=== PATIENT | male | born 1960 | race Caucasian/White ===

== ENCOUNTER 2017-09-10 16:43 | Emergency (ER) | payer MEDICAID, SELFPAY ==
[2017-09-10 16:44] VITALS: BP 123/93; PULSE 98; RESP 16; TEMP 37.1; O2SAT 99; BMI 28.0
[2017-09-10 16:48] VITALS: BP 141/92; PULSE 98; RESP 16; O2SAT 97
[2017-09-10] MEDS: Ketorolac 30 MG/ML Syringe IV (17:10)
--- NOTE | 2017-09-10 18:37 | ED.VISSUMM ---
- ER Visit Summary Date of Service: 09/10/17 Chief Complaint: Pain bilateral posterior thighs History of Present Illness: The patient is a 56 M 5 by ambulance for severe posterior bilateral thigh pain that sometimes goes down to my And sometimes goes up to my low back . He denies fever, chills and night sweats. He denies weight gain or weight loss. He denies history of any type of trauma. He denies dysuria, frequency, urgency hematuria. He denies bowel bladder dysfunction. Denies saddle paresthesia anesthesia. He denies foot drop. He denies weakness in his quadricep muscles going up or down steps. Per old records he has history of CVA, angina pectoris, and end-stage renal disease. Physical Examination: Patient is supine. Passive extension of the right and left leg past 5? causes him severe pain. He has severe pain to light touch of his posterior right and left thigh. No skin lesions are noted. Normal perianal sensation. DTRs patella and ankle are 2+ and symmetric. EHL is intact. Is able to plantar dorsiflex his foot with no weakness appreciated. He complained of pain that posteriorly with logrolling. Not complain of pain in the groin or over the greater trochanteric region either side. He has minimal low back pain to palpation. Abdomen is soft nontender no palpable subtle mass abdominal bruit. DP and PT pulses are palpable. He has hair on all of his toes. His normal color to the feet and capillary refill is normal. Test Results: None were obtained Emergency Department Course and Treatment: IV was established received 30 mm Toradol since he denied renal disease. Prior to completion of home-going instruction was informed he had chest pain. Nurse ordered an EKG. Patient was reassessed. He has reproducible epigastric discomfort. After further questioning he describes the pain as a burning sensation. He states he has history of acid reflux and has been dealing with this issue for years. He was treated with a GI cocktail. He was reassessed at 20 005 and is markedly better. Treatment Plan: Reassessed at 1835 and is markedly better. Disposition: Discharge to home in stable improved condition with family Impression: Bilateral posterior thigh pain of muscular etiology This note was generated with [employer] dictation software. It may contain incorrect words, spelling, and punctuation that were not noted in review of the chart prior to signing ED Disposition - Plan for ED Patient: Disposition: Home or Assisted Living Chief Complaint: Other, Pain/Inj Instructions: ED Muscle Aching, ED GERD Referrals: Care Physician,No Primary [Primary Care Provider] -
[2017-09-10 18:52] VITALS: BP 143/102; PULSE 93; RESP 20; O2SAT 98
--- NOTE | 2017-09-10 19:52 | EKG12_ITS ---
Test Reason : CP Blood Pressure : / mmHG Vent. Rate : 094 BPM Atrial Rate : 094 BPM P-R Int : 146 ms QRS Dur : 082 ms QT Int : 340 ms P-R-T Axes : 034 006 027 degrees QTc Int : 425 ms Normal sinus rhythm Septal infarct , age undetermined Abnormal ECG Confirmed by WARREN LOPEZ, ROCK ([id number]), editor farm journal VIC GARDINER ([id number]) on 09/13/2017 4:05:59 PM Referred By: SHARLENE Confirmed By:ROCK KELLEY MD
[2017-09-10 20:26] VITALS: BP 154/107; PULSE 96; RESP 18; O2SAT 97
== END 2017-09-10 20:26 | disposition home or self-care (01) ==
PROVIDERS: Emergency Provider Emergency Medicine
DX: M79.1 Myalgia (principal); M54.5 Low back pain; R10.13 Epigastric pain; Z86.73 Personal history of transient ischemic attack (TIA), and cerebral infarction without residual deficits; N18.6 End stage renal disease; I20.9 Angina pectoris, unspecified; K21.9 Gastro-esophageal reflux disease without esophagitis; Z79.82 Long term (current) use of aspirin; Z79.899 Other long term (current) drug therapy; Z72.0 Tobacco use
CPT/HCPCS: 93005; 96374; 99285; A4216

== ENCOUNTER 2017-09-12 02:17 | Emergency (ER) | payer MEDICAID, SELFPAY ==
[2017-09-12 02:18] VITALS: BP 148/96; PULSE 70; RESP 20; TEMP 36.5; O2SAT 93; BMI 28.0
--- NOTE | 2017-09-12 03:22 | RAD_ITS ---
STUDY: X-RAY - LUMBAR SPINE REASON FOR EXAM: Male, 56 years old. Back pain TECHNIQUE: 3 view(s) of the lumbar spine were obtained. COMPARISON: None FINDINGS: Normal lumbar lordosis. There is no substantial scoliosis. There is a normal alignment of the vertebrae. Normal vertebral bodies and endplates. There is degenerative loss of disc height at L5-S1. There is no demonstrated fracture. There is degenerative facet arthropathy at L4-L5 and L5-S1. The soft tissue structures are unremarkable. RAD/Lumbar Spine 2 or 3 Views IMPRESSION: Degenerative changes of the spine, as detailed above. There is NO fracture or malalignment. Electronically Signed: Ricardo Boyd MD at 4:58 EDT , Service support ,
--- NOTE | 2017-09-12 03:22 | RAD_ITS ---
STUDY: X-RAY - THORACIC SPINE REASON FOR EXAM: Male, 56 years old. Back pain TECHNIQUE: 4 view(s) of the thoracic spine were obtained. COMPARISON: None. FINDINGS: Normal kyphosis of the thoracic spine. There is no substantial scoliosis. Normal thoracic vertebrae and endplates. There is multilevel disc space narrowing of the thoracic spine. The soft tissue structures are unremarkable. RAD/Thoracic Spine 3 Views IMPRESSION: There is NO fracture or malalignment. There are foci level degenerative disc changes. Electronically Signed: Ricardo Boyd MD at 4:58 EDT , Service support ,
[2017-09-12] MEDS: Ondansetron 4 MG/2 ML Vial IV (03:55)
[2017-09-12 04:12] LABS: Anion Gap 10 (5-15); BUN 13 mg/dL (7-18); Calcium,Total 8.4 mg/dL (8.5-10.1); Chloride 101 mmol/L (98-107); Creatinine, Serum 1.08 mg/dL (0.70-1.30); EST Glomerular Filtration Rate 75 mL/min (>60); Est Glom Filt Rate - Afr Amer 90 mL/min (>60); Estimated Creatinine Clearance 76.98 ml/min; Glucose 98 mg/dL (74-106); Potassium 3.6 mmol/L (3.5-5.1); Sodium Level 137 mmol/L (136-145)
[2017-09-12 04:18] LABS: Absolute Lymphocyte Count 0.54 X10^3/ul (0.83-4.51); Absolute Neutrophil Count 2.9 X10^3/uL (2.0-7.7); Basophil# 0.01 X10^3/uL; Basophil% 0.2 % (0-1); Eosinophil# 0.46 X10^3/uL; Eosinophils% 10.6 % (0-5); Hematocrit 43.8 % (40-54); Hemoglobin 15.1 g/dl (13.0-16.5); Lymphocyte # 0.54 X10^3/ul (4.0); Lymphocyte % 12.4 % (19-41); Mean Corp Hgb Conc 34.5 g/gl (32-36); Mean Corpuscular Hgb 31.8 pg (27.0-32.0); Mean Corpuscular Volume 92.2 fL (80-94); Mean Platelet Vol. 10.8 fl (6.2-12.0); Monocyte# 0.45 X10^3/uL; Monocyte% 10.4 % (0-10); Neutrophil # 2.87 X10^3/uL (2.7-7.7); Neutrophil % 66.2 % (47-70); Platelet Count 136 K/mm3 (150-450); RBC Distribution Width CV 12.8 % (11.6-14.6); RBC Distribution Width SD 42.7 fl (35.1-43.9); Red Blood Count 4.75 M/mm3 (4.6-6.2); White Blood Count 4.3 K/mm3 (4.4-11.0)
[2017-09-12 04:22] LABS: Differential Indicated SCAN CRITERIA MET; POSITIVE COUNT NO; POSITIVE DIFFERENTIAL YES; POSITIVE MORPHOLOGY NO
[2017-09-12 04:26] LABS: Erythrocyte Sedimentation Rate 1 mm/hr (0-20)
--- NOTE | 2017-09-12 05:06 | ED.DCSUM_ITS ---
- ER Visit Summary Date of Service: 09/12/17 Chief Complaint: Back pain History of Present Illness: The patient is a 56 M complains of increasing back pain over the past 2 days. Pain started his anterior thighs rating up his back. He was seen 2 days in the ED. Follow with PCP yesterday, her on Zanaflex , states symptoms only last 15 minutes. He is told to call back if symptoms persists. Denies any trauma. Today took Zanaflex 4 hours prior to arrival. Denies any loss of bowel or bladder control. No saddle anesthesia. [facility] PCP also had x-ray of lumbar spine yesterday unknown results done outpatient. Pain goes up to his thoracic region. No fevers or neck pain. Denies any IV drug history. [facility] had a history of gastric ulcers 40 years ago. Physical Examination: General: Alert and oriented ?3, uncomfortable, agitated HEENT: Normocephalic, atraumatic. Moist mucosa membranes Neck: supple, nontender. No meningismus. Cardiovascular: Regular rate and rhythm, no murmurs Respiratory: Normal breath sounds, symmetric, no distress Back: Complains of tenderness on palpation throughout the whole spine. No step- offs. No erythema. Straight leg test was negative bilaterally. 2+ patellar reflexes bilaterally. Abdomen: Soft, nontender, nondistended Extremities: Nontender, no edema, pulses intact ?4 Neuro: no focal neurological deficits. Test Results: Thoracic and lumbar x-ray: Degenerative changes. White count 4.3. ESR 1. CRP 19. Emergency Department Course and Treatment: Patient uncomfortable and agitated due to his symptoms. I did check x-rays noted degenerative changes. There is no cauda equina symptoms. With patient's date pain going up and down his back, I did obtain labs. White count normal at 4.3. ESR normal. CRP was elevated. There was degenerative changes on his back. She given morphine. Due to gastric ulcer history will avoid NSAIDs. States pain went down to 6 after x- rays. Started on short course of oxycodone. Reevaluation patient standing bedside, more comfortable. Prednisone started for burst dosing.OARRS report no last prescription in April with no signs of overlap. He will call his PCP for follow-up reevaluation. Treatment Plan: [] Disposition: Discharge Impression: Degenerative disc disease This note was generated with [employer] dictation software. It may contain incorrect words, spelling, and punctuation that were not noted in review of the chart prior to signing ED Disposition - Plan for ED Patient: Disposition: Home or Assisted Living Chief Complaint: Back Diagnosis: degenerative back pain Instructions: ED DDD Degenerative Disk Disease Prescriptions: Oxycodone HCl/Acetaminophen [Percocet 5/325] 1 tablet PO Q6H PRN PRN 3 Days #12 tablet PRN Reason: Pain Prednisone [Deltasone] 60 mg PO DAILY #12 tablet Referrals: Castillo Kruger MD [Primary Care Provider] - 1 Day
[2017-09-12] MEDS: oxyCODONE 5 MG Tablet 10 MG PO (05:28)
[2017-09-12 05:32] VITALS: BP 139/57; PULSE 71; RESP 16; O2SAT 95
== END 2017-09-12 05:33 | disposition home or self-care (01) ==
PROVIDERS: Emergency Provider Emergency Medicine; Family Provider Family Medicine; PCP Family Medicine
DX: M51.35 Other intervertebral disc degeneration, thoracolumbar region (principal); Z86.73 Personal history of transient ischemic attack (TIA), and cerebral infarction without residual deficits; Z87.442 Personal history of urinary calculi; Z87.19 Personal history of other diseases of the digestive system; Z79.82 Long term (current) use of aspirin
CPT/HCPCS: 72072; 72100; 80048; 85025; 85652; 86140; 96374; 96375; 99285; A4216; J2405

== ENCOUNTER 2017-11-01 20:02 | Observation (INO) | payer MEDICAID, SELFPAY ==
[2017-11-01 20:30] VITALS: BP 164/96; PULSE 79; RESP 16; TEMP 37.2; O2SAT 96
[2017-11-01 21:03] VITALS: PULSE 83
[2017-11-01 21:04] VITALS: BMI 25.9
[2017-11-01 21:14] VITALS: BMI 26.0
--- NOTE | 2017-11-01 21:16 | HP.PCM_ITS ---
Problem List (1) Left lower extremity weakness Status: Acute (2) Atypical chest pain Status: Acute (3) Stroke Status: Chronic Qualifiers: (4) Ureteral stone with hydronephrosis Status: Chronic Comment: new left ureter calculi with hydronephrosis and blockage, came to er twice with pain also has an infection, will admit for pain control, plan to stent in am and antibiotics. (5) Angina pectoris Status: Chronic (6) History of kidney stones Status: Chronic (7) Tobacco abuse Status: Chronic (8) Stage III chronic kidney disease Status: Chronic History of Present Illness Date of Admission: 11/01/17 Chief Complaint: Chest pain today The patient is a 56 year old M with history of possible stroke with right-sided weakness in 2017 although brain MRI in January 2017 shows no evidence of acute, subacute or chronic/old ischemic infarct is being admitted directly from [place] ER where he was seen for chest pain and left lower extremity weakness. Patient was at the neurologist office where he finished appointment and then he felt dizziness and chest pain, left-sided with shortness of breath , more than usual shortness of breath. He also felt sudden weakness in left lower extremity and could not hold himself and grab nearby chair in order to break the fall. Patient was taken to transfer to ER. Their initial workup was negative. EKG shows normal sinus rhythm with deep S wave in anterior leads suggestive of possible old anterior infarct. Forced troponin enzymes negative. Blood work was also normal. CT head does not show acute change. Of note, patient is still a smoker about 50 pack years of smoking and has mild shortness of breath on exertion. He still has left lower extremity weakness which is new. Past Medical History Past Medical History (Chronic Problems): Chronic Problems Stroke (Chronic) Ureteral stone with hydronephrosis (Chronic) new left ureter calculi with hydronephrosis and blockage, came to er twice with pain also has an infection, will admit for pain control, plan to stent in am and antibiotics. Angina pectoris (Chronic) History of kidney stones (Chronic) Tobacco abuse (Chronic) Stage III chronic kidney disease (Chronic) Allergies Penicillins Allergy (Verified 09/12/17 02:23) SYNCOPE cortisone Allergy (Uncoded 09/12/17 02:23) Shortness of breath Home Medications: Ambulatory Orders Medication Instructions Recorded Aspirin [Aspirin, Baby] 81 mg PO DAILY@0800 09/10/17 Oxycodone HCl/Acetaminophen 1 tablet PO Q6H PRN PRN 3 Days #12 09/12/17 [Percocet 5/325] tablet Prednisone [Deltasone] 60 mg PO DAILY #12 tablet 09/12/17 Tizanidine HCl [Zanaflex] 4 mg PO TID 09/12/17 Surgical History: appendectomy Psychiatric History: No pertinent psych hx Smoking Status: Current every day smoker - *Family History Sibling History Items: Heart Disease Maternal History Items: No pertinent history Paternal History Items: - - father had heart disease in mid 40's. had cabg Review of Systems Constitutional: Denies: Chills, Fever, Weight Change HEENT: Denies: Head Aches, Sinus Congestion, Sinus Drainage Cardiovascular: Reports: Chest Pain. Denies: Palpitations Respiratory: Reports: Shortness of breath upon exertion. Denies: Cough, Shortness of breath at rest, Sputum production Gastrointestinal: Denies: Abdominal Pain, Nausea, Vomiting Genitourinary: Denies: Dysuria Musculoskeletal: Denies: Joint Pain, Joint Tenderness Skin: Denies: Rash, Wounds Neurological: Reports: Focal weakness - Left leg weakness, 4/5 NIH stroke scale 1. Denies: Numbness, Tingling Psychiatric: Denies: Anxiety, Depression, Homicidal Ideations, Suicidal Ideations Hematologic/ Lymphatic: Denies: Easy Bruising, Easy Bleeding VTE Information - Inpt Only VTE Present on Admission: No VTE Mechan Device Prophylaxis: SCD's VTE Pharm Prophylaxis ordered?: No Reason prophylaxis not ordered:: Procedure Not Indicated - Possible ischemic stroke Patient Problems: Active and Suspected Problems Left lower extremity weakness (Acute) Atypical chest pain (Acute) - Physical Exam General: Alert, Oriented x3, Cooperative HEENT: Atraumatic, PERRLA, EOMI, Normocephalic Neck: Supple, No JVD, Negative Carotid Bruits Lungs: Clear to auscultation, No rhonchi, No wheeze, No rales, Diminished Cardiovascular: Regular rate, Regular Rhythm, Normal S1, Normal S2, No murmurs Abdomen: Bowel Sounds Present, Soft, Non Tender, Non-Distended Extremities: No edema, Capillary Refill Less than 3 Seconds Skin: No rashes, No breakdown Musculoskeletal: No Tenderness to Palpation of Joints or Extremities, Arthritic Changes Neurological: Cranial nerves II-XII grossly intact, - - Focal left lower extremity weakness, power 4/5. Psych/Mental Status: Normal Affect, Appropriate Finger Stick Blood Glucose 106 Assessment/Plan Active and Suspected Problems Left lower extremity weakness (Acute) Atypical chest pain (Acute) he patient is a 56 year old M with history of possible stroke with right-sided weakness in 2017 although brain MRI in January 2017 shows no evidence of acute, subacute or chronic/old ischemic infarct is being admitted directly from [place] ER where he was seen for chest pain and left lower extremity weakness. Patient was at the neurologist office where he finished appointment and then he felt dizziness and chest pain, left-sided, localized with shortness of breath, more than usual shortness of breath. He also felt sudden weakness in left lower extremity and could not hold himself and grab nearby chair in order to break the fall. Patient was taken to transfer to ER. Their initial workup was negative. EKG shows normal sinus rhythm with deep S wave in anterior leads suggestive of possible old anterior infarct. Forced troponin enzymes negative. Blood work was also normal. CT head does not show acute change. Of note, patient is still a smoker about 50 pack years of smoking and has mild shortness of breath on exertion. He still has left lower extremity weakness which is new. 1. Atypical chest pain with dizziness and near syncope: The patient is being admitted directly on PCU. Labs from [place] ER reviewed. Follow serial cardiac enzymes. If troponins negative and patient is chest pain-free, Lexiscan stress test for tomorrow a.m. 2. Mild coronary artery disease. Patient had cardiac cath in December 2015 which shows proximal RCA 50-75%, smooth eccentric and mid LAD 50-75% with LV EF 65%. Patient also had stress test in January 2016 which did not show ischemic changes. Echo in January 2017 during a stroke workup showed EF 65% with stage I diastolic dysfunction. No regional wall motion abnormalities. By and large, essentially echo was normal. 3. Left lower extremity weakness, acute concern for acute ischemic stroke with history of left-sided ischemic stroke in 2017: MRI brain is ordered. Neurology consult. Neurochecks. We will follow stroke neuro checkup until we rule out stroke. If MRI positive, will need detail stroke workup including MRA head and neck. 4. Chronic smoker possible COPD: DuoNeb as needed. 5. DVT prophylaxis: Bilateral SCDs. Pharmacological prophylaxis is contraindicated in view of concern for ischemic stroke until we rule out. This note was generated with [employer] dictation software. Every effort was made to ensure accuracy, however computerized it sales representative mistakes may persist. Code Visit Inpatient E&M: 13998 Init Hosp L3
[2017-11-01 23:00] VITALS: PULSE 92
[2017-11-01] MEDS: Atorvastatin Calcium 80 MG Tablet PO (23:04)
[2017-11-01 23:05] LABS: Bedside Glucose 166 mg/dL (70-110)
[2017-11-01 23:10] LABS: Magnesium 1.9 mg/dL (1.6-2.6)
[2017-11-02] VITALS (12 sets, daily range): BP systolic 133–157; BP diastolic 78–96; PULSE 64–100; RESP 16–18; TEMP 36.4–37.2; O2SAT 94–98; BMI 25.9
[2017-11-02 02:24] LABS: Hematocrit 38.6 % (40-54); Hemoglobin 13.3 g/dl (13.0-16.5); Mean Corp Hgb Conc 34.5 g/gl (32-36); Mean Platelet Vol. 9.9 fl (6.2-12.0); Platelet Count 235 K/mm3 (150-450); RBC Distribution Width CV 13.2 % (11.6-14.6); RBC Distribution Width SD 43.8 fl (35.1-43.9); Red Blood Count 4.15 M/mm3 (4.6-6.2); White Blood Count 8.1 K/mm3 (4.4-11.0)
[2017-11-02 02:25] LABS: Scan Indicated on CBC? Y/N NO
[2017-11-02 02:45] LABS: Anion Gap 4 (5-15); BUN 13 mg/dL (7-18); Calcium,Total 8.2 mg/dL (8.5-10.1); Chloride 110 mmol/L (98-107); EST Glomerular Filtration Rate 82 mL/min (>60); Est Glom Filt Rate - Afr Amer 99 mL/min (>60); Estimated Creatinine Clearance 83.14 ml/min; Glucose 98 mg/dL (74-106); Potassium 3.6 mmol/L (3.5-5.1); Sodium Level 141 mmol/L (136-145)
[2017-11-02 03:00] LABS: Cholesterol 149 mg/dL (200); High Density Lipoprotein 35 mg/dL; Thyroid Stim Hormone (TSH) 0.62 uIU/mL (0.358-3.74); Triglycerides 248 mg/dL; Very Low Density Lipoprotein 50 mg/dL (5-40)
--- NOTE | 2017-11-02 04:00 | EKG12_ITS ---
Test Reason : AM EKG Blood Pressure : / mmHG Vent. Rate : 075 BPM Atrial Rate : 075 BPM P-R Int : 146 ms QRS Dur : 082 ms QT Int : 380 ms P-R-T Axes : 033 002 034 degrees QTc Int : 424 ms Normal sinus rhythm Normal ECG When compared with ECG of 10-SEP-2017 18:47, Criteria for Septal infarct are no longer Present Confirmed by WARREN LOPEZ, ROCK ([id number]), mapping editor VIC GARDINER ([id number]) on 11/06/2017 2:35:00 PM Referred By: DR GARCIA Confirmed By:ROCK KELLEY MD
[2017-11-02] MEDS: Aspirin E.C. 81 MG Tablet PO (06:33)
[2017-11-02 06:45] LABS: International Normalized Ratio 1.1; Prothrombin Time (Protime)PT. 13.9 SECONDS (11.7-14.9)
[2017-11-02 06:46] LABS: Partial Thromboplast Time 28.5 Seconds (24.1-36.2)
[2017-11-02 06:51] LABS: Bedside Glucose 91 mg/dL (70-110)
--- NOTE | 2017-11-02 08:59 | ECHOD_ITS ---
Reason For Study: TIA/CVA Procedure This was a 2D Doppler, Color Flow transthoracic echocardiogram. Exam performed portable in patient room. Left Ventricle Mild concentric left ventricular hypertrophy. The estimated ejection fraction is 55 %. Stage 1 diastolic dysfunction. There is mild global hypokinesis of the left ventricle. Right Ventricle Mildly dilated right ventricle. Normal systolic function. Atria Normal left atrium. Normal right atrium. Normal atrial septum. Mitral Valve The mitral valve is structurally normal. No prolapse or stenosis seen. Tricuspid Valve Normal tricuspid valve. Trivial tricuspid valve insufficiency. Unable to estimate RV systolic pressure/pulmonary artery pressure due to technically difficult study. Aortic Valve Normal aortic valve. Trisinus/trileaflet aortic valve. Pulmonic Valve The pulmonic valve is not well visualized. Great Vessels Normal aortic root. Normal arch. Normal inferior vena cava. Inferior vena cava collapse with sniff. Pericardium/Pleural No pericardial effusion. Medication PREVIOUSLY NEGATIVE BUBBLE STUDY. MMode/2D Measurements & Calculations LVIDd: 4.3 cm IVSd: 1.1 cm Ao root diam: 3.4 cm LVIDs: 3.1 cm LVPWd: 1.3 cm RVDd: 4.1 cm FS: 27.5 % LAV(MOD-bp): 50.1 ml LA A4 area: 17.7 cm2 RA A4 area: 14.0 cm2 LAV(MOD-bp) Indexed: 25.1 ml/m2 LAV(MOD-sp2): 55.2 ml LAV(MOD-sp4): 45.5 ml Doppler Measurements & Calculations MV E max galdino: 55.7 cm/sec Lat Peak E' Galdino: 7.6 cm/sec Med Peak E' Galdino: 3.9 cm/sec MV A max galdino: 77.7 cm/sec E/E' lat: 7.3 E/E' med: 14.2 MV E/A: 0.72 Ao V2 max: 125.2 cm/sec LV V1 max: 98.2 cm/sec Ao max P.3 mmHg LV V1 max P.9 mmHg Interpretation Summary Mild concentric left ventricular hypertrophy. The estimated ejection fraction is 55 %. Stage 1 diastolic dysfunction. There is mild global hypokinesis of the left ventricle. Mildly dilated right ventricle. Trivial tricuspid valve insufficiency. Unable to estimate RV systolic pressure/pulmonary artery pressure due to technically difficult study. Compared to echo report dated 02/15/2017, no appreciable changes noted. Ordering Physician: Sukhi Aguilar Referring Physician: SJ SAHA Performed By: Kala Amaya, PHONG, RVT
[2017-11-02 09:51] LABS: Bedside Glucose 90 mg/dL (70-110)
--- NOTE | 2017-11-02 10:56 | PCM.CONS.GEN ---
Reason for Consult Date of Consultation: 11/02/17 Reason for Consultation: left side weakness History of Present Illness: The patient is a 56 year old M who reports after he saw his neurologist in [place] he stood up and became lightheaded then noted room spinning, sat down but felt no better. he felt disconnected. he was sent to a local er there, and was admitted here. reports a few weeks ago he had an episode of feeling hot and clammy, worse when he stood up, immediately went to floor, and noted left sided weakness which resolved, then recurred again yesterday associated with his other symptoms, improved but still not baseline. no trigger. reports symptoms similar to right sided symptoms one year ago, apparently he was told he had either a stroke or a seizure. no neck pain. was in [place] two weeks ago with his last spell, was told he had vertigo and nystagmus per admit h&p:The patient is a 56 year old M with history of possible stroke with right-sided weakness in 2017 although brain MRI in January 2017 shows no evidence of acute, subacute or chronic/old ischemic infarct is being admitted directly from [place] [facility] where he was seen for chest pain and left lower extremity weakness. Patient was at the neurologist office where he finished appointment and then he felt dizziness and chest pain, left-sided with shortness of breath, more than usual shortness of breath. He also felt sudden weakness in left lower extremity and could not hold himself and grab nearby chair in order to break the fall. Patient was taken to transfer to ER. Their initial workup was negative. EKG shows normal sinus rhythm with deep S wave in anterior leads suggestive of possible old anterior infarct. Forced troponin enzymes negative. Blood work was also normal. CT head does not show acute change. Of note, patient is still a smoker about 50 pack years of smoking and has mild shortness of breath on exertion. He still has left lower extremity weakness which is new. Past Medical History Past Medical History (Chronic Problems): Chronic Problems Stroke (Chronic) Ureteral stone with hydronephrosis (Chronic) new left ureter calculi with hydronephrosis and blockage, came to er twice with pain also has an infection, will admit for pain control, plan to stent in am and antibiotics. Angina pectoris (Chronic) History of kidney stones (Chronic) Tobacco abuse (Chronic) Stage III chronic kidney disease (Chronic) Allergies Penicillins Allergy (Verified 09/12/17 02:23) SYNCOPE cortisone Allergy (Uncoded 09/12/17 02:23) Shortness of breath Home Medications: Ambulatory Orders Medication Instructions Recorded Aspirin [Aspirin, Baby] 81 mg PO DAILY@0800 09/10/17 Oxycodone HCl/Acetaminophen 1 tablet PO Q6H PRN PRN 3 Days #12 09/12/17 [Percocet 5/325] tablet Prednisone [Deltasone] 60 mg PO DAILY #12 tablet 09/12/17 Tizanidine HCl [Zanaflex] 4 mg PO TID 09/12/17 Surgical History: appendectomy Psychiatric History: No pertinent psych hx Smoking Status: Current every day smoker Tobacco Use: Cigarettes - *Family History Sibling History Items: Heart Disease Maternal History Items: No pertinent history Paternal History Items: - - father had heart disease in mid 40's. had cabg Review of Systems Constitutional: Denies: Chills, Fever, Weight Change HEENT: Denies: Head Aches, Sinus Congestion, Sinus Drainage Cardiovascular: Denies: Chest Pain, Palpitations Respiratory: Denies: Cough, Shortness of breath at rest, Sputum production Gastrointestinal: Denies: Abdominal Pain, Nausea, Vomiting Genitourinary: Denies: Dysuria Musculoskeletal: Denies: Joint Pain, Joint Tenderness Skin: Denies: Rash, Wounds Neurological: Denies: Numbness, Tingling, Focal weakness Psychiatric: Denies: Anxiety, Depression, Homicidal Ideations, Suicidal Ideations Hematologic/ Lymphatic: Denies: Easy Bruising, Easy Bleeding Patient Problems: Active and Suspected Problems Left lower extremity weakness (Acute) Atypical chest pain (Acute) - Physical Exam General: Alert, Oriented x3, Cooperative Neurological: Cranial nerves II-XII grossly intact, Deep Tendon Reflexes 2+/4 and Symmetrical, Neuro grossly intact, Motor Exam 5/5 strength throughout, Muscle tone normal, Sensory exam intact to light touch and pain, Coordination normal Psych/Mental Status: Normal Affect Vital Signs Temp Pulse Resp BP Pulse Ox 36.7 C 71 17 145/84 H 95 11/02/17 08:01 11/02/17 08:01 11/02/17 08:01 11/02/17 08:01 11/02/17 08:01 Oxygen Delivery Method Room Air Weight: 82.1 kg Body Mass Index (BMI) 25.9 Finger Stick Blood Glucose 106 Intake and Output for Last 24 Hours 10/31/17 11/01/17 11/02/17 23:59 23:59 23:59 Intake Total 500 / 500 Balance 500 / 500 Laboratory Tests Past 24 Hrs 11/01/17 11/01/17 11/02/17 22:29 22:29 02:10 WBC RBC Hgb Hct MCV MCH MCHC RDW RDW Differential Plt Count MPV PT INR APTT Sodium Potassium Chloride Carbon Dioxide Anion Gap BUN Creatinine Estim Creat Clear Calc Est GFR (MDRD) Af Amer Est GFR (MDRD) Non-Af BUN/Creatinine Ratio Glucose Calcium Magnesium 1.9 Troponin I < 0.02 Triglycerides 248 H Cholesterol 149 LDL Cholesterol 64 VLDL Cholesterol 50 H HDL Cholesterol 35 L TSH 0.62 11/02/17 11/02/17 11/02/17 02:10 02:10 02:10 WBC 8.1 RBC 4.15 L Hgb 13.3 Hct 38.6 L MCV 93.0 MCH 32.0 MCHC 34.5 RDW 13.2 RDW Differential 43.8 Plt Count 235 MPV 9.9 PT INR APTT Sodium 141 Potassium 3.6 Chloride 110 H Carbon Dioxide 27.0 Anion Gap 4 L BUN 13 Creatinine 1.00 Estim Creat Clear Calc 83.14 Est GFR (MDRD) Af Amer 99 Est GFR (MDRD) Non-Af 82 BUN/Creatinine Ratio 13.0 Glucose 98 Calcium 8.2 L Magnesium Troponin I < 0.02 Triglycerides Cholesterol LDL Cholesterol VLDL Cholesterol HDL Cholesterol TSH 11/02/17 11/02/17 06:10 06:10 WBC RBC Hgb Hct MCV MCH MCHC RDW RDW Differential Plt Count MPV PT 13.9 INR 1.1 APTT 28.5 Sodium Potassium Chloride Carbon Dioxide Anion Gap BUN Creatinine Estim Creat Clear Calc Est GFR (MDRD) Af Amer Est GFR (MDRD) Non-Af BUN/Creatinine Ratio Glucose Calcium Magnesium Troponin I < 0.02 Triglycerides Cholesterol LDL Cholesterol VLDL Cholesterol HDL Cholesterol TSH POC Glucose 11/02/17 11/02/17 11/01/17 09:46 06:35 22:57 POC Glucose 90 91 166 H Current Home Med List Medication Instructions Recorded Confirmed Type Aspirin [Aspirin, Baby] 81 mg PO DAILY@0800 09/10/17 11/01/17 History Oxycodone HCl/Acetaminophen 1 tablet PO Q6H PRN PRN 3 Days #12 09/12/17 11/01/17 Rx [Percocet 5/325] tablet Prednisone [Deltasone] 60 mg PO DAILY #12 tablet 09/12/17 11/01/17 Rx Tizanidine HCl [Zanaflex] 4 mg PO TID 09/12/17 11/01/17 History Current Medications Aspirin 81 mg 11/02/17 08:00 11/02/17 06:33 Ecotrin PO 81 mg DAILY@0800 FLORESITA Administration Atorvastatin Calcium 80 mg 11/01/17 22:00 11/01/17 23:04 Lipitor PO 80 mg QHS FLORESITA Administration Labetalol HCl 10 mg 11/01/17 21:55 Trandate IV 11/02/17 21:56 Q10M PRN MAINTAIN SBP GOALS Nitroglycerin 0.4 mg 11/01/17 21:55 Nitrostat SUBLINGUAL Q5M PRN CHEST PAIN Oxycodone HCl 5 mg 11/01/17 21:55 Oxyir PO Q6H PRN PRN PAIN mri reviewed, no acute, no evidence of significant prior infarct, minor subcortical ubo's. mri 02/16 also reviewed, again no acute or evidence of significant stroke at that time. Assessment/Plan Active and Suspected Problems Left lower extremity weakness (Acute) Atypical chest pain (Acute) presyncope: likely cough syncope recommend evaluation for cough no evidence of neurologic impairment bp control asa daily ok to dc from neuro stop smoking
[2017-11-02 11:41] LABS: Bedside Glucose 128 mg/dL (70-110)
[2017-11-02 11:43] LABS: Hemoglobin A1c 5.6 % (4.2-6.3)
--- NOTE | 2017-11-02 12:58 | STRESSREP_ITS ---
Stress Test Report Date: 09/19/2017 Procedure: Pharmacologic stress nuclear imaging study Indications: Chest pain Consent: Per the patient Procedure: The patient underwent pharmacologic (Regadenoson) evaluation with a peak heart rate of 104 beats per minute (64 predicted maximal heart rate) and a peak blood pressure of 150/92 mmHg. The baseline ECG demonstrated normal sinus rhythm. The peak pharmacologic ECG demonstrated no obvious ECG changes. Was a rare PVC pretest. There was no complaint of chest discomfort during pharmacologic infusion or recovery. The examination was discontinued secondary to completion of protocol. Impression: 1. Pharmacologic (Regadenoson) evaluation 2. Peak pharmacologic ECG with no obvious ECG changes. 3. Rare PVC pretest 4. Nuclear images pending Myocardial perfusion imaging study: Technique: The patient was injected with 11.8 millicuries of technetium 99m Cardiolite and subsequently rest SPECT Cardiolite nuclear imaging was obtained in the horizontal long, vertical long, and short axis views. The patient underwent pharmacologic (Regadenoson) evaluation with a peak heart rate of 104 beats per minute (64% percent predicted maximal heart rate) and a peak blood pressure of 150/92 mmHg. The patient was injected with 84.2 millicuries of technetium 99m Cardiolite and subsequently stress SPECT Cardiolite nuclear imaging was obtained in the horizontal long, vertical long, and short axis views. A gated Cardiolite study at peak stress was obtained. Interpretation: Rest and stress SPECT Cardiolite nuclear imaging status post realignment, normalization, and attenuation correction demonstrate active uniform tracer uptake and myocardial perfusion appearing within normal limits. There is end systolic thickening and brightening. The gated Cardiolite study demonstrates myocardial thickening and inward wall motion. The reported LVEF is 53 %. Impression: 1. Rest and stress SPECT Cardiolite nuclear imaging demonstrate relative uniform tracer uptake and myocardial perfusion appearing within normal limits. 2. The gated Cardiolite study reports an LVEF of 53 %. Comment: Status post receiving the initial dose of technetium 99m Cardiolite in preparation for the initial resting images, the patient, while sitting in his wheelchair, noted a sensation of feeling dizzy, lightheaded, and disconnected from my body , arm heaviness, and appeared to be somewhat pale and diaphoretic. Upon being taken to the exercise tolerance laboratory he was reported as being weak in the legs when standing to lie on the patient bed. He had no report of loss of consciousness. His vital signs were monitored with no acute change with respect to heart rate or blood pressure. Is currently had spontaneous improvement in his symptoms and proceeded with the aforementioned evaluation. This note was generated with [employer] dictation software. It may contain incorrect words, spelling, and punctuation that were not noted in checking the note before signing.
--- NOTE | 2017-11-02 14:05 | CASEMGMT ---
Per therapy, they are recommending vestibular outpt therapy for pt. Pt updated and agrees at this time. Referral faxed to [facility] at this time. Pt updated on all and voices understanding at this time. Call to [facility] to verify fax received at this time. Per Ellen, they have not received the fax yet but she will keep looking. Pt aware to call [facility] if he hasn't heard from them in 24-48 hours, voices understanding. SStsuki RN CM
--- NOTE | 2017-11-02 15:55 | PCM.DC ---
- Discharge Diagnoses Current Active Problems: Current Active and Chronic Problems Left lower extremity weakness (Acute) Atypical chest pain (Acute) You will use the following diet at home:: Calorie/Carbohydrate Controlled (specify 1200, 1400, etc), Cardiac Your food should be the consistency of: Regular Your liquids should be the consistency of: Regular/Thin Discharge Activity: Return to Normal Activity, - - no driving when experiencing vertigo or using meclizine Additional Instructions: Outpatient therapy for vestibular therapy as ordered. Allergies/Adverse Reactions: Allergies Penicillins Allergy (Verified 09/12/17 02:23) SYNCOPE cortisone Allergy (Uncoded 09/12/17 02:23) Shortness of breath Medications to take at Discharge Aspirin [Aspirin, Baby] 81 mg PO DAILY@0800 09/10/17 Oxycodone HCl/Acetaminophen [Percocet 5-325] 1 tablet PO Q6H PRN PRN 3 Days #12 tablet 09/12/17 Tizanidine HCl [Zanaflex] 4 mg PO TID 09/12/17 Meclizine HCl [Antivert] 12.5 mg PO TID PRN PRN #21 tab 11/02/17 The following prescriptions were given: Meclizine HCl [Antivert] 12.5 mg PO TID PRN PRN #21 tab PRN Reason: Vertigo Primary Care Physician: Castillo Kruger MD [Primary Care Provider] - Please follow up with your Primary Care Physician in: 1-2 weeks Please Follow Up With: neurology - your own When: call for follow up. Proposed Discharge Date: 11/02/17
--- NOTE | 2017-11-02 15:59 | DCINST_ITS ---
- Discharge Diagnoses Current Active Problems: Current Active and Chronic Problems Left lower extremity weakness (Acute) Atypical chest pain (Acute) You will use the following diet at home:: Calorie/Carbohydrate Controlled ( specify 1200, 1400, etc), Cardiac Your food should be the consistency of: Regular Your liquids should be the consistency of: Regular/Thin Discharge Activity: Return to Normal Activity, - - no driving when experiencing vertigo or using meclizine Additional Instructions: Outpatient therapy for vestibular therapy as ordered. Allergies/Adverse Reactions: Allergies Penicillins Allergy (Verified 09/12/17 02:23) SYNCOPE cortisone Allergy (Uncoded 09/12/17 02:23) Shortness of breath Medications to take at Discharge Aspirin [Aspirin, Baby] 81 mg PO DAILY@0800 09/10/17 Oxycodone HCl/Acetaminophen [Percocet 5-325] 1 tablet PO Q6H PRN PRN 3 Days #12 tablet 09/12/17 Tizanidine HCl [Zanaflex] 4 mg PO TID 09/12/17 Meclizine HCl [Antivert] 12.5 mg PO TID PRN PRN #21 tab 11/02/17 The following prescriptions were given: Meclizine HCl [Antivert] 12.5 mg PO TID PRN PRN #21 tab PRN Reason: Vertigo Primary Care Physician: Castillo Kruger MD [Primary Care Provider] - Please follow up with your Primary Care Physician in: 1-2 weeks Please Follow Up With: neurology - your own When: call for follow up. Proposed Discharge Date: 11/02/17
--- NOTE | 2017-11-02 16:22 | DS.PCM_ITS ---
<Jesse Bautista - Last Filed: 11/02/17 16:14> Discharge Date and Diagnosis - Problem List Patient Problems: Active and Suspected Problems Left lower extremity weakness (Acute) Atypical chest pain (Acute) Date of Admission: 11/01/17 Date of Discharge: 11/02/17 - Primary Discharge Diagnosis Active and Suspected Problems Positional vertigo - BPPV Chest pain - musculoskeletal Questionable hx of stroke vs seizure Tobacco abuse Stage III CKD - Secondary Discharge Diagnosis Chronic Problems Stroke (Chronic) Ureteral stone with hydronephrosis (Chronic) new left ureter calculi with hydronephrosis and blockage, came to er twice with pain also has an infection, will admit for pain control, plan to stent in am and antibiotics. Angina pectoris (Chronic) History of kidney stones (Chronic) Tobacco abuse (Chronic) Stage III chronic kidney disease (Chronic) Hospital Course and Treatment Imaging Results: MRI/Brain without Contrast IMPRESSION: There is mucoperiosteal inflammatory disease of the paranasal sinuses consistent with mild chronic sinusitis. Stress test: Interpretation: Rest and stress SPECT Cardiolite nuclear imaging status post realignment, normalization, and attenuation correction demonstrate active uniform tracer uptake and myocardial perfusion appearing within normal limits. There is end systolic thickening and brightening. The gated Cardiolite study demonstrates myocardial thickening and inward wall motion. The reported LVEF is 53 %. Lopez - neuro Operations: None Procedures: 2-D Echocardiogram, Stress test Summary of Care Provided: Physical exam on day of discharge: General: Resting comfortably NAD Psych: A/Ox3 normal affect HEENT: PEARRLA AT NC Neck: Supple NT CV: RRR no m/t/r/g/h Resp: CTA Abd: [id number] Soft NT no guarding or rigidity Ext: DP2+= no edema Skin: W/D normal turgor Lymph/Heme: No active bleeding or adenopathy Neuro: CN2-12 intact, no nystagmus appreciated at this time. Hospital course: The patient is a 56 year old M who has a hx of possible stroke vs seizure whom he follows neuro at [facility] for, smoking hx, stage III CKD, who presented to the ER with chief complaint of chest and dizziness with associated SOB and LLE weakness. He was recently admitted to [place] and told he had vertigo about 2 weeks ago. He then was at his neurologists office and stood up, feeling dizzy and with a midsternal chest pressure, and fell forward. He has been having intermittent dizziness. He continued to have symptoms after admission. He was worked up for cardiac chest pain, including CXR, stress test, echo, tele, enzymes, which were all negative. He also had a negative MRI of the brain and a neuro consult who felt this may be cough syncope. He continued to have vertigo and OT felt he would benefit from vestibular therapy. I wrote for him to pursue this as an outpatient, and also prescribed him a trial of meclizine for vertigo. He was discharged home in stable condition. Please follow-up with your primary care physician as well as with your own personal neurologist at [facility]. This patient was seen by Jesse Bautista PA-C under the supervision of Doctor Silva. [] Discharge Diet: Low fat/ Low Cholesterol, 2000 mg Sodium Diet Discharge Activity: Return to Normal Activity, - - no driving when experiencing vertigo or using meclizine Home Medications: Medications to take at Discharge Aspirin [Aspirin, Baby] 81 mg PO DAILY@0800 09/10/17 Oxycodone HCl/Acetaminophen [Percocet 5-325] 1 tablet PO Q6H PRN PRN 3 Days #12 tablet 09/12/17 Tizanidine HCl [Zanaflex] 4 mg PO TID 09/12/17 Meclizine HCl [Antivert] 12.5 mg PO TID PRN PRN #21 tab 11/02/17 Following Prescrptions Were Given to Patient: Meclizine HCl [Antivert] 12.5 mg PO TID PRN PRN #21 tab PRN Reason: Vertigo Primary Care Physician: Castillo Kruger MD [Primary Care Provider] - Please follow up with your Primary Care Physician in: 1-2 weeks Please Follow Up With: neurology - your own neurologist When: call for follow up. Additional Instructions: Please follow-up with outpatient vestibular therapy. Disposition: Home Minutes spent on discharge:: 40 Patient Condition:: Stable Medical Necessity - Tobacco Use Smoking Status: Current every day smoker Tobacco Use: Cigarettes Meaningful Use Info Meaningful Use Diagnoses (Choose all that apply): None applicable <Ailyn Silva - Last Filed: 11/02/17 17:01> Discharge Date and Diagnosis - Primary Discharge Diagnosis Active and Suspected Problems Left lower extremity weakness (Acute) Atypical chest pain (Acute) - Secondary Discharge Diagnosis Chronic Problems Stroke (Chronic) Ureteral stone with hydronephrosis (Chronic) new left ureter calculi with hydronephrosis and blockage, came to er twice with pain also has an infection, will admit for pain control, plan to stent in am and antibiotics. Angina pectoris (Chronic) History of kidney stones (Chronic) Tobacco abuse (Chronic) Stage III chronic kidney disease (Chronic) Hospital Course and Treatment Imaging Results: 11/02/17 08:59 Echo Complete [ECHO] Routine 11/02/17 21:55 Brain without Contrast [MRI] Urgent Summary of Care Provided: The patient is a 56 year old M [] Code Visit Inpatient E&M: 50276 Disch Hosp
[2017-11-02 17:51] LABS: Bedside Glucose 101 mg/dL (70-110)
--- NOTE | 2017-11-02 21:55 | MRI_ITS ---
STUDY: MRI BRAIN WITHOUT CONTRAST REASON FOR EXAM: Male, 56 years old. Weakness, episode of weakness, diaphoresis, sweating TECHNIQUE: Standardized multiplanar fat and water weighted pulse sequences were obtained. COMPARISON: None. FINDINGS: Normal size of the ventricles and extra-axial spaces for the patient's age. Normal white matter tracts of the supratentorial brain. Normal bilateral basal ganglia. Normal thalami. There is no extra-axial fluid accumulation. Normal flow voids within the major intracranial circulation suggesting patency by spin echo criteria. Normal sella turcica, pituitary gland, infundibular stalk, optic chiasm and hypothalamus. Normal tectal plate and pineal gland. Normal midbrain, damien and medulla. Normal cerebellum. Normal basal cisterns. Normal bilateral temporal bones. Normal bilateral internal auditory canals. No demonstrated orbital abnormality, within the constraints of a routine brain study. There is mucoperiosteal inflammatory disease of the paranasal sinuses consistent with mild chronic sinusitis. Normal calvarium and skull base. Normal visualized soft tissue structures. Normal visualized upper cervical spine. MRI/Brain without Contrast IMPRESSION: There is mucoperiosteal inflammatory disease of the paranasal sinuses consistent with mild chronic sinusitis. Electronically Signed: León Agudelo MD at 10:22 EDT Tel , Service support ,
== END 2017-11-02 15:57 | disposition home or self-care (01) ==
PROVIDERS: Physician Assistant; Admitting Provider Internal Medicine; Family Provider Family Medicine; PCP Family Medicine; Visit Provider Internal Medicine
DX: R53.1 Weakness (principal); R07.89 Other chest pain; N18.3 Chronic kidney disease, stage 3 (moderate); Z87.442 Personal history of urinary calculi; R06.02 Shortness of breath; Z79.82 Long term (current) use of aspirin; Z79.899 Other long term (current) drug therapy; Z79.52 Long term (current) use of systemic steroids; I25.10 Atherosclerotic heart disease of native coronary artery without angina pectoris; R55 Syncope and collapse; H81.10 Benign paroxysmal vertigo, unspecified ear; F17.210 Nicotine dependence, cigarettes, uncomplicated
CPT/HCPCS: 36415; 70551; 78452; 80048; 80061; 82962; 83036; 83735; 84443; 84484; 85027; 85610; 85730; 92523; 93005; 93017; 93306; 97162; 97166; 99218; 99406; A9500; A4216; G0378; J2785

== ENCOUNTER 2017-11-13 11:46 | Outpatient (RCR) | payer MEDICAID, SELFPAY ==
--- NOTE | 2017-11-13 13:47 | HP.PTEVAL_ITS ---
Patient's Visit Information LANCE ALVAREZ is a 56 year old M referred to Physical Therapy by RITESH Briseno with a diagnosis of vertigo. Date of Evaluation: 11/13/17 Physical Therapist: Willis Mckinnon DPT, [place] - Visit Plan Frequency: 1x/Week Duration: 4-6 Weeks Plan: weekly x 4-6 for monitor results of tilt table test tomorrow and progress adaptation as helpful. Monitor improvement. - Subjective Subjective: Has vertigo for a couple months insidious onset. Gets spinning and unsteady and lightheaded. Happens if he gets up too quick or turns/moves too quick. Happened twice yesterday and once today. Sits and it is gone withtin 10 minutes. This is worse at first. Not when lie down in bed, lies on right side. No fslls lately. Went to ER weeks ago and one other time. First time was at [facility] and got hot and sweaty and got up and lost balance and fell over. Squad called and had tests and did not find any reason vertigo. Scanned head and was OK as far as pateint knows. Had neurologist appointment and sent to ER up there after getting up to sign papers and had to sit back down. Feels normal in between dizzy episodes. Work is interrupted to 2-3 hours per day out of 8 as he is in [employer]. Not driving as it is suspended. Sees neuro for R sided weakness after moving some furniture with friends and feeling tired. Fell over when he stood but that was 8-10 months ago. Sleep is good when he gets to sleep. Enjoys walking for fitness but is not doing it nearly as much. Gets winded quick and OA in knee. - Objective - B hallpike norma, - roll test, no nystagmus or dizzyness. Balance is not bad on firm flat surface statically and dynamically. Oculomotor: pursuit is OK. no nystagmus with gaze or head shake. Saccades are tough adn make him dizzy within 10 seconds. VOR: within 8 sec 3/10 for shourt duration. - head thrust. - skew eye deviation. Convergence is OK. - Balance Scores Functional Gait Assessment Score: 27 % Disability: 10.0000 CATSIB Score (Max score 120 seconds): 110 - Goals Goal 1:: Abolish unsteady and dizzy feeling with movement Goal Time Frame: 4-6 Weeks Goal 2:: VOR without symptoms x 60 sec Goal Time Frame: 4-6 Weeks Goal 3:: Pt feel 90% back to normal with activity and able to work all day. Goal Time Frame: 4-6 Weeks - Rehabilitation Potential Physical Therapy Diagnosis: vertigo possibly vestibular vs, orthostatic Rehabilitation Potential: Questionable - Anticipated Interventions Patient/Client Instruction: Educate patient on: Condition, Plan of Care Comments: to deiminish dizzyness. For the Purpose of:: To improve safety with gait Comment: adaptationa nd ablance as needed. For the Purpose of:: To improve safety with gait, To improve safety Other: to minimize dizzyness. Thank you for the opportunity to evaluate your patient. For Medicare and Medicare HMO plans, please review the plan of care and approve it. It will need to be FAXED BACK to us at [phone] for Medicare purposes. Please let me know if there are questions or concerns regarding this plan of care. Physician Signature: Date:
--- NOTE | 2017-11-20 14:44 | HP.PTDCSUM_ITS ---
HP - PT D/C Summary It has been my pleasure to treat LANCE ALVAREZ under orders from RITESH Briseno, for the diagnosis of vertigo for a total of 1 visit(s). Discharge Date: 11/20/17 Please see the following information for a summary of their discharge status. - Goals Goal 1:: Abolish unsteady and dizzy feeling with movement Goal 2:: VOR without symptoms x 60 sec Goal 3:: Pt feel 90% back to normal with activity and able to work all day. 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 D/C therapy until these other appointments are taken care of. - D/C Information Discharge Comments: Pt to see other doctors due to his tilt table test results and will consider therapy if necessary after those appointments. If there are questions or concerns regarding this patient's physical therapy, please feel free to call me at [phone]. Thank you for the referral of this patient. Sincerely, Willis Mckinnon, DPT, OC
== END 2017-11-13 19:00 | disposition home or self-care (01) ==
LOC: PT 11:46
PROVIDERS: Family Provider Family Medicine; PCP Family Medicine; Visit Provider Physician Assistant
DX: R42 Dizziness and giddiness (principal)
CPT/HCPCS: 97163

== ENCOUNTER → 2017-11-14 08:58 | Outpatient (CLI) | payer MEDICAID, SELFPAY ==
--- NOTE | 2017-11-14 14:58 | PCM.TILTTABL ---
- Staff Staff: Marcie Mcdowell, - - Joselyn Lee - Summary Pre Test Resting HR: 86 - Alert and oriented: Clammy Pre Test Resting BP: 135/82 - Alert and oriented: Clammy Minimum Test HR: 52 - Alert and oriented: Clammy Maximum Test HR: 118 - Alert and oriented: Clammy Minimum Test BP: 82/40 - Alert and oriented: Clammy Maximum Test BP: 172/95 - Alert and oriented: Clammy Reason for Test Termination: Syncope Physician Tilt Table Report - Patient's Physicians Primary Care Physician: Castillo Kruger [place] Singer: Sulaiman So Indications/Diagnosis: Dizziness/lightheadedness Procedure Comments: The patient was brought to the tilt table laboratory and laid supine on the tilt table. The was alert and oriented and warm and clammy. The baseline heart rate was 86 bpm with a baseline blood pressure 135/82 mmHg. The cardiac rhythm was normal sinus rhythm. The patient was placed in the 70? upright tilt table position for approximately 30 minutes. The patient was noted to subsequently lose consciousness. During this time the patient was noted to have a low heart rate of 36 bpm and a low blood pressure of 84/49 mmHg with a maximal heart rate of 118 bpm and a maximal blood pressure of 126/68 mmHg. The cardiac rhythm remained sinus rhythm with a rare PAC/PVC. The patient complained of a variety of symptoms noting head feels funny , right side tingly , left side numb and tingly, lightheaded, headache, chest pronounced and short of breath , blurry , do not feel, and subsequently loss of consciousness. The patient was returned to the supine position. The patient was noted to regain consciousness and remained alert and oriented and appeared clammy. The minimal heart rate was 52 bpm with a minimal blood pressure of 82/40 mmHg. The maximal heart rate was 100 bpm with a maximal blood pressure 172/95 mmHg. The cardiac rhythm remains sinus rhythm. The patient was subsequently noted to be returning to baseline and taking oral intake well. The patient was subsequently released from the tilt table laboratory. Summary: The degree upright tilt table study considered positive for reproducible vasovagal/neurocardiogenic mediated symptoms and syncope. This note was generated with [employer]vol[employer] software. It may contain incorrect words, spelling, and punctuation that were not noted in checking the note before signing.
[2017-11-14 15:08] VITALS: BP 135/82; BP 172/95; BP 82/40
--- NOTE | 2017-11-14 15:09 | TILTTABLE_ITS ---
- Staff Staff: Marcie Mcdowell, - - Joselyn Lee - Summary Pre Test Resting HR: 86 - Alert and oriented: Clammy Pre Test Resting BP: 135/82 - Alert and oriented: Clammy Minimum Test HR: 52 - Alert and oriented: Clammy Maximum Test HR: 118 - Alert and oriented: Clammy Minimum Test BP: 82/40 - Alert and oriented: Clammy Maximum Test BP: 172/95 - Alert and oriented: Clammy Reason for Test Termination: Syncope Physician Tilt Table Report - Patient's Physicians Primary Care Physician: Catsillo Kruger Stockkeeper: Sulaiman So Indications/Diagnosis: Dizziness/lightheadedness Procedure Comments: The patient was brought to the tilt table laboratory and laid supine on the tilt table. The was alert and oriented and warm and clammy. The baseline heart rate was 86 bpm with a baseline blood pressure 135/82 mmHg. The cardiac rhythm was normal sinus rhythm. The patient was placed in the 70? upright tilt table position for approximately 30 minutes. The patient was noted to subsequently lose consciousness. During this time the patient was noted to have a low heart rate of 36 bpm and a low blood pressure of 84/49 mmHg with a maximal heart rate of 118 bpm and a maximal blood pressure of 126/68 mmHg. The cardiac rhythm remained sinus rhythm with a rare PAC/PVC. The patient complained of a variety of symptoms noting head feels funny , right side tingly , left side numb and tingly, lightheaded , headache, chest pronounced and short of breath , blurry , do not feel , and subsequently loss of consciousness. The patient was returned to the supine position. The patient was noted to regain consciousness and remained alert and oriented and appeared clammy. The minimal heart rate was 52 bpm with a minimal blood pressure of 82/40 mmHg. The maximal heart rate was 100 bpm with a maximal blood pressure 172/95 mmHg. The cardiac rhythm remains sinus rhythm. The patient was subsequently noted to be returning to baseline and taking oral intake well. The patient was subsequently released from the tilt table laboratory. Summary: The degree upright tilt table study considered positive for reproducible vasovagal/neurocardiogenic mediated symptoms and syncope. This note was generated with [employer] software. It may contain incorrect words, spelling, and punctuation that were not noted in checking the note before signing.
== END ==
PROVIDERS: Family Provider Family Medicine; PCP Family Medicine
DX: R42 Dizziness and giddiness (principal)
CPT/HCPCS: 93660; J7040; A4216

== ENCOUNTER 2017-12-02 17:38 | Observation (INO) | payer MEDICAID, SELFPAY ==
[2017-12-02] VITALS (7 sets, daily range): BP systolic 121–131; BP diastolic 79–87; PULSE 74–94; RESP 16–18; TEMP 36.6–36.8; O2SAT 94–100; BMI 26.1; BMI 26.9
--- NOTE | 2017-12-02 17:48 | CT_ITS ---
STUDY: CT BRAIN WITHOUT CONTRAST REASON FOR EXAM: Male, 56 years old. Seizure RADIATION DOSAGE (If Supplied By Facility): CTDIvol = ( 44.99 ) mGy, DLP = ( 779.24 ) mGycm TECHNIQUE: Transaxial CT imaging of the brain was performed without administration of intravenous contrast material. Individualized dose optimization techniques were used for this CT. COMPARISON: April 06, 2017 FINDINGS: The soft tissues are unremarkable. The osseous structures are unremarkable. Normal size ventricles and extra-axial spaces for the patient's age. The white matter tracts are unremarkable. The basal ganglia and thalami are unremarkable. No abnormalities are seen in the brainstem. The cerebellum is unremarkable. There are moderate vascular calcifications. There is no intracranial hemorrhage. There are no findings of acute ischemia. The visualized sinuses are unremarkable. CT/Brain/Head without Contrast IMPRESSION: No acute intracranial abnormalities or changes. Electronically Signed: Tish Hanna MD at 19:32 EDT Tel Direct: [phone], Service support ,
--- NOTE | 2017-12-02 17:48 | EKG12_ITS ---
Test Reason : SEIZURES Blood Pressure : / mmHG Vent. Rate : 084 BPM Atrial Rate : 084 BPM P-R Int : 144 ms QRS Dur : 086 ms QT Int : 370 ms P-R-T Axes : 031 007 022 degrees QTc Int : 437 ms Normal sinus rhythm Nonspecific T wave abnormality Abnormal ECG Confirmed by KALIN LOPEZ, JAMEL ([id number]), purchasing expeditor VIC GARDINER ([id number]) on 12/13/2017 6:45:36 PM Referred By: RAJENDRA Confirmed By:JAMEL GAGNON MD
[2017-12-02] MEDS: LORazepam 2 MG/ML Syringe 1 MG IV (17:55)
--- NOTE | 2017-12-02 17:58 | ED.VISSUMM ---
- ER Visit Summary Date of Service: 12/02/17 Chief Complaint: [] Shaking spells possible seizures began yesterday History of Present Illness: The patient is a 56 M [] hypertension vertigo reports per family that he began having seizures yesterday, they indicate he had 3 seizures yesterday that consist of initially shaking of the right upper extremity then he does not respond then he has whole body shaking they last for 3-4 minutes that he wakes he is back to normal he had one in the afternoon mid afternoon and late afternoon evening during the spells he states he can hear people talking to him but he cannot respond, he indicates he has not been ill with is been no fever no cough no chest pain had pain or paresthesias, he has a distant history for stroke but vertigo but no history of seizure, he has had no tongue biting or incontinence Had 2 or 3 more episodes today and he was brought in walked Into the emergency department shortly after arrival that his right hand began to shake and then he had us very slight low amplitude whole body sense of shaking his eyes were open he was not struggling to breathe I was talking to him he seemed to be trying to open his eyes but could not fully, this lasted for about 2 minutes and then he suddenly woke and began ants S answering questions he was oriented to place time person ?3, he indicated he understood that I was trying to talk to him but he could not respond. He denies any symptoms at this point time other than being tired he did recently go to a for relative in [place] but he does not believe that contributed to any of the above, he has a distant history for alcohol abuse and denies any drug use and the only medication he takes his lisinopril and the nasal spray Physical Examination: [] Awake and alert now his vital signs are within normal range his speech is easy to understand his cranial nerves HEENT exam are negative his neck is supple his lungs are clear his heart tones are normal his eyes are fully open he is awake alert moving all 4 extremities to commands his strength is normal mental status is normal his NIH is 0 Test Results: [] Note his urine tox eventually came back for amphetamines patient declined history of that use Emergency Department Course and Treatment: [] Patient's labs head CT are all generally unremarkable UA UA tox are pending, the patient has remained stable his apartment with no recurrent signs of these shaking or seizure spells that he had earlier as above we discussed inpatient versus outpatient management he would like to be admitted for further inpatient management as this is a new problem for him, spoke with the hospitalist though by to see him shortly further management Treatment Plan: [] Disposition: [] Admit pending hospitalist evaluation Impression: [] Seizure type activity involving extremities, use of amphetamines based on tox screen This note was generated with Consert dictation software. It may contain incorrect words, spelling, and punctuation that were not noted in review of the chart prior to signing ED Disposition - Plan for ED Patient: Chief Complaint: Seizure Referrals: Castillo Kruger MD [Primary Care Provider] -
[2017-12-02] MEDS: levETIRAcetam IV 1,000 MG/100 ML BAG 400 MG IV (18:08)
[2017-12-02 18:14] LABS: Absolute Lymphocyte Count 2.67 X10^3/ul (0.83-4.51); Absolute Neutrophil Count 3.9 X10^3/uL (2.0-7.7); Basophil# 0.03 X10^3/uL; Basophil% 0.4 % (0-1); Eosinophil# 0.52 X10^3/uL; Eosinophils% 6.6 % (0-5); Hematocrit 41.1 % (40-54); Hemoglobin 13.7 g/dl (13.0-16.5); Lymphocyte # 2.67 X10^3/ul (4.0); Lymphocyte % 33.8 % (19-41); Mean Corp Hgb Conc 33.3 g/gl (32-36); Mean Corpuscular Hgb 31.4 pg (27.0-32.0); Mean Corpuscular Volume 94.1 fL (80-94); Mean Platelet Vol. 10.4 fl (6.2-12.0); Monocyte# 0.72 X10^3/uL; Monocyte% 9.1 % (0-10); Neutrophil # 3.94 X10^3/uL (2.7-7.7); Platelet Count 216 K/mm3 (150-450); RBC Distribution Width SD 45.2 fl (35.1-43.9); Red Blood Count 4.37 M/mm3 (4.6-6.2); White Blood Count 7.9 K/mm3 (4.4-11.0)
[2017-12-02 18:15] LABS: POSITIVE COUNT NO; POSITIVE DIFFERENTIAL NO; POSITIVE MORPHOLOGY NO
--- NOTE | 2017-12-02 18:20 | RAD_ITS ---
STUDY: X-RAY CHEST REASON FOR EXAM: Male, 56 years old. Short of breath TECHNIQUE: 04/06/2017 COMPARISON: None. FINDINGS: The lungs are clear. There are no pleural effusions. There is no pneumothorax. The heart is normal in size. The visualized osseous structures are within normal limits. RAD/Chest 1 View (Portable) IMPRESSION: No acute thoracic pathology. Electronically Signed: Derrick Adame, at 19:54 EDT Tel , Service support ,
[2017-12-02 18:28] LABS: AST(SGOT) 14 U/L (15-37); Alanine Aminotransfer ALT/SGPT 17 U/L (16-61); Albumin, Serum 3.3 g/dL (3.2-5.0); Alkaline Phosphatase 104 U/L (45-117); Anion Gap 7 (5-15); BUN 14 mg/dL (7-18); BUN/Creat Ratio 12.6 RATIO (10-20); Bilirubin, Direct 0.09 mg/dL (0.00-0.30); Calcium,Total 8.4 mg/dL (8.5-10.1); Chloride 106 mmol/L (98-107); Creatinine, Serum 1.11 mg/dL (0.70-1.30); EST Glomerular Filtration Rate 72 mL/min (>60); Est Glom Filt Rate - Afr Amer 87 mL/min (>60); Globulin 3.5 g/dL (2.2-4.2); Glucose 80 mg/dL (74-106); Lipase 709 U/L (73-393); Potassium 3.8 mmol/L (3.5-5.1); Protein, Total 6.8 g/dL (6.4-8.2); Sodium Level 140 mmol/L (136-145)
[2017-12-02 20:29] LABS: Bacteria 0 SEEN /hpf (None Seen); Mucous, Urine 0 SEEN /hpf (<or=2+); White Blood Cells 0 SEEN /hpf (0-5)
[2017-12-02 20:30] LABS: Color, Urine Straw (Yellow); Glucose, Dipstick Normal (Normal); Ketone-Dipstick Negative (Negative); Leukocyte Esterase-Dipstick Negative /ul (Negative); Nitrite-Dipstick Negative (Negative); Occult Blood-Urine Negative /ul (Negative); Protein-Dipstick Negative (Negative); Urine Bilirubin Dipstick Negative (Negative); Urine Clarity Sl. Cloudy (Clear); Urine Urobilinogen Normal (Normal); Urine pH 6.5 (5.0 - 8.0)
[2017-12-02 20:36] LABS: Red Blood Cells-Urine 0-5 SEEN /hpf (0-5)
[2017-12-02 20:37] LABS: Squamous Epithelial Cells - UA 0-5 SEEN /hpf (0-5)
[2017-12-02 20:42] LABS: Amphetamine Urine VISTA POSITIVE (<1000 ng/mL); Barbiturate Urine VISTA NEGATIVE (< 200 ng/mL); Benzodiazepine Urine VISTA NEGATIVE (< 200 ng/mL); Cocaine Urine VISTA NEGATIVE (< 300 ng/mL); Ecstacy Urine VISTA NEGATIVE (< 500 ng/mL); Methadone Urine VISTA NEGATIVE (< 300 ng/mL); PCP Urine VISTA NEGATIVE (< 25 ng/mL); THC Urine VISTA NEGATIVE (< 50 ng/mL); Vista UDS pH Range 7
--- NOTE | 2017-12-02 21:00 | DT_ITS ---
This patient was seen during an EMR downtime December 04, 2017 - December 11, 2017. This patient may have a combination of paper and electronic documentation or all paper documentation. All documentation is viewable within the e-chart portion of [facility] for each patient visit.
--- NOTE | 2017-12-02 21:19 | HP.PCM_ITS ---
Problem List (1) Seizure Status: Acute (2) Methamphetamine abuse Status: Acute (3) Left lower extremity weakness Status: Acute (4) History of kidney stones Status: Chronic (5) Stage III chronic kidney disease Status: Chronic (6) Stroke Status: Chronic Qualifiers: (7) Tobacco abuse Status: Chronic (8) Ureteral stone with hydronephrosis Status: Chronic Comment: new left ureter calculi with hydronephrosis and blockage, came to er twice with pain also has an infection, will admit for pain control, plan to stent in am and antibiotics. History of Present Illness Date of Admission: 12/02/17 Chief Complaint: New onset seizure The patient is a 56 year old male w/ h/o stroke, CKD III, and tobacco abuse admitted for new onset seizure. His story changes from provider to provider. He smoked methamphetamine and after several hours to days, he had seizure. He smoked methamphetamine to help him relax. He had multiple episodes where his right hand shake involuntarily and followed by confusion. He does not respond to anyone during the shake. An episode would last for a few minutes. Yesterday, he had 3 episodes and today, he had 5 episodes. According to him, nothing appeared to make it worse or better. He denies drug use but remembered using. Date of using kept changing and he claimed only one time use. Past Medical History Past Medical History (Chronic Problems): Chronic Problems Stroke (Chronic) Ureteral stone with hydronephrosis (Chronic) new left ureter calculi with hydronephrosis and blockage, came to er twice with pain also has an infection, will admit for pain control, plan to stent in am and antibiotics. Angina pectoris (Chronic) History of kidney stones (Chronic) Tobacco abuse (Chronic) Stage III chronic kidney disease (Chronic) Allergies Penicillins Allergy (Verified 12/02/17 17:39) SYNCOPE cortisone Allergy (Uncoded 12/02/17 17:39) Shortness of breath Home Medications: Ambulatory Orders Medication Instructions Recorded Aspirin [Aspirin, Baby] 81 mg PO DAILY@0800 09/10/17 Surgical History: appendectomy Psychiatric History: No pertinent psych hx Smoking Status: Current every day smoker Drugs: - - Meth - *Family History Sibling History Items: Heart Disease Maternal History Items: No pertinent history Paternal History Items: - - father had heart disease in mid 40's. had cabg Review of Systems Constitutional: Denies: Chills, Fever, Weight Change HEENT: Denies: Head Aches, Sinus Congestion, Sinus Drainage Cardiovascular: Denies: Chest Pain, Palpitations Respiratory: Denies: Cough, Shortness of breath at rest, Sputum production Gastrointestinal: Denies: Abdominal Pain, Nausea, Vomiting Genitourinary: Denies: Dysuria Musculoskeletal: Denies: Joint Pain, Joint Tenderness Skin: Denies: Rash, Wounds Neurological: Denies: Numbness, Tingling, Focal weakness Psychiatric: Denies: Anxiety, Depression, Homicidal Ideations, Suicidal Ideations Hematologic/ Lymphatic: Denies: Easy Bruising, Easy Bleeding VTE Information - Inpt Only VTE Present on Admission: No VTE Mechan Device Prophylaxis: SCD's VTE Pharm Prophylaxis ordered?: Yes Patient Problems: Active and Suspected Problems Seizure (Acute) Methamphetamine abuse (Acute) - Physical Exam General: Alert, Oriented x3, Cooperative HEENT: Atraumatic, PERRLA, EOMI, Normocephalic Neck: Supple, No JVD, Negative Carotid Bruits Lungs: Clear to auscultation, Normal air movement Cardiovascular: Regular rate, No murmurs Abdomen: Bowel Sounds Present, Soft, Non Tender Extremities: No edema, Capillary Refill Less than 3 Seconds Skin: No rashes, No breakdown Musculoskeletal: No Tenderness to Palpation of Joints or Extremities Neurological: Cranial nerves II-XII grossly intact Psych/Mental Status: Normal Affect, Appropriate Vital Signs Temp Pulse Resp BP Pulse Ox 98 F 93 18 129/87 H 97 12/02/17 20:50 12/02/17 20:50 12/02/17 20:50 12/02/17 20:50 12/02/17 20:50 Oxygen Flow Rate (L/min) 2 Oxygen Delivery Method Room Air Weight: 82.554 kg Body Mass Index (BMI) 26.1 Finger Stick Blood Glucose 106 Laboratory Tests Past 24 Hrs 12/02/17 12/02/17 12/02/17 17:55 17:55 20:20 WBC 7.9 RBC 4.37 L Hgb 13.7 Hct 41.1 MCV 94.1 H MCH 31.4 MCHC 33.3 RDW 13.0 RDW Differential 45.2 H Plt Count 216 MPV 10.4 Immature Gran % (Auto) 0.100 Neut % (Auto) 50.0 Lymph % (Auto) 33.8 Osborne % (Auto) 9.1 Eos % (Auto) 6.6 H Baso % (Auto) 0.4 Absolute Neuts (auto) 3.9 Absolute Lymphs (auto) 2.67 Total Counted Not Reportable Sodium 140 Potassium 3.8 Chloride 106 Carbon Dioxide 27.0 Anion Gap 7 BUN 14 Creatinine 1.11 Estim Creat Clear Calc 74.90 Est GFR (MDRD) Af Amer 87 Est GFR (MDRD) Non-Af 72 BUN/Creatinine Ratio 12.6 Glucose 80 Calcium 8.4 L Total Bilirubin 0.20 Direct Bilirubin 0.09 AST 14 L ALT 17 Alkaline Phosphatase 104 Total Protein 6.8 Albumin 3.3 Globulin 3.5 Lipase 709 H Urine Color Urine Clarity Urine pH Ur Specific Sayre Urine Protein Urine Glucose (UA) Urine Ketones Urine Occult Blood Urine Nitrite Urine Bilirubin Urine Urobilinogen Ur Leukocyte Esterase Urine RBC Urine WBC Ur Squamous Epith Cells Urine Bacteria Urine Mucus Urine Opiates Screen NEGATIVE Urine Methadone Screen NEGATIVE Ur Barbiturates Screen NEGATIVE Ur Phencyclidine Scrn NEGATIVE Ur Amphetamines Screen POSITIVE H U Methamphetamin-MDMA NEGATIVE U Benzodiazepines Scrn NEGATIVE Urine Cocaine Screen NEGATIVE U Cannabinoids Screen NEGATIVE Ur Drug Screen Comment 12/02/17 20:20 WBC RBC Hgb Hct MCV MCH MCHC RDW RDW Differential Plt Count MPV Immature Gran % (Auto) Neut % (Auto) Lymph % (Auto) Osborne % (Auto) Eos % (Auto) Baso % (Auto) Absolute Neuts (auto) Absolute Lymphs (auto) Total Counted Sodium Potassium Chloride Carbon Dioxide Anion Gap BUN Creatinine Estim Creat Clear Calc Est GFR (MDRD) Af Amer Est GFR (MDRD) Non-Af BUN/Creatinine Ratio Glucose Calcium Total Bilirubin Direct Bilirubin AST ALT Alkaline Phosphatase Total Protein Albumin Globulin Lipase Urine Color Straw Urine Clarity Sl. Cloudy Urine pH 6.5 Ur Specific Sayre 1.010 Urine Protein Negative Urine Glucose (UA) Normal Urine Ketones Negative Urine Occult Blood Negative Urine Nitrite Negative Urine Bilirubin Negative Urine Urobilinogen Normal Ur Leukocyte Esterase Negative Urine RBC 0-5 SEEN Urine WBC 0 SEEN Ur Squamous Epith Cells 0-5 SEEN Urine Bacteria 0 SEEN Urine Mucus 0 SEEN Urine Opiates Screen Urine Methadone Screen Ur Barbiturates Screen Ur Phencyclidine Scrn Ur Amphetamines Screen U Methamphetamin-MDMA U Benzodiazepines Scrn Urine Cocaine Screen U Cannabinoids Screen Ur Drug Screen Comment Assessment/Plan All Active Problems Left lower extremity weakness (Acute) Atypical chest pain (Acute) Seizure (Acute) Methamphetamine abuse (Acute) 56 year old male w/ h/o stroke, CKD III, and tobacco abuse admitted for new onset seizure. 1) New onset seizure: Preliminary workup negative w/ the exception for amphetamine. Most likely amphetamine-associated seizure. Will get CPK, prolactin, and LDH. Will get MRI but will also consider outpt MRI if unable to get inpt given a normal baseline, normal neurologic examination, a normal CT head and a reliable follow-up can be ensured. No e/o infectious causes. [place] not to be at risk for future epilepsy if abstinence from meth is ensured. Otherwise will consider diazepam and valproate. Consult neuro so pt can also follow-up outpt. 2) Amphetamine abuse: Pt is elusive when questioned about drug use. Education done. Monitor. 3) Elevated lipase: No abdominal pain. Will follow level. Monitor. 4) Chronic issues: CKD III, HTN: Resume home meds. 5) Prophylaxis: Heparin.
--- NOTE | 2017-12-02 21:43 | NURSING ---
OK TO EAT PER DR DREW. HAM AND CHEESE SANDWICH PROVIDED PER PT REQUEST.
[2017-12-02 22:17] LABS: CPK Total, Creatine Kinase 60 U/L (39-308); LDH 194 U/L (87-241); Prolactin 7.3 ng/mL
[2017-12-02] MEDS: Heparin Injection (Vial) 5,000 UNIT/ML VIAL 5000 UNIT SC (23:08)
[2017-12-02] MEDS: 0.9% Normal Saline 1,000 ML 247.66 ML IV (23:08)
[2017-12-02] MEDS: Acetylcysteine (Mucomyst Oral) 20% SOLN 1200 MG PO (23:14)
[2017-12-03] VITALS (11 sets, daily range): BP systolic 127–159; BP diastolic 80–95; PULSE 66–85; RESP 16–20; TEMP 36.3–37.5; O2SAT 95–97; BMI 26.9
[2017-12-03] MEDS: 0.9% Normal Saline 1,000 ML 247.66 ML IV ×2 (04:00→08:21)
[2017-12-03] MEDS: Heparin Injection (Vial) 5,000 UNIT/ML VIAL 5000 UNIT SC ×3 (05:06→21:32)
--- NOTE | 2017-12-03 05:55 | MRI_ITS ---
STUDY: MRI BRAIN WITH AND WITHOUT CONTRAST REASON FOR EXAM: Male, 56 years old. Seizure. TECHNIQUE: Standardized multiplanar fat and water weighted pulse sequences were obtained. 7 ml of Gadavist contrast material was administered intravenously for the contrast portion of the examination. Multiple images are limited by patient motion. COMPARISON: MRI of the brain dated February 16, 2017. FINDINGS: Normal size of the ventricles and extra-axial spaces for the patient's age. There are a limited number of small white matter hyperintensities, distributed throughout the deep white matter tracts of the cerebral hemispheres, consistent with mild chronic white matter ischemic changes. There is no evidence for recent intracranial ischemia or other cause of cytotoxic edema on diffusion weighted imaging (DWI). Normal T2* images of the brain without demonstrated susceptibility artifact. There is no demonstrated hemosiderin stain. Thin section coronal T2-weighted images of the temporal lobes reveal no evidence for mesial temporal sclerosis. There are prominent perivascular spaces (PVS) involving the basal ganglia. Normal thalami. There is no extra-axial fluid accumulation. Normal flow voids within the major intracranial circulation suggesting patency by spin echo criteria. Normal venous enhancement. There is no enhancing intra-axial or extra-axial abnormality. Normal sella turcica, pituitary gland, infundibular stalk, optic chiasm and hypothalamus. Normal tectal plate and pineal gland. Normal midbrain, damien and medulla. Normal cerebellum. Normal basal cisterns. Normal bilateral temporal bones. Normal bilateral internal auditory canals. No demonstrated orbital abnormality, within the constraints of a routine brain study. There is mucoperiosteal inflammatory disease of the paranasal sinuses consistent with mild chronic sinusitis. Normal calvarium and skull base. Normal visualized soft tissue structures. There are degenerative changes of the anterior atlantoaxial articulation. MRI/Brain W/WO Contrast IMPRESSION: 1. Involutional changes of the brain, as described above. 2. No MR evidence for acute infarct. Electronically Signed: Elayne Martinez MD at 13:26 EDT , Service support ,
[2017-12-03 06:00] LABS: Hematocrit 37.4 % (40-54); Hemoglobin 12.5 g/dl (13.0-16.5); Mean Corp Hgb Conc 33.4 g/gl (32-36); Mean Corpuscular Hgb 31.7 pg (27.0-32.0); Mean Corpuscular Volume 94.9 fL (80-94); Mean Platelet Vol. 10.7 fl (6.2-12.0); Platelet Count 191 K/mm3 (150-450); RBC Distribution Width CV 12.8 % (11.6-14.6); RBC Distribution Width SD 43.3 fl (35.1-43.9); Red Blood Count 3.94 M/mm3 (4.6-6.2); White Blood Count 7.7 K/mm3 (4.4-11.0)
[2017-12-03 06:03] LABS: Scan Indicated on CBC? Y/N NO
[2017-12-03 06:26] LABS: Cholesterol 122 mg/dL (200); High Density Lipoprotein 34 mg/dL; Lipase 178 U/L (73-393); Triglycerides 99 mg/dL; Very Low Density Lipoprotein 20 mg/dL (5-40)
[2017-12-03 06:27] LABS: Anion Gap 5 (5-15); BUN 13 mg/dL (7-18); BUN/Creat Ratio 14.4 RATIO (10-20); Calcium,Total 7.7 mg/dL (8.5-10.1); Chloride 113 mmol/L (98-107); EST Glomerular Filtration Rate 91 mL/min (>60); Est Glom Filt Rate - Afr Amer 111 mL/min (>60); Estimated Creatinine Clearance 92.38 ml/min; Glucose 88 mg/dL (74-106); Potassium 4.1 mmol/L (3.5-5.1); Sodium Level 142 mmol/L (136-145)
[2017-12-03] MEDS: Aspirin 81 MG TAB.CHEW PO (08:21)
[2017-12-03] MEDS: Acetylcysteine (Mucomyst Oral) 20% SOLN 1200 MG PO ×2 (08:28→21:33)
[2017-12-03] MEDS: 0.9% NaCl Peripheral Flush Adult/Peds IV (10:48)
--- NOTE | 2017-12-03 10:53 | NURSING ---
PRODUCTION ASSEMBLER called this RN into room for seizure activity. Jerking movements jason approximately 1 minute. Pt not responding to verbal stimuli or sternal rub. director of collections in room. Opened pts eyelids and eyes rolled back. MD entered room. Pt spontaneously opened eyes and came to, A&O x3. ordering IV keppra before he goes to MRI.
[2017-12-03] MEDS: levETIRAcetam IV 1,000 MG/100 ML BAG 400 MG IV ×2 (10:58→21:32)
--- NOTE | 2017-12-03 14:20 | PCM.PN.HOSP ---
Patient Problems: Active and Suspected Problems Seizure (Acute) Methamphetamine abuse (Acute) Subjective: CC: Seizure activity Objective: The patient had multiple seizure-like activity today, I saw him after one such episode and he was confused. Vitals/I&O's: Vital Signs Temp Pulse Resp BP Pulse Ox 97.4 F L 79 18 127/85 H 96 12/03/17 13:30 12/03/17 13:30 12/03/17 13:30 12/03/17 13:30 12/03/17 13:30 Oxygen Delivery Method Room Air Weight: 85 kg Body Mass Index (BMI) 26.9 Intake and Output for Last 24 Hours 12/01/17 12/02/17 12/03/17 23:59 23:59 23:59 Intake Total 2567 / 2567 Output Total 550 / 550 Balance 2016 Laboratory Results 12/03/17 05:14: Triglycerides 99, Cholesterol 122, LDL Cholesterol 68, VLDL Cholesterol 20, HDL Cholesterol 34 L, Lipase 178 12/03/17 05:14: WBC 7.7, RBC 3.94 L, Hgb 12.5 L, Hct 37.4 L, MCV 94.9 H, MCH 31.7, MCHC 33.4, RDW 12.8, RDW Differential 43.3, Plt Count 191, MPV 10.7 12/03/17 05:14: Sodium 142, Potassium 4.1, Chloride 113 H, Carbon Dioxide 24.0, Anion Gap 5, BUN 13, Creatinine 0.90, Estim Creat Clear Calc 92.38, Est GFR (MDRD) Af Amer 111, Est GFR (MDRD) Non-Af 91, BUN/Creatinine Ratio 14.4, Glucose 88, Calcium 7.7 L Current Medications Acetylcysteine (Mucomyst) 1,200 mg PO BID [facility] Stop: 12/04/17 10:01 Last Admin: 12/03/17 08:28 Dose: 1,200 mg Aspirin (Aspirin, Baby) 81 mg PO DAILY@0800 [facility] Last Admin: 12/03/17 08:21 Dose: 81 mg Heparin Sodium (Porcine) (Heparin Na) 5,000 unit SC Q8 [facility] Last Admin: 12/03/17 05:06 Dose: 5,000 units Sodium Chloride () 1,000 mls @ 50 mls/hr IV .Q20H [facility] Levetiracetam (Keppra Iv) 1,000 mg in 100 mls @ 400 mls/hr IV BID [facility] Lorazepam (Ativan) 0.5 mg IV Q2H PRN PRN PRN Reason: SEIZURES Magnesium Hydroxide (Milk Of Magnesia) 30 ml PO DAILY PRN PRN Reason: Constipation Sodium Chloride () 5 - 30 ml IV UD PRN PRN Reason: SALINE FLUSH Last Admin: 12/03/17 10:48 Dose: 10 ml Medical Necessity - Tobacco Use Smoking Status: Current every day smoker Tobacco Use: Cigarettes Assessment/Plan All Active Problems Left lower extremity weakness (Acute) Atypical chest pain (Acute) Seizure (Acute) Methamphetamine abuse (Acute) This is a 56 year old male with past medical history of CVA, stage III chronic kidney disease, drug use disorder and tobacco use who is admitted for new onset seizure. He reportedly smoked methamphetamine and after several hours he had seizure activities. He has had multiple seizure-like activity since his admission. 1. ? New onset seizure; I would load him with 1 g of IV Keppra and maintain him 500 mg twice daily, obtain EEG and MRI of the brain. Neurologist has been consulted. 2. Old stroke by history; MRI of the brain as above. We will continue him on aspirin. 3. Drug use disorder with amphetamines; and is recommended to stay away of illicit drugs. 4 Chronic CKD III; continue gentle hydration and avoid potential nephrotoxic agents. 5. DVT prophylaxis with subcutaneous heparin. Code Visit Inpatient E&M: 17792 Subs Hosp L2
[2017-12-03 14:38] LABS: CPK Total, Creatine Kinase 45 U/L (39-308); LDH 167 U/L (87-241)
[2017-12-03] MEDS: 0.9% Normal Saline 1,000 ML 50 ML IV (15:12)
--- NOTE | 2017-12-03 20:15 | NURSING ---
Walked into room when pt was having a seizure. Pt unresponsive to stimuli. Lasted around 2 min long, then pt came back too and was a&ox3. Then pt started jerking x4 extremites and eyes rolled back into head, on and off for around 7 min. Pt was able to follow commands, and sit up when asked. When I lifted arm to drop it over his head, he avoided letting his arm fall onto his head. Pts vitals were stable. Dr Moreno was paged, and told me to continue to monitor throughout the night, and just let him know if seizures start becoming worse.
[2017-12-04 02:15] VITALS: BP 132/86; PULSE 79; RESP 16; TEMP 36.4; O2SAT 94
[2017-12-04 02:56] VITALS: PULSE 67
[2017-12-07 15:30] LABS: Color, Urine Yellow (Yellow); Glucose, Dipstick NEGATIVE (Normal); Ketone-Dipstick Negative (Negative); Leukocyte Esterase-Dipstick Negative /ul (Negative); Nitrite-Dipstick Negative (Negative); Occult Blood-Urine Negative /ul (Negative); Protein-Dipstick Negative (Negative); Urine Bilirubin Dipstick Negative (Negative); Urine Clarity Clear (Clear); Urine Urobilinogen Normal (Normal)
[2017-12-08 11:08] LABS: Hematocrit 39.5 % (40-54); Hemoglobin 13.2 g/dl (13.0-16.5); Mean Corp Hgb Conc 33.4 g/gl (32-36); Mean Corpuscular Hgb 31.6 pg (27.0-32.0); Mean Corpuscular Volume 94.5 fL (80-94); Neutrophil % 50.1 % (47-70); POSITIVE COUNT NO; POSITIVE DIFFERENTIAL NO; POSITIVE MORPHOLOGY NO; Platelet Count 221 K/mm3 (150-450); RBC Distribution Width CV 12.4 % (11.6-14.6); Red Blood Count 4.18 M/mm3 (4.6-6.2); White Blood Count 7.2 K/mm3 (4.4-11.0)
[2017-12-08 11:09] LABS: Absolute Lymphocyte Count 2.46 X10^3/ul (0.83-4.51); Absolute Neutrophil Count 3.6 X10^3/uL (2.0-7.7); Basophil# 0.04 X10^3/uL; Basophil% 0.6 % (0-1); Eosinophil# 0.47 X10^3/uL; Eosinophils% 6.5 % (0-5); Lymphocyte # 2.46 X10^3/ul (4.0); Lymphocyte % 34.1 % (19-41); Monocyte# 0.61 X10^3/uL; Monocyte% 8.4 % (0-10); Neutrophil # 3.62 X10^3/uL (2.7-7.7)
[2017-12-09 10:08] LABS: Amphetamine Urine VISTA NEGATIVE (<1000 ng/mL); Barbiturate Urine VISTA NEGATIVE (< 200 ng/mL); Benzodiazepine Urine VISTA NEGATIVE (< 200 ng/mL); Cocaine Urine VISTA NEGATIVE (< 300 ng/mL); Ecstacy Urine VISTA NEGATIVE (< 500 ng/mL); Methadone Urine VISTA NEGATIVE (< 300 ng/mL); PCP Urine VISTA NEGATIVE (< 25 ng/mL); THC Urine VISTA NEGATIVE (< 50 ng/mL)
[2017-12-09 11:11] LABS: BUN 10 mg/dL (7-18); BUN/Creat Ratio 9.3 RATIO (10-20); Creatinine, Serum 1.07 mg/dL (0.70-1.30); EST Glomerular Filtration Rate 75 mL/min (>60); Est Glom Filt Rate - Afr Amer 91 mL/min (>60); Glucose 84 mg/dL (74-106); Protein, Total 6.7 g/dL (6.4-8.2)
[2017-12-09 11:12] LABS: AST(SGOT) 12 U/L (15-37); Alanine Aminotransfer ALT/SGPT 16 U/L (16-61); Albumin, Serum 3.3 g/dL (3.2-5.0); Alkaline Phosphatase 86 U/L (45-117); Anion Gap 3 (5-15); Calcium,Total 8.6 mg/dL (8.5-10.1); Chloride 109 mmol/L (98-107); Globulin 3.4 g/dL (2.2-4.2); Sodium Level 142 mmol/L (136-145)
--- NOTE | 2017-12-12 10:08 | EEG_ITS ---
- Electroencephalogram Date of service: 12/03/2017 This is an 18 channel electroencephalogram performed utilizing the International 10-20 electrode placement protocol on this 56-year-old male with a history of seizure after smoking methamphetamine. Photic stimulation, hyperventilation and EKG reference leads are also utilized. The patient also has a history of seizures remotely at age 14. Background activity is 10 Hz symmetrically in the posterior leads which attenuates with eye opening. Hyperventilation is performed for 3 minutes and 30 seconds with no lateralizing or epileptiform changes however the patient did become apneic briefly and hyperventilation was terminated. The post hyperventilatory phase is unremarkable. The patient did drowse during the recording, with no lateralizing or epileptiform changes. Snoring was noted by the nuclear monitoring technician. Photic stimulation generates a normal symmetric driving response in the posterior leads and EKG rhythm strip recording is normal sinus rhythm throughout the recording. Impression: This is a normal awake and asleep electroencephalogram.
== END 2017-12-05 10:30 | disposition home or self-care (01) ==
LOC: ED 18:40 → PCU 21:35
PROVIDERS: Internal Medicine; Psychiatry & Neurology Neurology; Admitting Provider Internal Medicine; Emergency Provider Emergency Medicine; Family Provider Family Medicine; PCP Family Medicine; Visit Provider Internal Medicine
DX: R56.9 Unspecified convulsions (principal); F15.10 Other stimulant abuse, uncomplicated; F15.90 Other stimulant use, unspecified, uncomplicated; N18.3 Chronic kidney disease, stage 3 (moderate); I12.9 Hypertensive chronic kidney disease with stage 1 through stage 4 chronic kidney disease, or unspecified chronic kidney disease; F17.210 Nicotine dependence, cigarettes, uncomplicated; Z87.442 Personal history of urinary calculi; Z86.73 Personal history of transient ischemic attack (TIA), and cerebral infarction without residual deficits; Z79.82 Long term (current) use of aspirin
CPT/HCPCS: 36415; 70450; 70553; 71045; 80048; 80053; 80061; 80076; 80307; 81001; 81002; 82550; 83615; 83690; 84146; 85025; 85027; 92610; 93005; 95819; 96361; 96365; 96366; 96372; 96375; 96376; 97162; 97166; 97530; 99218; 99283; A9585; J7030; J7040; A4216; G0378

== ENCOUNTER 2017-12-17 03:39 | Emergency (ER) | payer MEDICAID, SELFPAY ==
[2017-12-17 03:40] VITALS: BP 160/104; PULSE 109; RESP 20; TEMP 36.4; O2SAT 97; BMI 25.6
[2017-12-17] MEDS: HYDROcodone Bitartrate/Apap 5/325 Tablet PO ×2 (04:35→06:16)
--- NOTE | 2017-12-17 05:11 | NURSING ---
DOPPLER PERFORMED AND PEDAL AND DORSALIS PEDIS WAS AUSCULTATED AND DR. ERVIN MADE AWARE.
[2017-12-17 05:55] LABS: D-Dimer Quantitative (DVT/PE) 0.79 FEU/ug/m (0.27-0.49)
--- NOTE | 2017-12-17 05:56 | NURSING ---
D DIMER OF 0.[address] ERVIN BY THIS NURSE.
--- NOTE | 2017-12-17 06:06 | NURSING ---
DR. ERVIN MADE AWARE THAT PATIENT IS STILL HAVING PAIN AFTER THE NORCO. STATES HE IS GOING IN TO TALK TO HIM.
[2017-12-17] MEDS: Ketorolac 60 MG/2 ML Vial IM (06:16)
[2017-12-17 06:20] VITALS: BP 152/95; PULSE 99; RESP 18; O2SAT 95
--- NOTE | 2017-12-17 06:46 | NURSING ---
NO REACTION NOTED AFTER TORADOL INJECTION.
--- NOTE | 2017-12-17 07:28 | ED.DCSUM_ITS ---
- ER Visit Summary Date of Service: 12/17/17 Chief Complaint: Right calf pain History of Present Illness: The patient is a 56 M past medical history of seizures and vertigo. Patient states that he was sent in a chair yesterday prior to coming into the ER last night and had sudden onset of right calf pain. Describes as moderate to severe pain. Denies any recent falls or trauma. No fever. No redness. Denies any recent injury to his lower leg. As it is more painful to walk on. He has never had any surgery to his right leg. He denies any chest or abdominal pain. He denies any numbness or feeling of his foot being cold. Physical Examination: Middle-aged male vital signs are stable afebrile. He does not look septic or toxic. Complaining of right calf pain. He is in no distress otherwise. H EENT exam unremarkable neck nontender lungs clear to auscultation bilaterally. Heart regular rhythm no murmur. Abdomen is soft and nontender. Normal bowel sounds no peritoneal signs. No pulsatile mass. He is moving all 4 extremities and they are neurovascularly intact. 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 Dorsi plantar flexion intact. Both lower extremities are completely normal in appearance they are warm to touch. He has excellent DP pulses bilaterally that are equal and symmetrical. And a palpable PT pulse on the right foot. There is normal cap refill. Achilles tendon is intact. He can dorsi and plantarflex his right foot. The calf is tender at the midportion approximately however there is no swelling, redness or warmth. There is no signs of trauma or infection. Clinically does not look like a compartment syndrome the tissues are soft. There is no tenting of the skin. It also does not look like a DVT. Test Results: D-dimer is slightly elevated at 0.79. At the time of the evening the patient came in we are unable to obtain a noninvasive study. This will be set up as an outpatient. Nurses were able to Doppler both a DP and PT pulse in his right foot. Emergency Department Course and Treatment: Treated with Marshall and then IM Toradol his pain is much improved currently at 07 20. On repeat evaluation the patient is a strong DP pulse. Again the calf is tender but it is not red, warm or have any signs of a compartment syndrome. There is no signs of a large hematoma. There is no bony tenderness. In his right foot has normal range of motion is neurovascularly intact. Treatment Plan: Patient be discharged home to follow-up with his primary care physician Dr. Kruger for further evaluation. He also be set up with an outpatient venous study of his right lower extremity for possible DVT. Even though clinically I find this less likely. He notices the ice and use Motrin for pain. And follow-up for the noninvasive study. Disposition: Discharge Impression: Acute right calf pain secondary to muscle spasm This note was generated with [employer] dictation software. It may contain incorrect words, spelling, and punctuation that were not noted in review of the chart prior to signing ED Disposition - Plan for ED Patient: Chief Complaint: Lower Extremity Injury Referrals: Castillo Kruger MD [Primary Care Provider] -
--- NOTE | 2017-12-17 07:28 | ED.DEP ---
ED Disposition - Plan for ED Patient: Disposition: Home or Assisted Living Chief Complaint: Lower Extremity Injury Instructions: ED Spasm Muscle Referrals: Castillo Kruger MD [Primary Care Provider] - 1-2 Days if not improving Additional Instructions: Ice and elevate her right leg. Motrin for pain and swelling. Return to ER if increasing pain, fever or leg begins to swell. Follow-up your primary care physician if not improving in 1-2 days.
[2017-12-17 07:45] VITALS: RESP 18
== END 2017-12-17 07:46 | disposition home or self-care (01) ==
PROVIDERS: Emergency Provider Emergency Medicine; Family Provider Family Medicine; PCP Family Medicine
DX: M79.661 Pain in right lower leg (principal); M62.831 Muscle spasm of calf; G40.909 Epilepsy, unspecified, not intractable, without status epilepticus; R42 Dizziness and giddiness; R79.89 Other specified abnormal findings of blood chemistry; Z79.82 Long term (current) use of aspirin; Z72.0 Tobacco use
CPT/HCPCS: 85379; 96372; 99284

== ENCOUNTER → 2017-12-18 13:25 | Outpatient (CLI) | payer MEDICAID, SELFPAY ==
--- NOTE | 2017-12-18 13:27 | VDLE_ITS ---
Reason For Study: LEG PAIN RIGHT GSV is normal. CFV is compressible, spontaneous, phasic, competent and demonstrates normal augmentation. FV is compressible, spontaneous, phasic, competent and demonstrates normal augmentation. POP V is compressible, spontaneous, phasic, competent and demonstrates normal augmentation. T/P Trunk is compressible. PTV is compressible. RT PerV is compressible. Procedure Exam performed in department. Interpretation Summary Deep veins of the right lower extremity are patent and compressible segmentally. There is no evidence of right lower extremity deep vein thrombosis. Valvular competence appears intact within the proximal deep venous system on the right . The right greater saphenous vein appears patent and compressible segmentally. Ordering Physician: MD Jeferson Marion Performed By: Nancy Amador RVT
== END ==
PROVIDERS: Family Provider Family Medicine; PCP Family Medicine; Visit Provider Emergency Medicine
DX: M79.661 Pain in right lower leg (principal)
CPT/HCPCS: 93971

== ENCOUNTER 2017-12-27 16:58 | Emergency (ER) | payer MEDICAID, SELFPAY ==
[2017-12-27 16:58] VITALS: BP 123/83; PULSE 95; RESP 20; TEMP 36.7; O2SAT 98; BMI 25.8
[2017-12-27] MEDS: Naproxen 500 MG Tablet PO (17:13)
--- NOTE | 2017-12-27 17:20 | RAD_ITS ---
STUDY: X-RAY - RIGHT HAND REASON FOR EXAM: Male, 57 years old. Right hand pain after punching floor. TECHNIQUE: 3 view(s) of the hand. COMPARISON: None. FINDINGS: Normal radiocarpal articulation. Normal distal radioulnar joint. Normal visualized carpal bones. Normal carpal articulations Normal carpometacarpal articulation of the thumb. Normal second through fifth carpometacarpal joints. Normal first through third metacarpi. There is comminuted fracture of the neck of the fourth metacarpal, showing anterior angulation and slight anterior displacement of the distal fracture fragment. There is comminuted fracture of the neck of the fifth metacarpal, showing greater anterior angulation, one half shaft width anterior displacement, mild medial angulation, and slight overriding of the distal fragments. Normal metacarpophalangeal joint of the thumb. Normal interphalangeal joint of the thumb. Normal proximal and distal phalanges of the thumb. Normal metacarpophalangeal joints of the second through fifth fingers. Normal proximal and distal interphalangeal joints of the second through fifth fingers. Normal phalanges of the second through fifth fingers. There is medial soft tissue swelling of the hand. RAD/Hand Min 3 Views IMPRESSION: Angulated, comminuted fractures of the necks of the right fourth and fifth metacarpals, as described. Electronically Signed: Juan Pablo Kim MD at 17:36 EDT , Service support ,
--- NOTE | 2017-12-27 17:36 | ED.VISSUMM ---
- ER Visit Summary Date of Service: 12/27/17 Chief Complaint: Injury right hand. History of Present Illness: The patient is a 57 M who is right-handed. He struck the floor with his clenched fist. He presents because of pain that he localizes over the distal radial side of the right hand. He reports pain with movement of his ring and little finger. He denies paresthesia, anesthesia or motor weakness. Physical Examination: Vital signs are noted. The MCP joint of the right little finger is abnormal. There is no rotational malalignment. Sensation in the index, long, ring and long finger intact. There is no subungual hematoma noted. The extensor minimize tendon is intact. Test Results: Three-view x-ray of the hand reveals 100% displacement of the head fifth medical carpal bone Emergency Department Course and Treatment: X-rays obtained to delineate extent of injury. We will perform hematoma block. Will attempt to reduce displaced fracture. After attempt at reduction and x-ray will contact Dr. Abran Martinez who is on-call for orthopedics Treatment Plan: The fifth metatarsal carpal bone was anesthetized by hematoma block. The fracture was reduced; however, unstable and would fall when I attempted to place the ulnar gutter splint. Dr. Abran Martinez was paged at [phone]. The time of this dictation there was no response. Patient's been instructed to follow-up with him and call in the morning since he will need operative intervention since this is an unstable fracture Disposition: Discharged home with outpatient orthopedic follow-up Impression: Fracture fifth metacarpal, arabella, 100% displaced initial encounter This note was generated with [employer] dictation software. It may contain incorrect words, spelling, and punctuation that were not noted in review of the chart prior to signing ED Disposition - Plan for ED Patient: Disposition: Home or Assisted Living Chief Complaint: Upper Extremity Injury Instructions: ED Fx Boxer Referrals: Castillo Kruger MD [Primary Care Provider] - Abran Martinez MD [STAFF PHYSICIAN] - As soon as possible Additional Instructions: Call Dr. Abran Martinez's office in the morning for urgent follow-up.
--- NOTE | 2017-12-27 17:39 | ED.DCSUM_ITS ---
- ER Visit Summary Date of Service: 12/27/17 Chief Complaint: Injury right hand. History of Present Illness: The patient is a 57 M who is right-handed. He struck the floor with his clenched fist. He presents because of pain that he localizes over the distal radial side of the right hand. He reports pain with movement of his ring and little finger. He denies paresthesia, anesthesia or motor weakness. Physical Examination: Vital signs are noted. The MCP joint of the right little finger is abnormal. There is no rotational malalignment. Sensation in the index, long, ring and long finger intact. There is no subungual hematoma noted. The extensor minimize tendon is intact. Test Results: Three-view x-ray of the hand reveals 100% displacement of the head fifth medical carpal bone Emergency Department Course and Treatment: X-rays obtained to delineate extent of injury. We will perform hematoma block. Will attempt to reduce displaced fracture. After attempt at reduction and x-ray will contact Dr. Abran Martinez who is on- call for orthopedics Treatment Plan: The fifth metatarsal carpal bone was anesthetized by hematoma block. The fracture was reduced; however, unstable and would fall when I attempted to place the ulnar gutter splint. Dr. Abran Martinez was paged at [phone]. The time of this dictation there was no response. Patient's been instructed to follow-up with him and call in the morning since he will need operative intervention since this is an unstable fracture Disposition: Discharged home with outpatient orthopedic follow-up Impression: Fracture fifth metacarpal, arabella, 100% displaced initial encounter This note was generated with [employer] dictation software. It may contain incorrect words, spelling, and punctuation that were not noted in review of the chart prior to signing ED Disposition - Plan for ED Patient: Disposition: Home or Assisted Living Chief Complaint: Upper Extremity Injury Instructions: ED Fx Boxer Referrals: Castillo Kruger MD [Primary Care Provider] - Abran Martniez MD [STAFF PHYSICIAN] - As soon as possible Additional Instructions: Call Dr. Abran Martinez's office in the morning for urgent follow-up.
[2017-12-27 19:00] VITALS: BP 140/76; PULSE 68; RESP 18; O2SAT 97
[2017-12-27 19:30] VITALS: BP 145/79; PULSE 82; RESP 24; O2SAT 98
--- NOTE | 2017-12-27 19:31 | ED.RN ---
THIS NURSE REVIEWED D/C INSTRUCTIONS WITH PT. PT VERBALIZED UNDERSTANDING OF INSTRUCTIONS. PT DENIES FURTHER NEEDS OR QUESTIONS AT THIS TIME. PT AMBULATES FROM ROOM ON OWN WITHOUT ASSISTANCE FROM STAFF
== END 2017-12-27 19:32 | disposition home or self-care (01) ==
PROVIDERS: Emergency Provider Emergency Medicine; Family Provider Family Medicine; PCP Family Medicine
DX: S62.396A Other fracture of fifth metacarpal bone, right hand, initial encounter for closed fracture (principal); W22.8XXA Striking against or struck by other objects, initial encounter; Y93.9 Activity, unspecified; Y92.9 Unspecified place or not applicable; N18.6 End stage renal disease; G40.909 Epilepsy, unspecified, not intractable, without status epilepticus; Z87.442 Personal history of urinary calculi; Z79.82 Long term (current) use of aspirin; Z72.0 Tobacco use
CPT/HCPCS: 26605; 73130; 99283

== ENCOUNTER 2019-03-05 02:42 | Emergency (ER) | payer SELFPAY ==
[2019-03-05 02:42] VITALS: BP 191/112; PULSE 87; RESP 18; TEMP 37; O2SAT 98; BMI 25.9
--- NOTE | 2019-03-05 02:49 | EKG12_ITS ---
Test Reason : LIGHTHEADED Blood Pressure : / mmHG Vent. Rate : 079 BPM Atrial Rate : 079 BPM P-R Int : 146 ms QRS Dur : 082 ms QT Int : 350 ms P-R-T Axes : 031 006 -04 degrees QTc Int : 401 ms Normal sinus rhythm Possible Inferior infarct , age undetermined Possible Septal Infarct, age undetermined Abnormal ECG Confirmed by KALIN LOPEZ, JAMEL ([id number]), non linear editor VIC GARDINER ([id number]) on 03/07/2019 2:27:47 PM Referred By: FREDA Confirmed By:JAMEL GAGNON MD
--- NOTE | 2019-03-05 02:53 | ED.RN ---
RN CALLED FOR EKG, PULLED OLD EKGS FOR
--- NOTE | 2019-03-05 02:58 | RAD_ITS ---
STUDY: X-RAY - CERVICAL SPINE REASON FOR EXAM: Male, 58 years old. Neck pain. Left shoulder pain TECHNIQUE: 5 view(s) of the cervical spine were obtained. COMPARISON: None FINDINGS: There are degenerative changes of the anterior atlantoaxial articulation. Normal odontoid process. There is straightening of the normal cervical lordosis. There is multi-level endplate spondylosis. There is multi-level degenerative disc disease with multilevel disc space narrowing. The soft tissue structures are unremarkable. RAD/Cerv Spine 2 or 3 Views IMPRESSION: There is multi-level degenerative disc disease with multilevel disc space narrowing. Electronically Signed: León Agudelo, at 3:33 EDT Tel , Service support ,
--- NOTE | 2019-03-05 02:59 | ED.DCSUM_ITS ---
History of Present Illness Chief Complaint: Upper Extremity Injury Informant: Patient Narrative: Presents with left-sided neck pain with radicular symptoms down into the trapezius and shoulder. The patient stated that 3 weeks ago he developed an injury to this area. He stated he was not looking and stepped into a three-foot ditch. He was evaluated at a hospital in [place] patient stated he had a negative clavicle x-ray. He is having pain in the clavicle as well. Worse by movement. No home treatment. He walked here this evening. Reports hurts to move his head to the left. It is sharp radicular type pain. No previous disc herniations in his neck. - Past Medical History (1) Atypical chest pain Status: Acute (2) Left lower extremity weakness Status: Acute (3) Methamphetamine abuse Status: Acute (4) Seizure Status: Acute (5) Angina pectoris Status: Chronic (6) History of kidney stones Status: Chronic (7) Stage III chronic kidney disease Status: Chronic (8) Stroke Status: Chronic (9) Tobacco abuse Status: Chronic (10) Ureteral stone with hydronephrosis Status: Chronic Comment: new left ureter calculi with hydronephrosis and blockage, came to er twice with pain also has an infection, will admit for pain control, plan to stent in am and antibiotics. Past Medical History - Allergies and Home Meds Allergies/Adverse Reactions: Allergies Penicillins Allergy (Verified 03/05/19 02:44) SYNCOPE cortisone Allergy (Uncoded 03/05/19 02:44) Shortness of breath Primary Care Physician: Castillo Kruger MD [Primary Care Provider] - Prior records reviewed: Yes Past Medical History: - - See problem list Surgical History: appendectomy Smoking Status: Current every day smoker Alcohol: None Drugs: None - Family History Sibling Family History: Reports: Heart Disease Maternal Family History: Reports: No pertinent history Paternal Family History: Reports: - - father had heart disease in mid 40's. had cabg Review of Systems General: Denies: Chills, Fever, Sweats Eyes: Denies: Visual changes - bilaterally, Diplopia ENT: Denies: Rhinorrhea, Sore throat Cardiovascular: Denies: Chest pain, Palpitations Respiratory: Denies: Dyspnea, Cough, Dyspnea on exertion Gastrointestinal: Denies: Abdominal pain, Nausea, Vomiting, Diarrhea, Melena, Hematochezia Genitourinary: Denies: Dysuria, Hematuria, Frequency Musculoskeletal: Reports: Neck pain, Extremity Pain. Denies: Back pain Skin: Denies: Rash, Wounds Neurological: Denies: Headache, Weakness, Numbness Physical Exam Vital Signs/Narrative: Vital Signs Temp Pulse Resp BP Pulse Ox 03/05/19 02:42 98.6 F 87 18 191/112 H 98 General: Well nourished, Well developed, No Acute Distress Head: Normocephalic, Atraumatic Eyes: Perrl, EOMI ENT: Moist mucous membranes, No rhinorrhea Neck: Supple, - - Tenderness in the left trapezius spasm. Positive tenderness left paracervical with decreased range of motion. No step-off deformity.. Negative for: Nontender Cardiovascular: Regular rate, Regular rhythm, No murmurs Respiratory: No distress, CTA bilaterally, Chest tenderness - Tender of the left clavicle with no bony step-off or deformity or swelling. Negative for: Chest nontender Abdomen: Soft, Nontender, Nondistended, Normal bowel sounds Back: Nontender, Normal Inspection Extremities: Nontender, No edema Skin: Normal color, No rash Neurological: Alert, Oriented x3, Cranial nerves II-XII grossly intact, Normal Strength, Normal Sensation Psychological: Normal affect, Normal Mood Diagnostic/Tx/Re-eval Impressions Cervical Spine X-Ray 03/05/19 02:58 IMPRESSION: There is multi-level degenerative disc disease with multilevel disc space narrowing. Electronically Signed: León Agudelo, at 3:33 EDT Tel , Service support , 03/05/19 02:58 Cerv Spine 2 or 3 Views [RAD] Stat - Medical Decision Making Cervical x-ray obtained. Patient given an injection of Toradol morphine. EKG obtained upon arrival by staff it shows normal sinus rhythm at a rate of 79. Nonspecific T wave changes. No STEMI. Unchanged from EKG 2018. 3 shows chronic degenerative changes spondylosis. No acute fracture. Patient felt better after treatment. He will be discharged with a Medrol Dosepak and he will take meloxicam. We will follow-up as an outpatient. At this time I think he has a cervical radiculopathy. He may have a disc herniation. Understands he may do to follow-up for an MRI if this continues. ED Disposition - Plan for ED Patient: Disposition: Psychiatric Hospital or Unit Diagnosis: Cervical radiculopathy Instructions: RADICULOPATHY, Cervical Prescriptions: MethylPREDNISolone DosePak [Medrol DosePak] 4 mg PO UD #1 box Prescription Printed Meloxicam 15 mg PO DAILY #15 tab Prescription Printed Referrals: Castillo Kruger MD [Primary Care Provider] -
[2019-03-05] MEDS: Morphine 4 MG/ML Syringe IM (03:05)
[2019-03-05] MEDS: Ketorolac 15 MG/ML Vial IM (03:05)
[2019-03-05 03:58] VITALS: BP 168/110; PULSE 84; RESP 16; O2SAT 97
== END 2019-03-05 04:00 | disposition home or self-care (01) ==
PROVIDERS: Emergency Provider Emergency Medicine; Family Provider Family Medicine; PCP Family Medicine
DX: M47.22 Other spondylosis with radiculopathy, cervical region (principal); S49.92XA Unspecified injury of left shoulder and upper arm, initial encounter; W17.89XA Other fall from one level to another, initial encounter; Y93.9 Activity, unspecified; Y92.9 Unspecified place or not applicable; N18.3 Chronic kidney disease, stage 3 (moderate); Z87.442 Personal history of urinary calculi; Z86.73 Personal history of transient ischemic attack (TIA), and cerebral infarction without residual deficits; F17.200 Nicotine dependence, unspecified, uncomplicated; F15.10 Other stimulant abuse, uncomplicated; Z79.82 Long term (current) use of aspirin
CPT/HCPCS: 72040; 93005; 96372; 99282

== ENCOUNTER 2019-08-23 22:16 | Emergency (ER) | payer MEDICAID, SELFPAY ==
[2019-08-23 22:17] VITALS: BP 122/86; PULSE 116; RESP 15; TEMP 36.7; O2SAT 99
--- NOTE | 2019-08-23 22:42 | EKG12_ITS ---
Test Reason : DYSRHYTHMIA Blood Pressure : / mmHG Vent. Rate : 107 BPM Atrial Rate : 107 BPM P-R Int : 142 ms QRS Dur : 082 ms QT Int : 340 ms P-R-T Axes : 042 010 140 degrees QTc Int : 453 ms Sinus tachycardia Minimal voltage criteria for LVH, may be normal variant Possible Inferior infarct , age undetermined T wave abnormality, consider lateral ischemia Abnormal ECG Confirmed by JOELLE LOPEZ, JAQUI ([id number]), associate editor KATHIE AMADOR ([id number]) on 08/26/2019 2:11:11 PM Referred By: JUDY Confirmed By:CHARAN LAI MD
--- NOTE | 2019-08-23 22:42 | CT_ITS ---
We are attempting to reach an attending provider to discuss findings. An addendum with communication details will be sent when the communication is complete. HISTORY: Rule out occlusion. Technique: Following the uneventful administration of 100 ML of Isovue-370 contiguous helical images were obtained from the distal abdominal aorta through the toes. 2-D reformats and curved linear reformats are provided through various sections. [address] scan is from February 16, 2017, and was a noncontrast CT scan of the right knee. Not all those images are available. Findings: Bowel gas pattern is normal. The bladder is mostly decompressed. No ascites. No adenopathy. Atherosclerotic disease is circumferential within the abdominal aorta continues into the common iliac arteries. The calcific portion of the atherosclerotic disease is greater within the common iliac arteries. Due to the severity of the calcific and soft plaque, at the bifurcation of the right common iliac artery, the luminal diameter is narrowed to 0.25 mm. This is at the right common iliac artery bifurcation. The right internal iliac artery is occluded. The right external iliac artery, just downstream from the bifurcation has a luminal diameter of 8.5 mm. This equates to a 70% stenosis to the distal aspect of the right common iliac artery. Atherosclerotic disease continues in an otherwise widely patent right external iliac artery. There is some left common iliac artery flow. The origin of the left internal iliac artery is also occluded. There appears to be fairly patent flow throughout the visualized portions of the left external iliac artery. CT of the right lower extremity. Some atherosclerotic plaque is present within the right common femoral artery. This plaque becomes greater just above its bifurcation, but the profunda femoris and superficial femoral artery are patent. There is multiple areas of soft plaque within the christine of the proximal right superficial femoral artery. More distally it remains patent. Within the christine of the popliteal artery there is soft plaque contributing to a 40% stenosis. The lumen is irregular due to the severity of the soft plaque. At the level of the patella due to soft plaque within the lumen of the right popliteal artery, there is a 45% stenosis. The right popliteal artery is patent to the origin of the right anterior tibial artery where there is intraluminal thrombus within the origin of the right anterior tibial artery, series 2 image 264. The tibioperoneal trunk is small with soft and calcific plaque with greater than 50% stenosis. The right posterior tibial artery is occluded at its origin. The right peroneal artery occludes within the distal leg. The right anterior tibial artery remains patent to the ankle when it occludes. I can perceived no flow on this study below the ankle. CT/CTA LWR EXTR W/O & W/DYE IMPRESSION: Circumferential calcific and soft plaque within the abdominal aorta. Severe calcific and soft plaque within the right external iliac artery. At the right external iliac artery bifurcation there is a 70% stenosis. 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 45% stenosis to the popliteal artery at the level of the patella. This is due to soft plaque. Soft plaque versus thrombus within the lumen at the origin of the right anterior tibial artery extends for over a centimeter. It is incompletely occlusive, but does contribute to fairly significantly diminished flow within the right anterior tibial. The right anterior tibial artery occludes above the ankle. The right peroneal artery has disease at its origin, and it occludes within the distal calf. The right posterior tibial artery is occluded at its origin. Individualized dose optimization techniques were used for this CT. at 0017 Reported and signed by: Jerrell Choe MD Electronically Signed: Jerrell Choe MD at 0:16 EST Tel , Service support ,
--- NOTE | 2019-08-23 22:45 | ED.VIS.GEN ---
History of Present Illness Chief Complaint: Lower Extremity Injury Narrative: Patient is a 58-year-old male who presents with right calf cramping. This began earlier this afternoon approximately 8 to 10 hours ago. He had a similar episode about 2 weeks ago that lasted through the weekend and was worse with ambulation. He also notes that his right leg was cooler than the other side. He tried putting his leg in a warm bath and developed worsening pain with a nagm-loy-lqaazbo sensation. He denies any weakness or numbness. He has been a smoker for 50 years. He denies history of peripheral arterial disease. He takes no daily medications and denies history of diabetes, hypertension, hyperlipidemia. Past Medical History - Allergies and Home Meds Allergies/Adverse Reactions: Allergies Penicillins Allergy (Verified 03/05/19 02:44) SYNCOPE cortisone Allergy (Uncoded 03/05/19 02:44) Shortness of breath Primary Care Physician: Castillo Kruger MD [Primary Care Provider] - Past Medical History: None Surgical History: appendectomy Smoking Status: Current every day smoker - Family History Sibling Family History: Reports: Heart Disease Maternal Family History: Reports: No pertinent history Paternal Family History: Reports: - - father had heart disease in mid 40's. had cabg Review of Systems All systems negative except as indicated General: Denies: Fever Cardiovascular: Denies: Chest pain Respiratory: Denies: Dyspnea Gastrointestinal: Denies: Nausea, Vomiting Musculoskeletal: Reports: - - Right leg pain. Denies: Myalgias Skin: Denies: Rash Neurological: Denies: Headache Hematologic: Denies: Easy bruising Allergy: Denies: Uticaria Physical Exam Vital Signs/Narrative: Vital Signs Temp Pulse Resp BP Pulse Ox 08/23/19 22:17 98.1 F 116 H 15 122/86 H 99 Inital Vital Signs reviewed: Yes General: Well nourished, Well developed Head: Normocephalic, Atraumatic Eyes: EOMI ENT: Moist mucous membranes Neck: Supple Cardiovascular: - - Heart is regular rate and rhythm, no murmur, gallop, rub Respiratory: No distress, CTA bilaterally Abdomen: Soft, Nontender Extremities: - - Both feet are cool to the touch however the right is cooler than the left, the right foot is pale with delayed capillary refill at 6 to 8 seconds, patient reports decreased sensation to light touch of the toes I am unable to palpate dorsalis pedis pulses on either side, patient does have biphasic Doppler flow of the left dorsalis pedis, no dopplerable signal for the right dorsalis pedis, monophasic flow of the right posterior tibial Skin: - - Right lower extremity pale Neurological: Alert Psychological: Normal affect Diagnostic/Tx/Re-eval - Medical Decision Making Laboratory studies including CBC, BMP, INR, troponin, lactic acid, CPK were ordered. EKG was obtained which shows sinus tachycardia at a rate of [address] depression and T wave inversions in leads I, aVL and V4 through V6. Patient was started on a heparin infusion. CTA of the extremity was ordered. Although based on his clinical exam I do not think that he has a complete occlusion of the right leg is certainly ischemic compared to the left. Therefore I did start the transfer process shortly after my evaluation. I spoke to the [facility] transfer line and spoke to vascular surgery on-call, Dr. Do who accepts the patient in transfer. ED Disposition - Plan for ED Patient: Disposition: [facility] Diagnosis: Ischemia of right lower extremity Referrals: Castillo Kruger MD [Primary Care Provider] -
[2019-08-23] MEDS: 0.9% Normal Saline 1,000 ML 999 ML IV (22:54)
[2019-08-23] MEDS: Morphine 4 MG/ML Syringe IV (22:55)
[2019-08-23] MEDS: Ondansetron 4 MG/2 ML Vial IV (22:55)
[2019-08-23 23:12] LABS: Absolute Lymphocyte Count 1.28 X10^3/uL (0.83-4.51); Absolute Neutrophil Count 10.3 X10^3/uL (2.0-7.7); Basophil# 0.03 X10^3/uL; Basophil% 0.2 % (0-1); Eosinophils% 0.8 % (0-5); Hematocrit 42.8 % (40-54); Hemoglobin 14.5 g/dL (13.0-16.5); Lymphocyte # 1.28 X10^3/ul (4.0); Lymphocyte % 10.2 % (19-41); Mean Corp Hgb Conc 33.9 g/dL (32-36); Mean Corpuscular Hgb 30.5 pg (27.0-32.0); Mean Corpuscular Volume 90.1 fL (80-94); Mean Platelet Vol. 10.4 fl (6.2-12.0); Monocyte# 0.79 X10^3/uL; Monocyte% 6.3 % (0-10); NRBC Flagged by Analyzer 0 % (0-5); Neutrophil # 10.28 X10^3/uL (2.7-7.7); Neutrophil % 82.3 % (47-70); Platelet Count 195 K/mm3 (150-450); RBC Distribution Width CV 12.9 % (11.6-14.6); RBC Distribution Width SD 42.4 fl (35.1-43.9); Red Blood Count 4.75 M/mm3 (4.6-6.2); White Blood Count 12.5 K/mm3 (4.4-11.0)
[2019-08-23 23:20] LABS: International Normalized Ratio 1.1; Prothrombin Time (Protime)PT. 14.3 SECONDS (11.7-14.9)
[2019-08-23 23:29] LABS: Anion Gap 8 (5-15); BUN 31 mg/dL (7-18); BUN/Creat Ratio 18.6 RATIO (10-20); Calcium,Total 9.1 mg/dL (8.5-10.1); Chloride 106 mmol/L (98-107); Creatinine, Serum 1.67 mg/dL (0.70-1.30); EST Glomerular Filtration Rate 45 mL/min (>60); Est Glom Filt Rate - Afr Amer 54 mL/min (>60); Estimated Creatinine Clearance 52.81 ml/min; Glucose 142 mg/dL (74-106); Potassium 4.1 mmol/L (3.5-5.1); Sodium Level 137 mmol/L (136-145)
[2019-08-23] MEDS: Heparin Injection (Vial) 5,000 UNIT/ML VIAL 5000 UNIT IV (23:35)
[2019-08-23] MEDS: HEPARIN/D5w 25,000 UNITS 25,000 UNITS/250 ML IV.SOLN. 11 UNITS IV (23:36)
[2019-08-23 23:45] LABS: CPK Total, Creatine Kinase 165 U/L (39-308)
[2019-08-24 00:10] LABS: Lactic Acid 0.9 mmol/L (0.4-1.9)
[2019-08-24 00:14] VITALS: BP 145/94; PULSE 92; O2SAT 97
== END 2019-08-24 00:40 | disposition short-term general hospital (02) ==
PROVIDERS: Emergency Provider Emergency Medicine; PCP Family Medicine
DX: I99.8 Other disorder of circulatory system (principal); F17.200 Nicotine dependence, unspecified, uncomplicated
CPT/HCPCS: 73706; 80048; 82550; 83605; 84484; 85025; 85610; 93005; 96361; 96365; 96374; 96375; 99284; J7030; Q9967; A4216; J2405

== ENCOUNTER 2019-08-29 13:55 | Outpatient (RCR) | payer SELFPAY | END 2019-08-31 23:59 | LOC: WC 13:55 | PROVIDERS: PCP Family Medicine; Visit Provider Nurse Practitioner Family | DX: Z09 Encounter for follow-up examination after completed treatment for conditions other than malignant neoplasm (principal) ==

== ENCOUNTER → 2020-06-15 10:54 | Outpatient (CLI) | payer MEDICAID, SELFPAY ==
--- NOTE | 2020-06-15 10:56 | ECHOCS_ITS ---
Reason For Study: SOB Procedure This was a 2D Doppler, Color Flow transthoracic echocardiogram. Contrast injection was performed. Exam performed in department. Left Ventricle Normal LV size. Concentric left ventricular hypertrophy. The estimated ejection fraction is 55 %. Unable to assess diastolic dysfunction. No regional wall motion abnormalities noted. Right Ventricle Normal RV size. Normal systolic function. Atria Normal left atrium. Normal right atrium. No doppler evidence for ASD. Mitral Valve There is moderate mitral annular calcification. There is no mitral valve stenosis. Trivial mitral valve insufficiency. Tricuspid Valve There is no tricuspid stenosis. Trivial tricuspid valve insufficiency. Pulmonary artery systolic pressure is 20-25 mmHg. Aortic Valve Trisinus/trileaflet aortic valve. There is no aortic stenosis. No aortic valve insufficiency. Pulmonic Valve There is no pulmonic valvular stenosis. No pulmonic valve insufficiency. Great Vessels Normal aortic root. Pericardium/Pleural No pericardial effusion. Medication Diluted definity 2ml given slow IV push to enhance endocardial definition. MMode/2D Measurements & Calculations LVIDd: 4.5 cm IVSd: 1.4 cm Ao root diam: 3.8 cm LVIDs: 3.2 cm LVPWd: 1.4 cm RVDd: 4.2 cm FS: 29.1 % LAV(MOD-bp): 55.5 ml LVAd ap4: 34.3 cm2 SV(MOD-sp4): 71.9 ml LAV(MOD-bp) Indexed: 26.4 ml/m2 EDV(MOD-sp4): 110.6 ml LAV(MOD-sp2): 53.6 ml EDV(sp4-el): 112.0 ml LAV(MOD-sp4): 56.8 ml LVAs ap4: 18.2 cm2 ESV(MOD-sp4): 38.7 ml ESV(sp4-el): 38.7 ml EF(MOD-sp4): 65.0 % EF(sp4-el): 65.5 % SV(sp4-el): 73.4 ml LA A4 area: 20.0 cm2 LA dimension(2D): 3.0 cm RA A4 area: 12.4 cm2 Doppler Measurements & Calculations MV E max galdino: 59.6 cm/sec Lat Peak E' Galdino: 6.0 cm/sec Med Peak E' Galdino: 4.0 cm/sec MV A max galdino: 89.1 cm/sec E/E' lat: 9.9 E/E' med: 14.9 MV E/A: 0.67 Ao V2 max: 107.8 cm/sec LV V1 max: 86.1 cm/sec PA V2 max: 92.9 cm/sec Ao max P.7 mmHg LV V1 max P.0 mmHg Ao V2 mean: 77.7 cm/sec Ao mean P.6 mmHg Ao V2 VTI: 21.9 cm TR max galdino: 225.6 cm/sec TR max P.4 mmHg Interpretation Summary The estimated ejection fraction is 55 %. Unable to assess diastolic dysfunction. Trivial mitral valve insufficiency. The study was technically difficult. Contrast injection was performed. Ordering Physician: Cooper Blanchard Referring Physician: Castillo Kruger Performed By: Alina Huitron, PHONG, RVT
--- NOTE | 2020-06-18 14:03 | STRESSREP_ITS ---
Stress Test Report Date: 06/15/2020 Procedure: Exercise tolerance test Indications: Shortness of breath Consent: Per the patient Procedure: The patient exercised on a Cale protocol for 1 minute and 44 seconds achieving a peak heart rate of 109 bpm (68% predicted maximal heart rate) with a peak blood pressure 172/94 mmHg and a peak MET capacity of approximately 4.6 MET's. The baseline ECG demonstrated normal sinus rhythm, nonspecific ST-T changes. The peak exercise ECG demonstrated sinus tachycardia with no significant ischemic changes. However since patient achieved only 68% of maximal age- predicted heart rate the test is suboptimal to evaluate for ischemia. [There were no cardiac dysrhythmias pretest, during exercise, or recovery]. The functional capacity was considered significantly decreased for age. The patient had no complaint of chest discomfort during exercise or recovery. The examination was discontinued secondary to leg discomfort, dyspnea, fatigue. Impression: 1. Test is suboptimal/nondiagnostic for evaluation of ischemia since patient achieved only 68% of maximal age-predicted heart rate 2. Stress test is [negative] for exercise-induced chest pain. 3. Stress test test[is negative] for exercise-induced EKG changes of ischemia. 4. Functional capacity is [significantly decreased for age] This note was generated with Trampolineation software. It may contain incorrect words, spelling, and punctuation that were not noted in checking the note before signing.
== END ==
PROVIDERS: PCP Family Medicine; Referring Provider Student in an Organized Health Care Education/Training Program; Visit Provider Student in an Organized Health Care Education/Training Program
DX: R06.00 Dyspnea, unspecified (principal); Z72.0 Tobacco use
CPT/HCPCS: 93017; 93306; Q9957; A4216; C8929

== ENCOUNTER → 2020-09-17 07:20 | Outpatient (CLI) | payer MEDICAID, SELFPAY ==
--- NOTE | 2020-09-17 07:23 | CT_ITS ---
STUDY: LOW DOSE CT LUNG CANCER SCREENING REASON FOR EXAM: Male, 59 years old. Tobacco Dependency RADIATION DOSAGE (If Supplied By Facility): CTDIvol = ( 4.02 ) mGy, DLP = ( 132.90 ) mGycm TECHNIQUE: No contrast was administered. Low dose technique was utilized (average mAS-38 and kVp 120). 1.25 mm axial source images with a slice interval of 1.25-mm were reconstructed in lung windows. 2.5 mm axial source images with a slice interval of 2.5-mm were reconstructed in lung windows. 5.0 mm axial source images with a slice interval of 5.0-mm were reconstructed in soft tissue windows. Nodule measured using lung windows on PACS and/or independent workstation with automated measurement of minimum and maximum diameter. Nodule measurement reported as average diameter rounded to the nearest whole number. Growth is defined as an increase ins size of greater than 1.5 mm. COMPARISON: Comparison is made with prior study dated 04/13/2017. NODULES: No suspicious nodular densities are seen. Emphysema: No significant emphysematous changes are seen. Endobronchial lesion: None Aorta: Atherosclerotic plaque formation of the aortic arch. Coronary arteries: Coronary artery calcification. Mediastinal nodes: Small benign-appearing mediastinal lymph nodes. Other chest and abdominal findings: CT/Low Dose CT Lung Screening IMPRESSION: Lung-RADS category 2 - Continue annual screening with LDCT in 12 months. IMPORTANT NOTES FOR USE: ACR Lung-RADS Version 1.0 Assessment Categories Release Date: October 28, 2013 Category: Coded 0-4 bases on nodule(s) with highest degree of suspicion. Negative screen is defined as categories 1 and 2; a positive screen is defined as categories 3 and 4. Category 3 and 4A nodules that are unchanged on interval CT should be coded as category 2, and individuals returned to screening in 12 months. Category 4X: Category 3 or 4 nodules with additional imaging findings that increase the suspicion of lung cancer, such as spiculation, GGN that doubles in size in 1 year, enlarged lymph notes, etc. Category Modifiers: S (significant finding unrelated to lung cancer) and C (prior history of treated lung cancer) may be added to the 0-4 Lung-RADS Electronically Signed: Severiano Beverly MD at 10:24 EDT , Service support ,
--- NOTE | 2020-09-17 15:32 | PFTCOMP ---
COMPLETE PULMONARY FUNCTION TEST INTERPRETATION Brief HPI: Patient is a 59 year old male, currently under the care of Dr. Rubio, who presents to [facility] for complete pulmonary function tests secondary to diagnosis of dyspnea. Respiratory therapist reports good effort and reproducible results. Interpretation: Forced expiration spirometry shows no large airways obstructive ventilatory defect with an FEV1 of 78% predicted. There is no significant bronchodilator response by strict ATS criteria. Spirograms are of good quality and plateau slowly, indicating slowly emptying areas of the lungs. The respiratory flow volume loop shows a normal pattern. Lung volumes by body plethysmography show a mildly decreased total lung capacity at 5.16 L, 84% predicted. All other lung volumes are within normal limits. Diffusion capacity by carbon monoxide is at the lower limit of normal at 70% predicted. The airway resistance is normal. No previous pulmonary function tests were available for review. Impression: Mild restrictive ventilatory defect
== END ==
PROVIDERS: PCP Student in an Organized Health Care Education/Training Program; Referring Provider Internal Medicine Critical Care Medicine; Visit Provider Internal Medicine Critical Care Medicine
DX: R06.02 Shortness of breath (principal); F17.211 Nicotine dependence, cigarettes, in remission
CPT/HCPCS: 71271; 94060; 94726; 94729

== ENCOUNTER → 2020-10-07 08:29 | Outpatient (CLI) | payer MEDICAID, SELFPAY ==
[2020-10-07 08:47] VITALS: PULSE 100; PULSE 101; PULSE 89; PULSE 90; PULSE 96; PULSE 97; PULSE 98; O2SAT 94; O2SAT 95; O2SAT 96
--- NOTE | 2020-10-07 08:51 | CPS ---
PATIENT ARRIVED AT BASELINE RESPIRATORY STATUS WHICH HE RATED AT 1/10. DURING MINUTE 1 OF WALK TEST, HE EXPERIENCED FLEETING DIZZINESS UPON TURN AT END OF LAP, NOTES HE HAS HX VERTIGO. TURNS DONE AT A SLOWER PACE, NO FURTHER DIZZINESS NOTED. HE TOOK 1 REST BREAK AT 4 MINUTES D/T RIGHT HIP/LEG/FOOT PAIN
--- NOTE | 2020-10-08 10:48 | PCM.PSN.6M ---
PSN 6 Minute Walk Test - 6 Minute Walk Test 6 Minute Walk Test: 6 Minute Walk Test PSN:6-Minute Walk Test Start: 10/07/20 08:46 Freq: Status: Active Protocol: [id number].[id number] Document 10/07/20 08:47 [facility] (Rec: 10/07/20 08:54 [facility] [id number]) 6 Minute Walk Test Date Performed 10/07/20 Time Performed 08:15 Height 5 ft 8 in Weight: 210 lb Weight in Pounds 210.[address]: Jefferson Rubio Assistive device used: None Pre-test Oxygen Delivery Method Room Air Pulse Ox (%) 96 Pulse Rate (60-100 beats/min) 89 Dyspnea Alida Scale (0-10) 1 1st minute Oxygen Delivery Method Room Air Pulse Ox (%) 95 Pulse Rate (60-100 beats/min) 97 Dyspnea Alida Scale (0-10) 1 Number of Rests Taken 0 Reported Symptoms Dizziness 2nd minute Oxygen Delivery Method Room Air Pulse Ox (%) 95 Pulse Rate (60-100 beats/min) 96 Dyspnea Alida Scale (0-10) 1 Number of Rests Taken 0 3rd minute Oxygen Delivery Method Room Air Pulse Ox (%) 94 Pulse Rate (60-100 beats/min) 98 Dyspnea Alida Scale (0-10) 2 Number of Rests Taken 0 4th minute Oxygen Delivery Method Room Air Pulse Ox (%) 95 Pulse Rate (60-100 beats/min) 100 Dyspnea Alida Scale (0-10) 2 Number of Rests Taken 1 5th minute Oxygen Delivery Method Room Air Pulse Ox (%) 94 Pulse Rate (60-100 beats/min) 101 H Dyspnea Alida Scale (0-10) 2 Number of Rests Taken 0 6th minute Oxygen Delivery Method Room Air Pulse Ox (%) 94 Pulse Rate (60-100 beats/min) 100 Dyspnea Alida Scale (0-10) 2 Number of Rests Taken 0 Post-test Oxygen Delivery Method Room Air Pulse Ox (%) 96 Pulse Rate (60-100 beats/min) 90 Dyspnea Alida Scale (0-10) 1 Full Laps Walked 12 Partial Lap, Number of Tiles Walked 26 Total Distance Walked (ft) 734 10/07/20 08:51 Cardiopulmonary Services by Dejah Clements PATIENT ARRIVED AT BASELINE RESPIRATORY STATUS WHICH HE RATED AT 1/10. DURING MINUTE 1 OF WALK TEST, HE EXPERIENCED FLEETING DIZZINESS UPON TURN AT END OF LAP, NOTES HE HAS HX VERTIGO. TURNS DONE AT A SLOWER PACE, NO FURTHER DIZZINESS NOTED. HE TOOK 1 REST BREAK AT 4 MINUTES D/T RIGHT HIP/LEG/FOOT PAIN Initialized on 10/07/20 08:51 - END OF NOTE - Interpretation Interpretation: The patient ambulated 734 feet over the course of 6 minutes beginning on room air without assistive devices or breaks. Pretesting oxygen saturation was noted to be 96% on room air. With ambulation, the liz oxygen saturation was 94%. There was no significant exertional oxygen desaturation. - Recommendations Recommendations: There is no indication for the use of supplemental oxygen at this time.
== END ==
PROVIDERS: PCP Student in an Organized Health Care Education/Training Program; Referring Provider Internal Medicine Critical Care Medicine; Visit Provider Internal Medicine Critical Care Medicine
DX: R06.02 Shortness of breath (principal); F17.211 Nicotine dependence, cigarettes, in remission
CPT/HCPCS: 94618

== ENCOUNTER 2021-02-20 13:52 | Emergency (ER) | payer MEDICAID, SELFPAY ==
[2021-02-20 13:54] VITALS: BP 134/87; PULSE 78; RESP 17; TEMP 37.2; O2SAT 96; BMI 31.6
[2021-02-20] MEDS: LORazepam 2 MG/ML Syringe 1 MG IV (14:11)
--- NOTE | 2021-02-20 14:16 | CT_ITS ---
STUDY: CT BRAIN WITHOUT CONTRAST REASON FOR EXAM: Male, 60 years old. seizure RADIATION DOSAGE (If Supplied By Facility): CTDIvol = ( 44.99 ) mGy, DLP = ( 796.11 ) mGycm TECHNIQUE: Transaxial CT imaging of the brain was performed without administration of intravenous contrast material. Individualized dose optimization techniques were used for this CT. COMPARISON: No relevant priors. FINDINGS: There is no intra-/extra-axial fluid collection, mass effect, or midline shift. The celeste/white matter junction is preserved. The basal cisterns are patent. Polyps versus retention cysts are seen in the left maxillary sinus. There is minimal mucoperiosteal thickening of the left maxillary and frontal sinuses. The calvarium is intact. CT/Brain/Head without Contrast IMPRESSION: No acute intracranial finding. MRI may be obtained if clinically indicated. Electronically Signed: Russ Webster MD at 15:27 EDT Tel , Service support ,
--- NOTE | 2021-02-20 14:18 | EX.ED.DYSGE1 ---
HPI History of Present Illness Chief Complaint: Seizure Informant: family and EMS Onset/Context/Timing Onset: Today Narrative Narrative: Patient brought in by EMS after seizure. Patient has history of seizure disorder and is currently on Keppra and Zonegran. 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 EMS was called. Patient was alert and talking to his sister the emergency room and at that time relayed to her that he could feel the seizure coming on. Eyes notified by nursing staff that they felt the patient was having another seizure. When I entered the room patient had some mild tonic-clonic activity in the legs and right arm. Ativan is ordered. Patient's sister denies that he has had recent illness or trauma. He follows with a neurologist at [facility]. [facility] Medical History Acute kidney injury Alcohol use Anxiety Arthritis Carotid artery calcification Costochondritis Drug abuse DVT (deep venous thrombosis) Epilepsy Hyperglycemia Intermittent claudication Left ventricular hypertrophy Leucocytosis Lightheadedness Mitral valve annular calcification Mucous retention cyst Numbness and tingling ELISABETH (obstructive sleep apnea) Pleural effusion on left Pulmonary vascular congestion Seizures Small vessel disease SOB (shortness of breath) Unresponsive episode Vertigo Home Medications levetiracetam 500 mg/5 mL (5 mL) oral solution 1,000 mg PO BID 09/03/20 [History Last Taken Unknown] losartan 50 mg tablet 50 mg PO DAILY 09/03/20 [History Last Taken Unknown] aspirin 81 mg PO DAILY 02/20/21 [History Last Taken Unknown] metoprolol succinate 25 mg PO DAILY 02/20/21 [History Last Taken Unknown] zonisamide See Rx Instructions .ROUTE .COMPLEX 02/20/21 [History Last Taken Unknown] Allergy/AdvReac Type Severity Reaction Status Date / Time Penicillins Allergy SYNCOPE Verified 02/20/21 13:54 cortisone Allergy Shortness Uncoded 02/20/21 13:54 of breath Family History Sister Arthritis Cancer Depression Diabetes Hypertension Hyperlipidemia Thyroid disorder CVA (cerebral vascular accident) Seizures FH: mental illness Father Diabetes Heart disease Hypertension Hyperlipidemia Surgical History History of appendectomy History of loop recorder Social History Smoking Status: Current some day smoker tobacco type: cigarettes ROS ROS ED Review of Systems ROS Unobtainable: due to mental status EXAM Physical Exam Const Vital Signs: 02/20/21 13:54 02/20/21 14:57 Temperature 99 F Temperature Source Temporal Pulse Rate 78 73 Respiratory Rate 17 18 Blood Pressure 134/87 H 131/88 H Blood Pressure Mean 102 102 Pulse Ox 96 92 Oxygen Delivery Method Room Air Room Air Positive well nourished and well developed General Appearance ED: well developed HEENT Reports moist mucous membranes Neck supple Resp normal respiratory effort and clear to auscultation bilaterally Cardio regular rate and regular rhythm GI non-tender Palpation: soft Extremity normal to inspection Neuro Neuro Narrative: Tonic-clonic activity noted to the right arm and bilateral legs. MDM MDM MDM Narrative Medical decision making narrative: Patient was given IV Ativan and a extra dose of IV Keppra. Lab work and CT head obtained. Lab Data Attestation: I reviewed the patient's lab results. Labs: Laboratory Results - last 24 hr 02/20/21 02/20/21 13:55 13:55 WBC 7.6 RBC 4.17 L Hgb 13.2 Hct 39.5 L MCV 94.7 H MCH 31.7 MCHC 33.4 RDW Std Deviation 46.7 H RDW Coeff of Vladislav 13.4 Plt Count 248 MPV 11.4 Immature Gran % (Auto) 0.300 Neut % (Auto) 57.0 Lymph % (Auto) 25.9 [place] % (Auto) 8.2 Eos % (Auto) 7.9 H Baso % (Auto) 0.7 Absolute Neuts (auto) 4.4 Absolute Lymphs (auto) 1.98 Nucleated RBC % 0 Sodium 142 Potassium 3.8 Chloride 111 H Carbon Dioxide 22.0 Anion Gap 9 BUN 19 H Creatinine 1.35 H Estim Creat Clear Calc 56.73 Est GFR (MDRD) Af Amer 69 Est GFR (MDRD) Non-Af 57 L BUN/Creatinine Ratio 14.1 Glucose 136 H Calcium 8.8 Total Bilirubin 0.30 Direct Bilirubin 0.11 AST 17 ALT 28 Alkaline Phosphatase 92 Total Protein 7.1 Albumin 3.7 Globulin 3.4 Radiography Diagnostic Testing: Radiology Impression Brain CT 02/20/21 14:16 IMPRESSION: No acute intracranial finding. MRI may be obtained if clinically indicated. Electronically Signed: Russ Webster MD at 15:27 EDT Tel , Service support , Treatment and Re-Evaluation Comments:: Work-up is unremarkable. Nursing staff does advised that as she was standing in the room speaking with the patient's sister patient was speaking gibberish. When she started asking about any recent drug use the patient clearly stated that he had only used what ever drugs we gave him here at the hospital. It was clear that the patient was not truly postictal at that point was clearly able to speak appropriately and answer questions. At this time patient is alert and able to tolerate p.o. He will be discharged home to follow-up with his neurologist. Discharge Plan Triage Chief Complaint: Seizure ED Provider: Tish Ascencio Dx/Rx/DC Orders Clinical Impression: Seizures Instructions: ED Seizure, Recurrent (Adult) Prescriptions: No Action levetiracetam 500 mg/5 mL (5 mL) solution 1,000 mg PO BID RF: 0 losartan 50 mg tablet 50 mg PO DAILY RF: 0 zonisamide 100 mg capsule See Rx Instructions .ROUTE .COMPLEX RF: 0 aspirin 81 mg Tablet 81 mg PO DAILY RF: 0 metoprolol succinate 25 mg Capsule,Sprinkle,Er 24hr 25 mg PO DAILY RF: 0 Primary Care Provider: Cooper Blanchard Referrals: Cooper Blanchard DO [Primary Care Provider] - Activity Restrictions/Additional Instructions: Follow-up with your neurologist at [facility] as soon as possible. Disposition Disposition: Home, Self Care
[2021-02-20] MEDS: LORazepam 2 MG/ML Syringe 0.5 MG IV (14:26)
[2021-02-20] MEDS: 0.9% Normal Saline 1,000 ML 150 ML IV (14:27)
[2021-02-20 14:34] LABS: Absolute Lymphocyte Count 1.98 X10^3/uL (0.83-4.51); Absolute Neutrophil Count 4.4 X10^3/uL (2.0-7.7); Basophil# 0.05 X10^3/uL; Basophil% 0.7 % (0-1); Eosinophils% 7.9 % (0-5); Hematocrit 39.5 % (40-54); Hemoglobin 13.2 g/dL (13.0-16.5); Lymphocyte # 1.98 X10^3/ul (0.83-4.51); Lymphocyte % 25.9 % (19-41); Mean Corp Hgb Conc 33.4 g/dL (32-36); Mean Corpuscular Hgb 31.7 pg (27.0-32.0); Mean Corpuscular Volume 94.7 fL (80-94); Mean Platelet Vol. 11.4 fl (6.2-12.0); Monocyte# 0.63 X10^3/uL; Monocyte% 8.2 % (0-10); NRBC Flagged by Analyzer 0 % (0-5); Neutrophil # 4.36 X10^3/uL (2.7-7.7); Platelet Count 248 K/mm3 (150-450); RBC Distribution Width CV 13.4 % (11.6-14.6); RBC Distribution Width SD 46.7 fl (35.1-43.9); Red Blood Count 4.17 M/mm3 (4.6-6.2); White Blood Count 7.6 K/mm3 (4.4-11.0)
[2021-02-20] MEDS: levETIRAcetam IV 1,000 MG/100 ML BAG 400 MG IV (14:42)
[2021-02-20 14:45] LABS: AST(SGOT) 17 U/L (15-37); Alanine Aminotransfer ALT/SGPT 28 U/L (16-61); Albumin, Serum 3.7 g/dL (3.2-5.0); Alkaline Phosphatase 92 U/L (45-117); Anion Gap 9 (5-15); BUN 19 mg/dL (7-18); BUN/Creat Ratio 14.1 RATIO (10-20); Bilirubin, Direct 0.11 mg/dL (0.00-0.30); Calcium,Total 8.8 mg/dL (8.5-10.1); Chloride 111 mmol/L (98-107); Creatinine, Serum 1.35 mg/dL (0.70-1.30); EST Glomerular Filtration Rate 57 mL/min (>60); Est Glom Filt Rate - Afr Amer 69 mL/min (>60); Estimated Creatinine Clearance 56.73 ml/min; Globulin 3.4 g/dL (2.2-4.2); Glucose 136 mg/dL (74-106); Potassium 3.8 mmol/L (3.5-5.1); Protein, Total 7.1 g/dL (6.4-8.2); Sodium Level 142 mmol/L (136-145)
[2021-02-20 14:57] VITALS: BP 131/88; PULSE 73; RESP 18; O2SAT 92
[2021-02-20 15:41] VITALS: BP 123/83; PULSE 75; RESP 18; O2SAT 94
== END 2021-02-20 16:03 | disposition home or self-care (01) ==
PROVIDERS: Emergency Provider Emergency Medicine; PCP Student in an Organized Health Care Education/Training Program
DX: G40.909 Epilepsy, unspecified, not intractable, without status epilepticus (principal); F41.9 Anxiety disorder, unspecified; G47.33 Obstructive sleep apnea (adult) (pediatric); M19.90 Unspecified osteoarthritis, unspecified site; Z86.718 Personal history of other venous thrombosis and embolism; Z79.82 Long term (current) use of aspirin; Z79.899 Other long term (current) drug therapy; F17.210 Nicotine dependence, cigarettes, uncomplicated
CPT/HCPCS: 70450; 80048; 80076; 85025; 96361; 96365; 96374; 99285; J7030; A4216

== ENCOUNTER 2021-07-17 23:09 | Emergency (ER) | payer MEDICAID, SELFPAY ==
[2021-07-17 23:10] VITALS: BP 135/84; PULSE 101; RESP 21; TEMP 36.1; O2SAT 92; BMI 31.4
--- NOTE | 2021-07-17 23:48 | RAD_ITS ---
STUDY: X-RAY CHEST REASON FOR EXAM: Male, 60 years old. chest pain TECHNIQUE: 1 view COMPARISON: 12/02/2017 FINDINGS: There has been interval placement of a leadless pacemaker. Cardiomediastinal silhouette is unremarkable. Costophrenic angles are sharp. Lungs are clear. The trachea is midline. There is no pneumothorax. The bones are grossly intact. RAD/Chest 1 View (Portable) IMPRESSION: No acute cardiopulmonary process. Electronically Signed: Russ Webster MD at 0:22 EST Tel , Service support ,
--- NOTE | 2021-07-17 23:49 | EKG12_ITS ---
Test Reason : SEIZURE Blood Pressure : / mmHG Vent. Rate : 088 BPM Atrial Rate : 088 BPM P-R Int : 164 ms QRS Dur : 084 ms QT Int : 364 ms P-R-T Axes : 035 -24 057 degrees QTc Int : 440 ms Normal sinus rhythm Septal infarct , age undetermined Abnormal ECG Confirmed by KALIN LOPEZ, JAMEL ([id number]), book editor KATHIE AMADOR ([id number]) on 07/19/2021 10:57:11 AM Referred By: KIRSTEN Confirmed By:JAMEL GAGNON MD
[2021-07-17 23:59] VITALS: BP 108/73; PULSE 90; RESP 17; TEMP 36.4; O2SAT 93
[2021-07-17 23:59] LABS: Absolute Lymphocyte Count 2.35 X10^3/uL (0.83-4.51); Absolute Neutrophil Count 4.9 X10^3/uL (2.0-7.7); Basophil# 0.07 X10^3/uL; Basophil% 0.8 % (0-1); Eosinophil# 0.74 X10^3/uL; Eosinophils% 8.4 % (0-5); Hematocrit 41.2 % (40-54); Hemoglobin 13.8 g/dL (13.0-16.5); Lymphocyte # 2.35 X10^3/ul (0.83-4.51); Lymphocyte % 26.8 % (19-41); Mean Corp Hgb Conc 33.5 g/dL (32-36); Mean Corpuscular Hgb 30.8 pg (27.0-32.0); Mean Platelet Vol. 10.4 fl (6.2-12.0); Monocyte# 0.66 X10^3/uL; Monocyte% 7.5 % (0-10); NRBC Flagged by Analyzer 0 % (0-5); Neutrophil # 4.92 X10^3/uL (2.7-7.7); Neutrophil % 56.3 % (47-70); Platelet Count 237 K/mm3 (150-450); RBC Distribution Width CV 13.3 % (11.6-14.6); RBC Distribution Width SD 45.1 fl (35.1-43.9); Red Blood Count 4.48 M/mm3 (4.6-6.2); White Blood Count 8.8 K/mm3 (4.4-11.0)
[2021-07-18 00:23] LABS: Anion Gap 4 (5-15); BUN 17 mg/dL (7-18); BUN/Creat Ratio 12.8 RATIO (10-20); Calcium,Total 9.8 mg/dL (8.5-10.1); Chloride 115 mmol/L (98-107); Creatinine, Serum 1.33 mg/dL (0.70-1.30); EST Glomerular Filtration Rate 58 mL/min (>60); Est Glom Filt Rate - Afr Amer 70 mL/min (>60); Estimated Creatinine Clearance 59.46 ml/min; Glucose 126 mg/dL (74-106); Potassium 4.3 mmol/L (3.5-5.1); Sodium Level 141 mmol/L (136-145); Troponin-I HS 7 pg/mL (3.0-78.0)
[2021-07-18 00:28] LABS: Bacteria 0 SEEN /hpf (None Seen); Squamous Epithelial Cells - UA 0 SEEN /hpf (0-5)
--- NOTE | 2021-07-18 00:39 | EDS_ITS ---
HPI History of Present Illness Chief Complaint: Seizure Informant: patient and family Narrative Narrative: Patient is a 60-year-old male with complex medical history including seizure disorder presenting after seizure-like activity. When I walked in the room patient states I am in the process of having another one. Patient is not having any type of twitching or shaking. He is lying in bed. Apparently earlier tonight he states he was getting ready for bed and tried to go to the bathroom when he started having shaking and his right arm and both of his legs. He states he was conscious during this episode. EMS was called and he was brought to the emergency room. Patient did receive 5 mg IV Versed in route by EMS. Patient does follow with neurology through [facility] and is currently on Zosyn mild. He was taken off his Keppra about a month ago. Patient states it was because of a drug interaction. Patient states his last seizure was in April 2021. Patient states he has been compliant with his seizure medications. On review of system patient states he does have chest pain. He states he has had off-and-on chest pain for the past 30 years. His sister states another sibling recently had a large heart attack. Patient points to the center/right of his chest where his pain is. The pain does not radiate. He has no other complaints at this time. [facility] Medical History Acute kidney injury Alcohol use Anxiety Arthritis Carotid artery calcification Costochondritis Drug abuse DVT (deep venous thrombosis) Epilepsy Hyperglycemia Intermittent claudication Left ventricular hypertrophy Leucocytosis Lightheadedness Mitral valve annular calcification Mucous retention cyst Numbness and tingling ELISABETH (obstructive sleep apnea) Pleural effusion on left Pulmonary vascular congestion Seizures Small vessel disease SOB (shortness of breath) Unresponsive episode Vertigo Home Medications losartan 50 mg tablet 50 mg PO DAILY 09/03/20 [History Last Taken Unknown] aspirin 81 mg PO DAILY 02/20/21 [History Last Taken Unknown] zonisamide 100 mg PO BID 02/20/21 [History Last Taken Unknown] amlodipine 10 mg PO DAILY 07/17/21 [History Last Taken Unknown] rosuvastatin 40 mg PO DAILY 07/17/21 [History Last Taken Unknown] Allergy/AdvReac Type Severity Reaction Status Date / Time Penicillins Allergy SYNCOPE Verified 07/17/21 23:10 cortisone Allergy Shortness Uncoded 07/17/21 23:10 of breath Family History Sister Arthritis Cancer Depression Diabetes Hypertension Hyperlipidemia Thyroid disorder CVA (cerebral vascular accident) Seizures FH: mental illness Father Diabetes Heart disease Hypertension Hyperlipidemia Surgical History History of appendectomy History of loop recorder Social History Smoking Status: Current some day smoker tobacco type: cigarettes ROS ROS ED Constitutional Constitutional ED: Denies chills, fever(s) or malaise Eyes Eyes: Denies blurry vision or loss of vision ENT ENT ED: Denies rhinorrhea or sore throat Cardiovascular Cardiovascular: Denies chest pain or dizziness Respiratory/Chest Respiratory/Chest: Denies cough or dyspnea Gastrointestinal Gastrointestinal: Denies nausea or vomiting Genitourinary Genitourinary ED: Denies dysuria or hematuria Musculoskeletal Musculoskeletal: Denies arthralgias or myalgias Integumentary Denies rash or wounds Neurologic Neurologic: Reports other Details: seizure ; Denies focal weakness or headache(s) Psychiatric Psychiatric: Denies anxiety or behavioral changes EXAM Physical Exam Const Vital Signs: 07/17/21 23:10 07/17/21 23:59 07/18/21 02:08 Temperature 97.0 F L 97.6 F L Temperature Source Temporal Temporal Pulse Rate 101 H 90 74 Respiratory Rate 21 H 17 16 Blood Pressure 135/84 H 108/73 112/69 Blood Pressure Mean 101 84 83 Pulse Ox 92 93 97 Oxygen Delivery Method Room Air Room Air Room Air 07/18/21 02:36 Temperature Temperature Source Pulse Rate 81 Respiratory Rate 18 Blood Pressure 126/74 H Blood Pressure Mean Pulse Ox 97 Oxygen Delivery Method Positive well nourished and well developed General Appearance ED: well developed HEENT Reports TM's clear and moist mucous membranes Negative for trauma Tympanic Membrane ED: Yes TM's clear Eyes PERRL and EOMs intact bilaterally Neck supple Chest Wall inspection of chest normal Resp normal respiratory effort and clear to auscultation bilaterally Cardio regular rate, regular rhythm and no murmurs GI normal to inspection, nondistended, normoactive bowel sounds Extremity normal to inspection General Extremety ED: Negative for edema or tenderness General Extremity: Negative for edema Neuro oriented x3, CN's II-XII intact bilaterally and no sensory deficits noted Neuro Narrative: No seizure-like activity appreciated Sensorium / Orientation: alert Motor Exam: strength 5/5 throughout Psych mental status grossly normal Skin no rashes or lesions noted and no wounds MDM MDM MDM Narrative Medical decision making narrative: Patient evaluated for seizure activity. Patient has partial seizures but apparently had a seizure of his right hand and both lower extremities. This is pretty atypical. He did receive Versed in route. He slightly somnolent on my evaluation however I am not sure if he is postictal or just from the Versed. Patient did not bite his tongue or have any loss of consciousness. He remembers the episode. He only had one episode. He is not have any further seizure activity. He does go on to state that he has intermittent chest pain chronically however he does have risk factors for ACS so cardiac work-up was also performed. This is largely negative with a normal high sensitive troponin and no significant electrode abnormalities. His creatinine is at his baseline. As patient currently has a normal neurologic exam and a known history of seizures I do not think a head CT is indicated at this time. There is no report of any head trauma or physical exam findings consistent with trauma. Patient does not appear encephalopathic. Patient will be discharged home to follow-up with his neurologist. He is encouraged to call on Monday to see if they want to make any medication adjustments. He is counseled on return precautions. Patient and sister are agreeable with this plan of care. Lab Data Attestation: I reviewed the patient's lab results. Labs: Laboratory Results - last 24 hr 07/17/21 07/18/21 07/18/21 23:20 00:20 00:20 WBC 8.8 RBC 4.48 L Hgb 13.8 Hct 41.2 MCV 92.0 MCH 30.8 MCHC 33.5 RDW Std Deviation 45.1 H RDW Coeff of Vladislav 13.3 Plt Count 237 MPV 10.4 Immature Gran % (Auto) 0.200 Neut % (Auto) 56.3 Lymph % (Auto) 26.8 Patrick % (Auto) 7.5 Eos % (Auto) 8.4 H Baso % (Auto) 0.8 Absolute Neuts (auto) 4.9 Absolute Lymphs (auto) 2.35 Nucleated RBC % 0 Urine Color Yellow Urine Clarity Clear Urine pH 6.0 Ur Specific [place] 1.020 Urine Protein Negative Urine Glucose (UA) Normal Urine Ketones Negative Urine Occult Blood 10 H Urine Nitrite Negative Urine Bilirubin Negative Urine Urobilinogen 1 H Ur Leukocyte Esterase 25 H Urine RBC 0-5 SEEN Urine WBC 0-5 SEEN Ur Squamous Epith Cells 0 SEEN Urine Bacteria 0 SEEN Urine Mucus RARE Urine Opiates Screen NEGATIVE Urine Methadone Screen NEGATIVE Ur Barbiturates Screen NEGATIVE Ur Phencyclidine Scrn NEGATIVE Ur Amphetamines Screen NEGATIVE U Methamphetamin-MDMA NEGATIVE U Benzodiazepines Scrn POSITIVE H Urine Cocaine Screen NEGATIVE U Cannabinoids Screen NEGATIVE Ur Drug Screen Comment Radiography Chest X-Ray - ED: 1 View, Read by ED Physician, Read by Radiologist and No Acute Disease Diagnostic Testing: Clinical Impression(s) from Imaging Studies Chest X-Ray 07/17/21 23:48 IMPRESSION: No acute cardiopulmonary process. Electronically Signed: Russ Webster MD at 0:22 EST Tel , Service support , Rhythm Strip Rhythm Strip: Sinus Rhythm Rate: 88 Ectopy: None EKG Initial EKG: Attestation: I personally reviewed and interpreted this EKG as follows: Interpretation: Sinus Rhythm Comments: Normal sinus rhythm at a rate of 88 Normal intervals Left axis deviation Normal ST segments Compared to prior EKG on 08/23/2027 patient has reversal of LVH criteria and lateral ischemia Discharge Plan Triage Chief Complaint: Seizure ED Provider: Anita Galarza Dx/Rx/DC Orders Clinical Impression: Breakthrough seizure, Atypical chest pain Instructions: ED Chest Pain, Uncertain Cause, ED Seizure, Recurrent (Adult) Prescriptions: No Action losartan 50 mg tablet 50 mg PO DAILY RF: 0 zonisamide 100 mg capsule 100 mg PO BID RF: 0 aspirin 81 mg Tablet 81 mg PO DAILY RF: 0 amlodipine 10 mg tablet 10 mg PO DAILY RF: 0 rosuvastatin 40 mg tablet 40 mg PO DAILY RF: 0 Primary Care Provider: Cooper Blanchard Referrals: Cooper Blanchard DO [Primary Care Provider] - Activity Restrictions/Additional Instructions: Please call your neurologist tomorrow for further recommendations with having a breakthrough seizure Disposition Disposition: Home, Self Care Discharge Date/Time: 07/18/21 02:36
[2021-07-18 00:48] LABS: Color, Urine Yellow (Yellow); Glucose, Dipstick Normal (Normal); Ketone-Dipstick Negative (Negative); Leukocyte Esterase-Dipstick 25 /ul (Negative); Nitrite-Dipstick Negative (Negative); Occult Blood-Urine 10 /ul (Negative); Protein-Dipstick Negative (Negative); Urine Bilirubin Dipstick Negative (Negative); Urine Clarity Clear (Clear); Urine Urobilinogen 1 mg/dl (Normal)
[2021-07-18 00:50] LABS: Mucous, Urine RARE /hpf (<or=2+); Red Blood Cells-Urine 0-5 SEEN /hpf (0-5); White Blood Cells 0-5 SEEN /hpf (0-5)
[2021-07-18 00:54] LABS: Amphetamine Urine VISTA NEGATIVE (<1000 ng/mL); Barbiturate Urine VISTA NEGATIVE (< 200 ng/mL); Benzodiazepine Urine VISTA POSITIVE (< 200 ng/mL); Cocaine Urine VISTA NEGATIVE (< 300 ng/mL); Ecstacy Urine VISTA NEGATIVE (< 500 ng/mL); Methadone Urine VISTA NEGATIVE (< 300 ng/mL); PCP Urine VISTA NEGATIVE (< 25 ng/mL); THC Urine VISTA NEGATIVE (< 50 ng/mL); Vista UDS pH Range 6
[2021-07-18 02:08] VITALS: BP 112/69; PULSE 74; RESP 16; O2SAT 97
[2021-07-18 02:36] VITALS: BP 126/74; PULSE 81; RESP 18; O2SAT 97
== END 2021-07-18 02:36 | disposition home or self-care (01) ==
PROVIDERS: Emergency Provider Emergency Medicine; PCP Student in an Organized Health Care Education/Training Program; Visit Provider Emergency Medicine
DX: G40.909 Epilepsy, unspecified, not intractable, without status epilepticus (principal); G47.33 Obstructive sleep apnea (adult) (pediatric); F17.210 Nicotine dependence, cigarettes, uncomplicated; R07.89 Other chest pain; Z86.718 Personal history of other venous thrombosis and embolism; F41.9 Anxiety disorder, unspecified; M19.90 Unspecified osteoarthritis, unspecified site; Z79.899 Other long term (current) drug therapy; Z79.82 Long term (current) use of aspirin
CPT/HCPCS: 51701; 71045; 80048; 80307; 81001; 84484; 85025; 93005; 99285; P9612; A4216

== ENCOUNTER 2021-08-31 06:49 | Emergency (ER) | payer MEDICAID, SELFPAY ==
[2021-08-31 06:50] VITALS: BP 167/102; PULSE 92; RESP 18; TEMP 36.6; O2SAT 98; BMI 31.9
--- NOTE | 2021-08-31 07:04 | CT_ITS ---
EXAM: CT ABDOMEN AND PELVIS WITHOUT INTRAVENOUS CONTRAST CLINICAL INDICATION: Pain right flank TECHNIQUE: Helically acquired images were obtained of the abdomen and pelvis without intravenous contrast. This CT exam was performed using one or more of the following dose reduction techniques: automated exposure control, adjustment of the mA and/or kV according to patient size, and/or use of iterative reconstruction technique. This report was created using [employer] report generation technology. COMPARISON: None. FINDINGS: LOWER THORAX: Small hiatal hernia. Lung bases are clear. No cardiomegaly. No significant pericardial effusion. ABDOMEN: LIVER: Unremarkable. Homogeneous. GALLBLADDER AND BILE DUCTS: Unremarkable. No calcified gallstones. No gallbladder distention or wall edema. No intra- or extrahepatic biliary ductal dilation. PANCREAS: Unremarkable. No focal cystic mass. SPLEEN: Unremarkable. Normal size without focal cystic or solid mass. ADRENALS: Unremarkable. No nodules. KIDNEYS AND URETERS: 6.0 mm calculus of the mid right ureter (at L4-L5 level) with mild hydronephrosis and hydroureter. Bilateral renal calculi measure up to 7.3 mm on the right side and 7.6 mm on the left side. Normal renal size and position. STOMACH AND BOWEL: Unremarkable. No stomach or bowel distention. No focal inflammatory change. PELVIS: APPENDIX: Nonvisualized. BLADDER: Urinary bladder is nondistended. REPRODUCTIVE: Unremarkable as visualized. No mass. ABDOMEN and PELVIS: INTRAPERITONEAL SPACE: Unremarkable. No ascites or other fluid collection. No free air. BONES/JOINTS: Degenerative changes of the lumbar spine. No suspicious lytic or blastic abnormality. SOFT TISSUES: Unremarkable. No discrete abdominal or pelvic wall hernia. VASCULATURE: Atherosclerosis of the abdominal aorta and major branches. Abdominal aorta is non-dilated. LYMPH NODES: Unremarkable. No enlarged lymph nodes. CT/Abdomen/Pelvis without Cont IMPRESSION: 1. 6.0 mm calculus of the mid right ureter (at L4-L5 level) with mild hydronephrosis and hydroureter. 2. Bilateral nephrolithiasis. Electronically Signed: Sanjay Caraballo MD ([place]) at 8:01 EST Reading Location ID and State: [facility] / [place] , Service support ,
--- NOTE | 2021-08-31 07:05 | EDS_ITS ---
HPI History of Present Illness Chief Complaint: Flank Pain Informant: patient Narrative Narrative: Patient presents with flank pain that radiates around slightly to the front. This started this morning. He states he was a little bit sore but then rapidly increased. He did not get lightheaded or syncopal. Pain does not radiate down his legs. No bowel or bladder dysfunction. Denies any change noted in the urination. No nausea or vomiting. No fevers or chills. He has had kidney stones and feels that this is similar. He denies any recent injury. However, the pain is worse with moving and twisting. No trouble breathing or coughing. Patient was constipated recently and took a stool softener but it is only been about one or 2 days since he last had a normal bowel movement. No blood in the stool. Nothing really makes the symptoms better. [facility] Medical History Acute kidney injury Alcohol use Anxiety Arthritis Carotid artery calcification Costochondritis Drug abuse DVT (deep venous thrombosis) Epilepsy Hyperglycemia Intermittent claudication Left ventricular hypertrophy Leucocytosis Lightheadedness Mitral valve annular calcification Mucous retention cyst Numbness and tingling ELISABETH (obstructive sleep apnea) Pleural effusion on left Pulmonary vascular congestion Seizures Small vessel disease SOB (shortness of breath) Unresponsive episode Vertigo Home Medications losartan 50 mg tablet 50 mg PO DAILY 09/03/20 [History Last Taken Unknown] aspirin 81 mg PO DAILY 02/20/21 [History Last Taken Unknown] zonisamide 100 mg PO BID 02/20/21 [History Last Taken Unknown] amlodipine 10 mg PO DAILY 07/17/21 [History Last Taken Unknown] rosuvastatin 40 mg PO DAILY 07/17/21 [History Last Taken Unknown] ondansetron 4 mg PO Q8H PRN #10 tab 08/31/21 [Rx Last Taken Unknown] oxycodone-acetaminophen [Percocet] 1 tab PO Q6H PRN 3 Days #12 tab 08/31/21 [Rx Last Taken Unknown] tamsulosin [Flomax] 0.4 mg PO DAILY #10 cap 08/31/21 [Rx Last Taken Unknown] Allergy/AdvReac Type Severity Reaction Status Date / Time Penicillins Allergy SYNCOPE Verified 08/31/21 06:55 cortisone Allergy Shortness Uncoded 08/31/21 06:55 of breath Family History Sister Arthritis Cancer Depression Diabetes Hypertension Hyperlipidemia Thyroid disorder CVA (cerebral vascular accident) Seizures FH: mental illness Father Diabetes Heart disease Hypertension Hyperlipidemia Surgical History History of appendectomy History of loop recorder Social History Smoking Status: Current some day smoker tobacco type: cigarettes ROS ROS ED Constitutional Constitutional ED: Denies chills or fever(s) ENT ENT ED: Denies rhinorrhea or sore throat Cardiovascular Cardiovascular: Denies chest pain Respiratory/Chest Respiratory/Chest: Denies cough or dyspnea Gastrointestinal Gastrointestinal: Reports abdominal pain, constipation and other Details: See history of present illness. ; Denies nausea or vomiting Genitourinary Genitourinary ED: Denies dysuria or hematuria Musculoskeletal Musculoskeletal: Reports back pain Integumentary Denies rash Neurologic Neurologic: Denies paresthesias or weakness Endocrine Endocrinology: Denies polydipsia or polyuria Allergic/Immunologic Allergic/Immunologic ED: Denies mouth swelling or urticaria EXAM Physical Exam Const Vital Signs: 08/31/21 06:50 08/31/21 09:01 Temperature 97.8 F Temperature Source Temporal Pulse Rate 92 83 Respiratory Rate 18 20 H Blood Pressure 167/102 H 158/99 H Blood Pressure Mean 123 118 Pulse Ox 98 97 Oxygen Delivery Method Room Air Positive well nourished and well developed General Appearance ED: well developed and NAD; Negative for cyanotic or diaphoretic HEENT Reports moist mucous membranes Eyes General Eye ED: Negative for pale conjunctiva or scleral icterus Neck no JVD Chest Wall inspection of chest normal Resp normal respiratory effort and clear to auscultation bilaterally Effort and Inspection: Negative for pain with movement Auscultation: Negative for rales, rhonchi or wheezes Cardio regular rate and regular rhythm GI normal to inspection, nondistended, normoactive bowel sounds, non-tender, non- distended and no masses GI Narrative: No tenderness at all anywhere in anterior abdomen. No inguinal tenderness mass or swelling. Palpation: soft Back/Spine Back/Spine Narrative: Patient has some CVA tenderness but he also has tenderness with just light skin palpation along the right paraspinal area. No rashes or skin changes. No masses felt. Extremity normal to inspection Extremity Narrative: Normal pulses distally. General Extremety ED: Negative for edema or tenderness General Extremity: Negative for edema Psych mental status grossly normal Skin no rashes or lesions noted MDM MDM MDM Narrative Medical decision making narrative: Patient CBC shows mild elevation of white count which is a nonspecific finding. Electrolytes show minimal elevation in glucose. Creatinine is a little bit up but really at his baseline. Urine shows red cells but no significant signs of infection. Patient still having some discomfort. His CT scan did show a 6 mm stone with some hydro-. I will get him more pain meds. He has to see urology in [place] due to his insurance. He has set up with them. He has had lithotripsy once and laser in the past. I explained that this stone is large and will likely need treatment and will likely not pass on its own. He will be calling his urologist today. We will get his pain better and see if we can get him home. Patient is rechecked. He is feeling markedly improved. He is talking comfortably on the phone. He would like to go home at this time. He will follow-up with his urologist in [place]. Lab Data Attestation: I reviewed the patient's lab results. Labs: Laboratory Results - last 24 hr 08/31/21 08/31/21 08/31/21 07:00 07:00 08:04 WBC 12.8 H RBC 4.86 Hgb 15.6 Hct 44.1 MCV 90.7 MCH 32.1 H MCHC 35.4 RDW Std Deviation 43.3 RDW Coeff of Vladislav 13.0 Plt Count 269 MPV 10.3 Immature Gran % (Auto) 0.300 Neut % (Auto) 71.1 H Lymph % (Auto) 17.4 L [place] % (Auto) 7.1 Eos % (Auto) 3.8 Baso % (Auto) 0.3 Absolute Neuts (auto) 9.1 H Absolute Lymphs (auto) 2.22 Nucleated RBC % 0 Sodium 140 Potassium 4.0 Chloride 111 H Carbon Dioxide 23.0 Anion Gap 6 BUN 16 Creatinine 1.49 H Estim Creat Clear Calc 49.73 Est GFR (MDRD) Af Amer 61 Est GFR (MDRD) Non-Af 51 L BUN/Creatinine Ratio 10.7 Glucose 116 H Calcium 9.2 Urine Color Yellow Urine Clarity Sl. Cloudy Urine pH 5.0 Ur Specific [place] 1.025 Urine Protein 30 H Urine Glucose (UA) Normal Urine Ketones Negative Urine Occult Blood 250 H Urine Nitrite Negative Urine Bilirubin Negative Urine Urobilinogen Normal Ur Leukocyte Esterase 25 H Urine RBC 25-50 SEEN Urine WBC 0-5 SEEN Ur Squamous Epith Cells 0 SEEN Calcium Oxalate Crystal 1+ Urine Bacteria 0 SEEN Urine Mucus 0 SEEN Radiography Diagnostic Testing: Clinical Impression(s) from Imaging Studies Abdomen/Pelvis CT 08/31/21 07:04 IMPRESSION: 1. 6.0 mm calculus of the mid right ureter (at L4-L5 level) with mild hydronephrosis and hydroureter. 2. Bilateral nephrolithiasis. Electronically Signed: Sanjay Caraballo MD ([place]) at 8:01 EST Reading Location ID and State: [facility] / [place] , Service support , Discharge Plan Triage Chief Complaint: Flank Pain ED Provider: Gil Brian Dx/Rx/DC Orders Clinical Impression: Ureteral stone with hydronephrosis Instructions: ED Kidney Stone w/ Colic Prescriptions: New oxycodone-acetaminophen [Percocet] 5-325 mg tablet 1 tab PO Q6H PRN (Reason: pain) 3 Days Qty: 12 RF: 0 ondansetron 4 mg tablet,disintegrating 4 mg PO Q8H PRN (Reason: nausea and vomiting) Qty: 10 RF: 0 tamsulosin [Flomax] 0.4 mg capsule 0.4 mg PO DAILY Qty: 10 RF: 0 No Action losartan 50 mg tablet 50 mg PO DAILY RF: 0 zonisamide 100 mg capsule 100 mg PO BID RF: 0 aspirin 81 mg Tablet 81 mg PO DAILY RF: 0 amlodipine 10 mg tablet 10 mg PO DAILY RF: 0 rosuvastatin 40 mg tablet 40 mg PO DAILY RF: 0 Primary Care Provider: Cooper Blanchard Referrals: Cooper Blanchard DO [Primary Care Provider] - As Needed Activity Restrictions/Additional Instructions: Call [place] urology today for follow-up as soon as possible. Because of the size of your stone, you likely will need laser treatment. This will likely not pass on its own. Disposition Disposition: Home, Self Care
[2021-08-31] MEDS: Morphine 4 MG/ML Syringe IV (07:10)
[2021-08-31] MEDS: Ondansetron 4 MG/2 ML Vial IV (07:11)
[2021-08-31 07:16] LABS: Absolute Lymphocyte Count 2.22 X10^3/uL (0.83-4.51); Absolute Neutrophil Count 9.1 X10^3/uL (2.0-7.7); Basophil# 0.04 X10^3/uL; Basophil% 0.3 % (0-1); Eosinophil# 0.48 X10^3/uL; Eosinophils% 3.8 % (0-5); Hematocrit 44.1 % (40-54); Hemoglobin 15.6 g/dL (13.0-16.5); Lymphocyte # 2.22 X10^3/ul (0.83-4.51); Lymphocyte % 17.4 % (19-41); Mean Corp Hgb Conc 35.4 g/dL (32-36); Mean Corpuscular Hgb 32.1 pg (27.0-32.0); Mean Corpuscular Volume 90.7 fL (80-94); Mean Platelet Vol. 10.3 fl (6.2-12.0); Monocyte# 0.91 X10^3/uL; Monocyte% 7.1 % (0-10); NRBC Flagged by Analyzer 0 % (0-5); Neutrophil % 71.1 % (47-70); Platelet Count 269 K/mm3 (150-450); RBC Distribution Width SD 43.3 fl (35.1-43.9); Red Blood Count 4.86 M/mm3 (4.6-6.2); White Blood Count 12.8 K/mm3 (4.4-11.0)
[2021-08-31 07:32] LABS: Anion Gap 6 (5-15); BUN 16 mg/dL (7-18); BUN/Creat Ratio 10.7 RATIO (10-20); Calcium,Total 9.2 mg/dL (8.5-10.1); Chloride 111 mmol/L (98-107); Creatinine, Serum 1.49 mg/dL (0.70-1.30); EST Glomerular Filtration Rate 51 mL/min (>60); Est Glom Filt Rate - Afr Amer 61 mL/min (>60); Estimated Creatinine Clearance 49.73 ml/min; Glucose 116 mg/dL (74-106); Sodium Level 140 mmol/L (136-145)
[2021-08-31 08:15] LABS: Bacteria 0 SEEN /hpf (None Seen); Mucous, Urine 0 SEEN /hpf (<or=2+); Squamous Epithelial Cells - UA 0 SEEN /hpf (0-5)
[2021-08-31 08:18] LABS: Color, Urine Yellow (Yellow); Glucose, Dipstick Normal (Normal); Ketone-Dipstick Negative (Negative); Leukocyte Esterase-Dipstick 25 /ul (Negative); Nitrite-Dipstick Negative (Negative); Occult Blood-Urine 250 /ul (Negative); Protein-Dipstick 30 mg/dl (Negative); Specific Gravity, Urine 1.025 (1.002-1.030); Urine Bilirubin Dipstick Negative (Negative); Urine Clarity Sl. Cloudy (Clear); Urine Urobilinogen Normal (Normal)
[2021-08-31 08:27] LABS: Calcium Oxalate Crystals Ur 1+ /hpf (<or=2+); Red Blood Cells-Urine 25-50 SEEN /hpf (0-5); White Blood Cells 0-5 SEEN /hpf (0-5)
[2021-08-31] MEDS: Ketorolac 15 MG/ML Vial 10 MG IV (08:58)
[2021-08-31] MEDS: HYDROmorphone 1 MG/ML Syringe IV (08:59)
[2021-08-31 09:01] VITALS: BP 158/99; PULSE 83; RESP 20; O2SAT 97
[2021-08-31 10:35] VITALS: BP 162/100; PULSE 90; RESP 16; O2SAT 99
== END 2021-08-31 10:40 | disposition home or self-care (01) ==
PROVIDERS: Emergency Provider Emergency Medicine; PCP Student in an Organized Health Care Education/Training Program; Visit Provider Emergency Medicine
DX: N13.2 Hydronephrosis with renal and ureteral calculous obstruction (principal); G40.909 Epilepsy, unspecified, not intractable, without status epilepticus; F17.210 Nicotine dependence, cigarettes, uncomplicated; Z86.718 Personal history of other venous thrombosis and embolism; F41.9 Anxiety disorder, unspecified; G47.33 Obstructive sleep apnea (adult) (pediatric); Z79.82 Long term (current) use of aspirin; Z79.899 Other long term (current) drug therapy
CPT/HCPCS: 80048; 96361; 85025; 96374; 96375; J2405; 74176; 81001; 99283; J7030; A4216

== ENCOUNTER 2021-09-01 21:10 | Inpatient (IN) | payer MEDICAID, SELFPAY ==
[2021-09-01 21:11] VITALS: BP 140/84; PULSE 95; RESP 18; TEMP 36.4; O2SAT 96; BMI 33.4
--- NOTE | 2021-09-01 21:42 | EX.ED.DYSGE1 ---
HPI History of Present Illness Chief Complaint: Flank Pain Informant: patient Narrative Narrative: Patient is a 60-year-old male significant past medical history including kidney stones, DVT, CKD 3, hyperlipidemia, seizure disorder and hypertension with recent diagnosis of right-sided 6 mm obstructing kidney stone. Patient was seen in our ER on 08/31 and discharged home with a prescription for Flomax as well as oxycodone. Patient states he been doing well and has appointment to see his urologist in [place] tomorrow at 3:30 PM. He notes about an hour prior to arrival he suddenly had severe pain in his right flank so he came back to the emergency room. Has had some associated nausea but no vomiting. Denies any fever or chills. No other reported urinary symptoms. No other complaints at this time. [facility] Medical History Acute kidney injury Alcohol use Anxiety Arthritis Carotid artery calcification Costochondritis Drug abuse DVT (deep venous thrombosis) Epilepsy Hyperglycemia Intermittent claudication Left ventricular hypertrophy Leucocytosis Lightheadedness Mitral valve annular calcification Mucous retention cyst Numbness and tingling ELISABETH (obstructive sleep apnea) Pleural effusion on left Pulmonary vascular congestion Seizures Small vessel disease SOB (shortness of breath) Unresponsive episode Vertigo Home Medications losartan 50 mg tablet 50 mg PO DAILY 09/03/20 [History Last Taken Unknown] aspirin 81 mg PO DAILY 02/20/21 [History Last Taken Unknown] zonisamide 100 mg PO BID 02/20/21 [History Last Taken Unknown] amlodipine 10 mg PO DAILY 07/17/21 [History Last Taken Unknown] rosuvastatin 40 mg PO DAILY 07/17/21 [History Last Taken Unknown] ondansetron 4 mg PO Q8H PRN #10 tab 08/31/21 [Rx Last Taken Unknown] oxycodone-acetaminophen [Percocet] 1 tab PO Q6H PRN 3 Days #12 tab 08/31/21 [Rx Last Taken Unknown] tamsulosin [Flomax] 0.4 mg PO DAILY #10 cap 08/31/21 [Rx Last Taken Unknown] nitroglycerin 0.4 mg SUBLINGUAL DAILY PRN PRN 09/01/21 [History Last Taken Unknown] Allergy/AdvReac Type Severity Reaction Status Date / Time Penicillins Allergy SYNCOPE Verified 09/01/21 21:13 cortisone Allergy Shortness Uncoded 09/01/21 21:13 of breath Family History Sister Arthritis Cancer Depression Diabetes Hypertension Hyperlipidemia Thyroid disorder CVA (cerebral vascular accident) Seizures FH: mental illness Father Diabetes Heart disease Hypertension Hyperlipidemia Surgical History History of appendectomy History of loop recorder Social History Smoking Status: Current some day smoker tobacco type: cigarettes ROS ROS ED Constitutional Constitutional ED: Denies chills or fever(s) Eyes Eyes: Denies change in vision ENT ENT ED: Denies sore throat Cardiovascular Cardiovascular: Denies chest pain Respiratory/Chest Respiratory/Chest: Denies dyspnea Gastrointestinal Gastrointestinal: Reports abdominal pain and nausea; Denies constipation, diarrhea or vomiting Genitourinary Genitourinary ED: Denies dysuria or hematuria Musculoskeletal Musculoskeletal: Reports back pain and other Details: Right flank pain ; Denies myalgias Integumentary Denies rash Neurologic Neurologic: Denies headache(s), paresthesias or weakness EXAM Physical Exam Const Vital Signs: 09/01/21 21:11 09/01/21 22:47 Temperature 97.6 F L 98.8 F Temperature Source Temporal Temporal Pulse Rate 95 90 Respiratory Rate 18 16 Blood Pressure 140/84 H 158/92 H Blood Pressure Mean 102 114 Pulse Ox 96 98 Oxygen Delivery Method Room Air Room Air Positive well nourished Constitutional Narrative: Mild distress secondary to pain HEENT Reports moist mucous membranes Negative for tenderness Eyes PERRL and EOMs intact bilaterally Neck supple and no JVD Chest Wall inspection of chest normal Resp normal respiratory effort and clear to auscultation bilaterally Cardio regular rate, regular rhythm and no murmurs GI normal to inspection, nondistended, normoactive bowel sounds and non-tender Palpation: soft Back/Spine General Back: CVA tenderness right Extremity normal to inspection Extremity Narrative: 2+ bilateral DP pulses General Extremety ED: Negative for edema or tenderness General Extremity: Negative for edema Neuro oriented x3 Sensorium / Orientation: alert Motor Exam: Negative for general weakness Psych mental status grossly normal Skin no rashes or lesions noted MDM MDM MDM Narrative Medical decision making narrative: Patient evaluated for worsening right flank. He was previously diagnosed with a 6 mm obstructing stone with hydronephrosis yesterday. Patient has resolution of his leukocytosis. His creatinine has worsened. Is now 2.32. Is 1.44 yesterday. Given his worsening pain, elevation his creatinine with known obstructing stone patient required mission. He states he would like to go to [place] if possible since that is where his urologist is but if they can take him he is fine staying here. We will contact the transfer line to see if this can be arranged. Patient initially had improvement of pain with IV morphine and fluids. On repeat evaluation his pain is coming back she is given a second as of IV morphine. Transfer line states that they completed him on the wait list however they're currently full. Discussed the case with Dr. Romano who has placed stents and perform lithotripsy on the patient before. He will admit him to his service. Lab Data Labs: Laboratory Results - last 24 hr 09/01/21 09/01/21 09/01/21 21:55 21:55 22:28 WBC 9.7 RBC 3.92 L Hgb 12.7 L Hct 36.7 L MCV 93.6 MCH 32.4 H MCHC 34.6 RDW Std Deviation 44.7 H RDW Coeff of Vladislav 13.2 Plt Count 199 MPV 10.0 Immature Gran % (Auto) 0.200 Neut % (Auto) 70.0 Lymph % (Auto) 16.8 L [place] % (Auto) 7.7 Eos % (Auto) 5.0 Baso % (Auto) 0.3 Absolute Neuts (auto) 6.8 Absolute Lymphs (auto) 1.63 Nucleated RBC % 0 Sodium 139 Potassium 3.7 Chloride 110 H Carbon Dioxide 23.0 Anion Gap 6 BUN 23 H Creatinine 2.32 H Estim Creat Clear Calc 31.94 Est GFR (MDRD) Af Amer 37 L Est GFR (MDRD) Non-Af 30 L BUN/Creatinine Ratio 9.9 L Glucose 114 H Calcium 9.7 Urine Color Yellow Urine Clarity Clear Urine pH 6.0 Ur Specific [place] 1.020 Urine Protein Negative Urine Glucose (UA) Normal Urine Ketones Negative Urine Occult Blood Negative Urine Nitrite Negative Urine Bilirubin Negative Urine Urobilinogen Normal Ur Leukocyte Esterase Negative Urine RBC 0 SEEN Urine WBC 0 SEEN Ur Squamous Epith Cells 0 SEEN Urine Bacteria 0 SEEN Urine Mucus 0 SEEN Discharge Plan Triage Chief Complaint: Flank Pain ED Provider: Anita Galarza Dx/Rx/DC Orders Prescriptions: No Action losartan 50 mg tablet 50 mg PO DAILY RF: 0 zonisamide 100 mg capsule 100 mg PO BID RF: 0 aspirin 81 mg Tablet 81 mg PO DAILY RF: 0 amlodipine 10 mg tablet 10 mg PO DAILY RF: 0 rosuvastatin 40 mg tablet 40 mg PO DAILY RF: 0 oxycodone-acetaminophen [Percocet] 5-325 mg tablet 1 tab PO Q6H PRN (Reason: pain) 3 Days Qty: 12 RF: 0 ondansetron 4 mg tablet,disintegrating 4 mg PO Q8H PRN (Reason: nausea and vomiting) Qty: 10 RF: 0 tamsulosin [Flomax] 0.4 mg capsule 0.4 mg PO DAILY Qty: 10 RF: 0 nitroglycerin 0.4 mg tablet, sublingual 0.4 mg sublingual DAILY PRN PRN (Reason: Angina) RF: 0 Primary Care Provider: Cooper Blanchard Referrals: Cooper Blanchard DO [Primary Care Provider] - Disposition Disposition: Acute Care [facility]
[2021-09-01] MEDS: 0.9% Normal Saline 1,000 ML 250 ML IV (21:54)
[2021-09-01] MEDS: Ondansetron 4 MG/2 ML Vial IV (21:54)
[2021-09-01] MEDS: Morphine 4 MG/ML Syringe IV ×2 (21:54→22:43)
[2021-09-01 22:01] LABS: Absolute Lymphocyte Count 1.63 X10^3/uL (0.83-4.51); Absolute Neutrophil Count 6.8 X10^3/uL (2.0-7.7); Basophil# 0.03 X10^3/uL; Basophil% 0.3 % (0-1); Eosinophil# 0.48 X10^3/uL; Hematocrit 36.7 % (40-54); Hemoglobin 12.7 g/dL (13.0-16.5); Lymphocyte # 1.63 X10^3/ul (0.83-4.51); Lymphocyte % 16.8 % (19-41); Mean Corp Hgb Conc 34.6 g/dL (32-36); Mean Corpuscular Hgb 32.4 pg (27.0-32.0); Mean Corpuscular Volume 93.6 fL (80-94); Monocyte# 0.75 X10^3/uL; Monocyte% 7.7 % (0-10); NRBC Flagged by Analyzer 0 % (0-5); Neutrophil # 6.78 X10^3/uL (2.7-7.7); Platelet Count 199 K/mm3 (150-450); RBC Distribution Width CV 13.2 % (11.6-14.6); RBC Distribution Width SD 44.7 fl (35.1-43.9); Red Blood Count 3.92 M/mm3 (4.6-6.2); White Blood Count 9.7 K/mm3 (4.4-11.0)
[2021-09-01 22:16] LABS: Anion Gap 6 (5-15); BUN 23 mg/dL (7-18); BUN/Creat Ratio 9.9 RATIO (10-20); Calcium,Total 9.7 mg/dL (8.5-10.1); Chloride 110 mmol/L (98-107); Creatinine, Serum 2.32 mg/dL (0.70-1.30); EST Glomerular Filtration Rate 30 mL/min (>60); Est Glom Filt Rate - Afr Amer 37 mL/min (>60); Estimated Creatinine Clearance 31.94 ml/min; Glucose 114 mg/dL (74-106); Potassium 3.7 mmol/L (3.5-5.1); Sodium Level 139 mmol/L (136-145)
[2021-09-01 22:34] LABS: Bacteria 0 SEEN /hpf (None Seen); Color, Urine Yellow (Yellow); Glucose, Dipstick Normal (Normal); Ketone-Dipstick Negative (Negative); Leukocyte Esterase-Dipstick Negative /ul (Negative); Mucous, Urine 0 SEEN /hpf (<or=2+); Nitrite-Dipstick Negative (Negative); Occult Blood-Urine Negative /ul (Negative); Protein-Dipstick Negative (Negative); Red Blood Cells-Urine 0 SEEN /hpf (0-5); Squamous Epithelial Cells - UA 0 SEEN /hpf (0-5); Urine Bilirubin Dipstick Negative (Negative); Urine Clarity Clear (Clear); Urine Urobilinogen Normal (Normal); White Blood Cells 0 SEEN /hpf (0-5)
[2021-09-01 22:47] VITALS: BP 158/92; PULSE 90; RESP 16; TEMP 37.1; O2SAT 98
[2021-09-01 23:13] VITALS: BP 138/87; PULSE 83; RESP 20; TEMP 36.7; O2SAT 98
[2021-09-01 23:14] VITALS: BMI 32.3
[2021-09-01] MEDS: 0.9% Normal Saline 1,000 ML 175 ML IV (23:58)
[2021-09-02] VITALS (7 sets, daily range): BP systolic 107–141; BP diastolic 72–84; PULSE 73–87; RESP 18–20; TEMP 36.4–37.3; O2SAT 95–97
[2021-09-02] MEDS: Acetaminophen 325 MG Tablet PO ×2 (00:38→05:23)
[2021-09-02] MEDS: oxyCODONE 5 MG Tablet PO ×2 (00:39→05:23)
[2021-09-02] MEDS: Atorvastatin Calcium 80 MG Tablet PO ×2 (01:17→21:10)
[2021-09-02] MEDS: Losartan Potassium 50 MG Tablet PO (01:17)
[2021-09-02] MEDS: amLODIPine 10 MG Tablet PO (01:17)
[2021-09-02] MEDS: Zonisamide 50 MG Capsule 200 MG PO ×3 (01:27→21:11)
[2021-09-02] MEDS: 0.9% Normal Saline 1,000 ML 175 ML IV ×4 (05:17→21:15)
--- NOTE | 2021-09-02 07:39 | RAD_ITS ---
STUDY: X-RAY - ABDOMEN/PELVIS REASON FOR EXAM: Male, 60 years old. Stone TECHNIQUE: Single AP view of the abdomen / pelvis. COMPARISON: None. FINDINGS: Normal visualized lung bases. There is a moderate amount of colonic fecal material. Bilateral nonobstructive intrarenal calculi. There is a 6 mm rounded calcification in the right hemipelvis. This most likely represents a distal right ureteral calculus. Normal soft tissue structures. There are diffuse degenerative changes of the visualized lumbar spine. RAD/Abdomen Single View IMPRESSION: Small bilateral nonobstructive intrarenal calculi. 6 mm calculus in the distal portion of the right ureter. Electronically Signed: Severiano Beverly MD at 13:36 EST ,
--- NOTE | 2021-09-02 07:39 | PCM.HP.STD ---
HPI - General General Date of Admission: 09/01/21 HPI Narrative LANCE ALVAREZ, is a 60 M who presents to the hospital with a kidney stone on the right side severe intractable pain elevated creatinine he was admitted for hydration because of his elevated creatinine because his pain is under control. Plan to check a KUB today to see where the stone is. [facility] Medical History Acute kidney injury Alcohol use Anxiety Arthritis Carotid artery calcification Costochondritis Drug abuse DVT (deep venous thrombosis) Epilepsy Hyperglycemia Intermittent claudication Left ventricular hypertrophy Leucocytosis Lightheadedness Mitral valve annular calcification Mucous retention cyst Numbness and tingling ELISABETH (obstructive sleep apnea) Pleural effusion on left Pulmonary vascular congestion Seizures Small vessel disease SOB (shortness of breath) Unresponsive episode Vertigo Home Medications losartan 50 mg tablet 50 mg PO DAILY 09/03/20 [History Last Taken 08/31/21 18:00] aspirin 81 mg PO DAILY 02/20/21 [History Last Taken 09/01/21] zonisamide 200 mg PO BID 02/20/21 [History Last Taken 09/01/21 10:00 100 mg] amlodipine 10 mg PO DAILY 07/17/21 [History Last Taken Unknown] rosuvastatin 40 mg PO DAILY 07/17/21 [History Last Taken 08/31/21 18:00] ondansetron 4 mg PO Q8H PRN #10 tab 08/31/21 [Rx Last Taken Unknown] oxycodone-acetaminophen [Percocet] 1 tab PO Q6H PRN 3 Days #12 tab 08/31/21 [Rx Last Taken 09/01/21 18:00] nitroglycerin 0.4 mg SUBLINGUAL DAILY PRN PRN 09/01/21 [History Last Taken Unknown] Allergy/AdvReac Type Severity Reaction Status Date / Time Penicillins Allergy SYNCOPE Verified 09/01/21 21:13 cortisone Allergy Shortness Uncoded 09/01/21 21:13 of breath Family History Sister Arthritis Cancer Depression Diabetes Hypertension Hyperlipidemia Thyroid disorder CVA (cerebral vascular accident) Seizures FH: mental illness Father Diabetes Heart disease Hypertension Hyperlipidemia Surgical History History of appendectomy History of loop recorder Social History Smoking Status: Current some day smoker tobacco type: cigarettes ROS Constitutional Constitutional: Denies chills, fever(s) or malaise Eyes Eyes: Denies blurry vision or change in vision ENT HEENT: Reports none Cardiovascular Cardiovascular: Denies chest pain or palpitations Respiratory/Chest Respiratory/Chest: Denies cough or shortness of breath with exertion Gastrointestinal Gastrointestinal: Denies abdominal pain, constipation or diarrhea Musculoskeletal Musculoskeletal: Denies back pain, joint stiffness or joint swelling Integumentary Integumentary: Denies dry skin, jaundice, lesions or rash Neurologic Neurologic: Denies confusion, syncope or weakness Psychiatric Psychiatric: Reports none; Denies anxiety or depression Endocrine Endocrinology: Denies excessive sweating, fatigue or flushing Hematologic/Lymphatic Hematologic/Lymphatic: Denies anemia, easy bleeding or easy bruising Vital Signs Vital Signs Vital Signs: 09/01/21 21:11 09/01/21 22:47 09/01/21 23:13 Temperature 97.6 F L 98.8 F 98.1 F Temperature Source Temporal Temporal Oral Pulse Rate 95 90 83 Respiratory Rate 18 16 20 H Respiratory Effort Respiratory Depth Respiratory Pattern Blood Pressure 140/84 H 158/92 H 138/87 H Blood Pressure Mean 102 114 104 Blood Pressure Source Monitor Blood Pressure Position Semi-Fowlers Blood Pressure Location Left Arm Pulse Ox 96 98 98 Oxygen Delivery Method Room Air Room Air Room Air 09/01/21 23:45 09/02/21 05:09 09/02/21 05:11 Temperature 98.2 F Temperature Source Oral Pulse Rate 81 Respiratory Rate 20 H Respiratory Effort Normal Non-Labored Normal Non-Labored Respiratory Depth Normal Normal Respiratory Pattern Normal Normal Blood Pressure 111/78 Blood Pressure Mean 89 Blood Pressure Source Monitor Blood Pressure Position Semi-Fowlers Blood Pressure Location Right Arm Pulse Ox 95 Oxygen Delivery Method Room Air Room Air Weight Weight: 96.6 kg Body Mass Index (BMI) 32.3 Physical Exam Const alert and oriented x3 General Appearance: cooperative HEENT normocephalic, head/scalp atraumatic, EAC's normal and TM's normal bilaterally Eyes PERRL and EOMs intact bilaterally Pupil: sluggish Neck no lymphadenopathy, supple and no JVD General: trachea midline Lymph Lymphatic: no lymphadenopathy noted, lymphedema and lymphadenopathy Resp normal respiratory effort, normal air movement and clear to auscultation bilaterally Cardio regular rate, regular rhythm and peripheral pulses 2+ throughout GI soft to palpation, non-tender and non-distended Extremity normal capillary refill and no clubbing, cyanosis or edema General Extremity: no tenderness to palpation of joints or extremities Skin no rashes or lesions noted General Skin Exam: turgor normal Lesions: no lesions Rashes: no rashes Neuro CN's II-XII intact bilaterally Speech: speech normal Motor Exam: strength 5/5 throughout; Negative for general weakness Psych thought process normal, cooperative and affect normal Appearance: appropriate Results Lab / Micro Data Result Diagrams: 09/01/21 21:55 09/01/21 21:55 Labs: Laboratory Results - last 24 hr 09/01/21 21:55: WBC 9.7, RBC 3.92 L, Hgb 12.7 L, Hct 36.7 L, MCV 93.6, MCH 32.4 H, MCHC 34.6, RDW Std Deviation 44.7 H, RDW Coeff of Lvadislav 13.2, Plt Count 199, MPV 10.0, Immature Gran % (Auto) 0.200, Neut % (Auto) 70.0, Lymph % (Auto) 16.8 L, [place] % (Auto) 7.7, Eos % (Auto) 5.0, Baso % (Auto) 0.3, Absolute Neuts (auto) 6.8, Absolute Lymphs (auto) 1.63, Nucleated RBC % 0 09/01/21 21:55: Sodium 139, Potassium 3.7, Chloride 110 H, Carbon Dioxide 23.0, Anion Gap 6, BUN 23 H, Creatinine 2.32 H, Estim Creat Clear Calc 31.94, Est GFR (MDRD) Af Amer 37 L, Est GFR (MDRD) Non-Af 30 L, BUN/Creatinine Ratio 9.9 L, Glucose 114 H, Calcium 9.7 09/01/21 22:28: Urine Color Yellow, Urine Clarity Clear, Urine pH 6.0, Ur Specific [place] 1.020, Urine Protein Negative, Urine Glucose (UA) Normal, Urine Ketones Negative, Urine Occult Blood Negative, Urine Nitrite Negative, Urine Bilirubin Negative, Urine Urobilinogen Normal, Ur Leukocyte Esterase Negative, Urine RBC 0 SEEN, Urine WBC 0 SEEN, Ur Squamous Epith Cells 0 SEEN, Urine Bacteria 0 SEEN, Urine Mucus 0 SEEN Assessment & Plan Assessment/Plan (1) Stage III chronic kidney disease: (2) Ureteral stone with hydronephrosis: PLAN: Plan for hydration, check KUB, he is on the schedule for tomorrow for cystoscopy stent placement.
[2021-09-02] MEDS: Morphine 2 MG/ML Syringe IV (08:46)
--- NOTE | 2021-09-02 11:15 | CASEMGMT ---
RN DESTINEE QUALITY TESTER CM to room to meet with patient for initial transition planning/care coordination assessment. BARBARA FELIPE introduced self and role at [facility]. Pt voices understanding and consents to assessment at this time. Pt sitting in chair in no distress at this time. Pt is A/O at this time and answers all questions appropriately. Care providers, pharmacy, and demographics verified/updated at this time. PCP: Dr Cooper Blanchard Specialists:[facility]-pt had appt scheduled for today, but he has cx'd it. Pt also goes to [facility] in [place] and sees Dr Richter (?sp) @ [facility]--cardiology, Dr Rubio--pulmonology Preferred Pharmacy: [facility] Retail Insurance: [facility] Community Plan/[facility] Prescription Benefit: Yes Living Will/HPOA: Pt does not currently have LW/HCPOA and declines info at this time. Pt states he has paperwork to complete AD and does not wish to talk w/SW to complete. LNOK: 3 sisters and 1 brother. Sister, Una Chow, is listed in demographics. Living Arrangements: Pt lives w/sister, Una, and Una's boyfriend. They live in a one-story home w/a basement. One step to enter home. Pt is independent w/ADL's and IADL's and manages his own medications and appts. Transportation: Pt does not drive. Family provides transportation. DME: Pt has a BP machine. Does not use any DME to ambulate. Denies need for any further DME. HHC/SNF: No hx of either. No needs identified. Pt wishes to return home and states has no concerns with going home at time of discharge. Pt states smokes about 1 pack cigarettes every 1-2 weeks and has a rare shot of moonshine--about 1-2 x's/year. He states he used to use drugs about 2-4 yrs ago. When inquired what drugs he used, he stated, You name it. He denies current use or concerns. CM to follow for any further discharge planning/needs. Pt voices no further concerns/needs at this time. Advised pt to ask for CM if any further questions/concerns/needs arise. Voices understanding. PLAN: Home vs transfer to tertiary hospital Edilson SKINNER RN, CM
[2021-09-02] MEDS: Morphine 4 MG/ML Syringe IV ×4 (11:17→21:06)
[2021-09-02] MEDS: HYDROmorphone 1 MG/ML Syringe IV ×2 (14:14→19:41)
[2021-09-03] VITALS (10 sets, daily range): BP systolic 116–143; BP diastolic 76–89; PULSE 70–89; RESP 14–20; TEMP 36.6–37.8; O2SAT 92–98; BMI 32.3
[2021-09-03] MEDS: 0.9% Normal Saline 1,000 ML 175 ML IV ×3 (02:37→16:34)
[2021-09-03] MEDS: HYDROmorphone 1 MG/ML Syringe IV (02:51)
[2021-09-03 04:17] LABS: Absolute Lymphocyte Count 1.87 X10^3/uL (0.83-4.51); Absolute Neutrophil Count 5.3 X10^3/uL (2.0-7.7); Basophil# 0.02 X10^3/uL; Basophil% 0.2 % (0-1); Eosinophils% 5.9 % (0-5); Hematocrit 33.8 % (40-54); Hemoglobin 11.5 g/dL (13.0-16.5); Lymphocyte # 1.87 X10^3/ul (0.83-4.51); Lymphocyte % 22.2 % (19-41); Mean Corpuscular Hgb 32.2 pg (27.0-32.0); Mean Corpuscular Volume 94.7 fL (80-94); Mean Platelet Vol. 9.8 fl (6.2-12.0); Monocyte# 0.67 X10^3/uL; NRBC Flagged by Analyzer 0 % (0-5); Neutrophil # 5.32 X10^3/uL (2.7-7.7); Neutrophil % 63.3 % (47-70); Platelet Count 158 K/mm3 (150-450); RBC Distribution Width CV 13.1 % (11.6-14.6); RBC Distribution Width SD 45.2 fl (35.1-43.9); Red Blood Count 3.57 M/mm3 (4.6-6.2); White Blood Count 8.4 K/mm3 (4.4-11.0)
[2021-09-03] MEDS: Morphine 4 MG/ML Syringe IV ×6 (04:20→13:36)
[2021-09-03 04:27] LABS: Partial Thromboplast Time 30.5 Seconds (24.1-36.2)
[2021-09-03 04:33] LABS: Anion Gap 4 (5-15); BUN 20 mg/dL (7-18); BUN/Creat Ratio 9.3 RATIO (10-20); Calcium,Total 8.2 mg/dL (8.5-10.1); Chloride 114 mmol/L (98-107); Creatinine, Serum 2.16 mg/dL (0.70-1.30); EST Glomerular Filtration Rate 33 mL/min (>60); Est Glom Filt Rate - Afr Amer 40 mL/min (>60); Estimated Creatinine Clearance 34.31 ml/min; Glucose 103 mg/dL (74-106); Potassium 4.1 mmol/L (3.5-5.1); Sodium Level 139 mmol/L (136-145)
--- NOTE | 2021-09-03 05:55 | EKG12_ITS ---
Test Reason : AM EKG Blood Pressure : / mmHG Vent. Rate : 071 BPM Atrial Rate : 071 BPM P-R Int : 168 ms QRS Dur : 084 ms QT Int : 376 ms P-R-T Axes : 047 018 015 degrees QTc Int : 408 ms Normal sinus rhythm Normal ECG When compared with ECG of 18-JUL-2021 00:07, Criteria for Septal infarct are no longer Present Confirmed by JOELLE LOPEZ, JAQUI ([id number]), general expeditor KATHIE AMADOR ([id number]) on 09/03/2021 1:46:29 PM Referred By: DR MICHELLE Confirmed By:CHARAN LAI MD
[2021-09-03] MEDS: Zonisamide 50 MG Capsule 200 MG PO (07:53)
[2021-09-03] MEDS: Cefazolin 2 GM in 0.9% Normal Saline 100 ML IV (15:03)
--- NOTE | 2021-09-03 15:34 | OP.PCM_ITS ---
Report of Operation Date of Procedure: 09/03/21 Pre-Operative Diagnosis: Right ureteral calculi obstruction Post-Operative Diagnosis: Same Surgery/Procedure Performed:: Cystoscopy, retrograde pyelogram, interpretation fluoroscopic images placement of stent right side. Description of Surgical Findings:: Patient was taken back to the operating room after induction of general anesthesia, the patient was placed in dorsolithotomy position. The urethra and genitals were prepped and draped in usual sterile fashion. Using a 21 [place]ib[place]ian rigid cystourethroscope the entire length of the urethra was normal then went into the bladder. Identified the trigone the left and right ureteral orifice. I then cannulated the right orifice and advanced a wire up into the kidney. I then backloaded a 5 Djib[place]ian open ended catheter over the wire and injected contrast to delineate the anatomy. After the retrograde was performed I then used fluoroscopic images and guidance to advanced a wire up into the kidney and over the 0.038 glidewire I advanced a 6 Djiboutian by 26 cm double pigtail stent. I then identified the stone, plan to do ESWL next week. I then pulled the 0.038 Glidewire off and the stent coiled in the kidney bladder good position. The bladder was then drained. We confirmed the position of the stent by fluoroscopy. Patient anesthetic was reversed and was taken back to the PACU in good condition. Surgeon: kingston Type of Anesthesia: General Drains: stent Admit VTE Documentation VTE Present on Admission: No VTE Mechan Device Prophylaxis: SCD's VTE Pharm Prophylaxis ordered?: No
--- NOTE | 2021-09-03 15:34 | PCM.DC ---
Discharge Instructions Diet Discharge Diet: No restrictions Activity Discharge Activity: Return to Normal Activity and May Not Drive (while taking narcotic pain medications.) Dressing / Incision Call your doctor if you observe: Fever of 101 or Higher Follow Up Care Please Follow Up With: Shashi Romano MD When: Call [phone] for an appointment Test Results: call my office to confirm surgery next week Discharge Plan Admission Admit Date/Time: 09/01/21 23:10 Primary Reason for Your Visit: right kidney stone. Attending Provider: Shashi Romano Primary Care Provider: Cooper Blanchard Discharge Orders/Prescriptions Prescriptions: New ciprofloxacin HCl [Cipro] 500 mg tablet 500 mg PO BID Qty: 10 RF: 0 oxycodone-acetaminophen 5-325 mg tablet 1 tab PO Q6H PRN (Reason: pain) 7 Days Qty: 20 RF: 0 Continued losartan 50 mg tablet 50 mg PO QHS RF: 0 zonisamide 100 mg capsule 200 mg PO BID RF: 0 amlodipine 10 mg tablet 10 mg PO QHS RF: 0 rosuvastatin 40 mg tablet 40 mg PO DAILY RF: 0 oxycodone-acetaminophen [Percocet] 5-325 mg tablet 1 tab PO Q6H PRN (Reason: pain) 3 Days Qty: 12 RF: 0 ondansetron 4 mg tablet,disintegrating 4 mg PO Q8H PRN (Reason: nausea and vomiting) Qty: 10 RF: 0 nitroglycerin 0.4 mg tablet, sublingual 0.4 mg sublingual DAILY PRN PRN (Reason: Angina) RF: 0 Discontinued aspirin 81 mg Tablet 81 mg PO DAILY RF: 0 Referrals / Follow Up: Shashi Romano MD [STAFF PHYSICIAN] - Cooper Blanchard DO [Primary Care Provider] - Disposition Discharge Orders: Discharge Patient (Routine); Ordered 09/03/21 Ordered By: Dr. Shashi Romano
--- NOTE | 2021-09-03 15:37 | DS.PCM_ITS ---
Providers Date of Admission: 09/01/21 Primary Care Physician: Dr. Cooper Blanchard DO Reason For Visit: obstructing stone, mayra Diagnosis Discharge Diagnosis (1) Stage III chronic kidney disease: Status: Chronic (2) Ureteral stone with hydronephrosis: Status: Chronic Code(s): N13.2 - Hydronephrosis with renal and ureteral calculous obstruction Medications at Discharge Home Medications losartan 50 mg tablet 50 mg PO QHS 09/03/20 zonisamide 200 mg PO BID 02/20/21 amlodipine 10 mg PO QHS 07/17/21 rosuvastatin 40 mg PO DAILY 07/17/21 ondansetron 4 mg PO Q8H PRN #10 tab 08/31/21 oxycodone-acetaminophen [Percocet] 1 tab PO Q6H PRN 3 Days #12 tab 08/31/21 nitroglycerin 0.4 mg SUBLINGUAL DAILY PRN PRN 09/01/21 ciprofloxacin HCl [Cipro] 500 mg PO BID #10 tab 09/03/21 oxycodone-acetaminophen 1 tab PO Q6H PRN 7 Days #20 tab 09/03/21 Hospital Course Summary of Care Provided Hospital Course: Patient was admitted for obstructing stone and severe pain underwent cystoscopy and stent placement will be discharged home we will see him next week for treatment of the stone with shockwave lithotripsy. Physical Exam Const alert and oriented x3 General Appearance: cooperative HEENT normocephalic, head/scalp atraumatic, EAC's normal and TM's normal bilaterally Eyes PERRL and EOMs intact bilaterally Pupil: sluggish Neck no lymphadenopathy, supple and no JVD General: trachea midline Lymph Lymphatic: no lymphadenopathy noted, lymphedema and lymphadenopathy Resp normal respiratory effort, normal air movement and clear to auscultation bilaterally Cardio regular rate, regular rhythm and peripheral pulses 2+ throughout GI soft to palpation, non-tender and non-distended Extremity normal capillary refill and no clubbing, cyanosis or edema General Extremity: no tenderness to palpation of joints or extremities Skin no rashes or lesions noted General Skin Exam: turgor normal Lesions: no lesions Rashes: no rashes Neuro CN's II-XII intact bilaterally Speech: speech normal Motor Exam: strength 5/5 throughout; Negative for general weakness Psych thought process normal, cooperative and affect normal Appearance: appropriate Weight / BMI Weight Weight: 96.6 kg Body Mass Index (BMI) 32.3 ABG / Lab / Microbiology Data Result Diagrams: 09/03/21 04:08 09/03/21 04:08 Laboratory: Laboratory Results - last 24 hr 09/03/21 04:08: WBC 8.4, RBC 3.57 L, Hgb 11.5 L, Hct 33.8 L, MCV 94.7 H, MCH 32.2 H, MCHC 34.0, RDW Std Deviation 45.2 H, RDW Coeff of Vladislav 13.1, Plt Count 158, MPV 9.8, Immature Gran % (Auto) 0.400, Neut % (Auto) 63.3, Lymph % (Auto) 22.2, Davidson % (Auto) 8.0, Eos % (Auto) 5.9 H, Baso % (Auto) 0.2, Absolute Neuts (auto) 5.3, Absolute Lymphs (auto) 1.87, Nucleated RBC % 0 09/03/21 04:08: APTT 30.5 09/03/21 04:08: Sodium 139, Potassium 4.1, Chloride 114 H, Carbon Dioxide 21.0, Anion Gap 4 L, BUN 20 H, Creatinine 2.16 H, Estim Creat Clear Calc 34.31, Est GFR (MDRD) Af Amer 40 L, Est GFR (MDRD) Non-Af 33 L, BUN/Creatinine Ratio 9.3 L, Glucose 103, Calcium 8.2 L Microbiology: Microbiology 09/02/21 16:10 Nasal Secretion SARS-CoV-2 Antigen (Rapid) - Final D/C Instructions Discharge Diet: No restrictions Call your doctor if you observe: Fever of 101 or Higher Please Follow Up With: Shashi Romano MD When: Call [phone] for an appointment Meaningful Use Info Meaningful Use Diagnoses (Choose all that apply): None applicable Discharge Plan Admission Admit Date/Time: 09/01/21 23:10 Primary Reason for Your Visit: right kidney stone. Attending Provider: Shashi Romano Primary Care Provider: Cooper Blanchard Discharge Orders/Prescriptions Prescriptions: New ciprofloxacin HCl [Cipro] 500 mg tablet 500 mg PO BID Qty: 10 RF: 0 oxycodone-acetaminophen 5-325 mg tablet 1 tab PO Q6H PRN (Reason: pain) 7 Days Qty: 20 RF: 0 Continued losartan 50 mg tablet 50 mg PO QHS RF: 0 zonisamide 100 mg capsule 200 mg PO BID RF: 0 amlodipine 10 mg tablet 10 mg PO QHS RF: 0 rosuvastatin 40 mg tablet 40 mg PO DAILY RF: 0 oxycodone-acetaminophen [Percocet] 5-325 mg tablet 1 tab PO Q6H PRN (Reason: pain) 3 Days Qty: 12 RF: 0 ondansetron 4 mg tablet,disintegrating 4 mg PO Q8H PRN (Reason: nausea and vomiting) Qty: 10 RF: 0 nitroglycerin 0.4 mg tablet, sublingual 0.4 mg sublingual DAILY PRN PRN (Reason: Angina) RF: 0 Discontinued aspirin 81 mg Tablet 81 mg PO DAILY RF: 0 Referrals / Follow Up: Shashi Romano MD [STAFF PHYSICIAN] - Cooper Blanchard DO [Primary Care Provider] - Disposition Discharge Orders: Discharge Patient (Routine); Ordered 09/03/21 Ordered By: Dr. Shashi Romano
== END 2021-09-03 17:55 | disposition home or self-care (01) | DRG 465 ==
LOC: ED 21:45 → PCU 22:57
PROVIDERS: Anesthesiology; Admitting Provider Urology; Emergency Provider Emergency Medicine; PCP Student in an Organized Health Care Education/Training Program; Visit Provider Urology
PROC: 0T7D7DZ Dilation of Urethra with Intraluminal Device, Via Natural or Artificial Opening (ICD-10-PCS; CPT 52332; principal; 2021-09-03 15:20)
DX: N13.2 Hydronephrosis with renal and ureteral calculous obstruction (principal); N17.9 Acute kidney failure, unspecified; G40.909 Epilepsy, unspecified, not intractable, without status epilepticus; N18.32 Chronic kidney disease, stage 3b; E78.5 Hyperlipidemia, unspecified; F17.210 Nicotine dependence, cigarettes, uncomplicated; I12.9 Hypertensive chronic kidney disease with stage 1 through stage 4 chronic kidney disease, or unspecified chronic kidney disease; G47.33 Obstructive sleep apnea (adult) (pediatric); M19.90 Unspecified osteoarthritis, unspecified site; F41.9 Anxiety disorder, unspecified; Z79.82 Long term (current) use of aspirin; Z86.718 Personal history of other venous thrombosis and embolism; Z87.442 Personal history of urinary calculi; Z87.19 Personal history of other diseases of the digestive system; Z79.899 Other long term (current) drug therapy
CPT/HCPCS: 36415; 74018; 74176; 76000; 80048; 81001; 85025; 85730; 87426; 93005; 96361; 96374; 96375; 99283; 99284; 99406; J7030; A4216; C1769; C2617; J2405

== ENCOUNTER 2021-09-08 07:18 | Day surgery (SDC) | payer MEDICAID, SELFPAY ==
[2021-09-08] VITALS (7 sets, daily range): BP systolic 112–147; BP diastolic 72–103; PULSE 69–97; RESP 12–18; TEMP 36.3–36.7; O2SAT 95–100; BMI 31.8
--- NOTE | 2021-09-08 07:24 | RAD_ITS ---
STUDY: X-RAY - ABDOMEN/PELVIS REASON FOR EXAM: Male, 60 years old. Right renal stone. TECHNIQUE: Single AP view of the abdomen / pelvis on 2 images. COMPARISON: 09/02/2021 FINDINGS: Normal visualized lung bases. Right ureteral catheter present in anatomic alignment. There is an unremarkable bowel gas pattern. There is no demonstrated free abdominal air. Several small calcifications projected over the right renal outline. Normal soft tissue structures. Normal visualized osseous structures. RAD/Abdomen Single View IMPRESSION: Placement of right ureteral catheter. Several small calcifications projected over the right renal shadow, unchanged. Electronically Signed: Geraldo Isaacs MD at 11:07 EST ,
[2021-09-08] MEDS: Lactated Ringers 1,000 ML 15 ML IV (08:13)
[2021-09-08] MEDS: Cefazolin 2 GM in 0.9% Normal Saline 100 ML IV (09:12)
--- NOTE | 2021-09-08 10:05 | HP.PCM_ITS ---
HPI - General HPI Narrative LANCE ALVAREZ, is a 60 M who presents for treatment of ureteral stone and kidney stones. [facility] Medical History (Updated 09/07/21 @ 12:11 by Kendal Hannah) Acute kidney injury Alcohol use Anxiety Arthritis Cardiology follow-up encounter Carotid artery calcification Complete edentulism, class III COPD (chronic obstructive pulmonary disease) Costochondritis Difficulty chewing Drug abuse DVT (deep venous thrombosis) Epilepsy Heartburn Hepatitis High cholesterol History of edema History of pain when walking History of stress test History of ulceration Hx of tilt table evaluation Hyperglycemia Hypertension Intermittent claudication Left ventricular hypertrophy Leg cramps Leucocytosis Lightheadedness Marijuana use Mitral valve annular calcification Mucous retention cyst Numbness and tingling Pleural effusion on left Pulmonary vascular congestion Seizures Shortness of breath on exertion Small vessel disease Smoker SOB (shortness of breath) Unresponsive episode Vertigo Wears glasses Home Medications losartan 50 mg tablet 50 mg PO QHS 09/03/20 [History Last Taken 09/07/21] zonisamide 200 mg PO BID 02/20/21 [History Last Taken 09/08/21] amlodipine 10 mg PO QHS 07/17/21 [History Last Taken 09/07/21] rosuvastatin 40 mg PO DAILY 07/17/21 [History Last Taken 09/07/21] nitroglycerin 0.4 mg SUBLINGUAL DAILY PRN PRN 09/01/21 [History Last Taken Unknown] aspirin 81 mg PO DAILY 09/07/21 [History Last Taken 09/02/21] ciprofloxacin HCl [Cipro] 500 mg PO BID #6 tab 09/08/21 [Rx Last Taken Unknown] oxycodone-acetaminophen 1 tab PO Q6H PRN 7 Days #20 tab 09/08/21 [Rx Last Taken Unknown] Allergy/AdvReac Type Severity Reaction Status Date / Time Penicillins Allergy SYNCOPE Verified 09/07/21 11:48 cortisone Allergy Shortness Uncoded 09/07/21 11:48 of breath Family History Sister Arthritis Cancer Depression Diabetes Hypertension Hyperlipidemia Thyroid disorder CVA (cerebral vascular accident) Seizures FH: mental illness Father Diabetes Heart disease Hypertension Hyperlipidemia Surgical History (Updated 09/07/21 @ 12:11 by Kendal Hannah) History of appendectomy History of cardiac catheterization History of cystoscopy History of loop recorder Social History Smoking Status: Current some day smoker tobacco type: cigarettes Vital Signs Vital Signs Vital Signs: 09/08/21 08:05 Temperature 97.8 F Temperature Source Temporal Pulse Rate 92 Respiratory Rate 18 Respiratory Pattern Normal Blood Pressure 127/76 H Blood Pressure Mean 93 Blood Pressure Source Monitor Blood Pressure Position Semi-Fowlers Blood Pressure Location Left Arm Pulse Ox 99 Oxygen Delivery Method Room Air Weight Weight: 95 kg Body Mass Index (BMI) 31.8
--- NOTE | 2021-09-08 10:05 | PCM.DC ---
Discharge Instructions Diet Discharge Diet: No restrictions Activity Discharge Activity: Return to Normal Activity and May Not Drive (while taking narcotic pain medications.) Dressing / Incision Call your doctor if you observe: Fever of 101 or Higher Follow Up Care Please Follow Up With: Shashi Romano MD When: Call [phone] for an appointment Test Results: Test results from this visit will be discussed in further detail at your follow-up appointment, if applicable. Discharge Plan Admission Primary Reason for Your Visit: right kidney and ureteral stones Attending Provider: Shashi Romano Primary Care Provider: Cooper Blanchard Discharge Orders/Prescriptions Prescriptions: New ciprofloxacin HCl [Cipro] 500 mg tablet 500 mg PO BID Qty: 6 RF: 0 oxycodone-acetaminophen 5-325 mg tablet 1 tab PO Q6H PRN (Reason: pain) 7 Days Qty: 20 RF: 0 Continued losartan 50 mg tablet 50 mg PO QHS RF: 0 zonisamide 100 mg capsule 200 mg PO BID RF: 0 amlodipine 10 mg tablet 10 mg PO QHS RF: 0 rosuvastatin 40 mg tablet 40 mg PO DAILY RF: 0 nitroglycerin 0.4 mg tablet, sublingual 0.4 mg sublingual DAILY PRN PRN (Reason: Angina) RF: 0 aspirin 81 mg Tablet,Delayed Release (Dr/Ec) 81 mg PO DAILY RF: 0 Referrals / Follow Up: Shashi Romano MD [STAFF PHYSICIAN] - Cooper Blanchard DO [Primary Care Provider] - Disposition Disposition (needs filled in before D/C Order can be placed): Home, Self Care
--- NOTE | 2021-09-08 10:06 | PCM.OPRPT ---
Report of Operation Date of Procedure: 09/08/21 Pre-Operative Diagnosis: Right ureteral and renal calculi Post-Operative Diagnosis: Same Surgery/Procedure Performed:: Right ureteroscopy laser of stones and stent and right extracorporeal shockwave lithotripsy. Retrograde pyelogram and interpretation of images Description of Surgical Findings:: Patient presents to the hospital for treatment of a kidney stone with shockwave lithotripsy. In the preoperative area and x-ray was done to confirm the location of the stone. The x-ray was reviewed and the stone location was reviewed. In the preoperative setting I spoke with the patient regarding the treatment of the stone how the treatment would be conducted and the expectations after surgery. The patient understands there is a risk of bleeding and infection. Also discussed the very rare risk of hematoma or damage to the kidney. We also discussed the risk that the shockwave machine will fail to break the stone adequately and that the patient may need other surgical procedures. We also discussed the possibility that the patient may need a stent after the procedure. After reviewing the procedure with the patient, the patient is signed the consent form all the patient's questions were addressed and was taken back to the operating room for treatment of a kidney stone. Patient was taken back to the operating room, patient was identified by the nursing staff, we identified the side of the treatment and the patient side of treatment had been marked by my initials. The patient underwent general anesthetic and was placed supine on the lithotripter table. I went into the bladder with a 21 Hong Konger rigid cystourethroscope through the urethra. Upon entering the bladder I inspected the trigone the left and right ureteral orifice and the bladder itself. I then cannulated the Right ureteral orifice and removed the prior stent, I then and advanced a 0.038 Glidewire up into the kidney. Then over the Glidewire I advanced a 5 Fr Ureteral catheter and performed a retrograde pyelogram with about 10cc of contrast, to delineate the anatomy and identify the stone location. Then a ureteral balloon dilator was advanced over the wire and the distal ureter was balloon dilated with a 12 Fr x 5cm balloon dilator. After 3 minutes of dilating the ureter the balloon was backloaded off the 0.038 glidewire then the safety wire was left in place. I then placed a second 0.038 Guidewire as a working wire and over the working 0.038 guidewire I went in with a Flexible 7.9fr ureteroscope. I was able to go inside with the 7.9Fr flexible utereroscope and I pulled out the working guidewire and then through the 7.9 fr flexible ureteroscope I ascended up the ureter with direct visualization until the stone was located, then I engaged the stone with laser lithotripsy using a 270miron laser fiber with energy setting of 6 Hertz and 0.6 J until the stone was lasered and pushed back up into the kidney for ESWL to complete the treatment, After successful laser lithotripsy of the stone and stone fragements, a retrograde pyelogram was performed with 10cc of contrast and no extravasation of contrast or perforation was identified in the ureter. I then backed out of the ureter left the wire in place and then over the 0.038 guidewire I placed a double coiled pigtail ureteral stent. The ureteral stent was advanced over the 0.038 guidewire under direct fluoroscopic guidance and direct cystoscopic visual guidance, once the stent was in good position I pulled the wire and the stent coiled in the kidney and bladder in good position We then used fluoroscopy to identify the stones on the right side. We then positioned the patient under the lithotripter and we used triangulation technique to identify the location of the stone and then we made sure that the stone was engaged in the F2 focal point of F2 Donier lithoprior machine. Once the patient was positioned appropriately and the stone was identified and placed in the F2 focal point of the lithotripter machine we then proceeded with shockwave lithotripsy. In the beginning the shockwave was delivered at a rate of 90 shocks per minute, we monitor the EKG for any ectopy. The power was slowly increased to 5 kV and subsequently at the 7 kV. We then proceeded with the treatment we move the therapy had around during the treatment to make sure the stone stayed in the F2 focal point during the entire treatment and after 1000 shockwaves were delivered to the stone under fluoroscopic guidance the treatment was completed. The patient was given instructions to call the office to make an a follow-up appointment with an xray to evaluate the success of the treatment, pateint understands that its possible the stones may need another procedure.At this point the patient's anesthetic was reversed patient was extubated and taken back to the PACU in stable condition. Surgeon: kingston Type of Anesthesia: General Drains: stent right side 6fr x 26 cm Admit VTE Documentation VTE Present on Admission: No VTE Mechan Device Prophylaxis: SCD's VTE Pharm Prophylaxis ordered?: No
== END 2021-09-08 23:59 | disposition home or self-care (01) ==
LOC: SDC 07:21 → AC 07:21
PROVIDERS: PCP Student in an Organized Health Care Education/Training Program; Referring Provider Urology; Visit Provider Urology
PROC: (CPT 50590; principal; 2021-09-08 09:10)
DX: N20.2 Calculus of kidney with calculus of ureter (principal); J44.9 Chronic obstructive pulmonary disease, unspecified; G40.909 Epilepsy, unspecified, not intractable, without status epilepticus; F17.210 Nicotine dependence, cigarettes, uncomplicated; F41.9 Anxiety disorder, unspecified; M19.90 Unspecified osteoarthritis, unspecified site; Z86.718 Personal history of other venous thrombosis and embolism; E78.00 Pure hypercholesterolemia, unspecified; I10 Essential (primary) hypertension; Z79.899 Other long term (current) drug therapy; Z79.82 Long term (current) use of aspirin; G47.33 Obstructive sleep apnea (adult) (pediatric)
CPT/HCPCS: 50590; 52332; 74018; J7120; C1769; C2617; J2405

== ENCOUNTER 2021-10-12 22:20 | Emergency (ER) | payer MEDICAID, SELFPAY ==
[2021-10-12 22:21] VITALS: BP 147/88; PULSE 81; RESP 22; TEMP 36.9; O2SAT 98; BMI 33.0
[2021-10-12 22:33] VITALS: BP 136/85; PULSE 63; RESP 15; O2SAT 96
--- NOTE | 2021-10-12 22:34 | EDS_ITS ---
HPI History of Present Illness Chief Complaint: Seizure Informant: patient and EMS Onset/Context/Timing Onset: Today Context: Sudden Onset Timing: Intermittent and Lasts (Couple minutes) Quality: Shaking Location: Right arm and leg Worsened by: Nothing Relieved by: Nothing Narrative Narrative: Patient presents with a seizure that occurred tonight. Patient states he got up and went to the bathroom tonight. Patient states he was walking back to bed when he lost consciousness. EMS noticed that patient was having a seizure of his right upper and lower extremities. EMS reports that these were shaking for approximately 2 to 3 minutes. Patient was unconscious at the time. Patient does not remember any of the events around the seizure. Patient denies any incontinence of stool or urine. Patient admits to a mild headache. Patient has a history of seizure disorder. [facility] Medical History (Updated 10/12/21 @ 23:[address] Willis Gilliland, DO) Acute kidney injury Alcohol use Anxiety Arthritis Cardiology follow-up encounter Carotid artery calcification Complete edentulism, class III COPD (chronic obstructive pulmonary disease) Costochondritis Difficulty chewing Drug abuse DVT (deep venous thrombosis) Epilepsy Heartburn Hepatitis High cholesterol History of edema History of pain when walking History of stress test History of ulceration Hx of tilt table evaluation Hyperglycemia Hypertension Intermittent claudication Kidney stones Left ventricular hypertrophy Leg cramps Leucocytosis Lightheadedness Marijuana use Mitral valve annular calcification Mucous retention cyst Numbness and tingling Osteoporosis Pleural effusion on left Pulmonary vascular congestion Seizures Shortness of breath on exertion Small vessel disease Smoker SOB (shortness of breath) Unresponsive episode Vertigo Wears glasses Home Medications losartan 50 mg tablet 50 mg PO QHS 09/03/20 [History Last Taken 09/07/21] zonisamide 200 mg PO BID 02/20/21 [History Last Taken 09/08/21] amlodipine 10 mg PO QHS 07/17/21 [History Last Taken 09/07/21] rosuvastatin 40 mg PO DAILY 07/17/21 [History Last Taken 09/07/21] nitroglycerin 0.4 mg SUBLINGUAL DAILY PRN PRN 09/01/21 [History Last Taken Unknown] Allergy/AdvReac Type Severity Reaction Status Date / Time Penicillins Allergy SYNCOPE Verified 09/07/21 11:48 cortisone Allergy Shortness Uncoded 09/07/21 11:48 of breath Family History Sister Arthritis Cancer Depression Diabetes Hypertension Hyperlipidemia Thyroid disorder CVA (cerebral vascular accident) Seizures FH: mental illness Father Diabetes Heart disease Hypertension Hyperlipidemia Surgical History History of appendectomy History of cardiac catheterization History of cystoscopy History of loop recorder Social History Smoking Status: Current some day smoker tobacco type: cigarettes ROS ROS ED Constitutional Constitutional ED: Denies chills or fever(s) Eyes Eyes: Denies blurry vision or change in vision ENT ENT ED: Denies rhinorrhea or sore throat Cardiovascular Cardiovascular: Denies chest pain or palpitations Respiratory/Chest Respiratory/Chest: Reports cough; Denies dyspnea Gastrointestinal Gastrointestinal: Denies nausea or vomiting Genitourinary Genitourinary ED: Denies dysuria or hematuria Musculoskeletal Musculoskeletal: Denies back pain or neck pain Integumentary Denies abscess or rash Neurologic Neurologic: Reports headache(s); Denies weakness Allergic/Immunologic Allergic/Immunologic ED: Denies mouth swelling or urticaria EXAM Physical Exam Const Vital Signs: 10/12/21 22:21 10/12/21 22:33 Temperature 98.4 F Temperature Source Oral Pulse Rate 81 63 Respiratory Rate 22 H 15 Blood Pressure 147/88 H 136/85 H Blood Pressure Mean 107 102 Pulse Ox 98 96 Oxygen Delivery Method Room Air Room Air Positive well nourished and well developed General Appearance ED: well developed and NAD HEENT Reports moist mucous membranes Neck supple and no JVD Resp normal respiratory effort and clear to auscultation bilaterally Cardio regular rate, regular rhythm and no murmurs GI normal to inspection, nondistended, normoactive bowel sounds and non-tender Palpation: soft Extremity normal to inspection General Extremety ED: Negative for edema or tenderness General Extremity: Negative for edema Neuro oriented x3, CN's II-XII intact bilaterally and no sensory deficits noted Sensorium / Orientation: alert Motor Exam: strength 5/5 throughout Psych mental status grossly normal Skin no rashes or lesions noted MDM MDM MDM Narrative Medical decision making narrative: Seizure precautions were maintained. CBC was within normal limits. Comprehensive metabolic profile was within normal limits. Patient had no further seizure activity here. Patient was instructed to follow-up with his primary care physician in 5 to 7 days. Patient was also instructed to follow-up with his neurologist. Patient was instructed to take his seizure medication as previously prescribed. Patient understood and was agreeable with the plan. All questions were answered. Lab Data Attestation: I reviewed the patient's lab results. Labs: Laboratory Results - last 24 hr 10/12/21 10/12/21 22:25 22:25 WBC 10.6 RBC 4.24 L Hgb 13.3 Hct 39.0 L MCV 92.0 MCH 31.4 MCHC 34.1 RDW Std Deviation 43.8 RDW Coeff of Vladilsav 13.0 Plt Count 209 MPV 10.6 Immature Gran % (Auto) 0.400 Neut % (Auto) 64.8 Lymph % (Auto) 22.3 [place] % (Auto) 6.1 Eos % (Auto) 5.9 H Baso % (Auto) 0.5 Absolute Neuts (auto) 6.9 Absolute Lymphs (auto) 2.37 Nucleated RBC % 0 Sodium 141 Potassium 3.8 Chloride 113 H Carbon Dioxide 22.0 Anion Gap 6 BUN 18 Creatinine 1.25 Estim Creat Clear Calc 59.28 Est GFR (MDRD) Af Amer 75 Est GFR (MDRD) Non-Af 62 BUN/Creatinine Ratio 14.4 Glucose 101 Calcium 8.7 Total Bilirubin 0.30 AST 14 L ALT 25 Alkaline Phosphatase 97 Total Protein 6.9 Albumin 3.6 Globulin 3.3 Albumin/Globulin Ratio 1.1 Discharge Plan Triage Chief Complaint: Seizure ED Provider: Willis Gilliland Dx/Rx/DC Orders Clinical Impression: Seizure, Epilepsy Instructions: ED Seizure, Recurrent (Adult) Prescriptions: No Action losartan 50 mg tablet 50 mg PO QHS RF: 0 zonisamide 100 mg capsule 200 mg PO BID RF: 0 amlodipine 10 mg tablet 10 mg PO QHS RF: 0 rosuvastatin 40 mg tablet 40 mg PO DAILY RF: 0 nitroglycerin 0.4 mg tablet, sublingual 0.4 mg sublingual DAILY PRN PRN (Reason: Angina) RF: 0 Primary Care Provider: Cooper Blanchard Referrals: Cooper Blanchard DO [Primary Care Provider] - 5-7 Days Disposition Disposition: Home, Self Care
[2021-10-12 22:47] LABS: Absolute Lymphocyte Count 2.37 X10^3/uL (0.83-4.51); Absolute Neutrophil Count 6.9 X10^3/uL (2.0-7.7); Basophil# 0.05 X10^3/uL; Basophil% 0.5 % (0-1); Eosinophil# 0.63 X10^3/uL; Eosinophils% 5.9 % (0-5); Hemoglobin 13.3 g/dL (13.0-16.5); Lymphocyte # 2.37 X10^3/ul (0.83-4.51); Lymphocyte % 22.3 % (19-41); Mean Corp Hgb Conc 34.1 g/dL (32-36); Mean Corpuscular Hgb 31.4 pg (27.0-32.0); Mean Platelet Vol. 10.6 fl (6.2-12.0); Monocyte# 0.65 X10^3/uL; Monocyte% 6.1 % (0-10); NRBC Flagged by Analyzer 0 % (0-5); Neutrophil # 6.87 X10^3/uL (2.7-7.7); Neutrophil % 64.8 % (47-70); Platelet Count 209 K/mm3 (150-450); RBC Distribution Width SD 43.8 fl (35.1-43.9); Red Blood Count 4.24 M/mm3 (4.6-6.2); White Blood Count 10.6 K/mm3 (4.4-11.0)
[2021-10-12 23:04] LABS: ALB/GLOB Ratio 1.1 RATIO (0.9-2.4); AST(SGOT) 14 U/L (15-37); Alanine Aminotransfer ALT/SGPT 25 U/L (16-61); Albumin, Serum 3.6 g/dL (3.2-5.0); Alkaline Phosphatase 97 U/L (45-117); Anion Gap 6 (5-15); BUN 18 mg/dL (7-18); BUN/Creat Ratio 14.4 RATIO (10-20); Calcium,Total 8.7 mg/dL (8.5-10.1); Chloride 113 mmol/L (98-107); Creatinine, Serum 1.25 mg/dL (0.70-1.30); EST Glomerular Filtration Rate 62 mL/min (>60); Est Glom Filt Rate - Afr Amer 75 mL/min (>60); Estimated Creatinine Clearance 59.28 ml/min; Globulin 3.3 g/dL (2.2-4.2); Glucose 101 mg/dL (74-106); Potassium 3.8 mmol/L (3.5-5.1); Protein, Total 6.9 g/dL (6.4-8.2); Sodium Level 141 mmol/L (136-145)
[2021-10-12 23:27] VITALS: BP 125/86; PULSE 80; RESP 20; O2SAT 99
== END 2021-10-12 23:28 | disposition home or self-care (01) ==
PROVIDERS: Emergency Provider Emergency Medicine; PCP Student in an Organized Health Care Education/Training Program; Visit Provider Emergency Medicine
DX: G40.909 Epilepsy, unspecified, not intractable, without status epilepticus (principal); J44.9 Chronic obstructive pulmonary disease, unspecified; I73.9 Peripheral vascular disease, unspecified; F17.210 Nicotine dependence, cigarettes, uncomplicated; F41.9 Anxiety disorder, unspecified; M19.90 Unspecified osteoarthritis, unspecified site; Z86.718 Personal history of other venous thrombosis and embolism; E78.00 Pure hypercholesterolemia, unspecified; Z87.442 Personal history of urinary calculi; M81.0 Age-related osteoporosis without current pathological fracture; Z79.899 Other long term (current) drug therapy
CPT/HCPCS: 80053; 85025; 99285; A4216

== ENCOUNTER 2021-11-24 21:47 | Inpatient (IN) | payer MEDICAID, SELFPAY ==
[2021-11-24] VITALS (11 sets, daily range): BP systolic 122–145; BP diastolic 77–92; PULSE 71–83; RESP 16–20; TEMP 36.4–36.8; O2SAT 96–98; BMI 33.5
--- NOTE | 2021-11-24 21:49 | EKG12_ITS ---
Test Reason : DYSRHYTHMIA Blood Pressure : / mmHG Vent. Rate : 078 BPM Atrial Rate : 078 BPM P-R Int : 174 ms QRS Dur : 088 ms QT Int : 372 ms P-R-T Axes : 046 -03 034 degrees QTc Int : 424 ms Normal sinus rhythm Inferior infarct , age undetermined Abnormal ECG Confirmed by WARREN LOPEZ, ROCK ([id number]), editor dictionary KATHIE AMADOR ([id number]) on 11/25/2021 11:24:31 AM Referred By: KEE Confirmed By:ROCK KELLEY MD
--- NOTE | 2021-11-24 21:50 | CT_ITS ---
INDICATION: Neuro deficit, acute, stroke suspected. LEFT-sided paresthesias and left-sided weakness and pronator drift. EXAMINATION: CT BRAIN - CT Head Stroke Protocol W/O Contrast Injection TECHNIQUE: Multiple axial images were obtained of the head without intravenous contrast. A radiation dose optimization technique was used for this scan. IV Contrast dosage and agent: None. Radiation Dose (provided by facility) CTDIvol (NA ) mGy, DLP ( NA) mGy-cm COMPARISON: Not available FINDINGS: HEMISPHERES: 1. The cerebral parenchyma, ventricular system, subarachnoid spaces have normal configuration and density. There is a normal gyral pattern. There is normal celeste/white differentiation. No midline shift.. 2. The hemispheric white matter has normal appearance. 3. No intraparenchymal mass, hemorrhage, or acute territorial infarct. CEREBELLUM - BRAINSTEM: The cerebellum, brainstem, basilar and suprasellar cisterns have normal appearance. No Chiari malformation. PITUITARY: Infundibulum and pituitary have normal configuration. Midline structures appear normal. VESSELS: 1. Moderate carotid vascular calcifications bilaterally. 2. No hyperdense vascular signs noted.. ORBITS AND PARANASAL SINUSES: 1. Normal appearance of the bony orbits. Normal appearance of the globes and retrobulbar soft tissues.. 2. Mild chronic appearing mucosal thickening within the maxillary antra. Remaining paranasal sinuses are clear. BONY ELEMENTS: Bony elements of the cranial vault, facial skeleton and skull base have normal appearance. SCALP AND SOFT TISSUES: Normal appearance of the soft tissues of the scalp and the visualized face OTHER: None CT/STROKE Brain/Head without Cont IMPRESSION: 1. No intracranial mass, hemorrhage or acute territorial infarct. 2. No radiographically significant sinus disease. Preliminary report called to the emergency room at 9:06 PM CDT, a verbal report was communicated to Dr. Beto Baird. : The above Results were Read Back by Julio Kuhn MD to Dr Beto MD, and understanding confirmed on 11/24/2021 22:07:16 (ET). Electronically Signed: Julio Kuhn MD at 22:08 EDT ,
--- NOTE | 2021-11-24 21:51 | CT_ITS ---
We are attempting to reach an attending provider to discuss findings. An addendum with communication details will be sent when the communication is complete. INDICATION: Neuro deficit, acute, stroke suspected EXAMINATION: CTA HEAD - CTA Head and Neck W/ Contrast Injection (and W/O Contrast Images if performed) TECHNIQUE: [place]/head CT angiogram protocol was performed following IV contrast. 3D reconstructions were reviewed. A radiation dose optimization technique was used for this scan. IV Contrast dosage and agent: 100 mL [id number]-370 Radiation Dose (provided by facility) CTDIvol (24.37 ) mGy, DLP ( 799.76) mGy-cm COMPARISON: None. FINDINGS: CTA [place]: PETROUS AND CAVERNOUS CAROTID ARTERIES: Scattered vascular calcifications and cavernous carotid vessels bilaterally. No stenosis or occlusion. SUPRACLINOID CAROTID ARTERIES: Normal appearance the supraclinoid carotid vessels bilaterally, the visualized ophthalmic arteries have normal appearance. ANTERIOR CEREBRAL AND A- COMM: Normal appearance the proximal and distal segments of the anterior cerebral circulation bilaterally. MIDDLE CEREBRAL ARTERIES: Normal appearance the proximal and distal segments of the middle cerebral circulation bilaterally. Normal appearance of the M4 cortical distribution bilaterally. INTRACRANIAL VERTEBRAL ARTERIES AND BASILAR ARTERY: Normal appearance of the intracranial course of the vertebral arteries bilaterally, normal appearance of basilar artery to the level of the bifurcation. POSTERIOR CEREBRAL ARTERIES: Normal appearance proximal distal segments of posterior cerebral circulation bilaterally. DURAL SINUSES: Normal, no filling defects noted CT HEAD: The cerebral parenchyma, ventricular system and gyral pattern have normal configuration. No areas of abnormal contrast enhancement. No evidence of hemorrhage given the limitation of postcontrast imaging. CTA Neck: TECHNIQUE: CTA examination of the neck obtained with standard protocol including axial postcontrast imaging with additional planar and three-dimensional reconstructions. Aortic arch: [Normal appearance of the aortic arch and origin the great vessels.] Right carotid system: There is mild eccentric soft tissue thickening along the posterior aspect of the RIGHT carotid bulb without evidence PJ dynamic with significant stenosis. Minimal calcifications noted. Remaining ECA, ICA and CCA have normal appearance the level of skull base appear Left carotid system: There is normal appearance of the LEFT common carotid, LEFT internal carotid, and the bifurcation. There is normal appearance of the LEFT external carotid circulation scattered calcifications present at the level of the LEFT carotid bulb without stenosis or occlusion. Vertebral arteries: There is normal appearance of the vertebral arteries bilaterally without focal stenosis or occlusion. Airway and soft tissues of the neck: There is normal appearance of the musculofascial planes of suprahyoid and infrahyoid neck. Normal appearance of the visualized airway. Normal appearance the visualized thyroid without masses or nodules noted. Cervical spine: Diffuse cervical spondylosis noted. Additional areas of foraminal narrowing due to uncovertebral joint and facet hypertrophic changes however no canal stenosis. CT/STROKE CTA Head AND Neck W/Con IMPRESSION: 1. Moderate calcifications involving the cavernous carotid vessels bilaterally. 2. No CTA evidence of focal stenosis occlusion or aneurysmal dilatation involving the intracranial circulation. 3. No CTA evidence LVO. 4. Scattered soft and calcified plaque in the carotid bulbs bilaterally without hemodynamically significant stenosis involving the cervical carotid and vertebral circulation to level skull base. Electronically Signed: Julio Kuhn MD at 22:26 EDT ,
--- NOTE | 2021-11-24 22:06 | EDS_ITS ---
HPI History of Present Illness Chief Complaint: Neuro S/Sx Narrative Narrative: Patient presents with left arm weakness. It started as numbness and tingling in his left arm. He states his symptoms began at 6 PM, approximately 4 hours ago. In route to the hospital, EMS states that his initial [place] stroke scale was negative, but his men's became positive. He started having pronator drift and was unable to lift his arm fully and he noticed ataxia in his left upper extremity. He denies any headache. Past medical history includes previous stroke, seizures, and he is a smoker. He denies any exacerbating or alleviating factors. Additionally, he states that he is having minor difficulty thinking of certain words to say. [facility] Medical History Acute kidney injury Alcohol use Anxiety Arthritis Cardiology follow-up encounter Carotid artery calcification Complete edentulism, class III COPD (chronic obstructive pulmonary disease) Costochondritis Difficulty chewing Drug abuse DVT (deep venous thrombosis) Epilepsy Heartburn Hepatitis High cholesterol History of edema History of pain when walking History of stress test History of ulceration Hx of tilt table evaluation Hyperglycemia Hypertension Intermittent claudication Kidney stones Left ventricular hypertrophy Leg cramps Leucocytosis Lightheadedness Marijuana use Mitral valve annular calcification Mucous retention cyst Numbness and tingling Osteoporosis Pleural effusion on left Pulmonary vascular congestion Seizures Shortness of breath on exertion Small vessel disease Smoker SOB (shortness of breath) Unresponsive episode Vertigo Wears glasses Home Medications losartan 50 mg tablet 50 mg PO QHS 09/03/20 [History Last Taken 09/07/21] zonisamide 200 mg PO BID 02/20/21 [History Last Taken 09/08/21] amlodipine 10 mg PO QHS 07/17/21 [History Last Taken 09/07/21] rosuvastatin 40 mg PO DAILY 07/17/21 [History Last Taken 09/07/21] nitroglycerin 0.4 mg SUBLINGUAL DAILY PRN PRN 09/01/21 [History Last Taken Unknown] cholecalciferol (vitamin D3) 50 mcg (2,000 unit) capsule 50 mcg PO DAILY 11/02/21 [History Last Taken Unknown] cyanocobalamin (vitamin B-12) 1,000 mcg capsule 1,000 mcg PO DAILY 11/02/21 [History Last Taken Unknown] Allergy/AdvReac Type Severity Reaction Status Date / Time Penicillins Allergy SYNCOPE Verified 11/24/21 22:07 cortisone Allergy Shortness Uncoded 11/24/21 22:07 of breath Family History Sister Arthritis Cancer Depression Diabetes Hypertension Hyperlipidemia Thyroid disorder CVA (cerebral vascular accident) Seizures FH: mental illness Father Diabetes Heart disease Hypertension Hyperlipidemia Surgical History History of appendectomy History of cardiac catheterization History of cystoscopy History of loop recorder Social History Smoking Status: Current some day smoker tobacco type: cigarettes ROS ROS ED ROS Narrative Constitutional: No fever, no chills. HEENT: No sore throat. No neck pain. No loss of vision. No rhinorrhea. Cardiovascular: No chest pain. No palpitations. No pedal edema. Respiratory: No cough, no shortness of breath. Abdominal: No abdominal pain. No nausea. No vomiting. Genitourinary: No dysuria. No hematuria. Musculoskeletal: No myalgias. No arthralgias. Neurologic: No headaches. No dizziness. No lightheadedness. Left upper extremity weakness, paresthesias. Minimal aphasia, expressive Skin: No rash. No change in color. Psychiatric: No depression. No anxiety. EXAM Physical Exam Narrative Exam Narrative: Afebrile. Vital signs noted. HEENT: Normocephalic. Atraumatic. PERRL, EOMI. Neck soft and supple. No point tenderness or step off. Cardiovascular: Regular rate and rhythm. No murmurs, rubs, or gallops appreciated. Respiratory: No tachypnea. Lungs clear to auscultation bilaterally. Gastrointestinal: Abdomen soft, nontender, with normoactive bowel sounds. No rebound or guarding. Neurological: Awake. Alert. Nonfocal, nonlateralizing. NIH stroke scale is 2, mainly for pronator drift hitting the bed with a score of 2 however patient is a dentulous. Skin: No rash. Normal color. No pallor. Musculoskeletal: No pedal edema. Full range of motion extremities. Const Vital Signs: 11/24/21 21:48 11/24/21 22:06 11/24/21 22:08 Temperature 98.2 F Temperature Source Temporal Pulse Rate 83 79 Respiratory Rate 16 20 H Blood Pressure 132/82 H 132/81 H Blood Pressure Mean 98 98 Blood Pressure Source Pulse Ox 98 98 Oxygen Delivery Method Room Air Room Air Room Air 11/24/21 22:09 11/24/21 22:41 Temperature 98.0 F Temperature Source Temporal Pulse Rate 82 76 Respiratory Rate 20 H Blood Pressure 139/91 H Blood Pressure Mean 107 Blood Pressure Source Monitor Pulse Ox 97 Oxygen Delivery Method Room Air STROKE Vital Signs/Narrative: Vital Signs Temp Pulse Resp BP Pulse Ox 11/24/21 22:41 98.0 F 76 20 H 139/91 H 97 11/24/21 22:09 82 11/24/21 22:08 79 20 H 132/81 H 98 11/24/21 21:48 98.2 F 83 16 132/82 H 98 MDM MDM MDM Narrative Medical decision making narrative: Prehospital stroke team was initiated. CT of the brain shows no acute hemorrhage. CTA of the head and neck was obtained. Patient developed chest pain and left arm pain while in the CT scanner. EKG was obtained afterwards which shows normal sinus rhythm at 78 bpm without ectopy or acute ST changes. No STEMI. CBC is normal with a normal WBC count of 8.7, hemoglobin stable at 12.6, platelet count of 220. Coags are negative. Chloride shows elevation at 110, sodium and potassium normal. High-sensitivity troponin normal at 4. CT of the brain shows no acute hemorrhage. CTA of the head and neck is also negative. In discussion with the stroke neurologist via telemedicine, although his stroke scale is only 2, it was felt that tPA should still be given given his debilitating left upper extremity weakness. This was discussed with the patient and he gives verbal consent. He was also told of the 6% chance of intracranial hemorrhage or other bleeding that could be catastrophic. He was also told that 30% of people will show improvement with tPA. He will be given alteplase. I will discuss patient with the hospitalist for admission to the ICU. He is in guarded condition. Lab Data Attestation: I reviewed the patient's lab results. Labs: Laboratory Results - last 24 hr 11/24/21 11/24/21 11/24/21 22:00 22:00 22:00 WBC 8.7 RBC 4.04 L Hgb 12.6 L Hct 37.7 L MCV 93.3 MCH 31.2 MCHC 33.4 RDW Std Deviation 44.5 H RDW Coeff of Vladislav 13.0 Plt Count 220 MPV 10.2 Immature Gran % (Auto) 0.300 Neut % (Auto) 57.1 Lymph % (Auto) 26.2 [place] % (Auto) 8.1 Eos % (Auto) 7.7 H Baso % (Auto) 0.6 Absolute Neuts (auto) 5.0 Absolute Lymphs (auto) 2.29 Nucleated RBC % 0 PT 13.8 INR 1.1 APTT 27.4 Sodium 137 Potassium 3.9 Chloride 110 H Carbon Dioxide 21.0 Anion Gap 6 BUN 22 H Creatinine 1.78 H Estim Creat Clear Calc 41.63 Est GFR (MDRD) Af Amer 50 L Est GFR (MDRD) Non-Af 41 L BUN/Creatinine Ratio 12.4 Glucose 99 Calcium 8.3 L Troponin I High Sens 4 Radiography Diagnostic Testing: Clinical Impression(s) from Imaging Studies Brain CT 11/24/21 21:50 IMPRESSION: 1. No intracranial mass, hemorrhage or acute territorial infarct. 2. No radiographically significant sinus disease. Preliminary report called to the emergency room at 9:06 PM CDT, a verbal report was communicated to Dr. Beto Baird. : The above Results were Read Back by Julio Kuhn MD to Dr Beto MD, and understanding confirmed on 11/24/2021 22:07:16 (ET). Electronically Signed: Julio Kuhn MD at 22:08 EDT , ADDENDUM: 11/24/21 0485 IMPRESSION: 1. No intracranial mass, hemorrhage or acute territorial infarct. 2. No radiographically significant sinus disease. Preliminary report called to the emergency room at 9:06 PM CDT, a verbal report was communicated to Dr. Beto Baird. : The above Results were Read Back by Julio Kuhn MD to Dr Beto MD, and understanding confirmed on 11/24/2021 22:07:16 (ET). Electronically Signed: Julio Kuhn MD at 22:08 EDT , Head/Neck CTA 11/24/21 21:51 IMPRESSION: 1. Moderate calcifications involving the cavernous carotid vessels bilaterally. 2. No CTA evidence of focal stenosis occlusion or aneurysmal dilatation involving the intracranial circulation. 3. No CTA evidence LVO. 4. Scattered soft and calcified plaque in the carotid bulbs bilaterally without hemodynamically significant stenosis involving the cervical carotid and vertebral circulation to level skull base. Electronically Signed: Julio Kuhn MD at 22:26 EDT , ADDENDUM: 11/24/217 IMPRESSION: 1. Moderate calcifications involving the cavernous carotid vessels bilaterally. 2. No CTA evidence of focal stenosis occlusion or aneurysmal dilatation involving the intracranial circulation. 3. No CTA evidence LVO. 4. Scattered soft and calcified plaque in the carotid bulbs bilaterally without hemodynamically significant stenosis involving the cervical carotid and vertebral circulation to level skull base. N.B. : The above Results were Read Back by Julio Kuhn MD to Dr Beto MD, and understanding confirmed on 11/24/2021 22:30:12 (ET). Electronically Signed: Julio Kuhn MD at 22:26 EDT , Critical Care Time Critical care time (excluding procedures): 30-74 minutes (32), Including time spent:, Discussing w/Patient &/or Family/Chronometer Repairer, Discussing w/Consultants, Arranging Admission or Transfer and Performing Direct Patient Care at Bedside Discharge Plan Dx/Rx/DC Orders Clinical Impression: Stroke, Left arm weakness, Chest pain, Received intravenous tissue plasminogen activator (tPA) in emergency department Disposition Disposition: Acute Care [facility]
[2021-11-24 22:10] LABS: Absolute Lymphocyte Count 2.29 X10^3/uL (0.83-4.51); Basophil# 0.05 X10^3/uL; Basophil% 0.6 % (0-1); Eosinophil# 0.67 X10^3/uL; Eosinophils% 7.7 % (0-5); Hematocrit 37.7 % (40-54); Hemoglobin 12.6 g/dL (13.0-16.5); Lymphocyte # 2.29 X10^3/ul (0.83-4.51); Lymphocyte % 26.2 % (19-41); Mean Corp Hgb Conc 33.4 g/dL (32-36); Mean Corpuscular Hgb 31.2 pg (27.0-32.0); Mean Corpuscular Volume 93.3 fL (80-94); Mean Platelet Vol. 10.2 fl (6.2-12.0); Monocyte# 0.71 X10^3/uL; Monocyte% 8.1 % (0-10); NRBC Flagged by Analyzer 0 % (0-5); Neutrophil # 4.98 X10^3/uL (2.7-7.7); Neutrophil % 57.1 % (47-70); Platelet Count 220 K/mm3 (150-450); RBC Distribution Width SD 44.5 fl (35.1-43.9); Red Blood Count 4.04 M/mm3 (4.6-6.2); White Blood Count 8.7 K/mm3 (4.4-11.0)
[2021-11-24 22:19] LABS: International Normalized Ratio 1.1; Prothrombin Time (Protime)PT. 13.8 SECONDS (11.7-14.9)
--- NOTE | 2021-11-24 22:19 | ED.RN ---
2051 [facility] CALLED. 2199 [facility] CALLED,PT BACK FROM CT SCAN.
[2021-11-24 22:20] LABS: Partial Thromboplast Time 27.4 Seconds (24.1-36.2)
--- NOTE | 2021-11-24 22:21 | ED.RN ---
2202 DR SCHAEFFER FROM [facility] DOING NIJ AND COLLECTING HISTORY WELL.
[2021-11-24 22:29] LABS: Anion Gap 6 (5-15); BUN 22 mg/dL (7-18); BUN/Creat Ratio 12.4 RATIO (10-20); Calcium,Total 8.3 mg/dL (8.5-10.1); Chloride 110 mmol/L (98-107); Creatinine, Serum 1.78 mg/dL (0.70-1.30); EST Glomerular Filtration Rate 41 mL/min (>60); Est Glom Filt Rate - Afr Amer 50 mL/min (>60); Estimated Creatinine Clearance 41.63 ml/min; Glucose 99 mg/dL (74-106); Potassium 3.9 mmol/L (3.5-5.1); Sodium Level 137 mmol/L (136-145); Troponin-I HS 4 pg/mL (3.0-78.0)
--- NOTE | 2021-11-24 22:30 | RAD_ITS ---
INDICATION: Neuro deficit, acute, stroke suspected EXAMINATION/TECHNIQUE: X-RAY - XR Chest 1 View COMPARISON: 07/17/2021 FINDINGS: LIFE-SUPPORT AND LINES: 1. Cardiac loop monitor is present. 2. No pneumothorax HEART AND VESSELS: Cardiac silhouette is unchanged. No evidence congestive failure. LUNGS AND PLEURAL SPACES: Minimal atelectasis versus infiltrate at the LEFT lung base. Remaining lung zones clear. No pulmonary mass is noted. MEDIASTINUM AND HILAR REGIONS: No masses adenopathy noted. No areas of calcification. Visualized upper airway is normal in position. BONY ELEMENTS: No acute bony changes noted. RAD/Chest 1 View IMPRESSION: 1. Minimal atelectasis versus superimposed infiltrate at the LEFT base. 2. Remaining lung zones clear. 3. No evidence of congestive failure. Electronically Signed: Julio Kuhn MD at 23:38 EDT ,
--- NOTE | 2021-11-24 22:50 | HP.PCM.HOS_ITS ---
HPI - General General Date of Admission: 11/24/21 HPI Narrative LANCE CHOW, is a 60 M with a significant history of seizure disorder and outside epileptic medication; DVT; hypertension; hyperlipidemia; with loop recorder; Vertigo; left pleural effusion; tobacco abuse; questionable stroke about 5 years ago; history of heart cath with reported minimal CAD who presents to the emergency department with progressively worsening weakness of his left arm that started about 4 hours before presentation. Initially he had tingling and numbness of his left arm and later it progressed into weakness. Reportedly he was unable to shuffle and hold playing cards. Also he had some word finding difficulties. Associated with symptoms of lightheadedness. Of note while at the CT scan states patient had chest pain that lasted for about 5 to 10 minutes. At the emergency department due to the debilitating effects of the weakness of his left arm stroke neurologist recommended the patient be giving tPA. tPA was subsequently started at the ED [facility] Medical History Acute kidney injury Alcohol use Anxiety Arthritis Cardiology follow-up encounter Carotid artery calcification Complete edentulism, class III COPD (chronic obstructive pulmonary disease) Costochondritis Difficulty chewing Drug abuse DVT (deep venous thrombosis) Epilepsy Heartburn Hepatitis High cholesterol History of edema History of pain when walking History of stress test History of ulceration Hx of tilt table evaluation Hyperglycemia Hypertension Intermittent claudication Kidney stones Left ventricular hypertrophy Leg cramps Leucocytosis Lightheadedness Marijuana use Mitral valve annular calcification Mucous retention cyst Numbness and tingling Osteoporosis Pleural effusion on left Pulmonary vascular congestion Seizures Shortness of breath on exertion Small vessel disease Smoker SOB (shortness of breath) Unresponsive episode Vertigo Wears glasses Home Medications losartan 50 mg tablet 50 mg PO QHS 09/03/20 [History Last Taken 09/07/21] zonisamide 200 mg PO BID 02/20/21 [History Last Taken 09/08/21] amlodipine 10 mg PO QHS 07/17/21 [History Last Taken 09/07/21] rosuvastatin 40 mg PO DAILY 07/17/21 [History Last Taken 09/07/21] nitroglycerin 0.4 mg SUBLINGUAL DAILY PRN PRN 09/01/21 [History Last Taken Unknown] cholecalciferol (vitamin D3) 50 mcg (2,000 unit) capsule 50 mcg PO DAILY 11/02/21 [History Last Taken Unknown] cyanocobalamin (vitamin B-12) 1,000 mcg capsule 1,000 mcg PO DAILY 11/02/21 [History Last Taken Unknown] Allergy/AdvReac Type Severity Reaction Status Date / Time Penicillins Allergy SYNCOPE Verified 11/24/21 22:07 cortisone Allergy Shortness Uncoded 11/24/21 22:07 of breath Family History Sister Arthritis Cancer Depression Diabetes Hypertension Hyperlipidemia Thyroid disorder CVA (cerebral vascular accident) Seizures FH: mental illness Father Diabetes Heart disease Hypertension Hyperlipidemia Surgical History History of appendectomy History of cardiac catheterization History of cystoscopy History of loop recorder Social History Smoking Status: Current some day smoker tobacco type: cigarettes ROS ROS Narrative Constitutional: Denies fever, chills, fatigue, anorexia and change in weight Eyes: Denies blurry vision, change in eye color, change in vision, discharge from eye(s), double vision, erythema, eye pain, loss of vision or other HEENT: Denies abnormal hearing, dysphagia, ear pain, epistaxis, headache(s), hearing loss, nasal congestion, nasal discharge, post nasal drip, sinus pressure, sore throat or other Cardiovascular: Denies chest pain or palpitations. Denies dyspnea on exertion, orthopnea and paroxysmal nocturnal dyspnea Respiratory/Chest: Denies cough, excessive phlegm production, shortness of breath with exertion and wheezing Gastrointestinal: Denies abdominal pain, coffee ground emesis, constipation, diarrhea, dyspepsia, hematemesis, hematochezia, loose stools, melena, nausea, vomiting or other Genitourinary: Denies burning urination, difficulty urinating, dysuria, hematur ia, nocturia, urinary frequency, urinary hesitancy, urinary incontinence, urinary urgency or other Musculoskeletal: Denies arthralgias, back pain, joint pain, joint stiffness, joint swelling, myalgias, neck pain or other Neurologic: Weakness of left. Aphasia. Numbness and tingling of left arm. Psychiatric: Denies anxiety, depression, homicidal ideation, suicidal ideation or other Endocrinology: Denies change in body appearance, cold intolerance, excessive sweating, heat intolerance, polydipsia, polyuria or other Hematologic/Lymphatic: Denies anemia, easy bleeding, easy bruising, lympha denopathy or other Integumentary: Denies rashes Allergic/Immunologic: Denies rhinitis, hives, eczema, or other Vital Signs Vital Signs Vital Signs: 11/24/21 21:48 11/24/21 22:06 11/24/21 22:08 Temperature 98.2 F Temperature Source Temporal Pulse Rate 83 79 Respiratory Rate 16 20 H Blood Pressure 132/82 H 132/81 H Blood Pressure Mean 98 98 Pulse Ox 98 98 Oxygen Delivery Method Room Air Room Air Room Air 11/24/21 22:09 11/24/21 22:41 Temperature Temperature Source Pulse Rate 82 Respiratory Rate Blood Pressure 142/92 H Blood Pressure Mean Pulse Ox Oxygen Delivery Method Weight Weight: 100.2 kg Body Mass Index (BMI) 33.5 Physical Exam Narrative Physical exam: General: Well-nourished, well-developed. Head: Normocephalic, atraumatic, no tenderness Eyes: Vision is grossly intact. EOMI ENT: edentulous no trauma, moist mucous membranes, no rhinorrhea Neck: Nontender, full range of motion, no spinal tenderness, deformities, step- off CVS: Regular rate and rhythm. S1-S2 present. No murmur, gallop or rub. Respiratory : clear to auscultation bilaterally, chest wall nontender, no wheezing Abdomen: Soft, nontender, nondistended, normal bowel sounds, no masses : Deferred Back: Nontender, no CVA tenderness, no midline spinal tenderness, deformities, step-offs Extremities: Nontender full range of motion, no trauma Skin: Normal color, no trauma, abrasions Neuro: Alert, oriented, cranial nerves II through XII grossly intact except patient is unable to fully showcase left shoulder compared to his right shoulder. Bilateral pupils miotic. Unappreciable constriction of right pupil. Constriction of left pupil noted. No dysmetria with pyjnma-fs-mfgm test or ojks-ne-jtho test. Strength in left upper extremity 3 out of 5. Strength in all other extremities 5 out of 5. Patient is not hyperreflexia with bilateral biceps reflex on bilateral knee reflexes Psychiatry: Normal mood. Normal affect. Not depressed. Not anxious. Results Lab / Micro Data Result Diagrams: 11/24/21 22:00 11/24/21 22:00 Labs: Laboratory Results - last 24 hr 11/24/21 22:00: WBC 8.7, RBC 4.04 L, Hgb 12.6 L, Hct 37.7 L, MCV 93.3, MCH 31.2, MCHC 33.4, RDW Std Deviation 44.5 H, RDW Coeff of Vladislav 13.0, Plt Count 220, MPV 10.2, Immature Gran % (Auto) 0.300, Neut % (Auto) 57.1, Lymph % (Auto) 26.2, [place] % (Auto) 8.1, Eos % (Auto) 7.7 H, Baso % (Auto) 0.6, Absolute Neuts (auto) 5.0, Absolute Lymphs (auto) 2.29, Nucleated RBC % 0 11/24/21 22:00: PT 13.8, INR 1.1, APTT 27.4 11/24/21 22:00: Sodium 137, Potassium 3.9, Chloride 110 H, Carbon Dioxide 21.0, Anion Gap 6, BUN 22 H, Creatinine 1.78 H, Estim Creat Clear Calc 41.63, Est GFR (MDRD) Af Amer 50 L, Est GFR (MDRD) Non-Af 41 L, BUN/Creatinine Ratio 12.4, Glucose 99, Calcium 8.3 L, Troponin I High Sens [address] 11/24/21 21:50 IMPRESSION: 1. No intracranial mass, hemorrhage or acute territorial infarct. 2. No radiographically significant sinus disease. Preliminary report called to the emergency room at 9:06 PM CDT, a verbal report was communicated to Dr. Beto Baird. : The above Results were Read Back by Julio Kuhn MD to Dr Beto MD, and understanding confirmed on 11/24/2021 22:07:16 (ET). Electronically Signed: Julio Kuhn MD at 22:08 EDT , ADDENDUM: 11/24/21 2473 IMPRESSION: 1. No intracranial mass, hemorrhage or acute territorial infarct. 2. No radiographically significant sinus disease. Preliminary report called to the emergency room at 9:06 PM CDT, a verbal report was communicated to Dr. Pérez N.B. : The above Results were Read Back by Julio Kuhn MD to Dr Beto MD, and understanding confirmed on 11/24/2021 22:07:16 (ET). Electronically Signed: Julio Kuhn MD at 22:08 EDT , Head/Neck CTA 11/24/21 21:51 IMPRESSION: 1. Moderate calcifications involving the cavernous carotid vessels bilaterally. 2. No CTA evidence of focal stenosis occlusion or aneurysmal dilatation involving the intracranial circulation. 3. No CTA evidence LVO. 4. Scattered soft and calcified plaque in the carotid bulbs bilaterally without hemodynamically significant stenosis involving the cervical carotid and vertebral circulation to level skull base. Electronically Signed: Julio Kuhn MD at 22:26 EDT , ADDENDUM: 11/24/217 IMPRESSION: 1. Moderate calcifications involving the cavernous carotid vessels bilaterally. 2. No CTA evidence of focal stenosis occlusion or aneurysmal dilatation involving the intracranial circulation. 3. No CTA evidence LVO. 4. Scattered soft and calcified plaque in the carotid bulbs bilaterally without hemodynamically significant stenosis involving the cervical carotid and vertebral circulation to level skull base. N.B. : The above Results were Read Back by Julio Kuhn MD to Dr Beto MD, and understanding confirmed on 11/24/2021 22:30:12 (ET). Electronically Signed: Julio Kuhn MD at 22:26 EDT , Assessment & Plan Assessment/Plan (1) Stroke: QUALIFIERS: CVA mechanism: other Qualified Code(s): I63.89 - Other cerebral infarction (2) Chest pain: QUALIFIERS: Chest pain type: unspecified Qualified Code(s): R07.9 - Chest pain, unspecified PLAN: Strokelike symptoms Serial NINDS NIH Scale ordered Brain CT and head and neck CTA was visualized and independently interpreted and I agree with radiologist interpretation . Lipid profile and A1c ordered. Physical therapy, and occupational therapy to work with patient. N.p.o. until bedside swallow eval. No antiplatelets until 24 hours after tPA administration per High intensity statin continue Permissive hypertension and hypertensive control per tPA parameters. Nicardipine drip; and labetalol as needed for blood pressure control. MRI of brain 24 hours after giving tPA. Patient has loop recorder which upon work-up is reported as MRI conditional Echocardiogram ordered. Trend CBC and BMP Chest pain EKG was visualized and independently interpreted. EKG with Q waves inferior leads. No ST or T wave abnormalities. Initial troponin was negative. Will trend troponin. Received tPA and is not a candidate of aspirin at this time. Chest x-ray was visualized and independently interpreted. I agree with allege interpretation of minimal atelectasis versus superimposed infiltrate at the left base. Of note patient has no stigmata of infection. Patient has no shortness of breath. Monitor on telemetry. SCOTT on CKD stage II His creatinine presentation was 1.78. His creatinine on 10/12/2021 was 1.25. Creatinine on 09/03/2021 was 2.16; creatinine on 09/01/2021 was 2.32; and 08/31/2021 creatinine was 1.49. Baseline creatinine around 1.25-1.4. Noted to have hyperchloremia. Gentle IV hydration with lactated Ringer's. Avoid nephrotoxic's. On home PINO receptor blockers that has been held. Trend BMP. Hypertension Blood pressure is not within goal Home blood pressure medication held secondary to permissive hypertension. Labetalol as needed and nicardipine as needed as above. Trend blood pressure and adjust blood pressure medications. DVT prophylaxis: Not candidate of anticoagulation since patient has received alteplase. SCDs ordered. Advance care planning: Discussed with patient advanced directives as well as CODE STATUS. Explained various CODE STATUS: FULL CODE, DNR CCA, DNR CCA with no intubation, and DNR CC- and what each meant. Initially patient stated that he does not want to be put on a ventilator support once a chest compression. Discussed with patient that typically after chest compression respiratory support is typically needed. Patient accepted to be full code with chest compression and intubation for a short time. Patient report that her family member Una Chow who is listed as a director of pupil personnel program knows his wishes and can make further determination and it in the process of completing the paperwork to make Una Chow his POA. Time spent discussing code status was 16 minutes. Charges/Coding Visit Charges Inpatient E&M: 15114 Init Hosp L3 Procedures Hospitalists Procedures: 45946 Advncd Care Plan addl 30 Min
--- NOTE | 2021-11-24 22:59 | ED.RN ---
Spoke with patients sister Rossi with permission from patient. update given about pending hospital admission due to acute stroke.
[2021-11-25] VITALS (40 sets, daily range): BP systolic 108–148; BP diastolic 58–94; PULSE 56–94; RESP 11–27; TEMP 35.8–37.1; O2SAT 93–100; BMI 32.5
--- NOTE | 2021-11-25 00:02 | ECHOCS_ITS ---
Reason For Study: TIA/CVA Procedure This was a 2D Doppler, Color Flow transthoracic echocardiogram. Contrast injection was performed. Exam performed portable in ICU/CCU. Left Ventricle Normal LV size. Mild concentric left ventricular hypertrophy. Left ventricular systolic function is normal. The estimated ejection fraction is 65 %. Stage 1 diastolic dysfunction. No regional wall motion abnormalities noted. Right Ventricle Normal RV size. Normal systolic function. Atria Normal left atrium. Normal right atrium. Mitral Valve Normal mitral valve. Tricuspid Valve Normal tricuspid valve. Aortic Valve Normal aortic valve. Trisinus/trileaflet aortic valve. Pulmonic Valve Normal pulmonic valve. Great Vessels Normal aortic root. The pulmonary artery is normal size. Normal inferior vena cava. Pericardium/Pleural No pericardial effusion. Medication Diluted definity 2ml given slow IV push to enhance endocardial definition. MMode/2D Measurements & Calculations LVIDd: 4.3 cm IVSd: 1.3 cm Ao root diam: 3.3 cm LVIDs: 2.9 cm LVPWd: 1.4 cm RVDd: 3.5 cm FS: 33.6 % LAV(MOD-bp): 26.7 ml LVAd ap4: 27.1 cm2 SV(MOD-sp4): 55.5 ml LAV(MOD-bp) Indexed: 12.7 ml/m2 LVLd ap4: 7.0 cm LAV(MOD-sp2): 32.6 ml EDV(MOD-sp4): 83.9 ml LAV(MOD-sp4): 21.8 ml EDV(sp4-el): 89.1 ml LVAs ap4: 14.4 cm2 LVLs ap4: 6.1 cm ESV(MOD-sp4): 28.4 ml ESV(sp4-el): 28.9 ml EF(MOD-sp4): 66.2 % EF(sp4-el): 67.5 % SV(sp4-el): 60.2 ml LA A4 area: 11.5 cm2 LA dimension(2D): 3.0 cm RA A4 area: 9.7 cm2 Doppler Measurements & Calculations MV E max galdino: 73.3 cm/sec Lat Peak E' Galdino: 10.8 cm/sec Med Peak E' Galdino: 7.6 cm/sec MV A max galdino: 95.9 cm/sec E/E' lat: 6.8 E/E' med: 9.7 MV E/A: 0.76 Ao V2 max: 161.0 cm/sec LV V1 max: 126.3 cm/sec PA V2 max: 114.0 cm/sec Ao max P.4 mmHg LV V1 max P.4 mmHg Ao V2 mean: 107.8 cm/sec Ao mean P.2 mmHg Ao V2 VTI: 27.3 cm ECHO/Echo Complete W/ Contrast Interpretation Summary Normal LV size. Mild concentric left ventricular hypertrophy. Left ventricular systolic function is normal. The estimated ejection fraction is 65 %. Stage 1 diastolic dysfunction. Contrast injection was performed. Ordering Physician: Shaun Hdez Referring Physician: Cooper Blanchard Performed By: Alina Huitron, PHONG, RVT
--- NOTE | 2021-11-25 00:29 | NURSING ---
F/C placed in ED
--- NOTE | 2021-11-25 00:35 | NURSING ---
Pt arrived to floor w/lip-smacking tardive dyskinesia; when questioned, pt responded that it usually means I'm about to have a seizure. Pt states that he missed his HS dose of anticonvulsant because he was in the ED. Pharmacy notified and sent up a dose for now.
[2021-11-25] MEDS: Zonisamide 50 MG Capsule 200 MG PO ×3 (00:39→21:17)
[2021-11-25] MEDS: Lactated Ringers 1,000 ML 75 ML IV (00:56)
[2021-11-25] MEDS: 0.9% Saline Lock 10 ML Syringe IV ×2 (01:02→06:04)
[2021-11-25 01:04] LABS: Troponin-I HS 6 pg/mL (3.0-78.0)
[2021-11-25 04:21] LABS: Absolute Lymphocyte Count 2.54 X10^3/uL (0.83-4.51); Absolute Neutrophil Count 6.7 X10^3/uL (2.0-7.7); Basophil# 0.06 X10^3/uL; Basophil% 0.6 % (0-1); Eosinophil# 0.74 X10^3/uL; Eosinophils% 6.8 % (0-5); Hematocrit 38.2 % (40-54); Hemoglobin 12.8 g/dL (13.0-16.5); Lymphocyte # 2.54 X10^3/ul (0.83-4.51); Lymphocyte % 23.4 % (19-41); Mean Corp Hgb Conc 33.5 g/dL (32-36); Mean Corpuscular Hgb 31.4 pg (27.0-32.0); Mean Corpuscular Volume 93.6 fL (80-94); Mean Platelet Vol. 10.7 fl (6.2-12.0); Monocyte# 0.79 X10^3/uL; Monocyte% 7.3 % (0-10); NRBC Flagged by Analyzer 0 % (0-5); Neutrophil # 6.69 X10^3/uL (2.7-7.7); Neutrophil % 61.4 % (47-70); Platelet Count 224 K/mm3 (150-450); Red Blood Count 4.08 M/mm3 (4.6-6.2); White Blood Count 10.9 K/mm3 (4.4-11.0)
[2021-11-25 04:41] LABS: Anion Gap 5 (5-15); BUN 21 mg/dL (7-18); BUN/Creat Ratio 13.8 RATIO (10-20); Calcium,Total 8.7 mg/dL (8.5-10.1); Chloride 113 mmol/L (98-107); Cholesterol 100 mg/dL (200); Creatinine, Serum 1.52 mg/dL (0.70-1.30); EST Glomerular Filtration Rate 50 mL/min (>60); Est Glom Filt Rate - Afr Amer 60 mL/min (>60); Estimated Creatinine Clearance 48.75 ml/min; Glucose 93 mg/dL (74-106); High Density Lipoprotein 37 mg/dL; Potassium 3.8 mmol/L (3.5-5.1); Sodium Level 140 mmol/L (136-145); Triglycerides 81 mg/dL; Troponin-I HS 8 pg/mL (3.0-78.0); Very Low Density Lipoprotein 16 mg/dL (5-40)
--- NOTE | 2021-11-25 07:19 | CON.PCM.CC_ITS ---
Assessment & Plan Assessment/Plan (1) Stroke: QUALIFIERS: CVA mechanism: other Qualified Code(s): I63.89 - Other cerebral infarction (2) Left arm weakness: (3) ELISABETH (obstructive sleep apnea): (4) Seizure: (5) Stage III chronic kidney disease: PLAN: RECOMMENDATIONS: 1. Reinitiate antiepileptics 2. Continue with post tPA protocol 3. Okay to obtain echocardiogram and other stroke work-up today 4. Continue seizure precautions. Ativan as needed 5. Barring complications of tPA, will sign off from a critical care/pulmonary perspective IMPRESSIONS: 1. Acute CVA status post tPA/epilepsy Predominant left upper extremity symptomatology. Patient has reported similar type symptoms in the past. Patient has had good response to tPA. P atient will likely require high intensity lipid control. Blood pressures have been adequate. Patient does have extensive calcifications throughout his cerebral vasculature. tPA administration is complicated by patient's epilepsy, but reportedly has only partial seizures. Seizure precautions are in place. Patient would benefit from reinitiation of antiepileptics. Patient was given a dose of Keppra overnight. Defer to neurology on whether a repeat EEG would be necessary. 2. Acute on chronic kidney disease stage II Baseline creatinine appears to be 1.25. This was elevated at 1.78. Clinical suspicion for an element of prerenal etiology. Patient has received hydration with LR and has good response. PINO inhibitor should be held for now. These can be reinitiated once patient gets back to baseline renal function. Patient would also benefit from permissive hypertension given problem #1. 3. Reported ELISABETH/history of DVT/claudication/arthritis/anxiety Complicates care, management, recovery and prognosis. Patient does not have any facial findings, but does carry a diagnosis of ELISABETH with noncompliance. Reasonable to monitor patient's oxygen saturations overnight or while sleeping as CVA has been shown to worsen baseline ELISABETH. Patient can be placed on DVT prophylaxis once tPA complications are excluded. HPI Consult Data Date of Consult: 11/25/21 HPI Narrative HPI Narrative: LANCE ALVAREZ is a 60 M, with past medical history listed below, who presents to [facility] on 11/24/2021 secondary to acute onset of left arm weakness, numbness and tingling. Patient reportedly has had previous similar symptoms, but it typically would resolve over the next 5 to 10 minutes. Patient states the symptoms began at 6 PM and had persisted for over 4 hours so EMS was called. In route to the hospital, [facility] stroke scale was negative initially, but then started to have a pronator drift with ataxia. Patient denied any headache, but does have a history of partial seizures in the past. Patient's last seizure was approximately a month ago and he was placed on a additional medication to help with the breakthrough. Patient does report that he can become postictal following his partial seizures. In the ER, patient was afebrile and slightly hypertensive. Patient was saturating well on room air. Labs were obtained. Stroke neurologist was contacted via telemedicine and ultimately it was decided to give patient tPA at approximately 8:30 PM. Laboratory data showed a white blood cell count of 8.7, hemoglobin 12.6 and platelets of 220. Coagulation studies were within normal limits. Creatinine was elevated at 1.78. CT of the head showed no large vessel occlusion, but multiple calcifications. Following initiation of tPA, patient was transferred to the intensive care unit for monitoring overnight. Since being in the intensive care unit, patient reports he is subjectively much improved compared to previous. Patient has had a mild drift intermittently of the left upper extremity, but the numbness and tingling has resolved. Patient is denying any bleeding complications such as epistaxis, hemoptysis, melena, hematochezia or hematuria. Patient has no back or flank pain. Patient was noted to have some lipsmacking. Patient states that this can sometimes be seen before he starts having his partial seizures. Patient does report a postictal component of his seizure history. Patient otherwise states that he was of his usual health. Patient denies any current chest pain, abdominal pain, nausea or vomiting. No fevers or chills have been reported. Patient has not reported any COVID-19 exposures. Patient has seen Dr. Rubio in our office, but was lost to subsequent follow-up recently. Previous PFTs were relatively normal. Review of systems otherwise negative from a constitutional, HEENT, respiratory, cardiovascular, GI, genitourinary, musculoskeletal, skin, neurologic, psychiatric and hematologic system unless stated above. [facility] Medical History Acute kidney injury Alcohol use Anxiety Arthritis Cardiology follow-up encounter Carotid artery calcification Complete edentulism, class III COPD (chronic obstructive pulmonary disease) Costochondritis Difficulty chewing Drug abuse DVT (deep venous thrombosis) Epilepsy Heartburn Hepatitis High cholesterol History of edema History of pain when walking History of stress test History of ulceration Hx of tilt table evaluation Hyperglycemia Hypertension Intermittent claudication Kidney stones Left ventricular hypertrophy Leg cramps Leucocytosis Lightheadedness Marijuana use Mitral valve annular calcification Mucous retention cyst Numbness and tingling Osteoporosis Pleural effusion on left Pulmonary vascular congestion Seizures Shortness of breath on exertion Small vessel disease Smoker SOB (shortness of breath) Unresponsive episode Vertigo Wears glasses Home Medications losartan 50 mg tablet 50 mg PO QHS 09/03/20 [History Last Taken 09/07/21] zonisamide 200 mg PO BID 02/20/21 [History Last Taken 09/08/21] amlodipine 10 mg PO QHS 07/17/21 [History Last Taken 09/07/21] rosuvastatin 40 mg PO DAILY 07/17/21 [History Last Taken 09/07/21] nitroglycerin 0.4 mg SUBLINGUAL DAILY PRN PRN 09/01/21 [History Last Taken Unknown] cholecalciferol (vitamin D3) 50 mcg (2,000 unit) capsule 50 mcg PO DAILY 11/02/21 [History Last Taken Unknown] cyanocobalamin (vitamin B-12) 1,000 mcg capsule 1,000 mcg PO DAILY 11/02/21 [History Last Taken Unknown] lamotrigine 50 mg PO BID 11/25/21 [History Last Taken Unknown] Allergy/AdvReac Type Severity Reaction Status Date / Time Penicillins Allergy SYNCOPE Verified 11/24/21 22:07 cortisone Allergy Shortness Uncoded 11/24/21 22:07 of breath Family History Sister Arthritis Cancer Depression Diabetes Hypertension Hyperlipidemia Thyroid disorder CVA (cerebral vascular accident) Seizures FH: mental illness Father Diabetes Heart disease Hypertension Hyperlipidemia Surgical History History of appendectomy History of cardiac catheterization History of cystoscopy History of loop recorder Social History Smoking Status: Current every day smoker tobacco type: cigarettes ROS ROS Narrative See HPI Physical Exam Const alert, oriented x3 and no apparent distress General Appearance: cooperative, well developed and appears older than stated age Nutritional Appearance: obese HEENT normocephalic, head/scalp atraumatic and moist oral mucous membranes Eyes PERRL and EOMs intact bilaterally Neck full ROM and no lymphadenopathy Chest inspection of chest normal Resp normal respiratory effort and no use of accessory muscles Effort and Inspection: able to speak in complete sentences Auscultation: clear to auscultation bilaterally; Negative for rales, rhonchi or wheezes Percussion: Negative for dullness Cardio regular rate, regular rhythm, S1 normal heart sound, S2 normal heart sound, no murmurs, no rub and no gallops GI normal to inspection, nondistended, normoactive bowel sounds no CVA tenderness Extremity no clubbing, cyanosis or edema Skin no rashes or lesions noted Neuro oriented x3, CN's II-XII intact bilaterally and moves all extremities Neuro Narrative: Slight drift of the left upper extremity, but sensation intact Coordination / Balance: [id number] test normal Speech: speech normal Gait (Neuro): other Gait not tested Psych cooperative and affect normal Lab / Micro Data Result Diagrams: 11/25/21 03:37 11/25/21 03:37 Labs: Laboratory Results - last 24 hr 11/24/21 22:00: WBC 8.7, RBC 4.04 L, Hgb 12.6 L, Hct 37.7 L, MCV 93.3, MCH 31.2, MCHC 33.4, RDW Std Deviation 44.5 H, RDW Coeff of Vladislav 13.0, Plt Count 220, MPV 10.2, Immature Gran % (Auto) 0.300, Neut % (Auto) 57.1, Lymph % (Auto) 26.2, Elliott % (Auto) 8.1, Eos % (Auto) 7.7 H, Baso % (Auto) 0.6, Absolute Neuts (auto) 5.0, Absolute Lymphs (auto) 2.29, Nucleated RBC % 0 11/24/21 22:00: PT 13.8, INR 1.1, APTT 27.4 11/24/21 22:00: Sodium 137, Potassium 3.9, Chloride 110 H, Carbon Dioxide 21.0, Anion Gap 6, BUN 22 H, Creatinine 1.78 H, Estim Creat Clear Calc 41.63, Est GFR (MDRD) Af Amer 50 L, Est GFR (MDRD) Non-Af 41 L, BUN/Creatinine Ratio 12.4, Glucose 99, Calcium 8.3 L, Troponin I High Sens 4 11/25/21 00:33: Troponin I High Sens 6 11/25/21 03:37: WBC 10.9, RBC 4.08 L, Hgb 12.8 L, Hct 38.2 L, MCV 93.6, MCH 31.4, MCHC 33.5, RDW Std Deviation 45.0 H, RDW Coeff of Vladislav 13.0, Plt Count 224, MPV 10.7, Immature Gran % (Auto) 0.500, Neut % (Auto) 61.4, Lymph % (Auto) 23.4, Elliott % (Auto) 7.3, Eos % (Auto) 6.8 H, Baso % (Auto) 0.6, Absolute Neuts (auto) 6.7, Absolute Lymphs (auto) 2.54, Nucleated RBC % 0 11/25/21 03:37: Sodium 140, Potassium 3.8, Chloride 113 H, Carbon Dioxide 22.0, Anion Gap 5, BUN 21 H, Creatinine 1.52 H, Estim Creat Clear Calc 48.75, Est GFR (MDRD) Af Amer 60, Est GFR (MDRD) Non-Af 50 L, BUN/Creatinine Ratio 13.8, Glucose 93, Calcium 8.7, Troponin I High Sens 8, Triglycerides 81, Cholesterol 100, LDL Cholesterol 47, VLDL Cholesterol 16, HDL Cholesterol 37 L Radiology Impression Brain CT 11/24/21 21:50 IMPRESSION: 1. No intracranial mass, hemorrhage or acute territorial infarct. 2. No radiographically significant sinus disease. Preliminary report called to the emergency room at 9:06 PM CDT, a verbal report was communicated to Dr. Pérez N.B. : The above Results were Read Back by Julio Kuhn MD to Dr Beto MD, and understanding confirmed on 11/24/2021 22:07:16 (ET). Electronically Signed: Julio Kuhn MD at 22:08 EDT , ADDENDUM: 11/24/21 [id number] IMPRESSION: 1. No intracranial mass, hemorrhage or acute territorial infarct. 2. No radiographically significant sinus disease. Preliminary report called to the emergency room at 9:06 PM CDT, a verbal report was communicated to Dr. Beto Martinez.B. : The above Results were Read Back by Julio Kuhn MD to Dr Beto MD, and understanding confirmed on 11/24/2021 22:07:16 (ET). Electronically Signed: Julio Kuhn MD at 22:08 EDT , Head/Neck CTA 11/24/21 21:51 IMPRESSION: 1. Moderate calcifications involving the cavernous carotid vessels bilaterally. 2. No CTA evidence of focal stenosis occlusion or aneurysmal dilatation involving the intracranial circulation. 3. No CTA evidence LVO. 4. Scattered soft and calcified plaque in the carotid bulbs bilaterally without hemodynamically significant stenosis involving the cervical carotid and vertebral circulation to level skull base. Electronically Signed: Julio Kuhn MD at 22:26 EDT , ADDENDUM: 11/24/217 IMPRESSION: 1. Moderate calcifications involving the cavernous carotid vessels bilaterally. 2. No CTA evidence of focal stenosis occlusion or aneurysmal dilatation involving the intracranial circulation. 3. No CTA evidence LVO. 4. Scattered soft and calcified plaque in the carotid bulbs bilaterally without hemodynamically significant stenosis involving the cervical carotid and vertebral circulation to level skull base. N.B. : The above Results were Read Back by Julio Kuhn MD to Dr Beto MD, and understanding confirmed on 11/24/2021 22:30:12 (ET). Electronically Signed: Julio Kuhn MD at 22:26 EDT , Chest X-Ray 11/24/21 22:30 IMPRESSION: 1. Minimal atelectasis versus superimposed infiltrate at the LEFT base. 2. Remaining lung zones clear. 3. No evidence of congestive failure. Electronically Signed: Julio Kuhn MD at 23:38 EDT , Charges/Coding Visit Charges Inpatient E&M: 88270 Init Hosp L2
[2021-11-25 07:47] LABS: Hemoglobin A1c 5.7 % (3.8-5.6)
[2021-11-25] MEDS: lamoTRIgine 100 MG Tablet 50 MG PO ×2 (09:45→21:17)
[2021-11-25] MEDS: Cholecalciferol (VIT D3) 25 MCG TABLET (1,000 UNITS) 50 MCG PO (09:46)
[2021-11-25] MEDS: Cyanocobalamin 500 MCG Tablet 1000 MCG PO (09:46)
--- NOTE | 2021-11-25 11:03 | CASEMGMT ---
Social Work SW met with pt and introduced self and role of SW. Pt admitted with Stroke and sw saw pt to complete PHQ9 depression screen. Pt score of 07/29 indicating minimal depression. Pt denies feeling depression and able to state coping techniques. SW educated pt on correlation between stroke and depression and need to talk to PCP if symptoms emerge. Pt expresses understanding. ZOEY Chua
--- NOTE | 2021-11-25 12:05 | CASEMGMT ---
M Face to Face with patient for initial transition planning/care coordination assessment. RN CM introduced self and role at [facility]. Patient lying in bed, alert and oriented. Patient willing to participate in assessment and is able to answer all questions appropriately. Care providers, pharmacy, and demographics verified. Patient wishes to discharge home, denies need for home health at this time. Patient states he has no further needs or concerns at this time. CM to follow for discharge planning needs that may arise. PCP: oL Specialists: Ramiro user interface designer; Gary quantitative manager; [facility]; [facility] Preferred [facility]acy: [facility] Insurance: [facility] [employer] Prescription Benefit: yes Living Will/HPOA: none LNOK: sisters Living Arrangements: Patient lives with sister and her boyfriend in a single story home with one step to enter. Patient states he was independent at home. Transportation: sisters DME/HHC: Patient has shower chair, walker, pulse ox, BP cuff at home. Patient denies previous HHC or SNF. Will monitor progress with therapy as patient is currently on bedrest. Disposition Plan: HHC vs Outpatient therapy pending progress with therapy. Lakshmi SKINNER, RN, CM
--- NOTE | 2021-11-25 12:36 | PN.HOSP_ITS ---
Subjective Subjective Patient states his weakness seems to be resolved however he is getting a 1 on his NIH for left upper extremity weakness however he states he is having forearm pain and states the weakness is related to this not his previous symptoms he presented with. He has had strokelike symptoms approximately 5 years ago per hi s report at which time he had what sounds like complete right-sided hemiparesis. He indicates the work-up was negative at that time and he was not sent home on any aspirin. Upon chart review it appears that this was in 2017. He did receive tPA at that time. It appears that there was concern for seizure at that time as the patient does have a seizure history and he was started on Keppra. At this time he is on Lamictal and zonisamide. The patient indicates he continues to smoke and has no intention of quitting. He states he enjoys smoking. Objective Data Objective Data Vital Signs: Vital Signs Temp Pulse Resp BP Pulse Ox 98.4 F 94 27 H 111/85 H 97 11/25/21 12:00 11/25/21 12:00 11/25/21 12:00 11/25/21 12:00 11/25/21 12:00 Oxygen Delivery Method Room Air Weight: 98.1 kg Body Mass Index (BMI) 32.5 Intake & Output: Intake and Output for Last 24 Hours 11/23/21 11/24/21 11/25/21 23:59 23:59 23:59 Intake Total 94.33 / 94.33 1032.7 / 1032.7 Output Total 1350 / 1350 Balance 94.33 / 94.33 -317.3 / -317.3 Lab / Micro Data Result Diagrams: 11/25/21 03:37 11/25/21 03:37 Labs: Laboratory Results - last 24 hr 11/24/21 22:00: WBC 8.7, RBC 4.04 L, Hgb 12.6 L, Hct 37.7 L, MCV 93.3, MCH 31.2, MCHC 33.4, RDW Std Deviation 44.5 H, RDW Coeff of Vladislav 13.0, Plt Count 220, MPV 10.2, Immature Gran % (Auto) 0.300, Neut % (Auto) 57.1, Lymph % (Auto) 26.2, Davidson % (Auto) 8.1, Eos % (Auto) 7.7 H, Baso % (Auto) 0.6, Absolute Neuts (auto) 5.0, Absolute Lymphs (auto) 2.29, Nucleated RBC % 0 11/24/21 22:00: PT 13.8, INR 1.1, APTT 27.4 11/24/21 22:00: Sodium 137, Potassium 3.9, Chloride 110 H, Carbon Dioxide 21.0, Anion Gap 6, BUN 22 H, Creatinine 1.78 H, Estim Creat Clear Calc 41.63, Est GFR (MDRD) Af Amer 50 L, Est GFR (MDRD) Non-Af 41 L, BUN/Creatinine Ratio 12.4, Glucose 99, Calcium 8.3 L, Troponin I High Sens 4 11/25/21 00:33: Troponin I High Sens 6 11/25/21 03:37: WBC 10.9, RBC 4.08 L, Hgb 12.8 L, Hct 38.2 L, MCV 93.6, MCH 31.4, MCHC 33.5, RDW Std Deviation 45.0 H, RDW Coeff of Vladislav 13.0, Plt Count 224, MPV 10.7, Immature Gran % (Auto) 0.500, Neut % (Auto) 61.4, Lymph % (Auto) 23.4, Davidson % (Auto) 7.3, Eos % (Auto) 6.8 H, Baso % (Auto) 0.6, Absolute Neuts (auto) 6.7, Absolute Lymphs (auto) 2.54, Nucleated RBC % 0 11/25/21 03:37: Sodium 140, Potassium 3.8, Chloride 113 H, Carbon Dioxide 22.0, Anion Gap 5, BUN 21 H, Creatinine 1.52 H, Estim Creat Clear Calc 48.75, Est GFR (MDRD) Af Amer 60, Est GFR (MDRD) Non-Af 50 L, BUN/Creatinine Ratio 13.8, Glucose 93, Calcium 8.7, Troponin I High Sens 8, Triglycerides 81, Cholesterol 100, LDL Cholesterol 47, VLDL Cholesterol 16, HDL Cholesterol 37 L 11/25/21 03:37: Hemoglobin A1c 5.7 H Radiography Diagnostic Testing: Radiology Impression Brain CT 11/24/21 21:50 IMPRESSION: 1. No intracranial mass, hemorrhage or acute territorial infarct. 2. No radiographically significant sinus disease. Preliminary report called to the emergency room at 9:06 PM CDT, a verbal report was communicated to Dr. Beto Baird. : The above Results were Read Back by Julio Kuhn MD to Dr Beto MD, and understanding confirmed on 11/24/2021 22:07:16 (ET). Electronically Signed: Julio Kuhn MD at 22:08 EDT , ADDENDUM: 11/24/21 2215 IMPRESSION: 1. No intracranial mass, hemorrhage or acute territorial infarct. 2. No radiographically significant sinus disease. Preliminary report called to the emergency room at 9:06 PM CDT, a verbal report was communicated to Dr. Beto Baird. : The above Results were Read Back by Julio Kuhn MD to Dr Beto MD, and understanding confirmed on 11/24/2021 22:07:16 (ET). Electronically Signed: Julio Kuhn MD at 22:08 EDT , Head/Neck CTA 11/24/21 21:51 IMPRESSION: 1. Moderate calcifications involving the cavernous carotid vessels bilaterally. 2. No CTA evidence of focal stenosis occlusion or aneurysmal dilatation involving the intracranial circulation. 3. No CTA evidence LVO. 4. Scattered soft and calcified plaque in the carotid bulbs bilaterally without hemodynamically significant stenosis involving the cervical carotid and vertebral circulation to level skull base. Electronically Signed: Julio Kuhn MD at 22:26 EDT , ADDENDUM: 11/24/21 2237 IMPRESSION: 1. Moderate calcifications involving the cavernous carotid vessels bilaterally. 2. No CTA evidence of focal stenosis occlusion or aneurysmal dilatation involving the intracranial circulation. 3. No CTA evidence LVO. 4. Scattered soft and calcified plaque in the carotid bulbs bilaterally without hemodynamically significant stenosis involving the cervical carotid and vertebral circulation to level skull base. N.B. : The above Results were Read Back by Julio Kuhn MD to Dr Beto MD, and understanding confirmed on 11/24/2021 22:30:12 (ET). Electronically Signed: Julio Kuhn MD at 22:26 EDT , Chest X-Ray 11/24/21 22:30 IMPRESSION: 1. Minimal atelectasis versus superimposed infiltrate at the LEFT base. 2. Remaining lung zones clear. 3. No evidence of congestive failure. Electronically Signed: Julio Kuhn MD at 23:38 EDT , Physical Exam Const alert, oriented x3 and no apparent distress Constitutional Narrative: Upper middle-aged white male sitting up in bed, appears much older than stated age, edwards mustache are nicotine stained, patient appears comfortable nontoxic Exam Limitations: no limitations Nutritional Appearance: obese HEENT head/scalp atraumatic and moist oral mucous membranes HEENT Narrative: Dentition is poor, Mallampati is 2-3, no thrush Head and Scalp: normocephalic Eyes PERRL, EOMs intact bilaterally and conjunctivae normal Eyes Narrative: No scleral icterus Neck no lymphadenopathy, supple, no JVD and no carotid bruits Neck Narrative: Trachea midline, no thyroid enlargement Resp normal respiratory effort, no retractions, no use of accessory muscles and clear to auscultation bilaterally Resp Narrative: Diffusely diminished but clear Auscultation: Negative for crackles, rales, rhonchi or wheezes Cardio regular rate, regular rhythm, S1 normal heart sound, S2 normal heart sound, no murmurs, no gallops, no clicks and no JVD GI normal to inspection, nondistended, normoactive bowel sounds, soft to palpation, non-tender and non-distended Extremity no clubbing, cyanosis or edema Extremity Narrative: Right forearm tenderness in the medial flexor compartment, no swelling, tightness, significant tenderness with palpation, erythema, wounds Peripheral Pulses: Yes pulses 2+ throughout Skin no rashes or lesions noted, no wounds, skin turgor normal, no jaundice, no petechiae and no mottling Neuro oriented x3, CN's II-XII intact bilaterally, moves all extremities and no sensory deficits noted Neuro Narrative: Weakness of the left forearm and pain elicited with resisted flexion of the left wrist Sensorium / Orientation: awake and alert Speech: speech normal Psych affect normal Assessment & Plan Assessment/Plan (1) Left arm weakness: (2) Chest pain: QUALIFIERS: Chest pain type: unspecified Qualified Code(s): R07.9 - Chest pain, unspecified (3) Received intravenous tissue plasminogen activator (tPA) in emergency department: (4) Left arm pain: PLAN: Left-sided arm weakness -NIH is now 1 however patient attributes weakness due to pain in the forearm at this time -Received tPA last evening -Initial CT negative -CTA showed moderate calcification in the cavernous carotid vessels bilaterally/no focal stenosis or occlusion -Lipid profile was overall unimpressive with a total cholesterol of 100/LDL 47/HDL 37/triglycerides 81 -Hemoglobin A1c 5.7 -Continue home statin -CT scan tonight to assess for hemorrhagic conversion -MRI in a.m. -Echo pending -Start aspirin tomorrow morning as long as CT is negative for hemorrhagic conversion -Remove Paige after 24 hours from tPA -Physical therapy/Occupational Therapy to evaluate the patient tomorrow once bedrest restriction has been lifted -We will consult [facility] neurology for stroke follow-up tomorrow Chest pain -Resolved -Troponin negative x3 -Echo pending -Post recent stress test is from 06/18/2020 at which time the patient did not achieve high enough heart rate and it was deemed suboptimal--> evaluation that was obtained however was negative for any inducible ischemic changes and his functional capacity was markedly reduced for his age. -He did have a cardiac catheterization in 2016 that showed some nonobstructive coronary artery disease most notably in the LAD and the RCA. -Would consider chemical stress test if the patient has any further chest pain Arm pain -With examination his pain increases with resisted extension of the forearm -Suspect this is musculoskeletal -Ice to the area -Patient deferring the need for any oral medication for pain -Exam is not particularly impressive with no erythema/swelling/tightness -No signs of compartment syndrome Seizure disorder -Continue home Lamictal -Continue home zonisamide CKD stage IIIa -It appears his baseline serum creatinine is 1.25-1.4 -Current serum creatinine is 1.52 -Avoid nephrotoxins and continue to monitor Hypertension -Continue amlodipine -Continue losartan Hyperlipidemia -Continue rosuvastatin Nonobstructive CAD -Previous intervention -Last cardiac catheterization was in 2015 at which time patient did have nonobst ructive coronary disease was notably in the LAD and RCA -Chest pain that he had on presentation and resolved -Cardiac enzymes were cycled and negative COPD -As needed nebulizers -Patient is not on any inhalers at home -Patient continues to smoke and has no desire to quit History of nephrolithiasis -No current issues Obesity -BMI 32.9 -Complicates treatment, prognosis, outcomes -Recommend weight loss Tobacco abuse -Patient educated on the importance of cessation -Patient indicates he is not going to stop smoking as he enjoys doing it DVT prophylaxis -SCDs -We will consider chemoprophylaxis tomorrow if patient needs further hospitalization as he is in the immediate post tPA. CODE STATUS -Full code Charges/Coding Visit Charges Inpatient E&M: 47994 [facility] L3
[2021-11-25] MEDS: Atorvastatin Calcium 80 MG Tablet PO (21:17)
--- NOTE | 2021-11-25 23:00 | CT_ITS ---
EXAM: CT HEAD WITHOUT INTRAVENOUS CONTRAST CLINICAL INDICATION: Post TPA TECHNIQUE: Multiple axial images were obtained of the head without intravenous contrast. This CT exam was performed using one or more of the following dose reduction techniques: automated exposure control, adjustment of the mA and/or kV according to patient size, and/or use of iterative reconstruction technique. This report was created using [employer] report generation technology. RADIATION DOSE: CTDIvol = 44.99 mGy, DLP = 829.85 mGy-cm COMPARISON: CTA stroke protocol head and neck November 24, 2021. Reported no acute intracranial abnormality on recent prior CT and CTAs. Most recent MRI report from December 03, 2017 showed chronic changes, no acute abnormality at that time. Multiple prior exams and reports. FINDINGS: BRAIN AND EXTRA-AXIAL SPACES: Unremarkable. No intra- or extra-axial hemorrhage. No evidence of acute infarct. No intracranial mass or mass effect. There is preservation of the celeste/white matter interface. Posterior fossa structures are unremarkable. Ventricles are appropriate for age. No hydrocephalus. Basal cisterns are patent. BONES/JOINTS: Unremarkable. No discrete lytic or blastic abnormalities. VASCULATURE: There is mild-moderate calcification in the region of the cavernous carotids, greater on the left, similar to unenhanced exam February 20, 2021. No dense artery sign, hemorrhage, edema, mass or mass effect is identified. The right sylvian fissure is mildly narrow compared to the left but stable from the prior unenhanced CT. SINUSES: Mild mucosal thickening in left frontoethmoidal recess and a few ethmoid sinuses. Small mucous retention cyst in left maxillary sinus. MASTOID AIR CELLS: Unremarkable. Clear. ORBITS: Visualized globes, extraocular muscles, optic nerves and retrobulbar fat appear unremarkable. CT/Brain/Head without Contrast IMPRESSION: No acute intracranial abnormality identified. Minimal stable chronic changes. Electronically Signed: Mally Cristobal MD at 23:44 EDT ,
[2021-11-26] VITALS (18 sets, daily range): BP systolic 101–157; BP diastolic 63–89; PULSE 70–89; RESP 15–20; TEMP 36.6–36.8; O2SAT 94–98; BMI 32.5
[2021-11-26 05:00] LABS: Absolute Lymphocyte Count 2.69 X10^3/uL (0.83-4.51); Absolute Neutrophil Count 6.2 X10^3/uL (2.0-7.7); Basophil# 0.06 X10^3/uL; Basophil% 0.6 % (0-1); Eosinophil# 0.61 X10^3/uL; Eosinophils% 5.9 % (0-5); Hematocrit 37.7 % (40-54); Hemoglobin 12.7 g/dL (13.0-16.5); Lymphocyte # 2.69 X10^3/ul (0.83-4.51); Lymphocyte % 26.1 % (19-41); Mean Corp Hgb Conc 33.7 g/dL (32-36); Mean Corpuscular Hgb 31.7 pg (27.0-32.0); Mean Platelet Vol. 10.5 fl (6.2-12.0); Monocyte# 0.72 X10^3/uL; NRBC Flagged by Analyzer 0 % (0-5); Neutrophil # 6.21 X10^3/uL (2.7-7.7); Neutrophil % 60.2 % (47-70); Platelet Count 217 K/mm3 (150-450); RBC Distribution Width CV 12.7 % (11.6-14.6); RBC Distribution Width SD 43.8 fl (35.1-43.9); Red Blood Count 4.01 M/mm3 (4.6-6.2); White Blood Count 10.3 K/mm3 (4.4-11.0)
[2021-11-26 05:13] LABS: Anion Gap 7 (5-15); BUN 21 mg/dL (7-18); BUN/Creat Ratio 15.4 RATIO (10-20); Calcium,Total 8.4 mg/dL (8.5-10.1); Chloride 113 mmol/L (98-107); Creatinine, Serum 1.36 mg/dL (0.70-1.30); EST Glomerular Filtration Rate 56 mL/min (>60); Est Glom Filt Rate - Afr Amer 68 mL/min (>60); Estimated Creatinine Clearance 54.49 ml/min; Glucose 95 mg/dL (74-106); Sodium Level 141 mmol/L (136-145)
--- NOTE | 2021-11-26 07:05 | TELEMED_ITS ---
[facility] Tele[facility] has confirmed receipt of a request for visit. This document confirms receipt of the order initiating the consult. To find the results of the consultation, please view the patient's reports for the scanned Telemed Consult.
[2021-11-26] MEDS: Cyanocobalamin 500 MCG Tablet 1000 MCG PO (08:16)
[2021-11-26] MEDS: Cholecalciferol (VIT D3) 25 MCG TABLET (1,000 UNITS) 50 MCG PO (08:16)
[2021-11-26] MEDS: Zonisamide 50 MG Capsule 200 MG PO (08:16)
[2021-11-26] MEDS: lamoTRIgine 100 MG Tablet 50 MG PO (08:16)
[2021-11-26] MEDS: Aspirin 81 MG TAB.CHEW PO (08:17)
--- NOTE | 2021-11-26 09:00 | MRI_ITS ---
STUDY: MRI BRAIN WITHOUT CONTRAST REASON FOR EXAM: Male, 60 years old. CVA -- MRI 24 hours after IV alteplase, L arm numbness/tingling TECHNIQUE: Standardized multiplanar fat and water weighted pulse sequences were obtained. COMPARISON: MRI of the brain dated DECEMBER 03, 2017. Head CT dated NOVEMBER 25, 2021. FINDINGS: Normal size of the ventricles and extra-axial spaces for the patient''s age. There are a limited number of small white matter hyperintensities, distributed throughout the deep white matter tracts of the cerebral hemispheres, consistent with mild chronic white matter ischemic changes. There is no evidence for recent intracranial ischemia or other cause of cytotoxic edema on diffusion weighted imaging (DWI). Normal T2* images of the brain without demonstrated susceptibility artifact. There is no demonstrated hemosiderin stain. Normal bilateral basal ganglia. Normal thalami. There is no extra-axial fluid accumulation. Normal flow voids within the major intracranial circulation suggesting patency by spin echo criteria. Normal sella turcica, pituitary gland, infundibular stalk, optic chiasm and hypothalamus. Normal tectal plate and pineal gland. Normal midbrain, damien and medulla. Normal cerebellum. Normal basal cisterns. Normal bilateral temporal bones. Normal bilateral internal auditory canals. No demonstrated orbital abnormality, within the constraints of a routine brain study. Small to moderate size mucus retention cyst of the left maxillary sinus noted. Normal calvarium and skull base. Normal visualized soft tissue structures. Normal visualized upper cervical spine. MRI/Brain without Contrast IMPRESSION: 1. Mild chronic ischemic changes of the brain, as described above. No demonstrated acute infarct or intracranial hemorrhage. Electronically Signed: Joe Resendez MD at 12:11 EDT ,
--- NOTE | 2021-11-26 11:00 | CASEMGMT ---
BARBARA FELIPE updated by therapy that patient will need outpatient OT at discharge. Script received from hospitalist. BARBARA FELIPE in to discuss outpatient therapy at discharge. Patient states he would like [facility] for outpatient therapy. BARBARA FELIPE inquired if patient would like this RN CM to schedule appt. Patient requested [facility] call patient to schedule appt. BARBARA FELIPE called and faxed referral to [facility] requesting them to call patient to schedule appt. Patient updated that [facility] will be calling him. Patient voiced understanding and had no further questions or concerns at this time.
--- NOTE | 2021-11-26 12:19 | PCM.DC.SUM ---
Providers Date of Admission: 11/24/21 Date of Discharge: 11/26/21 Primary Care Physician: Dr. Cooper Blanchard, DO Consultations 11/24/21 22:30 Consult: Warehouse Sorter / Pulmonary Medicine Routine Consulting Provider: [facility] Reason for Consult: stroke for alteplase EMERGENT Consult: No MD Notified: Yes Date Notified: 11/24/21 Time Notified: 22:30 Method of Notification: Text Comments:: If admitted, Hospitalist will consult Warehouse Sorter Reason For Visit: ACUTE CVA Diagnosis Discharge Diagnosis (1) Left arm weakness: Status: Acute Code(s): R29.898 - Other symptoms and signs involving the musculoskeletal system (2) Chest pain: Status: Acute Code(s): R07.9 - Chest pain, unspecified Qualifiers: Chest pain type: unspecified Qualified Code(s): R07.9 - Chest pain, unspecified (3) Received intravenous tissue plasminogen activator (tPA) in emergency department: Status: Acute Code(s): Z92.82 - Status post administration of tPA (rtPA) in a different facility within the last 24 hours prior to admission to current facility (4) Left arm pain: Status: Acute Code(s): M79.602 - Pain in left arm Medications at Discharge Home Medications losartan 50 mg tablet 50 mg PO QHS 09/03/20 zonisamide 200 mg PO BID 02/20/21 amlodipine 10 mg PO QHS 07/17/21 rosuvastatin 40 mg PO DAILY 07/17/21 nitroglycerin 0.4 mg SUBLINGUAL DAILY PRN PRN 09/01/21 cholecalciferol (vitamin D3) 50 mcg (2,000 unit) capsule 50 mcg PO DAILY 11/02/21 cyanocobalamin (vitamin B-12) 1,000 mcg capsule 1,000 mcg PO DAILY 11/02/21 lamotrigine 50 mg PO BID 11/25/21 aspirin 81 mg PO BREAKFAST #0 tab 11/26/21 Hospital Course Operations None Procedures 2-D Echocardiogram, EKG and - (CTA head neck/MRI) Summary of Care Provided Minutes Spent on Discharge: 38 Hospital Course: Mr. Chow is a 60-year-old white male who presented to the emergency department at [facility] on 11/24/2021 complaining of progressively were concerning weakness of his left arm that started 4 hours prior to presentation. He initially reported he had tingling and numbness of the left arm and then it later progressed to weakness. He was unable to shuffle and play cards and also complained of having some word finding difficulties. Patient evidently developed some chest pain while in the CT scanner that lasted 5 to 10 minutes but resolved quickly without any intervention. He was evaluated by the stroke neurologist in the emergency department and tPA was recommended at the time of admission and was given. The patient was admitted to the ICU. Stroke order set was used and patient remained on bedrest given the tPA was received. An echocardiogram was performed and showed an EF of 65% with normal LV function and stage I diastolic dysfunction. CT of his brain on admission was unremarkable. The CTA of his head and neck on admission showed no significant stenosis or occlusion. He does not have any significant carotid artery disease noted on this exam either. A repeat CT of his head was performed at 24 hours post tPA administration and showed no hemorrhagic transformation. An MRI was done on the a.m. of 11/26/2021 and this showed mild chronic ischemic changes but no acute infarct or intracranial hemorrhage. The patient has baseline renal disease and his renal function remained stable during his hospital course. Given his chest pain cardiac enzymes were cycled and were negative. His cholesterol was obtained and his total cholesterol was 100/LDL 47/HDL 37/triglycerides 81. He was maintained on his home rosuvastatin during the hospital course. Aspirin was started on 11/26/2021 after 24 hours post tPA administration. He was evaluated by [facility] for poststroke follow-up and their recommendations included continuing his home rosuvastatin, starting home baby aspirin, and follow-up with his outpatient neurologist for consideration of a 24-hour EEG. He was seen by physical and Occupational Therapy. Physical therapy reported no ongoing needs however Occupational Therapy wanted follow-up as an outpatient. The patient was given a prescription for treatment. The patient was educated on recommendation for tobacco cessation the patient reported that he enjoyed smoking and was not going to stop. The patient was able to be discharged in stable condition on 11/26/2021 to home. Discharge diagnoses: TIA with left-sided arm weakness/word finding difficulties Chest pain-resolved Arm pain-resolved Seizure disorder CKD stage IIIa Hypertension Hyperlipidemia Nonobstructive CAD COPD History of nephrolithiasis Obesity Tobacco abuse Physical Exam Const alert, oriented x3 and no apparent distress Constitutional Narrative: Upper middle-aged white male sitting up in bed, appears much older than stated age, edwards mustache are nicotine stained, patient appears comfortable nontoxic General Appearance: cooperative, comfortable and well kempt Exam Limitations: no limitations Nutritional Appearance: obese HEENT normocephalic, head/scalp atraumatic and moist oral mucous membranes Eyes PERRL, EOMs intact bilaterally and conjunctivae normal Eyes Narrative: No scleral icterus Neck no lymphadenopathy, supple, no JVD and no carotid bruits Neck Narrative: Trachea midline, no thyroid enlargement Resp normal respiratory effort, no retractions, no use of accessory muscles and clear to auscultation bilaterally Resp Narrative: Diffusely diminished but clear Auscultation: Negative for crackles, rales, rhonchi or wheezes Cardio regular rate, regular rhythm, S1 normal heart sound, S2 normal heart sound, no murmurs, no gallops, no clicks and no JVD GI normal to inspection, nondistended, normoactive bowel sounds, soft to palpation, non-tender and non-distended Extremity no clubbing, cyanosis or edema Extremity Narrative: Right arm tenderness is resolved Skin no rashes or lesions noted, no wounds, skin turgor normal, no jaundice, no petechiae and no mottling Neuro oriented x3, CN's II-XII intact bilaterally, moves all extremities and no sensory deficits noted Neuro Narrative: Generalized weakness today but no focal deficits Sensorium / Orientation: awake and alert Speech: speech normal Psych affect normal Psych Narrative: Appropriately interactive and pleasant Weight / BMI Weight Weight: 97.8 kg Body Mass Index (BMI) 32.5 ABG / Lab / Microbiology Data Result Diagrams: 11/26/21 04:50 11/26/21 04:50 Laboratory: Laboratory Results - last 24 hr 11/26/21 04:50: Sodium 141, Potassium 4.0, Chloride 113 H, Carbon Dioxide 21.0, Anion Gap 7, BUN 21 H, Creatinine 1.36 H, Estim Creat Clear Calc 54.49, Est GFR (MDRD) Af Amer 68, Est GFR (MDRD) Non-Af 56 L, BUN/Creatinine Ratio 15.4, Glucose 95, Calcium 8.4 L 11/26/21 04:50: WBC 10.3, RBC 4.01 L, Hgb 12.7 L, Hct 37.7 L, MCV 94.0, MCH 31.7, MCHC 33.7, RDW Std Deviation 43.8, RDW Coeff of Vladislav 12.7, Plt Count 217, MPV 10.5, Immature Gran % (Auto) 0.200, Neut % (Auto) 60.2, Lymph % (Auto) 26.1, [place] % (Auto) 7.0, Eos % (Auto) 5.9 H, Baso % (Auto) 0.6, Absolute Neuts (auto) 6.2, Absolute Lymphs (auto) 2.69, Nucleated RBC % 0 Radiography Diagnostic Testing: Radiology Impression Echocardiogram 11/25/21 00:02 Interpretation Summary Normal LV size. Mild concentric left ventricular hypertrophy. Left ventricular systolic function is normal. The estimated ejection fraction is 65 %. Stage 1 diastolic dysfunction. Contrast injection was performed. Ordering Physician: Shaun Hdez Referring Physician: Cooper Blanchard Performed By: Alina Huitron, PHONG, RVT Brain CT 11/25/21 23:00 IMPRESSION: No acute intracranial abnormality identified. Minimal stable chronic changes. Electronically Signed: Mally Cristobal MD at 23:44 EDT , Brain MRI 11/26/21 09:00 IMPRESSION: 1. Mild chronic ischemic changes of the brain, as described above. No demonstrated acute infarct or intracranial hemorrhage. Electronically Signed: Joe Resendez MD at 12:11 EDT , D/C Instructions Discharge Diet: Low fat / Low cholesterol Discharge Activity: Return to Normal Activity Meaningful Use Info Meaningful Use Diagnoses (Choose all that apply): None applicable CVA Therapy Assessed for PT,OT and/or ST?: Yes Ischemic Stroke Antithrombotic order at d/c?: Yes Dx of Atrial fib/flutter?: No Anticoagulant at discharge?: No Reason anticoagulant not ordered: Treatment not Indicated Statins at discharge?: Yes Primary Dx Acute Ischemic CVA?: No IV tPA ordered during stay?: Yes Discharge Plan Admission Admit Date/Time: 11/24/21 22:54 Primary Reason for Your Visit: TIA Attending Provider: Megan Castro Primary Care Provider: Cooper Blanchard Consulting Providers: Cale Haq ; Jefferson Rubio ; Angelita Ramos NP ; Shaun Hdez Instructions Additional Instructions / Restrictions: 1. Please follow-up with your outpatient neurologist Dr. David Thomas within the next 2 to 4 weeks. The stroke neurologist here recommended a 24-hour EEG be performed Discharge Orders/Prescriptions Prescriptions: New aspirin 81 mg Tablet,Chewable 81 mg PO BREAKFAST Qty: 0 RF: 0 Continued losartan 50 mg tablet 50 mg PO QHS RF: 0 cholecalciferol (vitamin D3) 50 mcg (2,000 unit) capsule 50 mcg PO DAILY RF: 0 cyanocobalamin (vitamin B-12) 1,000 mcg capsule 1,000 mcg PO DAILY RF: 0 zonisamide 100 mg capsule 200 mg PO BID RF: 0 amlodipine 10 mg tablet 10 mg PO QHS RF: 0 rosuvastatin 40 mg tablet 40 mg PO DAILY RF: 0 nitroglycerin 0.4 mg tablet, sublingual 0.4 mg sublingual DAILY PRN PRN (Reason: Angina) RF: 0 lamotrigine 100 mg tablet 50 mg PO BID RF: 0 Other Ambulatory Orders: 30-Day Event Recorder (Routine) Location: None Selected Ordered By: Dr. Megan Castro Referrals / Follow Up: Cooper Blanchard DO [Primary Care Provider] - Within 2 Weeks Disposition Disposition (needs filled in before D/C Order can be placed): Home, Self Care Charges/Coding Visit Charges Inpatient E&M: 51219 Disch Hosp
--- NOTE | 2021-11-26 13:32 | NURSING ---
Approached patient about [facility] Patient Link RPM program. Pt declined program at this time.
== END 2021-11-26 16:25 | disposition home or self-care (01) | DRG 47 ==
LOC: ED 22:57 → ICU 23:38
PROVIDERS: Admitting Provider Hospitalist; Emergency Provider Emergency Medicine; PCP Student in an Organized Health Care Education/Training Program; Visit Provider Internal Medicine
DX: G45.9 Transient cerebral ischemic attack, unspecified (principal); N17.9 Acute kidney failure, unspecified; G40.909 Epilepsy, unspecified, not intractable, without status epilepticus; J44.9 Chronic obstructive pulmonary disease, unspecified; N18.31 Chronic kidney disease, stage 3a; E78.00 Pure hypercholesterolemia, unspecified; F41.9 Anxiety disorder, unspecified; M19.90 Unspecified osteoarthritis, unspecified site; F17.210 Nicotine dependence, cigarettes, uncomplicated; I12.9 Hypertensive chronic kidney disease with stage 1 through stage 4 chronic kidney disease, or unspecified chronic kidney disease; E87.8 Other disorders of electrolyte and fluid balance, not elsewhere classified; G47.33 Obstructive sleep apnea (adult) (pediatric); I25.10 Atherosclerotic heart disease of native coronary artery without angina pectoris; M79.602 Pain in left arm; Z86.73 Personal history of transient ischemic attack (TIA), and cerebral infarction without residual deficits; Z87.442 Personal history of urinary calculi; Z87.19 Personal history of other diseases of the digestive system; M81.0 Age-related osteoporosis without current pathological fracture; Z79.899 Other long term (current) drug therapy; R29.702 NIHSS score 2; R29.701 NIHSS score 1; E66.9 Obesity, unspecified; Z68.32 Body mass index [BMI] 32.0-32.9, adult; R29.898 Other symptoms and signs involving the musculoskeletal system; Z86.718 Personal history of other venous thrombosis and embolism; Z95.818 Presence of other cardiac implants and grafts; R07.9 Chest pain, unspecified
CPT/HCPCS: 51702; 70450; 70496; 70498; 70551; 71045; 80048; 80061; 83036; 84484; 85025; 85610; 85730; 93005; 93306; 97161; 97166; 99285; 99406; J2997; J7120; Q9957; Q9967; A4216; C8929

== ENCOUNTER 2022-01-12 11:00 | Outpatient (RCR) | payer MEDICAID, SELFPAY ==
--- NOTE | 2021-12-10 07:44 | HP.OTEVAL ---
Patient's Visit Information LANCE ALVAREZ is a 60 year old M, referred to Occupational Therapy by Dr. Megan Castro DO, with a diagnosis of Left arm pain, left arm weakness. Date of Evaluation: 12/09/21 Occupational Therapist: Melania Bautista, SALOMONR/Karma, CHT - Subjective pt. is a 60 y/o male who was referred for Left arm pain and left arm weakness by Dr. Castro. Pt. reported having a TIA at the end of October 2021. Pt. reporting that he still feels very weak and wants to regain strength for PLOF. Does not drive secondary to seizures. He would like to return to PLOF. - ADLs Kitchen: Open jars Comments: Does not drive secondary to seizures. Little sister. No AE. endurance has decreased with mowing. Pt. reporting he does not have difficulties with basic ADL's. - Pain Left Hand Unrated Pain Intensity Range: Unrated - ROM Shoulder: B WFL Elbow: B WFL Forearm: B WFL Wrist: B WFL ROM Comments: Shakeel B hands 10. pt. completed composite fist on both hands - Strength Shoulder: B shoulders good strength Elbow: R good Left fair+ Therapy Technician: R 80# L 50# Lateral Pinch: R 22# L14 Tripod Pinch: R 18 L 14# Tip-to-Tip Pinch: R 12# L 8# Strength Comments: R hand dominant. weakness in L tag press operator and pinch - Sensation Sensation Comments: Pt. originally stating he doesn't have numbness and tingling, then at a later time during eval he reported he does have numbness and tingling in L hand - Nine Hole Peg Right: 31.86 seconds Left: 31.92 seconds Comments: dropped 1 on floor during R hand trial - Quick DASH-Disab of Arm,Shoulder& Hand Quick DASH Score: 11.3625 - Goals Goal:: Pt. to improve L tag press operator strength to 70# for indep with IADL tasks such as food prep to open jars by dc Goal:: Pt. to improve 9-hole peg score on B hands by 5 seconds (from R 31.86 seconds & L 31.92 seconds) to increase dexterity with IADL tasks by dc Goal:: Pt. will report decreased numbness/tingling in L hand to 2/7 days by dc. - Rehabilitation General Assessment: Pt. referred for Left arm pain and left arm weakness by Dr. Castro secondary to TIA in October. Educated pt. on what HEP related to his left UE and thumb stabilization exercises. Because of strength deficits he has decreased indep with IADL tasks like mowing yard with push mower. He would benefit from skilled OT services 1-2x a week for 4 weeks to improve LUE and hand strength. Pt. demo'd understanding & agreeable to POC. Therapy session was directly supervised and doc. reviewed and approved by Melania Bautista OTR/L,CHT. Rehabilitation Potential: Good - Anticipated Interventions A/AAROM/PROM, Strengthening, Modalities, Joint Protection/Energy Conservation, Ergonomic Education, Fine Motor Coord/Will, Education re Diagnosis, Home Program - Visit Plan Frequency: 1-2x /Week Duration: 4 Weeks General Plan: L UE and hand strengthening. L thumb stabilization exercises TEXT: Thank you for the opportunity to evaluate your patient. For Medicare and Medicare HMO plans, please review the plan of care and approve it. It will need to be FAXED BACK to us at [phone] for Medicare purposes. Please let me know if there are questions or concerns regarding this plan of care. Physician Signature: Date:
== END 2022-01-12 19:00 | disposition home or self-care (01) ==
LOC: OT 11:00
PROVIDERS: PCP Student in an Organized Health Care Education/Training Program; Referring Provider Internal Medicine; Visit Provider Internal Medicine
DX: M79.602 Pain in left arm (principal); R29.898 Other symptoms and signs involving the musculoskeletal system
CPT/HCPCS: 97110; 97140; 97165

== ENCOUNTER 2022-02-01 11:35 | Day surgery (SDC) | payer MEDICAID, SELFPAY ==
[2022-02-01] VITALS (7 sets, daily range): BP systolic 96–131; BP diastolic 63–89; PULSE 67–92; RESP 16–22; TEMP 36.4–36.7; O2SAT 68–99; BMI 32.1
[2022-02-01] MEDS: Lactated Ringers 1,000 ML 15 ML IV (12:05)
--- NOTE | 2022-02-01 12:39 | PCM.HP.STD ---
HPI - General General Date of Admission: 02/01/22 Date of Service: 02/01/22 Chief Complaint: Screening colon HPI Narrative LANCE ALVAREZ, is a 61 M who presented to [facility] on 11/24/2021 secondary to acute onset of left arm weakness, numbness and tingling.? Patient reportedly has had previous similar symptoms, but it typically would resolve over the next 5 to 10 minutes.? Patient states the symptoms began at 6 PM and had persisted for over 4 hours so EMS was called.? In route to the hospital, EMS [place] stroke scale was negative initially, but then started to have a pronator drift with ataxia.? Patient denied any headache, but does have a history of partial seizures in the past.? Patient's last seizure was approximately a month ago and he was placed on a additional medication to help with the breakthrough.? Patient does report that he can become postictal following his partial seizures. In the ER, patient was afebrile and slightly hypertensive.? Patient was saturating well on room air.? Labs were obtained.? Stroke neurologist was contacted via telemedicine and ultimately it was decided to give patient tPA at approximately 8:30 PM.? Laboratory data showed a white blood cell count of 8.7, hemoglobin 12.6 and platelets of 220.? Coagulation studies were within normal limits.? Creatinine was elevated at 1.78.? CT of the head showed no large vessel occlusion, but multiple calcifications.? Following initiation of tPA, patient was transferred to the intensive care unit for monitoring overnight. He recovered without any problems or any significant deficits. He has been seizure-free since that episode. It was thought to be secondary to an hypertensive emergency coupled by ischemic cerebrovascular disease. At this time is not have any bleeding. He denies any nausea. Is not have any chest pain or shortness of breath. He is having no dizziness or weakness. All other 16 review of systems are negative except as per body mentioned HPI. COUNT INCLUDES THE [facility] Medical History (Updated 01/26/22 @ 10:07 by Sophia Hernandez) Acute kidney injury Alcohol use Anxiety Arthritis Cardiology follow-up encounter Carotid artery calcification Chronic anemia Complete edentulism, class III COPD (chronic obstructive pulmonary disease) Costochondritis Difficulty chewing Drug abuse DVT (deep venous thrombosis) Epilepsy Heartburn Hepatitis High cholesterol History of echocardiogram History of edema History of pain when walking History of stress test History of ulceration Hx of tilt table evaluation Hyperglycemia Hypertension Implantable loop recorder present Intermittent claudication Kidney stones Left ventricular hypertrophy Leg cramps Leucocytosis Lightheadedness Marijuana use Mitral valve annular calcification Mucous retention cyst Numbness and tingling ELISABETH (obstructive sleep apnea) Osteoporosis Pleural effusion on left Pulmonary vascular congestion Received intravenous tissue plasminogen activator (tPA) in emergency department Seizure Seizures Shortness of breath on exertion Small vessel disease Smoker SOB (shortness of breath) Stage 3a chronic kidney disease (CKD) Stage III chronic kidney disease Unresponsive episode Vertigo Wears glasses Home Medications losartan 50 mg tablet 50 mg PO QHS blood pressure 09/03/20 [History Last Taken 09/07/21] zonisamide 100 mg capsule 200 mg PO BID 02/20/21 [History Last Taken 09/08/21] amlodipine 10 mg tablet 10 mg PO DAILY blood pressure 07/17/21 [History Last Taken 09/07/21] rosuvastatin 40 mg tablet 40 mg PO DAILY 07/17/21 [History Last Taken 09/07/21] nitroglycerin 0.4 mg sublingual tablet 0.4 mg sublingual DAILY PRN PRN Angina 09/01/21 [History Last Taken Unknown] cyanocobalamin (vitamin B-12) 1,000 mcg capsule 1,000 mcg PO DAILY 11/02/21 [History Last Taken Unknown] lamotrigine 100 mg tablet 100 mg PO BID seizures 11/25/21 [History Last Taken Unknown] aspirin 81 mg chewable tablet 81 mg PO BREAKFAST #0 tabs 11/26/21 [Rx Last Taken Unknown] gabapentin 300 mg tablet 300 mg PO TID 01/28/22 [History Last Taken Unknown] naproxen 250 mg tablet 250 mg PO BID 01/28/22 [History Last Taken Unknown] tizanidine 4 mg capsule 4 mg PO Q8H PRN Pain 01/28/22 [History Last Taken Unknown] Allergy/AdvReac Type Severity Reaction Status Date / Time Penicillins Allergy SYNCOPE Verified 02/01/22 12:05 cortisone Allergy Shortness Uncoded 02/01/22 12:05 of breath Family History Sister Arthritis Cancer Depression Diabetes Hypertension Hyperlipidemia Thyroid disorder CVA (cerebral vascular accident) Seizures FH: mental illness Father Diabetes Heart disease Hypertension Hyperlipidemia Surgical History History of appendectomy History of cardiac catheterization History of cystoscopy History of loop recorder Social History Smoking Status: Light Smoker (<10/day) ROS ROS Narrative See HPI Vital Signs Vital Signs Vital Signs: 02/01/22 12:00 02/01/22 12:00 Temperature 98.1 F Temperature Source Temporal Pulse Rate 92 Respiratory Rate 18 Respiratory Pattern Normal Blood Pressure 128/79 H Blood Pressure Mean 95 Blood Pressure Source Monitor Blood Pressure Position Sitting Blood Pressure Location Left Arm Pulse Ox 97 Oxygen Delivery Method Room Air Weight Weight: 211 lb 10.3 oz Body Mass Index (BMI) 32.1 Physical Exam Const alert, oriented x3 and no apparent distress Constitutional Narrative: Upper middle-aged white male sitting up in bed, appears much older than stated age, edwards mustache are nicotine stained, patient appears comfortable nontoxic General Appearance: cooperative, comfortable and well kempt Exam Limitations: no limitations Nutritional Appearance: obese HEENT normocephalic, head/scalp atraumatic and moist oral mucous membranes Eyes PERRL, EOMs intact bilaterally and conjunctivae normal Eyes Narrative: No scleral icterus Neck no lymphadenopathy, supple, no JVD and no carotid bruits Neck Narrative: Trachea midline, no thyroid enlargement Resp normal respiratory effort, no retractions, no use of accessory muscles and clear to auscultation bilaterally Resp Narrative: Diffusely diminished but clear Auscultation: Negative for crackles, rales, rhonchi or wheezes Cardio regular rate, regular rhythm, S1 normal heart sound, S2 normal heart sound, no murmurs, no gallops, no clicks and no JVD GI normal to inspection, nondistended, normoactive bowel sounds, soft to palpation, non-tender and non-distended Extremity no clubbing, cyanosis or edema Extremity Narrative: Right arm tenderness is resolved Skin no rashes or lesions noted, no wounds, skin turgor normal, no jaundice, no petechiae and no mottling Neuro oriented x3, CN's II-XII intact bilaterally, moves all extremities and no sensory deficits noted Neuro Narrative: Generalized weakness today but no focal deficits Sensorium / Orientation: awake and alert Speech: speech normal Psych affect normal Psych Narrative: Appropriately interactive and pleasant Assessment & Plan Assessment/Plan (1) Encounter for screening for malignant neoplasm of colon: PLAN: He will undergo screening colonoscopy. He was explained alternatives, risk, benefits including not withstanding bleeding, infection, sepsis, missed polyps, perforation, need for emergent surgery . Have an ASA of 3.
--- NOTE | 2022-02-01 13:00 | COLBX_PTH ---
PATIENT: LANCE ALVAREZ LOC: EN U#:[id number] AGE/SX: 61/M ROOM: RE02/01/[address]: Dr. Beltran Dotson DO : 1960 BED: DIS: 02/01/2022 SPEC #: [id number] RECD: 02/01/22 15:17 STATUS: ELIA TEAGAN #: [id number] SALIMA: 02/01/22 13:[address]: Beltran Dotson DEPT: SURGICAL PATHOLOGY RECD BY: Rome Thorne ENTERED: 02/02/22 07:03 SP TYPE: COLON BX DONNA DR: Dr. Cooper Blanchard DO Tissues: A - Transverse colon B - SPLENIC FLEXURE C - Sigmoid colon biopsy Procedures: Surgery Specimen Level IV HEADER OPERATION: Colonoscopy ? open access (MAC) PRE-OP DIAGNOSIS: Screening TISSUE SUBMITTED: A ? Transverse colon polyp, B ? Splenic flexure polyp, C ? Sigmoid colon polyp MICROSCOPIC DIAGNOSIS A. Transverse colon polyp, biopsy: Fragments of tubular adenoma. B. Splenic flexure polyp, biopsy: Tubular adenoma. C. Sigmoid colon polyp x3, biopsy: Tubular adenoma. Fragments of hyperplastic polyp. PRANAY:marianne 02/03/2022 MICROSCOPIC DESCRIPTION Slides are reviewed. GROSS DESCRIPTION A - Received in fixative is one container labeled with the patient's name and designated transverse colon polyp. The specimen consists of two irregular fragments of light stewart soft tissue that in aggregate measure 0.4 x 0.2 x 0.1 cm. The specimen is totally submitted in one cassette. B - Received in fixative is one container labeled with the patient's name and designated splenic flexure polyp. The specimen consists of one irregular fragment of light stewart soft tissue that measures 0.3 x 0.2 x 0.1 cm. The specimen is totally submitted in one cassette. C - Received in fixative is one container labeled with the patient's name and designated sigmoid colon polyps x3. The specimen consists of multiple irregular fragments of light stewart soft tissue that in aggregate measure 1.2 x 0.3 x 0.1 cm. The specimen is totally submitted in one cassette. / PRANAY:marianne 02/02/2022 TC:1 CPT: 76749 x3
--- NOTE | 2022-02-01 13:45 | OP.COLON_ITS ---
Patient Name: Kt Chow Procedure Date: 02/01/2022 1:05 PM Date of : 1960 Age: 61 Procedure: Colonoscopy Indications: Screening for colorectal malignant neoplasm Providers: Beltran Dotson DO Medicines: Monitored Anesthesia Care Patient Profile: This is a 61 year old male. Refer to note in patient chart for documentation of history and physical. Last Colonoscopy: none. The patient's first colonoscopy is today. Complications: No immediate complications. Procedure: Pre-Anesthesia Assessment: - Prior to the procedure, a History and Physical was performed, and patient medications and allergies were reviewed. The patient is competent. The risks and benefits of the procedure and the sedation options and risks were discussed with the patient. All questions were answered and informed consent was obtained. Patient identification and proposed procedure were verified by the physician in the pre-procedure area. Mental Status Examination: alert and oriented. Airway Examination: normal oropharyngeal airway and neck mobility. Respiratory Examination: clear to auscultation. CV Examination: normal. Prophylactic Antibiotics: The patient does not require prophylactic antibiotics. Prior Anticoagulants: The patient has taken no previous anticoagulant or antiplatelet agents. ASA Grade Assessment: II - A patient with mild systemic disease. After reviewing the risks and benefits, the patient was deemed in satisfactory condition to undergo the procedure. The anesthesia plan was to use moderate sedation / analgesia (conscious sedation). Immediately prior to administration of medications, the patient was re-assessed for adequacy to receive sedatives. The heart rate, respiratory rate, oxygen saturations, blood pressure, adequacy of pulmonary ventilation, and response to care were monitored throughout the procedure. The physical status of the patient was re-assessed after the procedure. After I obtained informed consent, the scope was passed under direct vision. Throughout the procedure, the patient's blood pressure, pulse, and oxygen saturations were monitored continuously. The colonoscope was introduced through the anus and advanced to the cecum, identified by appendiceal orifice and ileocecal valve. The colonoscopy was performed without difficulty. The patient tolerated the procedure well. The quality of the bowel preparation was good. Scope In: 1:19:19 PM Scope Withdrawal Time 0 hours 14 minutes 31 seconds Scope Out: 1:36:24 PM Total Procedure Duration Time 0 hours 17 minutes 5 seconds Findings: The perianal and digital rectal examinations were normal. Five sessile polyps were found in the recto-sigmoid colon, sigmoid colon, splenic flexure and transverse colon. The polyps were 1 to 2 mm in size. These polyps were removed with a hot snare. Resection and retrieval were complete. Verification of patient identification for the specimen was done. Estimated blood loss was minimal. A few small and large-mouthed diverticula were found in the sigmoid colon and descending colon. Impression: - Five 1 to 2 mm polyps at the recto-sigmoid colon, in the sigmoid colon, at the splenic flexure and in the transverse colon, removed with a hot snare. Resected and retrieved. - Diverticulosis in the sigmoid colon and in the descending colon. Recommendation: - Discharge patient to home. - Resume previous diet. - Continue present medications. - Await pathology results. - Repeat colonoscopy in 5 years for surveillance. Procedure Code(s): --- Professional --- 70940, Colonoscopy, flexible; with removal of tumor(s), polyp(s), or other lesion(s) by snare technique CPT copyright 2017 [employer]. All rights reserved. The codes documented in this report are preliminary and upon certified professional coder review may be revised to meet current compliance requirements. Beltran Dotson DO 02/01/2022 1:44:41 PM This report has been signed electronically. Number of Addenda: 1 Note Initiated On: 02/01/2022 1:05 PM Addendum Number: 1 Addendum Date: 04/07/2022 6:35:43 AM MAC was used as sedation for this procedure. Beltran Dotson DO 04/07/2022 6:35:47 AM This report has been signed electronically.
--- NOTE | 2022-02-01 13:45 | OP.CCLET_ITS ---
04/07/2022 Cooper Blanchard Do Re : Colonoscopy procedure for Kt De La Paz Jerelakin This procedure was performed on Tuesday, February 01, 2022. My impressions and recommendations are as follows: Impressions : - Five 1 to 2 mm polyps at the recto-sigmoid colon, in the sigmoid colon, at the splenic flexure and in the transverse colon, removed with a hot snare. Resected and retrieved. - Diverticulosis in the sigmoid colon and in the descending colon. Recommendations : - Discharge patient to home. - Resume previous diet. - Continue present medications. - Await pathology results. - Repeat colonoscopy in 5 years for surveillance. My findings are described in the full procedure note, which is enclosed. If I can be of further assistance, please feel free to contact me at . Sincerely, Beltran Dotson, 02/01/2022 1:44:41 PM This report has been signed electronically.
== END 2022-02-01 14:27 | disposition home or self-care (01) ==
LOC: EN 11:35 → AC 11:36
PROVIDERS: PCP Student in an Organized Health Care Education/Training Program; Referring Provider Student in an Organized Health Care Education/Training Program; Visit Provider Internal Medicine Gastroenterology
PROC: 0DJD8ZZ Inspection of Lower Intestinal Tract, Via Natural or Artificial Opening Endoscopic (ICD-10-PCS; CPT 45378; principal; 2022-02-01 12:55)
DX: Z12.11 Encounter for screening for malignant neoplasm of colon (principal); J44.9 Chronic obstructive pulmonary disease, unspecified; I73.9 Peripheral vascular disease, unspecified; G40.909 Epilepsy, unspecified, not intractable, without status epilepticus; N18.31 Chronic kidney disease, stage 3a; D12.3 Benign neoplasm of transverse colon; D12.5 Benign neoplasm of sigmoid colon; Z86.718 Personal history of other venous thrombosis and embolism; I12.9 Hypertensive chronic kidney disease with stage 1 through stage 4 chronic kidney disease, or unspecified chronic kidney disease; Z87.442 Personal history of urinary calculi; G47.33 Obstructive sleep apnea (adult) (pediatric); M81.0 Age-related osteoporosis without current pathological fracture; E78.00 Pure hypercholesterolemia, unspecified; F41.9 Anxiety disorder, unspecified; Z79.899 Other long term (current) drug therapy; Z79.82 Long term (current) use of aspirin; F17.200 Nicotine dependence, unspecified, uncomplicated; E66.9 Obesity, unspecified; Z68.32 Body mass index [BMI] 32.0-32.9, adult; Z95.818 Presence of other cardiac implants and grafts; K57.30 Diverticulosis of large intestine without perforation or abscess without bleeding
CPT/HCPCS: 45385; 88305; J7120; J2405

== ENCOUNTER 2022-05-09 02:18 | Emergency (ER) | payer MEDICAID, SELFPAY ==
[2022-05-09 02:19] VITALS: BP 133/105; PULSE 82; RESP 40; TEMP 36.6; O2SAT 99; BMI 32.9
--- NOTE | 2022-05-09 02:29 | RAD_ITS ---
EXAM: XR CHEST, 1 VIEW CLINICAL INDICATION: sob TECHNIQUE: Frontal view of the chest. This report was created using [employer] report generation technology. COMPARISON: 11/24/2021. FINDINGS: LUNGS AND PLEURAL SPACES: Unremarkable. No consolidation or edema. No pneumothorax. No effusion. HEART: Unremarkable. Cardiac silhouette not enlarged. MEDIASTINUM: Central airways and mediastinal contour are unremarkable. BONES/JOINTS: Unremarkable. SOFT TISSUES: Unremarkable. TUBES, LINES AND DEVICES: Cardiac loop recorder. RAD/Chest 1 View (Portable) IMPRESSION: No acute cardiopulmonary abnormality. Electronically Signed: Rayray Muhammad MD at 3:12 EST ,
--- NOTE | 2022-05-09 02:30 | EKG12_ITS ---
Test Reason : SOB Blood Pressure : / mmHG Vent. Rate : 078 BPM Atrial Rate : 078 BPM P-R Int : 176 ms QRS Dur : 086 ms QT Int : 396 ms P-R-T Axes : 035 022 030 degrees QTc Int : 451 ms Normal sinus rhythm Septal infarct , age undetermined Abnormal ECG Confirmed by WARREN LOPEZ, ROCK ([id number]), publishing editor KATHIE AMADOR ([id number]) on 05/11/2022 11:35:46 AM Referred By: Confirmed By:ROCK KELLEY MD
[2022-05-09] MEDS: Ipratropium/Albuterol Sulfate 3 ML AMPUL.NEB INHALATION (02:34)
[2022-05-09 02:36] VITALS: PULSE 76; RESP 28
[2022-05-09] MEDS: Albuterol 2.5 MG/3 ML VIAL.NEB. INHALATION ×2 (02:39→03:02)
[2022-05-09 02:44] LABS: Absolute Lymphocyte Count 3.56 X10^3/uL (0.83-4.51); Absolute Neutrophil Count 5.9 X10^3/uL (2.0-7.7); Basophil# 0.06 X10^3/uL; Basophil% 0.5 % (0-1); Eosinophil# 0.87 X10^3/uL; Eosinophils% 7.6 % (0-5); Hematocrit 42.6 % (40-54); Hemoglobin 14.1 g/dL (13.0-16.5); Lymphocyte # 3.56 X10^3/ul (0.83-4.51); Mean Corp Hgb Conc 33.1 g/dL (32-36); Mean Corpuscular Hgb 31.6 pg (27.0-32.0); Mean Corpuscular Volume 95.5 fL (80-94); Mean Platelet Vol. 10.7 fl (6.2-12.0); Monocyte# 1.06 X10^3/uL; Monocyte% 9.2 % (0-10); NRBC Flagged by Analyzer 0 % (0-5); Neutrophil % 51.4 % (47-70); Platelet Count 270 K/mm3 (150-450); RBC Distribution Width SD 45.5 fl (35.1-43.9); Red Blood Count 4.46 M/mm3 (4.6-6.2); White Blood Count 11.5 K/mm3 (4.4-11.0)
--- NOTE | 2022-05-09 02:52 | EDS_ITS ---
HPI History of Present Illness Chief Complaint: Shortness of Breath Informant: patient Onset/Context/Timing Onset: Today Current Severity: Moderate Maximum Severity: Moderate Narrative Narrative: Patient presents with rather abrupt onset of shortness of breath that started about 25 minutes prior to arrival. He was brought in by his sister. He reports chest pain at a 3 out of 10. He has a history of COPD but states he does not have inhalers to use. He has had mild cough. Patient was recently admitted to [facility] for dizziness with syncope, abnormal heart rhythm, history of seizures. He states that yesterday throughout the day he had no difficulty breathing. [facility] Medical History Acute kidney injury Alcohol use Anxiety Arthritis Cardiology follow-up encounter Carotid artery calcification Chronic anemia Complete edentulism, class III COPD (chronic obstructive pulmonary disease) Costochondritis Difficulty chewing Drug abuse DVT (deep venous thrombosis) Epilepsy Heartburn Hepatitis High cholesterol History of echocardiogram History of edema History of pain when walking History of stress test History of ulceration Hx of tilt table evaluation Hyperglycemia Hypertension Implantable loop recorder present Intermittent claudication Kidney stones Left ventricular hypertrophy Leg cramps Leucocytosis Lightheadedness Marijuana use Mitral valve annular calcification Mucous retention cyst Numbness and tingling ELISABETH (obstructive sleep apnea) Osteoporosis Pleural effusion on left Pulmonary vascular congestion Received intravenous tissue plasminogen activator (tPA) in emergency department Seizure Seizures Shortness of breath on exertion Small vessel disease Smoker SOB (shortness of breath) Stage 3a chronic kidney disease (CKD) Stage III chronic kidney disease Unresponsive episode Vertigo Wears glasses Home Medications losartan 50 mg tablet 50 mg PO QHS blood pressure 09/03/20 [History Last Taken 09/07/21] zonisamide 100 mg capsule 200 mg PO BID 02/20/21 [History Last Taken 09/08/21] rosuvastatin 40 mg tablet 40 mg PO DAILY 07/17/21 [History Last Taken 09/07/21] nitroglycerin 0.4 mg sublingual tablet 0.4 mg sublingual DAILY PRN PRN Angina 09/01/21 [History Last Taken Unknown] cyanocobalamin (vitamin B-12) 1,000 mcg capsule 1,000 mcg PO DAILY 11/02/21 [History Last Taken Unknown] lamotrigine 100 mg tablet 150 mg PO BID seizures 11/25/21 [History Last Taken Unknown] aspirin 81 mg chewable tablet 81 mg PO BREAKFAST #0 tabs 11/26/21 [Rx Last Taken Unknown] cholecalciferol (vitamin D3) 100 mcg (4,000 unit) capsule 100 mcg PO DAILY 05/09/22 [History Last Taken Unknown] meclizine 25 mg capsule 25 mg PO TID PRN PRN Dizziness 05/09/22 [History Last Taken Unknown] sotalol 80 mg tablet 80 mg PO BID 05/09/22 [History Last Taken Unknown] Allergy/AdvReac Type Severity Reaction Status Date / Time cortisone Allergy Shortness Verified 05/09/22 02:24 of breath Penicillins Allergy SYNCOPE Verified 05/09/22 02:24 Family History Sister Arthritis Cancer Depression Diabetes Hypertension Hyperlipidemia Thyroid disorder CVA (cerebral vascular accident) Seizures FH: mental illness Father Diabetes Heart disease Hypertension Hyperlipidemia Surgical History History of appendectomy History of cardiac catheterization History of cystoscopy History of loop recorder Social History Smoking Status: Light Smoker (<10/day) ROS ROS ED Constitutional Constitutional ED: Denies chills or fever(s) Eyes Eyes: Denies change in vision or discharge from eye(s) ENT ENT ED: Denies discharge from eye(s), rhinorrhea or sore throat Cardiovascular Cardiovascular: Reports chest pain; Denies palpitations Respiratory/Chest Respiratory/Chest: Reports cough and dyspnea Gastrointestinal Gastrointestinal: Denies abdominal pain, nausea or vomiting Genitourinary Genitourinary ED: Denies dysuria Musculoskeletal Musculoskeletal: Denies back pain or extremity pain Integumentary Denies Abrasions or rash Neurologic Neurologic: Denies headache(s) or weakness Psychiatric Psychiatric: Denies anxiety or depression Allergic/Immunologic Allergic/Immunologic ED: Denies lip swelling or urticaria EXAM Physical Exam Const Vital Signs: 05/09/22 02:19 05/09/22 02:19 05/09/22 02:36 Temperature 97.8 F Temperature Source Temporal Pulse Rate 82 76 Respiratory Rate 40 H 28 H Respiratory Effort Respiratory Depth Respiratory Pattern Tachypnea Blood Pressure 133/105 H Blood Pressure Mean 114 Pulse Ox 99 Oxygen Delivery Method Room Air 05/09/22 02:36 05/09/22 03:03 Temperature Temperature Source Pulse Rate 71 Respiratory Rate 17 Respiratory Effort Short of Breath Labored Accessory Muscle Use Respiratory Depth Shallow Respiratory Pattern Tachypnea Normal Blood Pressure Blood Pressure Mean Pulse Ox Oxygen Delivery Method Room Air Positive well nourished and well developed General Appearance ED: well developed HEENT Reports normocephalic and head/scalp atraumatic Eyes PERRL and EOMs intact bilaterally Neck supple Chest Wall inspection of chest normal and palpation of chest normal Resp Resp Narrative: Tachypnea. Expiratory wheezes noted in the upper lung key. Very poor air movement in the lower lung key Cardio regular rate and regular rhythm GI non-tender Palpation: soft Extremity normal to inspection Neuro oriented x3 and no sensory deficits noted Sensorium / Orientation: alert Motor Exam: strength 5/5 throughout Psych Mood & Affect: anxious Skin no rashes or lesions noted MDM MDM MDM Narrative Medical decision making narrative: Patient given DuoNeb and 2 albuterol treatments. EKG, chest x-ray, lab work obtained. Lab Data Attestation: I reviewed the patient's lab results. Labs: Laboratory Results - last 24 hr 05/09/22 05/09/22 05/09/22 02:25 02:25 02:25 WBC 11.5 H RBC 4.46 L Hgb 14.1 Hct 42.6 MCV 95.5 H MCH 31.6 MCHC 33.1 RDW Std Deviation 45.5 H RDW Coeff of Vladislav 13.0 Plt Count 270 MPV 10.7 Immature Gran % (Auto) 0.300 Neut % (Auto) 51.4 Lymph % (Auto) 31.0 Craven % (Auto) 9.2 Eos % (Auto) 7.6 H Baso % (Auto) 0.5 Absolute Neuts (auto) 5.9 Absolute Lymphs (auto) 3.56 Nucleated RBC % 0 D-Dimer Quant (PE/DVT) 0.83 H* Sodium 143 Potassium 3.7 Chloride 114 H Carbon Dioxide 21.0 Anion Gap 8 BUN 21 H Creatinine 1.53 H Estim Creat Clear Calc 47.81 Est GFR (MDRD) Af Amer 59 L Est GFR (MDRD) Non-Af 49 L BUN/Creatinine Ratio 13.7 Glucose 97 Calcium 9.0 Troponin I High Sens 7 B-Natriuretic Peptide 05/09/22 02:25 WBC RBC Hgb Hct MCV MCH MCHC RDW Std Deviation RDW Coeff of Vladislav Plt Count MPV Immature Gran % (Auto) Neut % (Auto) Lymph % (Auto) Craven % (Auto) Eos % (Auto) Baso % (Auto) Absolute Neuts (auto) Absolute Lymphs (auto) Nucleated RBC % D-Dimer Quant (PE/DVT) Sodium Potassium Chloride Carbon Dioxide Anion Gap BUN Creatinine Estim Creat Clear Calc Est GFR (MDRD) Af Amer Est GFR (MDRD) Non-Af BUN/Creatinine Ratio Glucose Calcium Troponin I High Sens B-Natriuretic Peptide 18.6 Radiography Chest X-Ray - ED: 1 View, Read by ED Physician, Chronic Changes and No Infiltrates Diagnostic Testing: Clinical Impression(s) from Imaging Studies Chest X-Ray 05/09/22 02:29 IMPRESSION: No acute cardiopulmonary abnormality. Electronically Signed: Rayray Muhammad MD at 3:12 EST , Chest CTA 05/09/22 03:13 IMPRESSION: 1. No pulmonary embolism or dissection. 2. Coronary artery disease. Electronically Signed: Rayray Muhammad MD at 4:22 EST , EKG Initial EKG: Attestation: I personally reviewed and interpreted this EKG as follows: Interpretation: Sinus Rhythm (Sinus at 78 with no acute ischemia.) Treatment and Re-Evaluation Narrative: CBC with mild leukocytosis with a white count 11.5. Normal differential noted. Chemistry studies reveal BUN of 21 and creatinine 1.53. Troponin and BNP are both normal. D-dimer slightly elevated at 0.83. Chest x-ray per my interpretation shows no focal infiltrate. Radiology interpretation is reviewed and agrees. EKG reveals no acute ischemia. On repeat evaluation patient reports significant improvement in his breathing. He has no chest pain. Lung sounds are clear to auscultation. He is sent to CT scan for CTA of the chest. This reveals no evidence of PE or infiltrate. Patient will be given albuterol inhaler here to take with him. Return instructions provided. Discharge Plan Triage Chief Complaint: Shortness of Breath ED Provider: Tish Ascencio Dx/Rx/DC Orders Clinical Impression: COPD exacerbation Instructions: ED COPD Flare Prescriptions: No Action losartan 50 mg tablet 50 mg PO QHS cyanocobalamin (vitamin B-12) 1,000 mcg capsule 1,000 mcg PO DAILY zonisamide 100 mg capsule 200 mg PO BID rosuvastatin 40 mg tablet 40 mg PO DAILY nitroglycerin 0.4 mg tablet, sublingual 0.4 mg sublingual DAILY PRN PRN (Reason: Angina) Label Comments: take 1 tablet by mouth every 5 minutes if needed for chest pain up to 3 doses as directed lamotrigine 100 mg tablet 150 mg PO BID aspirin 81 mg Tablet,Chewable 81 mg PO BREAKFAST Qty: 0 0RF sotalol 80 mg Tablet 80 mg PO BID meclizine 25 mg Capsule 25 mg PO TID PRN PRN (Reason: Dizziness) cholecalciferol (vitamin D3) 100 mcg (4,000 unit) Capsule 100 mcg PO DAILY Primary Care Provider: Cooper Blanchard Referrals: Cooper Blanchard DO [Primary Care Provider] - 1 Week Disposition Disposition: Home, Self Care
[2022-05-09 03:02] LABS: Anion Gap 8 (5-15); BUN 21 mg/dL (7-18); BUN/Creat Ratio 13.7 RATIO (10-20); Chloride 114 mmol/L (98-107); Creatinine, Serum 1.53 mg/dL (0.70-1.30); EST Glomerular Filtration Rate 49 mL/min (>60); Est Glom Filt Rate - Afr Amer 59 mL/min (>60); Estimated Creatinine Clearance 47.81 ml/min; Glucose 97 mg/dL (74-106); Potassium 3.7 mmol/L (3.5-5.1); Sodium Level 143 mmol/L (136-145); Troponin-I HS (w/2H Reflex) 7 pg/mL (3.0-78.0)
[2022-05-09 03:03] VITALS: PULSE 71; RESP 17
[2022-05-09 03:05] LABS: D-Dimer Quantitative (DVT/PE) 0.83 FEU/ug/m (0.27-0.49)
[2022-05-09 03:08] LABS: BNP,B-Type NATRIURETIC PEPTIDE 18.6 pg/mL (0-100)
--- NOTE | 2022-05-09 03:13 | CT_ITS ---
EXAM: CT ANGIOGRAPHY CHEST WITHOUT AND WITH INTRAVENOUS CONTRAST CLINICAL INDICATION: sob, elevated d-dimer TECHNIQUE: Helically acquired angiography images were obtained of the chest without and with intravenous contrast. This CT exam was performed using one or more of the following dose reduction techniques: automated exposure control, adjustment of the mA and/or kV according to patient size, and/or use of iterative reconstruction technique. This report was created using [employer] report generation technology. MIP reconstructed images were created and reviewed. CONTRAST: 100 cc of Isovue-370 IV. RADIATION DOSE: CTDIvol = 12.65 mGy, DLP = 501.94 mGy-cm. COMPARISON: None. FINDINGS: PULMONARY ARTERIES: Unremarkable. Normal in caliber. No evidence of pulmonary embolism. AORTA: Unremarkable. Normal in caliber. No evidence of dissection. GREAT VESSELS OF AORTIC ARCH: Unremarkable. Normal in caliber. No evidence of dissection. LUNGS AND PLEURAL SPACES: Unremarkable. No mass. No consolidation or edema. No pleural effusion or thickening. No pneumothorax. HEART: Coronary artery calcifications. No pericardial effusion. No signs of right heart strain, ratio of right ventricle to left ventricle measures less than 1. MEDIASTINUM: Unremarkable. No mediastinal or hilar adenopathy. Esophagus is unremarkable. No hiatal hernia. THYROID: Unremarkable. No thyroid lesions. BONES/JOINTS: Unremarkable. No suspicious lytic or blastic abnormality. CT/CTA Chest W/WO Contrast IMPRESSION: 1. No pulmonary embolism or dissection. 2. Coronary artery disease. Electronically Signed: Rayray Muhammad MD at 4:22 [facility] ,
[2022-05-09 04:39] LABS: Reflex Troponin-HS? (from REC) Y
[2022-05-09 04:41] VITALS: BP 125/73; PULSE 62; RESP 20; O2SAT 94
[2022-05-09] MEDS: Albuterol Sulfate 8 gm Inhaler (60 puffs) 2 PUFF INHALATION (04:51)
== END 2022-05-09 05:06 | disposition home or self-care (01) ==
PROVIDERS: Emergency Provider Emergency Medicine; PCP Student in an Organized Health Care Education/Training Program; Visit Provider Emergency Medicine
DX: J44.1 Chronic obstructive pulmonary disease with (acute) exacerbation (principal); N18.31 Chronic kidney disease, stage 3a; F17.200 Nicotine dependence, unspecified, uncomplicated; G47.33 Obstructive sleep apnea (adult) (pediatric); E78.00 Pure hypercholesterolemia, unspecified; Z86.718 Personal history of other venous thrombosis and embolism; Z79.82 Long term (current) use of aspirin; Z79.899 Other long term (current) drug therapy; I12.9 Hypertensive chronic kidney disease with stage 1 through stage 4 chronic kidney disease, or unspecified chronic kidney disease
CPT/HCPCS: 71045; 71275; 80048; 83880; 84484; 85025; 85379; 93005; 94640; 99283; Q9967; A4216

== ENCOUNTER 2022-05-30 08:36 | Outpatient (CLI) | payer MEDICAID, SELFPAY ==
--- NOTE | 2022-05-30 08:41 | CDU_ITS ---
Reason For Study: Stenosis Rt. Velocities/BP Lt. Velocities/BP Prox CCA 81.7/17.9 cm/sec. Prox CCA 97.4/26.2 cm/sec. Mid CCA 60.8/16.8 cm/sec. Mid CCA 87.6/26.2 cm/sec. Dist CCA 65.2/20.1 cm/sec. Dist CCA 83.9/23.7 cm/sec. Prox ICA 61.9/21.2 cm/sec. Prox ICA 53.2/16.3 cm/sec. Mid ICA 78.4/32.2 cm/sec. Mid ICA 59.3/23.7 cm/sec. Dist ICA 70.7/26.7 cm/sec. Dist ICA 60.5/26.2 cm/sec. Rt. ICA/CCA = 1.20. Lt. ICA/CCA = 0.69. Prox ECA 67.4/10.2 cm/sec. Prox ECA 63/10.2 cm/sec. Rt. Vert. 39.9/15.7 cm/sec. Lt. Vert. 43.3/16.3 cm/sec. Right Extracranial There is intimal thickening but no significant atherosclerotic plaque noted in the right common carotid artery. There is heterogeneous, irregular atherosclerotic plaque noted in the right internal carotid artery. There is intimal thickening but no significant atherosclerotic plaque noted in the right external carotid artery. Antegrade flow is noted in the right vertebral artery. Left Extracranial There is homogeneous, smooth atherosclerotic plaque noted in the left common carotid artery. There is heterogeneous, irregular atherosclerotic plaque noted in the left internal carotid artery. There is intimal thickening but no significant atherosclerotic plaque noted in the left external carotid artery. Antegrade flow is noted in the left vertebral artery. Procedure Carotid Duplex 53333. This is a Carotid Duplex examination using B-mode, color flow and specral Doppler. Exam performed in department. VL/Carotid Duplex Ultrasound Interpretation Summary Mild (<50%) stenosis right extracranial internal carotid. Mild (<50%) stenosis left extracranial internal carotid. Flow within the vertebral arteries is antegrade bilaterally. Ordering Physician: Avila Weston Referring Physician: Cooper Blanchard Performed By: Lakshmi Porras RVT
--- NOTE | 2022-05-30 08:41 | ADUL_ITS ---
Reason For Study: Atherosclerosis Right Velocities Ext. Iliac Artery, dist = 125.8 cm./sec. Common Femoral Artery, mid = 113.3 cm./sec. Supf Femoral Artery, prox = 136.7 cm./sec. Supf Femoral Artery, mid = 103.7 cm./sec. Supf Femoral Artery, dist. = 103.7 cm./sec. Profunda Femoral Artery = 11 cm./sec. Popliteal Artery, mid = 72.8 cm./sec. Post. Tibial Artery, prox = 12.3 cm./sec. Post. Tibial Artery, mid = 23.3 cm./sec. Post. Tibial Artery, dist = 16.8 cm./sec. Peroneal Artery, prox = 31.4 cm./sec. Peroneal Artery, mid = 27.3 cm./sec. Peroneal Artery,dist = 26.3 cm./sec. Ant. Tibial Artery, prox = 57.8 cm./sec. Ant. Tibial Artery, mid = 43 cm./sec. Ant. Tibial Artery, dist = 62.9 cm./sec. Procedure Exam performed in department. / Art Duplex Unilat Lower Ext Interpretation Summary Right leg no stenosis. Ordering Physician: Avila Weston Referring Physician: Cooper Blanchard Performed By: Lakshmi Porras RVT
--- NOTE | 2022-05-30 08:41 | ART_ITS ---
Reason For Study: Atherosclerosis Procedure A bilateral lower extremity continuous wave Doppler with analog waveform analysis and ankle brachial indexes. Left Segmental Pressures Left brachial= 127mmHg. Left posterior tibial artery = 161mmHg. Left dorsalis pedis artery = 162mmHg. The left dorsalis pedis waveforms are triphasic. The left posterior tibial artery waveforms are triphasic. Right Segmental Pressures Right brachial= 138mmHg. Right posterior tibial artery = 128mmHg. Right dorsalis pedis artery = 142mmHg. The right dorsalis pedis waveforms are biphasic. The right posterior tibial artery waveforms are triphasic. Indices The right ankle brachial index by the dorsalis pedis is 1.03. The right ankle brachial index by the posterior tibial artery is 0.93. The left ankle brachial index by the dorsalis pedis is 1.17. The left ankle brachial index by the posterior tibial artery is 1.17. VL/Ankle Brachial Index Interpretation Summary Bilateral normal at rest with CRUZITO 1.03 and 1.17. Ordering Physician: Avila Weston Referring Physician: Cooper Blanchard Performed By: Lakshmi Porras RVT
== END 2022-05-30 23:59 | disposition home or self-care (01) ==
PROVIDERS: PCP Student in an Organized Health Care Education/Training Program; Referring Provider Surgery Vascular Surgery; Visit Provider Surgery Vascular Surgery
DX: I65.23 Occlusion and stenosis of bilateral carotid arteries (principal); I70.213 Atherosclerosis of native arteries of extremities with intermittent claudication, bilateral legs; I77.1 Stricture of artery; I70.209 Unspecified atherosclerosis of native arteries of extremities, unspecified extremity; F17.200 Nicotine dependence, unspecified, uncomplicated
CPT/HCPCS: 93880; 93922; 93926

== ENCOUNTER 2022-06-23 22:03 | Emergency (ER) | payer MEDICAID, SELFPAY ==
[2022-06-23 22:04] VITALS: BP 126/89; PULSE 83; RESP 15; TEMP 36.3; O2SAT 96; BMI 32.8
--- NOTE | 2022-06-23 22:27 | CT_ITS ---
EXAM: CT HEAD WITHOUT INTRAVENOUS CONTRAST CLINICAL INDICATION: weakness TECHNIQUE: Multiple axial images were obtained of the head without intravenous contrast. This CT exam was performed using one or more of the following dose reduction techniques: automated exposure control, adjustment of the mA and/or kV according to patient size, and/or use of iterative reconstruction technique. This report was created using [employer] report generation technology. COMPARISON: None. FINDINGS: BRAIN AND EXTRA-AXIAL SPACES: Unremarkable. No intra- or extra-axial hemorrhage. No evidence of acute infarct. No intracranial mass or mass effect. There is preservation of the celeste/white matter interface. Posterior fossa structures are unremarkable. Ventricles are appropriate for age. No hydrocephalus. Basal cisterns are patent. BONES/JOINTS: Unremarkable. No discrete lytic or blastic abnormalities. SINUSES: Unremarkable as visualized. Clear. MASTOID AIR CELLS: Unremarkable. Clear. ORBITS: Visualized globes, extraocular muscles, optic nerves and retrobulbar fat appear unremarkable. CT/Brain/Head without Contrast IMPRESSION: Negative head/brain CT without intravenous contrast. Electronically Signed: Edmond Saldaña MD at 23:22 EST ,
--- NOTE | 2022-06-23 22:36 | EX.ED.DYSGE1 ---
HPI History of Present Illness Chief Complaint: General Illness Narrative Narrative: Patient presents after an episode of right-sided tremors, he could not control his right arm and right leg. History is quite difficult to obtain from the patient, but the best I can gather is that he had an episode where he was standing up he felt weak in both his legs then his right arm and right leg started shaking he barely made it to his bed and called the paramedics by the time the paramedics got there he still had some slight shaking but it was improved. I asked him specifically about weakness he tells me he did not have control of his arm and leg but he does not think he was weak in fact his foot Jumping out of the bed despite his best ability to try to stop that. He is back to normal now. He does have a history of seizures, these are partial complex seizures and his episode today is not like his prior seizures. He denies any headache or confusion, no recent fevers or chills. No cough or congestion. [facility] Medical History Acute kidney injury Alcohol use Anxiety Arthritis Cardiology follow-up encounter Carotid artery calcification Chronic anemia Complete edentulism, class III COPD (chronic obstructive pulmonary disease) Costochondritis Difficulty chewing Drug abuse DVT (deep venous thrombosis) Epilepsy Heartburn Hepatitis High cholesterol History of echocardiogram History of edema History of pain when walking History of stress test History of ulceration Hx of tilt table evaluation Hyperglycemia Hypertension Implantable loop recorder present Intermittent claudication Kidney stones Left ventricular hypertrophy Leg cramps Leucocytosis Lightheadedness Marijuana use Mitral valve annular calcification Mucous retention cyst Numbness and tingling ELISABETH (obstructive sleep apnea) Osteoporosis Pleural effusion on left Pulmonary vascular congestion Received intravenous tissue plasminogen activator (tPA) in emergency department Seizure Seizures Shortness of breath on exertion Small vessel disease Smoker SOB (shortness of breath) Stage 3a chronic kidney disease (CKD) Stage III chronic kidney disease Unresponsive episode Vertigo Wears glasses Home Medications losartan 50 mg tablet 50 mg PO QHS blood pressure 09/03/20 [History Last Taken 09/07/21] zonisamide 100 mg capsule 200 mg PO BID 02/20/21 [History Last Taken 09/08/21] rosuvastatin 40 mg tablet 40 mg PO DAILY 07/17/21 [History Last Taken 09/07/21] nitroglycerin 0.4 mg sublingual tablet 0.4 mg sublingual DAILY PRN PRN Angina 09/01/21 [History Last Taken Unknown] cyanocobalamin (vitamin B-12) 1,000 mcg capsule 1,000 mcg PO DAILY 11/02/21 [History Last Taken Unknown] lamotrigine 100 mg tablet 150 mg PO BID seizures 11/25/21 [History Last Taken Unknown] aspirin 81 mg chewable tablet 81 mg PO BREAKFAST #0 tabs 11/26/21 [Rx Last Taken Unknown] cholecalciferol (vitamin D3) 100 mcg (4,000 unit) capsule 100 mcg PO DAILY 05/09/22 [History Last Taken Unknown] meclizine 25 mg capsule 25 mg PO TID PRN PRN Dizziness 05/09/22 [History Last Taken Unknown] sotalol 80 mg tablet 80 mg PO BID 05/09/22 [History Last Taken Unknown] Allergy/AdvReac Type Severity Reaction Status Date / Time cortisone Allergy Shortness Verified 05/09/22 02:24 of breath Penicillins Allergy SYNCOPE Verified 05/09/22 02:24 Family History Sister Arthritis Cancer Depression Diabetes Hypertension Hyperlipidemia Thyroid disorder CVA (cerebral vascular accident) Seizures FH: mental illness Father Diabetes Heart disease Hypertension Hyperlipidemia Surgical History History of appendectomy History of cardiac catheterization History of cystoscopy History of loop recorder Social History Smoking Status: Light Smoker (<10/day) ROS ROS ED ROS Narrative Past medical history: Reviewed, includes tobacco abuse, history of kidney stones, peripheral vascular disease, LVH, history of DVT, seizures. Medications: Reviewed Social history: Noncontributory Review of systems: All systems negative except as indicated General: No fever Eyes: No visual changes ENT: No upper airway congestion, normal voice Neck: No neck pain Cardiovascular: No chest pain Respiratory: No shortness of breath or cough Gastrointestinal: No abdominal pain, nausea vomiting or diarrhea Genitourinary: No dysuria Musculoskeletal: Denies myalgias no difficulty with ambulation Skin: No rash Neurological: As in HPI. Psych: No recent behavioral changes Hematologic: No easy bleeding or easy bruising EXAM Physical Exam Narrative Exam Narrative: Physical exam General: Well nourished, Well developed, No Acute Distress Head: Normocephalic, Atraumatic Eyes: Conjunctiva not pale ENT: Moist mucous membranes Neck: Supple, Nontender, No lymphadenopathy Cardiovascular: Regular rate, Regular rhythm Respiratory: No distress, CTA bilaterally Abdomen: Soft, Nontender, Nondistended Back: Nontender, Normal Inspection. Negative for: CVA tenderness Extremities: Nontender, No edema Skin: Normal color, No rash Neurological: Alert, Normal Strength, Normal Sensation. Normal strength, normal cerebellar exam done by me Psychological: Normal affect Const Vital Signs: 06/23/22 22:04 06/23/22 22:12 Temperature 97.3 F L Temperature Source Temporal Pulse Rate 83 Respiratory Rate 15 Respiratory Effort Normal Non-Labored Respiratory Pattern Normal Blood Pressure 126/89 H Blood Pressure Mean 101 Pulse Ox 96 Oxygen Delivery Method Room Air [facility] MDM Lab Data Labs: Laboratory Results - last 24 hr 06/23/22 06/23/22 22:40 22:40 WBC 9.9 RBC 4.78 Hgb 14.9 Hct 45.9 MCV 96.0 H MCH 31.2 MCHC 32.5 RDW Std Deviation 45.7 H RDW Coeff of Vladislav 12.9 Plt Count 262 MPV 10.3 Immature Gran % (Auto) 0.400 Neut % (Auto) 60.3 Lymph % (Auto) 24.7 [place] % (Auto) 7.2 Eos % (Auto) 6.9 H Baso % (Auto) 0.5 Absolute Neuts (auto) 5.9 Absolute Lymphs (auto) 2.44 Nucleated RBC % 0 Sodium 141 Potassium 3.9 Chloride 112 H Carbon Dioxide 25.0 Anion Gap 4 L BUN 21 H Creatinine 1.46 H Estim Creat Clear Calc 50.10 Est GFR (MDRD) Af Amer 63 Est GFR (MDRD) Non-Af 52 L BUN/Creatinine Ratio 14.4 Glucose 167 H Calcium 9.1 Total Bilirubin 0.20 AST 15 ALT 32 Alkaline Phosphatase 122 H Troponin I High Sens 6 Total Protein 7.2 Albumin 3.8 Globulin 3.4 Albumin/Globulin Ratio 1.1 Radiography Diagnostic Testing: Clinical Impression(s) from Imaging Studies Brain CT 06/23/22 22:27 IMPRESSION: Negative head/brain CT without intravenous contrast. Electronically Signed: Edmond Saldaña MD at 23:22 EST , Chest X-Ray 06/23/22 22:50 IMPRESSION: No radiographic evidence of acute cardiopulmonary disease. Electronically Signed: Sascha Estrada DO at 23:17 EST , Chest x-ray read by me and radiologist is normal EKG Initial EKG: Comments: Sinus rhythm with a rate of 76. Normal [place] and QTc intervals. Nonspecific ST changes, otherwise unremarkable EKG Interpreted by emergency Dr. Treatment and Re-Evaluation Narrative: Patient's work-up is unremarkable. He is presenting with what I think is a partial complex seizure, I talked to both the patient's sister who knows him well this is their thought also. He never had weakness or paresthesias or any other reasons for me to be suspicious of a stroke. Family is comfortable taking him home, he lives with one of his sisters. This seems reasonable. Discharge Plan Triage Chief Complaint: General Illness ED Provider: Sulaiman Foy Dx/Rx/DC Orders Clinical Impression: Epilepsy, Episode of shaking Instructions: Self-Care for Epilepsy Prescriptions: No Action losartan 50 mg tablet 50 mg PO QHS cyanocobalamin (vitamin B-12) 1,000 mcg capsule 1,000 mcg PO DAILY zonisamide 100 mg capsule 200 mg PO BID rosuvastatin 40 mg tablet 40 mg PO DAILY nitroglycerin 0.4 mg tablet, sublingual 0.4 mg sublingual DAILY PRN PRN (Reason: Angina) Label Comments: take 1 tablet by mouth every 5 minutes if needed for chest pain up to 3 doses as directed lamotrigine 100 mg tablet 150 mg PO BID aspirin 81 mg Tablet,Chewable 81 mg PO BREAKFAST Qty: 0 0RF sotalol 80 mg Tablet 80 mg PO BID meclizine 25 mg Capsule 25 mg PO TID PRN PRN (Reason: Dizziness) cholecalciferol (vitamin D3) 100 mcg (4,000 unit) Capsule 100 mcg PO DAILY Primary Care Provider: Cooper Blanchard Referrals: Cooper Blanchard DO [Primary Care Provider] - 3-5 Days Disposition Disposition: Home, Self Care
--- NOTE | 2022-06-23 22:50 | RAD_ITS ---
INDICATION: cough EXAMINATION/TECHNIQUE: X-RAY - XR Chest 1 View COMPARISON: 05/09/2022 FINDINGS: LINES/DEVICES: None. LUNGS: No consolidation, edema or effusion. No pneumothorax. MEDIASTINUM AND CARDIOVASCULAR STRUCTURES: Cardiac silhouette not enlarged. Central airways and mediastinal contour are unremarkable. BONES AND SOFT TISSUES: Unremarkable. RAD/Chest 1 View (Portable) IMPRESSION: No radiographic evidence of acute cardiopulmonary disease. Electronically Signed: Sascha Estrada DO at 23:17 EST ,
[2022-06-23 22:51] LABS: Absolute Lymphocyte Count 2.44 X10^3/uL (0.83-4.51); Absolute Neutrophil Count 5.9 X10^3/uL (2.0-7.7); Basophil# 0.05 X10^3/uL; Basophil% 0.5 % (0-1); Eosinophil# 0.68 X10^3/uL; Eosinophils% 6.9 % (0-5); Hematocrit 45.9 % (40-54); Hemoglobin 14.9 g/dL (13.0-16.5); Lymphocyte # 2.44 X10^3/ul (0.83-4.51); Lymphocyte % 24.7 % (19-41); Mean Corp Hgb Conc 32.5 g/dL (32-36); Mean Corpuscular Hgb 31.2 pg (27.0-32.0); Mean Platelet Vol. 10.3 fl (6.2-12.0); Monocyte# 0.71 X10^3/uL; Monocyte% 7.2 % (0-10); NRBC Flagged by Analyzer 0 % (0-5); Neutrophil # 5.94 X10^3/uL (2.7-7.7); Neutrophil % 60.3 % (47-70); Platelet Count 262 K/mm3 (150-450); RBC Distribution Width CV 12.9 % (11.6-14.6); RBC Distribution Width SD 45.7 fl (35.1-43.9); Red Blood Count 4.78 M/mm3 (4.6-6.2); White Blood Count 9.9 K/mm3 (4.4-11.0)
[2022-06-23 23:08] LABS: ALB/GLOB Ratio 1.1 RATIO (0.9-2.4); AST(SGOT) 15 U/L (15-37); Alanine Aminotransfer ALT/SGPT 32 U/L (16-61); Albumin, Serum 3.8 g/dL (3.2-5.0); Alkaline Phosphatase 122 U/L (45-117); Anion Gap 4 (5-15); BUN 21 mg/dL (7-18); BUN/Creat Ratio 14.4 RATIO (10-20); Calcium,Total 9.1 mg/dL (8.5-10.1); Chloride 112 mmol/L (98-107); Creatinine, Serum 1.46 mg/dL (0.70-1.30); EST Glomerular Filtration Rate 52 mL/min (>60); Est Glom Filt Rate - Afr Amer 63 mL/min (>60); Globulin 3.4 g/dL (2.2-4.2); Glucose 167 mg/dL (74-106); Potassium 3.9 mmol/L (3.5-5.1); Protein, Total 7.2 g/dL (6.4-8.2); Sodium Level 141 mmol/L (136-145); Troponin-I HS 6 pg/mL (3.0-78.0)
[2022-06-23 23:59] VITALS: BP 118/88; PULSE 78; RESP 19; O2SAT 96
== END 2022-06-24 00:08 | disposition home or self-care (01) ==
PROVIDERS: Emergency Provider Emergency Medicine; PCP Student in an Organized Health Care Education/Training Program; Visit Provider Emergency Medicine
DX: G40.909 Epilepsy, unspecified, not intractable, without status epilepticus (principal); F17.200 Nicotine dependence, unspecified, uncomplicated; G47.33 Obstructive sleep apnea (adult) (pediatric); Z86.718 Personal history of other venous thrombosis and embolism
CPT/HCPCS: 70450; 71045; 80053; 84484; 85025; 87428; 93005; 99283; A4216

== ENCOUNTER 2022-08-06 22:22 | Emergency (ER) | payer MEDICAID, SELFPAY ==
[2022-08-06 22:22] VITALS: BP 168/102; PULSE 69; RESP 16; TEMP 36.6; O2SAT 99; BMI 33.4
[2022-08-06 22:24] VITALS: BP 168/102; PULSE 68; RESP 18; TEMP 36.6; O2SAT 92
--- NOTE | 2022-08-06 22:48 | CT_ITS ---
STUDY: CT ABDOMEN AND PELVIS WITHOUT CONTRAST REASON FOR EXAM: Male, 61 years old. Left flank pain. TECHNIQUE: Transaxial images were obtained from the dome of the diaphragm to the symphysis pubis without oral contrast, and without intravenous contrast. Sagittal and coronal images were reconstructed. Individualized dose optimization techniques were used for this CT. COMPARISON: 08/31/2021 CT abdomen pelvis. FINDINGS: Partially visualized lower chest: Lung bases unremarkable. Liver: Heterogenous steatosis. No focal mass. Similar to prior. Gallbladder and biliary tree: Small calcified gallstones in the gallbladder. No adjacent inflammation. No biliary ductal dilation. Pancreas: No pancreatic lesions or inflammation. Spleen: Normal size, no splenic lesions. Adrenal glands: Small right adrenal adenoma unchanged. Left adrenal gland unremarkable. Kidneys and ureters: 6 mm proximal left ureteral stone with mild more proximal hydronephrosis and hydroureter. More distal left ureter unremarkable. Proximally 6 residual stones in the left kidney, largest 6 mm in a midpole calyx. No right hydronephrosis or right ureteral stones. Several, about 8, nonobstructing right renal stones, largest 4 mm in the upper pole. Bowel: Appendix not identified. No evidence of appendicitis. No obstruction or inflammation of the bowel. Left colonic diverticulosis, no diverticulitis. Urinary bladder: Nondistended. No stones or acute abnormality. Reproductive:Normal size prostate. Vascular: No abdominal aortic aneurysm. Retroperitoneal and peritoneal spaces: No ascites or free air. No retroperitoneal lesions. Osseous: No acute osseous abnormality. Mild left scoliosis centered at L3. Prominent disc degeneration L5-S1. Abdominal and pelvic wall: No concerning findings. Any findings described in the findings sections and not included in the impression are incidental and do not require imaging follow-up. CT/Abdomen/Pelvis without Cont IMPRESSION: 6 mm proximal left ureteral stone with mild obstruction. No other acute finding. Chronic findings include: -Numerous residual bilateral renal stones. -Hepatic steatosis. -Cholelithiasis. -Small right adrenal adenoma. Electronically Signed: Zohaib Black MD at 23:42 EST Reading Location ID and State: [facility] ID Tel , Service support ,
[2022-08-06 23:02] LABS: Mucous, Urine 0 SEEN /hpf (<or=2+); Squamous Epithelial Cells - UA 0 SEEN /hpf (0-5)
[2022-08-06 23:03] LABS: Color, Urine Yellow (Yellow); Glucose, Dipstick Normal (Normal); Ketone-Dipstick Negative (Negative); Leukocyte Esterase-Dipstick 25 /ul (Negative); Nitrite-Dipstick Negative (Negative); Occult Blood-Urine 150 /ul (Negative); Protein-Dipstick 30 mg/dl (Negative); Urine Bilirubin Dipstick Negative (Negative); Urine Clarity Clear (Clear); Urine Urobilinogen 1 mg/dl (Normal)
[2022-08-06 23:04] LABS: Absolute Lymphocyte Count 2.12 X10^3/uL (0.83-4.51); Absolute Neutrophil Count 6.6 X10^3/uL (2.0-7.7); Basophil# 0.07 X10^3/uL; Basophil% 0.7 % (0-1); Eosinophil# 0.55 X10^3/uL; Eosinophils% 5.3 % (0-5); Hematocrit 45.5 % (40-54); Hemoglobin 14.7 g/dL (13.0-16.5); Lymphocyte # 2.12 X10^3/ul (0.83-4.51); Lymphocyte % 20.6 % (19-41); Mean Corp Hgb Conc 32.3 g/dL (32-36); Mean Corpuscular Hgb 31.2 pg (27.0-32.0); Mean Corpuscular Volume 96.6 fL (80-94); Mean Platelet Vol. 10.9 fl (6.2-12.0); Monocyte% 7.8 % (0-10); NRBC Flagged by Analyzer 0 % (0-5); Neutrophil # 6.58 X10^3/uL (2.7-7.7); Neutrophil % 63.8 % (47-70); Platelet Count 242 K/mm3 (150-450); RBC Distribution Width CV 12.8 % (11.6-14.6); RBC Distribution Width SD 45.8 fl (35.1-43.9); Red Blood Count 4.71 M/mm3 (4.6-6.2); White Blood Count 10.3 K/mm3 (4.4-11.0)
[2022-08-06] MEDS: Morphine 4 MG/ML Syringe IV (23:06)
[2022-08-06] MEDS: Ondansetron 4 MG/2 ML Vial IV (23:06)
[2022-08-06 23:14] LABS: Anion Gap 7 (5-15); BUN 26 mg/dL (7-18); BUN/Creat Ratio 13.3 RATIO (10-20); Calcium,Total 9.3 mg/dL (8.5-10.1); Chloride 112 mmol/L (98-107); Creatinine, Serum 1.95 mg/dL (0.70-1.30); EST Glomerular Filtration Rate 37 mL/min (>60); Est Glom Filt Rate - Afr Amer 45 mL/min (>60); Estimated Creatinine Clearance 37.51 ml/min; Glucose 131 mg/dL (74-106); Potassium 4.1 mmol/L (3.5-5.1); Sodium Level 144 mmol/L (136-145)
[2022-08-06 23:14] LABS: Red Blood Cells-Urine 10-25 SEEN /hpf (0-5); White Blood Cells 0-5 SEEN /hpf (0-5)
[2022-08-06 23:15] LABS: Bacteria RARE /hpf (None Seen)
[2022-08-07] MEDS: Ketorolac 15 MG/ML Vial IV (00:25)
--- NOTE | 2022-08-07 01:40 | EX.ED.DYSGE1 ---
HPI History of Present Illness Chief Complaint: Flank Pain Narrative Narrative: Patient is a 61-year-old male with past medical history of hypertension epilepsy and previous kidney stones. He states roughly watching TV when he developed left-sided sharp flank pain. He states there was no trauma and he denies any excessive activity prior to the pain beginning. He states the pain is not worsened by any type of motion or position change. He states that this feels similar nature to his previous kidney stones and with concern for this he presents for evaluation [facility] Medical History Acute kidney injury Alcohol use Anxiety Arthritis Cardiology follow-up encounter Carotid artery calcification Chronic anemia Complete edentulism, class III COPD (chronic obstructive pulmonary disease) Costochondritis Difficulty chewing Drug abuse DVT (deep venous thrombosis) Epilepsy Heartburn Hepatitis High cholesterol History of echocardiogram History of edema History of pain when walking History of stress test History of ulceration Hx of tilt table evaluation Hyperglycemia Hypertension Implantable loop recorder present Intermittent claudication Kidney stones Left ventricular hypertrophy Leg cramps Leucocytosis Lightheadedness Marijuana use Mitral valve annular calcification Mucous retention cyst Numbness and tingling ELISABETH (obstructive sleep apnea) Osteoporosis Pleural effusion on left Pulmonary vascular congestion Received intravenous tissue plasminogen activator (tPA) in emergency department Seizure Seizures Shortness of breath on exertion Small vessel disease Smoker SOB (shortness of breath) Stage 3a chronic kidney disease (CKD) Stage III chronic kidney disease Unresponsive episode Vertigo Wears glasses Home Medications losartan 50 mg tablet 50 mg PO QHS blood pressure 09/03/20 [History Last Taken 09/07/21] zonisamide 100 mg capsule 200 mg PO BID 02/20/21 [History Last Taken 09/08/21] rosuvastatin 40 mg tablet 40 mg PO DAILY 07/17/21 [History Last Taken 09/07/21] nitroglycerin 0.4 mg sublingual tablet 0.4 mg sublingual DAILY PRN PRN Angina 09/01/21 [History Last Taken Unknown] cyanocobalamin (vitamin B-12) 1,000 mcg capsule 1,000 mcg PO DAILY 11/02/21 [History Last Taken Unknown] lamotrigine 100 mg tablet 150 mg PO BID seizures 11/25/21 [History Last Taken Unknown] aspirin 81 mg chewable tablet 81 mg PO BREAKFAST #0 tabs 11/26/21 [Rx Last Taken Unknown] cholecalciferol (vitamin D3) 100 mcg (4,000 unit) capsule 100 mcg PO DAILY 05/09/22 [History Last Taken Unknown] meclizine 25 mg capsule 25 mg PO TID PRN PRN Dizziness 05/09/22 [History Last Taken Unknown] sotalol 80 mg tablet 80 mg PO BID 05/09/22 [History Last Taken Unknown] oxycodone-acetaminophen 5 mg-325 mg tablet (Percocet) 1 tab PO Q6H PRN pain 3 days #12 tabs 08/07/22 [Rx Last Taken Unknown] tamsulosin 0.4 mg capsule (Flomax) 0.4 mg PO DAILY #14 caps 08/07/22 [Rx Last Taken Unknown] Allergy/AdvReac Type Severity Reaction Status Date / Time cortisone Allergy Shortness Verified 08/06/22 22:24 of breath Penicillins Allergy SYNCOPE Verified 08/06/22 22:24 Family History Sister Arthritis Cancer Depression Diabetes Hypertension Hyperlipidemia Thyroid disorder CVA (cerebral vascular accident) Seizures FH: mental illness Father Diabetes Heart disease Hypertension Hyperlipidemia Surgical History History of appendectomy History of cardiac catheterization History of cystoscopy History of loop recorder Social History Smoking Status: Light Smoker (<10/day) ROS ROS ED Constitutional Constitutional ED: Denies chills or fever(s) ENT ENT ED: Denies sore throat Cardiovascular Cardiovascular: Denies chest pain Respiratory/Chest Respiratory/Chest: Denies cough or dyspnea Gastrointestinal Gastrointestinal: Reports abdominal pain and nausea; Denies diarrhea or vomiting Genitourinary Genitourinary ED: Denies dysuria or hematuria Musculoskeletal Musculoskeletal: Reports back pain; Denies myalgias Integumentary Denies rash Neurologic Neurologic: Denies headache(s) Hematologic/Lymphatic Hematologic/Lymphatic: Denies easy bleeding or easy bruising EXAM Physical Exam Const Vital Signs: 08/06/22 22:22 08/06/22 22:24 08/07/22 02:06 Temperature 98 F 98 F Temperature Source Temporal Temporal Pulse Rate 69 68 84 Respiratory Rate 16 18 20 H Blood Pressure 168/102 H 168/102 H 154/89 H Blood Pressure Mean 124 124 Pulse Ox 99 92 96 Oxygen Delivery Method Room Air Room Air Positive well nourished and well developed General Appearance ED: well developed HEENT Reports moist mucous membranes Eyes PERRL and EOMs intact bilaterally Neck supple Resp normal respiratory effort and clear to auscultation bilaterally Cardio regular rate and regular rhythm Rate: other Other Details: Radial pulses are plus 2 out of 4 bilaterally are equal and symmetric Carotid pulses are equal and symmetric as well GI non-distended GI Narrative: There is mild pain on palpation along the left upper abdomen without voluntary guarding or rigidity. No pulsatile mass or fluid wave Auscultation: normoactive bowel sounds Palpation: soft Back/Spine Back/Spine Narrative: Positive left CVA pain Extremity normal to inspection Neuro oriented x3 and CN's II-XII intact bilaterally Sensorium / Orientation: alert Psych mental status grossly normal Skin no rashes or lesions noted Skin Narrative: No overlying soft tissue changes to suggest trauma or infection MDM MDM MDM Narrative Medical decision making narrative: Patient presented to the ER hypertensive but has a history of this and is in pain so this is a normal physiologic response. His history and exam is most consistent with acute kidney stones and secondary to his basic blood work with urine sample and CT were obtained. Labs show that his kidney function is mildly elevated at 1.95 and chart review reveals baseline is approximately 1.5. Therefore this mild elevation is not enough to be considered acute kidney injury. Urine sample showed blood consistent with stone but no secondary changes to suggest infection. The noncontrast CAT scan did show a large 6 mm proximal ureteral stone with mild obstruction consistent with his history and exam. After he was medicated with morphine and 15 mg of Toradol he reported his pain was down to a 3. We discussed that this is a large stone and that with his mild renal insufficiency he would most likely benefit from urology consultation with need for stent or lithotripsy. Patient states that he would prefer to do this on an outpatient basis as his pain is now improved. Therefore at this time as blood work does not show any signs of a urinary tract infection or pyelonephritis or acute kidney failure or severe electrolyte derangement and he is expressed improvement of pain and desire to treat as an outpatient basis patient will be discharged. As his urine does not show infection do not feel there is need for antibiotics but he will be given Percocet for pain control as well as Flomax secondary to the large stone and will follow-up with urology on an outpatient basis. Lab Data Attestation: I reviewed the patient's lab results. Labs: Laboratory Results - last 24 hr 08/06/22 08/06/22 08/06/22 22:53 22:53 22:56 WBC 10.3 RBC 4.71 Hgb 14.7 Hct 45.5 MCV 96.6 H MCH 31.2 MCHC 32.3 RDW Std Deviation 45.8 H RDW Coeff of Vladislav 12.8 Plt Count 242 MPV 10.9 Immature Gran % (Auto) 1.800 H Neut % (Auto) 63.8 Lymph % (Auto) 20.6 [place] % (Auto) 7.8 Eos % (Auto) 5.3 H Baso % (Auto) 0.7 Absolute Neuts (auto) 6.6 Absolute Lymphs (auto) 2.12 Nucleated RBC % 0 Sodium 144 Potassium 4.1 Chloride 112 H Carbon Dioxide 25.0 Anion Gap 7 BUN 26 H Creatinine 1.95 H Estim Creat Clear Calc 37.51 Est GFR (MDRD) Af Amer 45 L Est GFR (MDRD) Non-Af 37 L BUN/Creatinine Ratio 13.3 Glucose 131 H Calcium 9.3 Urine Color Yellow Urine Clarity Clear Urine pH 7.0 Ur Specific [place] 1.010 Urine Protein 30 H Urine Glucose (UA) Normal Urine Ketones Negative Urine Occult Blood 150 H Urine Nitrite Negative Urine Bilirubin Negative Urine Urobilinogen 1 H Ur Leukocyte Esterase 25 H Urine RBC 10-25 SEEN Urine WBC 0-5 SEEN Ur Squamous Epith Cells 0 SEEN Urine Bacteria RARE Urine Mucus 0 SEEN Radiography Diagnostic Testing: Clinical Impression(s) from Imaging Studies Abdomen/Pelvis CT 08/06/22 22:48 IMPRESSION: 6 mm proximal left ureteral stone with mild obstruction. No other acute finding. Chronic findings include: -Numerous residual bilateral renal stones. -Hepatic steatosis. -Cholelithiasis. -Small right adrenal adenoma. Electronically Signed: Zohaib Black MD at 23:42 EST Reading Location ID and State: [facility] [place] Tel , Service support , Discharge Plan Triage Chief Complaint: Flank Pain ED Provider: Santos Cevallos Dx/Rx/DC Orders Clinical Impression: Kidney stone on left side, Renal colic, Acute renal insufficiency Prescriptions: New oxycodone-acetaminophen [Percocet] 5-325 mg tablet 1 tab PO Q6H PRN (Reason: pain) 3 Days Qty: 12 0RF tamsulosin [Flomax] 0.4 mg capsule 0.4 mg PO DAILY Qty: 14 0RF No Action losartan 50 mg tablet 50 mg PO QHS cyanocobalamin (vitamin B-12) 1,000 mcg capsule 1,000 mcg PO DAILY zonisamide 100 mg capsule 200 mg PO BID rosuvastatin 40 mg tablet 40 mg PO DAILY nitroglycerin 0.4 mg tablet, sublingual 0.4 mg sublingual DAILY PRN PRN (Reason: Angina) Label Comments: take 1 tablet by mouth every 5 minutes if needed for chest pain up to 3 doses as directed lamotrigine 100 mg tablet 150 mg PO BID aspirin 81 mg Tablet,Chewable 81 mg PO BREAKFAST Qty: 0 0RF sotalol 80 mg Tablet 80 mg PO BID meclizine 25 mg Capsule 25 mg PO TID PRN PRN (Reason: Dizziness) cholecalciferol (vitamin D3) 100 mcg (4,000 unit) Capsule 100 mcg PO DAILY Primary Care Provider: Cooper Blanchard Referrals: Shashi Romano MD [Med Staff - Active Staff] - Cooper Blanchard DO [Primary Care Provider] - Activity Restrictions/Additional Instructions: Please follow-up with urology regarding your kidney stone as I feel you may need a stent or lithotripsy in order to resolve it. Please keep yourself well-hydrated and take your medication as directed to control your symptoms. If you develop a fever over 100.4 or your pain is not controlled with outpatient treatment please return to the ER for repeat evaluation Disposition Disposition: Home, Self Care Discharge Date/Time: 08/07/22 02:29
[2022-08-07] MEDS: oxyCODONE 5 MG Tablet 10 MG PO (01:55)
[2022-08-07 02:06] VITALS: BP 154/89; PULSE 84; RESP 20; O2SAT 96
--- NOTE | 2022-08-07 02:34 | EKG12_ITS ---
Test Reason : flank pain Blood Pressure : / mmHG Vent. Rate : 069 BPM Atrial Rate : 069 BPM P-R Int : 180 ms QRS Dur : 082 ms QT Int : 408 ms P-R-T Axes : 035 -13 040 degrees QTc Int : 437 ms Normal sinus rhythm Inferior infarct , age undetermined Anteroseptal infarct , age undetermined Abnormal ECG Confirmed by WARREN LOPEZ, ROCK ([id number]), video effects editor KATHIE AMADOR ([id number]) on 08/08/2022 1:20:02 PM Referred By: Cristino Confirmed By:ROCK KELLEY MD
== END 2022-08-07 02:29 | disposition home or self-care (01) ==
PROVIDERS: Emergency Provider Emergency Medicine; PCP Student in an Organized Health Care Education/Training Program; Visit Provider Emergency Medicine
DX: N20.0 Calculus of kidney (principal); N18.31 Chronic kidney disease, stage 3a; F17.200 Nicotine dependence, unspecified, uncomplicated; G47.33 Obstructive sleep apnea (adult) (pediatric); Z86.718 Personal history of other venous thrombosis and embolism
CPT/HCPCS: 74176; 80048; 81001; 85025; 93005; 96374; 96375; 99284; J7030; A4216; J2405

== ENCOUNTER 2022-08-21 06:23 | Emergency (ER) | payer MEDICAID, SELFPAY ==
[2022-08-21 06:25] VITALS: BP 132/86; PULSE 67; RESP 19; TEMP 36.8; O2SAT 98; BMI 32.5
--- NOTE | 2022-08-21 06:45 | EKG12_ITS ---
Test Reason : CP Blood Pressure : / mmHG Vent. Rate : 068 BPM Atrial Rate : 068 BPM P-R Int : 168 ms QRS Dur : 084 ms QT Int : 392 ms P-R-T Axes : 028 -11 038 degrees QTc Int : 416 ms Normal sinus rhythm Inferior infarct , age undetermined Abnormal ECG Confirmed by WARREN LOPEZ, ROCK ([id number]), assistant film editor KATHIE AMADOR ([id number]) on 08/22/2022 1:35:14 PM Referred By: JOHN Confirmed By:ROCK KELLEY MD
--- NOTE | 2022-08-21 06:50 | RAD_ITS ---
STUDY: X-RAY CHEST REASON FOR EXAM: Male, 61 years old. Chest pain TECHNIQUE: Single AP portable view of the chest. COMPARISON: June 23, 2022 chest x-ray FINDINGS: There is a stable appearance of the lungs. There is elevation of the right hemidiaphragm. There is an external indwelling retail zone specialist device overlying the left chest. There is no demonstrated pleural abnormality. Normal size heart. Normal mediastinum and susi. Normal visualized pulmonary arteries. Normal visualized aortic arch and descending thoracic aorta. There are diffuse degenerative changes of the visualized thoracic spine. Normal visualized ribs, clavicles, and shoulders. There is no demonstrated abnormality of the visualized soft tissue structures of the upper abdomen. RAD/Chest 1 View (Portable) IMPRESSION: No demonstrated acute cardiopulmonary process. Electronically Signed: Keri Lewis MD at 7:08 EST ,
[2022-08-21 07:05] LABS: Absolute Lymphocyte Count 3.97 X10^3/uL (0.83-4.51); Absolute Neutrophil Count 5.8 X10^3/uL (2.0-7.7); Basophil# 0.06 X10^3/uL; Basophil% 0.5 % (0-1); Eosinophil# 0.61 X10^3/uL; Eosinophils% 5.4 % (0-5); Hemoglobin 14.1 g/dL (13.0-16.5); Lymphocyte # 3.97 X10^3/ul (0.83-4.51); Lymphocyte % 35.2 % (19-41); Mean Corp Hgb Conc 32.8 g/dL (32-36); Mean Corpuscular Hgb 31.3 pg (27.0-32.0); Mean Corpuscular Volume 95.6 fL (80-94); Mean Platelet Vol. 10.5 fl (6.2-12.0); Monocyte# 0.81 X10^3/uL; Monocyte% 7.2 % (0-10); NRBC Flagged by Analyzer 0 % (0-5); Neutrophil # 5.79 X10^3/uL (2.7-7.7); Neutrophil % 51.3 % (47-70); Platelet Count 261 K/mm3 (150-450); RBC Distribution Width CV 12.6 % (11.6-14.6); RBC Distribution Width SD 44.1 fl (35.1-43.9); White Blood Count 11.3 K/mm3 (4.4-11.0)
--- NOTE | 2022-08-21 07:08 | ED.VIS.CHEST ---
HPI History of Present Illness Chief Complaint: Chest Pain Detail of Chief Complaint: Chest pain Informant: patient Onset/Context/Timing Onset: Today Activity at onset: sudden Narrative Narrative: Patient presents with sudden onset of chest pain that started around 6 AM. Patient states that there was a sudden explosion or snap in chest. Patient states he has had similar symptoms like this multiple times in the past. Patient states typically symptoms resolve when he comes to the hospital or gets admitted. He denies recent travel or surgery. Does have prior history of DVT. Patient currently not anticoagulated. Patient states that currently his pain is significantly improved and rates it about a 2 or 3 out of 10. He did not take aspirin yet today. He denies recent travel or surgery. He denies recent illness. Patient did feel somewhat short of breath with the discomfort but there was no real radiation of the discomfort other than the center of his chest. Prior Similar Symptoms: Yes PFSH PFSH Medical History Acute kidney injury Alcohol use Anxiety Arthritis Cardiology follow-up encounter Carotid artery calcification Chronic anemia Complete edentulism, class III COPD (chronic obstructive pulmonary disease) Costochondritis Difficulty chewing Drug abuse DVT (deep venous thrombosis) Epilepsy Heartburn Hepatitis High cholesterol History of echocardiogram History of edema History of pain when walking History of stress test History of ulceration Hx of tilt table evaluation Hyperglycemia Hypertension Implantable loop recorder present Intermittent claudication Kidney stones Left ventricular hypertrophy Leg cramps Leucocytosis Lightheadedness Marijuana use Mitral valve annular calcification Mucous retention cyst Numbness and tingling ELISABETH (obstructive sleep apnea) Osteoporosis Pleural effusion on left Pulmonary vascular congestion Received intravenous tissue plasminogen activator (tPA) in emergency department Seizure Seizures Shortness of breath on exertion Small vessel disease Smoker SOB (shortness of breath) Stage 3a chronic kidney disease (CKD) Stage III chronic kidney disease Unresponsive episode Vertigo Wears glasses Home Medications losartan 50 mg tablet 50 mg PO QHS blood pressure 09/03/20 [History Last Taken 09/07/21] zonisamide 100 mg capsule 200 mg PO BID 02/20/21 [History Last Taken 09/08/21] rosuvastatin 40 mg tablet 40 mg PO DAILY 07/17/21 [History Last Taken 09/07/21] nitroglycerin 0.4 mg sublingual tablet 0.4 mg sublingual DAILY PRN PRN Angina 09/01/21 [History Last Taken Unknown] cyanocobalamin (vitamin B-12) 1,000 mcg capsule 1,000 mcg PO DAILY 11/02/21 [History Last Taken Unknown] lamotrigine 100 mg tablet 150 mg PO BID seizures 11/25/21 [History Last Taken Unknown] aspirin 81 mg chewable tablet 81 mg PO BREAKFAST #0 tabs 11/26/21 [Rx Last Taken Unknown] cholecalciferol (vitamin D3) 100 mcg (4,000 unit) capsule 100 mcg PO DAILY 05/09/22 [History Last Taken Unknown] meclizine 25 mg capsule 25 mg PO TID PRN PRN Dizziness 05/09/22 [History Last Taken Unknown] sotalol 80 mg tablet 80 mg PO BID 05/09/22 [History Last Taken Unknown] oxycodone-acetaminophen 5 mg-325 mg tablet (Percocet) 1 tab PO Q6H PRN pain 3 days #12 tabs 08/07/22 [Rx Last Taken Unknown] tamsulosin 0.4 mg capsule (Flomax) 0.4 mg PO DAILY #14 caps 08/07/22 [Rx Last Taken Unknown] apixaban 5 mg tablet (Eliquis) 5 mg PO BID #74 tabs 08/21/22 [Rx Last Taken Unknown] Allergy/AdvReac Type Severity Reaction Status Date / Time cortisone Allergy Shortness Verified 08/06/22 22:24 of breath Penicillins Allergy SYNCOPE Verified 08/06/22 22:24 Family History Sister Arthritis Cancer Depression Diabetes Hypertension Hyperlipidemia Thyroid disorder CVA (cerebral vascular accident) Seizures FH: mental illness Father Diabetes Heart disease Hypertension Hyperlipidemia Surgical History History of appendectomy History of cardiac catheterization History of cystoscopy History of loop recorder Social History Smoking Status: Light Smoker (<10/day) ROS ROS ED Review of Systems ROS Unobtainable: other Constitutional Constitutional ED: Reports lethargy; Denies chills, fever(s), sweats or weight loss Eyes Eyes: Denies blurry vision, change in vision or diplopia ENT ENT ED: Denies rhinorrhea or sore throat Cardiovascular Cardiovascular: Reports chest pain; Denies orthopnea or racing heartbeat Respiratory/Chest Respiratory/Chest: Reports dyspnea; Denies cough, dyspnea on exertion, orthopnea or sputum Gastrointestinal Gastrointestinal: Denies abdominal pain, diarrhea, nausea or vomiting Genitourinary Genitourinary ED: Denies dysuria, hematuria or urinary frequency Musculoskeletal Musculoskeletal: Denies arthralgias, back pain, myalgias or neck pain Integumentary Denies abscess, Abrasions or rash Neurologic Neurologic: Denies headache(s) or weakness Psychiatric Psychiatric: Denies anxiety, depression or suicidal thoughts Endocrine Endocrinology: Denies polydipsia, polyphagia or polyuria Hematologic/Lymphatic Hematologic/Lymphatic: Denies easy bleeding, easy bruising or lymphadenopathy Allergic/Immunologic Allergic/Immunologic ED: Denies mouth swelling, tongue swelling or urticaria EXAM Physical Exam Const Vital Signs: 08/21/22 06:25 08/21/22 06:31 08/21/22 07:29 Temperature 98.3 F Temperature Source Oral Pulse Rate 67 71 Respiratory Rate 19 H 20 H Respiratory Effort Normal Blood Pressure 132/86 H 115/86 H Blood Pressure Mean 101 95 Pulse Ox 98 94 Oxygen Delivery Method Room Air Room Air Positive well nourished and well developed General Appearance ED: well developed and NAD HEENT Reports TM's clear and moist mucous membranes normocephalic and atraumatic; Negative for trauma or tenderness Tympanic Membrane ED: Yes TM's clear Eyes PERRL and EOMs intact bilaterally General Eye ED: Negative for pale conjunctiva or scleral icterus Neck no lymphadenopathy, supple and no JVD General: Negative for tenderness Chest Wall inspection of chest normal and palpation of chest normal Chest: Negative for tenderness Resp normal respiratory effort and clear to auscultation bilaterally Effort and Inspection: Negative for respiratory distress or pain with movement Auscultation: Negative for rhonchi, wheezes or diminished lung sounds Cardio regular rate, regular rhythm, S1 normal heart sound, S2 normal heart sound and no murmurs Peripheral Pulses: pulses 2+ throughout GI normal to inspection, nondistended, normoactive bowel sounds, soft to palpation, non-tender, non-distended and no masses Back/Spine no CVA tenderness and no thoracic nor lumbar tenderness Extremity normal to inspection General Extremety ED: Negative for edema General Extremity: Negative for edema Neuro oriented x3, CN's II-XII intact bilaterally, no sensory deficits noted and gait normal Sensorium / Orientation: awake, alert, oriented to person, oriented to place and oriented to time Motor Exam: strength 5/5 throughout and strength abnormal Psych mental status grossly normal Skin no rashes or lesions noted and no wounds MDM MDM MDM Narrative Medical decision making narrative: IV line established on arrival. Patient placed on a manager cardiac cath. In the differential would be cardiac etiology of chest pain versus PE versus pneumothorax versus aortic dissection versus GI cause. Patient EKG showed a sinus rhythm with a ventricular rate of 68 bpm with old inferior infarct noted. Patient had a CBC with differential that showed a minimally elevated white count of 11.3 with hemoglobin of 14 and hematocrit of 43. Platelets 261. Chemistries unremarkable. First troponin was normal at 6 and delta troponin 2 hours later as it was 6. D-dimer was elevated and given that he has history of prior DVT I did obtain a CTA of the chest to rule out PE versus dissection. CTA of the chest did show right lower lobe nonocclusive PEs. I discussed this with the patient and he has had no recent bleeding issues such as blood in the stool or black tarry stool or blood in his urine. Patient will be started on Eliquis. He is hemodynamically stable and I do not feel he needs admission. Patient will be treated with Eliquis and referred to pulmonology for follow-up. Patient advised to return if worsening chest pain, increasing shortness of breath, or condition should worsen anyway. I do not feel patient is having an acute coronary syndrome. On repeat evaluation his chest pain is essentially resolved. Lab Data Attestation: I reviewed the patient's lab results. Labs: Laboratory Results - last 24 hr 08/21/22 08/21/22 08/21/22 01:50 06:30 06:30 WBC 11.3 H RBC 4.50 L Hgb 14.1 Hct 43.0 MCV 95.6 H MCH 31.3 MCHC 32.8 RDW Std Deviation 44.1 H RDW Coeff of Vladislav 12.6 Plt Count 261 MPV 10.5 Immature Gran % (Auto) 0.400 Neut % (Auto) 51.3 Lymph % (Auto) 35.2 [place] % (Auto) 7.2 Eos % (Auto) 5.4 H Baso % (Auto) 0.5 Absolute Neuts (auto) 5.8 Absolute Lymphs (auto) 3.97 Nucleated RBC % 0 D-Dimer Quant (PE/DVT) 0.73 H* Sodium 141 Potassium 4.1 Chloride 111 H Carbon Dioxide 25.0 Anion Gap 5 BUN 21 H Creatinine 1.57 H Estim Creat Clear Calc 46.59 Est GFR (MDRD) Af Amer 58 L Est GFR (MDRD) Non-Af 48 L BUN/Creatinine Ratio 13.4 Glucose 87 Calcium 9.1 Troponin I High Sens 6 08/21/22 09:30 WBC RBC Hgb Hct MCV MCH MCHC RDW Std Deviation RDW Coeff of Vladislav Plt Count MPV Immature Gran % (Auto) Neut % (Auto) Lymph % (Auto) [place] % (Auto) Eos % (Auto) Baso % (Auto) Absolute Neuts (auto) Absolute Lymphs (auto) Nucleated RBC % D-Dimer Quant (PE/DVT) Sodium Potassium Chloride Carbon Dioxide Anion Gap BUN Creatinine Estim Creat Clear Calc Est GFR (MDRD) Af Amer Est GFR (MDRD) Non-Af BUN/Creatinine Ratio Glucose Calcium Troponin I High Sens 6 Radiography Diagnostic Testing: Clinical Impression(s) from Imaging Studies Chest X-Ray 08/21/22 06:50 IMPRESSION: No demonstrated acute cardiopulmonary process. Electronically Signed: Keri Lewis MD at 7:08 EST , Chest CTA 08/21/22 08:30 IMPRESSION: Small nonocclusive right lower lobe segmental pulmonary embolism. Electronically Signed: Grace Lara MD at 9:13 EST , EKG Initial EKG: Attestation: I personally reviewed and interpreted this EKG as follows: Comments: Sinus rhythm with a ventricular rate of 68 bpm with old inferior infarct noted Discharge Plan Triage Chief Complaint: Chest Pain ED Provider: Ford Coffman Dx/Rx/DC Orders Clinical Impression: Chest pain, Pulmonary emboli Instructions: Embolism Pulmonary Dc, ED Chest Pain, Uncertain Cause Prescriptions: New Eliquis 5 mg tablet 5 mg PO BID Qty: 74 0RF Rx Instructions: 10 mg twice a day for the first week. Then 5 mg twice a day. No Action losartan 50 mg tablet 50 mg PO QHS cyanocobalamin (vitamin B-12) 1,000 mcg capsule 1,000 mcg PO DAILY zonisamide 100 mg capsule 200 mg PO BID rosuvastatin 40 mg tablet 40 mg PO DAILY nitroglycerin 0.4 mg tablet, sublingual 0.4 mg sublingual DAILY PRN PRN (Reason: Angina) Label Comments: take 1 tablet by mouth every 5 minutes if needed for chest pain up to 3 doses as directed lamotrigine 100 mg tablet 150 mg PO BID aspirin 81 mg Tablet,Chewable 81 mg PO BREAKFAST Qty: 0 0RF sotalol 80 mg Tablet 80 mg PO BID meclizine 25 mg Capsule 25 mg PO TID PRN PRN (Reason: Dizziness) cholecalciferol (vitamin D3) 100 mcg (4,000 unit) Capsule 100 mcg PO DAILY oxycodone-acetaminophen [Percocet] 5-325 mg tablet 1 tab PO Q6H PRN (Reason: pain) 3 Days Qty: 12 0RF tamsulosin [Flomax] 0.4 mg capsule 0.4 mg PO DAILY Qty: 14 0RF Primary Care Provider: Cooper Blanchard Referrals: Cooper Blanchard DO [Primary Care Provider] - Disposition Disposition: Home, Self Care
[2022-08-21 07:21] LABS: Anion Gap 5 (5-15); BUN 21 mg/dL (7-18); BUN/Creat Ratio 13.4 RATIO (10-20); Calcium,Total 9.1 mg/dL (8.5-10.1); Chloride 111 mmol/L (98-107); Creatinine, Serum 1.57 mg/dL (0.70-1.30); EST Glomerular Filtration Rate 48 mL/min (>60); Est Glom Filt Rate - Afr Amer 58 mL/min (>60); Estimated Creatinine Clearance 46.59 ml/min; Glucose 87 mg/dL (74-106); Potassium 4.1 mmol/L (3.5-5.1); Sodium Level 141 mmol/L (136-145); Troponin-I HS 6 pg/mL (3.0-78.0)
[2022-08-21 07:29] VITALS: BP 115/86; PULSE 71; RESP 20; O2SAT 94
[2022-08-21] MEDS: Aspirin 81 MG TAB.CHEW 324 MG PO (07:29)
[2022-08-21 08:20] LABS: D-Dimer Quantitative (DVT/PE) 0.73 FEU/ug/m (0.27-0.49)
--- NOTE | 2022-08-21 08:30 | CT_ITS ---
HISTORY: chest pain, elevated d-dimer. TECHNIQUE: CT angiogram of the chest was performed after the intravenous administration of 100 mL Isovue-370. Post-processing of the angiographic images was performed with multiplanar reformation and 3D reconstruction. Individualized dose optimization techniques were used for this CT. 1200 images. COMPARISON: XR same day, CTA 05/09/2022. FINDINGS: CENTRAL AIRWAYS: Mild bubbly fluid in the rusty. LUNGS: Mild paraseptal emphysema. Minimal atelectasis. PLEURA: No pneumothorax or significant pleural effusion. HEART/PERICARDIUM: Heart within normal limits in size. No pericardial effusion. PULMONARY ARTERIES: Small linear nonocclusive segmental filling defect in the right lower lobe. No large central filling defect. AORTA/VESSELS: No thoracic aortic aneurysm or dissection flap. Mild atherosclerosis. MEDIASTINUM/LINCOLN: No pathologically enlarged lymph nodes. OSSEOUS STRUCTURES: Mild degenerative change. Implanted loop recorder in the left chest wall. UPPER ABDOMEN: Unremarkable. CT/CTA Chest W/WO Contrast IMPRESSION: Small nonocclusive right lower lobe segmental pulmonary embolism. Electronically Signed: Grace Lara MD at 9:13 EST ,
[2022-08-21 09:54] LABS: Troponin-I HS 6 pg/mL (3.0-78.0)
[2022-08-21 09:58] VITALS: BP 124/80; PULSE 64; RESP 16; O2SAT 94
[2022-08-21] MEDS: APIXABAN 5 MG TABLET 10 MG PO (10:18)
== END 2022-08-21 10:21 | disposition home or self-care (01) ==
PROVIDERS: Emergency Provider Emergency Medicine; PCP Student in an Organized Health Care Education/Training Program; Visit Provider Emergency Medicine
DX: I26.99 Other pulmonary embolism without acute cor pulmonale (principal); J44.9 Chronic obstructive pulmonary disease, unspecified; N18.31 Chronic kidney disease, stage 3a; I12.9 Hypertensive chronic kidney disease with stage 1 through stage 4 chronic kidney disease, or unspecified chronic kidney disease; F17.200 Nicotine dependence, unspecified, uncomplicated; Z86.718 Personal history of other venous thrombosis and embolism; Z79.899 Other long term (current) drug therapy
CPT/HCPCS: 71045; 71275; 80048; 84484; 85025; 85379; 93005; 99285; Q9967; A4216

== ENCOUNTER 2022-09-10 08:09 | Emergency (ER) | payer MEDICAID, SELFPAY ==
[2022-09-10 08:10] VITALS: BP 191/113; PULSE 78; RESP 23; TEMP 36.1; O2SAT 98; BMI 28.2
--- NOTE | 2022-09-10 08:16 | CT_ITS ---
INDICATION: seizure, headache EXAMINATION: CT BRAIN - CT Head or Brain W/O Contrast Injection TECHNIQUE: Multiple axial images were obtained of the head without intravenous contrast. A radiation dose optimization technique was used for this scan. IV Contrast dosage and agent: None. COMPARISON: No comparison June 23, 2022 FINDINGS: BRAIN PARENCHYMA: No intra- or extra-axial hemorrhage. No evidence of acute infarct. No intracranial mass or mass effect. There is preservation of the celeste/white matter interface. Posterior fossa structures are unremarkable. CSF SPACES: Appropriate for age. No hydrocephalus. Basal cisterns are patent. CALVARIUM, SKULL BASE, PARANASAL SINUSES AND MASTOID AIR CELLS: There are stable round low attenuation foci within the visualized left maxillary sinus consistent with mucous retention cysts or polyps. ORBITS: Both globes, extraocular muscles, optic nerves and retrobulbar fat appear unremarkable. CT/Brain/Head without Contrast IMPRESSION: No acute intracranial process. Electronically Signed: Ashia Segura MD at 8:57 EST ,
--- NOTE | 2022-09-10 08:22 | EDS_ITS ---
HPI History of Present Illness Chief Complaint: Seizure Informant: patient and family Narrative Narrative: Patient is a 61-year-old male with history of tobacco use, epilepsy, PE (on Eliquis), pulmonary vascular congestion, hypertension and hyperlipidemia presenting with seizure-like activity. sister went to check on the patient this morning and she saw him seen in his room, shaking, more pronounced on the right side, smacking his lips and having stuttering speech. He told her that he need to go to the emergency room. She states this is consistent with his prior seizure-like activity. Is not sure if he took his medicine today. Patient is on lamotrigine 150 mg twice daily as well as Zonosimde 200 mg twice daily. His neurologist is Dr. Unruly Badillo. Patient also states he has been having intermittent headache for the past week. He states it is in the left forehead. States he noticed a headache when he woke up this morning and then his seizure activity started. Denies any vision changes, new weakness, chest pain, shortness of breath or bowel or bladder dysfunction. No other complaints at this time. Sister states he gets breakthrough seizures more than a couple times a year. He had a prodrome of seizures last week when they were out of town [place] however he was able to avoid having a seizure by calming himself down. Patient was recently started on Eliquis for pulmonary emboli last month. He denies any head injuries or falls. [facility] Medical History Acute kidney injury Alcohol use Anxiety Arthritis Cardiology follow-up encounter Carotid artery calcification Chronic anemia Complete edentulism, class III COPD (chronic obstructive pulmonary disease) Costochondritis Difficulty chewing Drug abuse DVT (deep venous thrombosis) Epilepsy Heartburn Hepatitis High cholesterol History of echocardiogram History of edema History of pain when walking History of stress test History of ulceration Hx of tilt table evaluation Hyperglycemia Hypertension Implantable loop recorder present Intermittent claudication Kidney stones Left ventricular hypertrophy Leg cramps Leucocytosis Lightheadedness Marijuana use Mitral valve annular calcification Mucous retention cyst Numbness and tingling ELISABETH (obstructive sleep apnea) Osteoporosis Pleural effusion on left Pulmonary vascular congestion Received intravenous tissue plasminogen activator (tPA) in emergency department Seizure Seizures Shortness of breath on exertion Small vessel disease Smoker SOB (shortness of breath) Stage 3a chronic kidney disease (CKD) Stage III chronic kidney disease Unresponsive episode Vertigo Wears glasses Home Medications losartan 50 mg tablet 50 mg PO QHS blood pressure 09/03/20 [History Last Taken 09/07/21] zonisamide 100 mg capsule 200 mg PO BID 02/20/21 [History Last Taken 09/08/21] rosuvastatin 40 mg tablet 40 mg PO DAILY 07/17/21 [History Last Taken 09/07/21] nitroglycerin 0.4 mg sublingual tablet 0.4 mg sublingual DAILY PRN PRN Angina 09/01/21 [History Last Taken Unknown] cyanocobalamin (vitamin B-12) 1,000 mcg capsule 1,000 mcg PO DAILY 11/02/21 [History Last Taken Unknown] lamotrigine 100 mg tablet 150 mg PO BID seizures 11/25/21 [History Last Taken Unknown] aspirin 81 mg chewable tablet 81 mg PO BREAKFAST #0 tabs 11/26/21 [Rx Last Taken Unknown] cholecalciferol (vitamin D3) 100 mcg (4,000 unit) capsule 100 mcg PO DAILY 05/09/22 [History Last Taken Unknown] sotalol 80 mg tablet 80 mg PO BID 05/09/22 [History Last Taken Unknown] tamsulosin 0.4 mg capsule (Flomax) 0.4 mg PO DAILY #14 caps 08/07/22 [Rx Last Taken Unknown] apixaban 5 mg tablet (Eliquis) 5 mg PO BID #74 tabs 08/21/22 [Rx Last Taken Unknown] apixaban 5 mg tablet (Eliquis) 5 mg PO BID #60 tabs 09/08/22 [Rx Last Taken Unknown] meclizine 25 mg tablet mg 09/10/22 [History Last Taken Unknown] meclizine 25 mg tablet mg 09/10/22 [History Last Taken Unknown] Allergy/AdvReac Type Severity Reaction Status Date / Time cortisone Allergy Shortness Verified 09/10/22 08:10 of breath Penicillins Allergy SYNCOPE Verified 09/10/22 08:10 Family History Sister Arthritis Cancer Depression Diabetes Hypertension Hyperlipidemia Thyroid disorder CVA (cerebral vascular accident) Seizures FH: mental illness Father Diabetes Heart disease Hypertension Hyperlipidemia Surgical History History of appendectomy History of cardiac catheterization History of cystoscopy History of loop recorder Social History Smoking Status: Light Smoker (<10/day) ROS ROS ED Constitutional Constitutional ED: Denies chills or fever(s) Eyes Eyes: Denies blurry vision or change in vision ENT ENT ED: Denies ear pain, rhinorrhea or sore throat Cardiovascular Cardiovascular: Denies chest pain or palpitations Respiratory/Chest Respiratory/Chest: Reports cough and other Details: Chronic cough secondary to tobacco use, no change ; Denies dyspnea Gastrointestinal Gastrointestinal: Denies abdominal pain, nausea or vomiting Genitourinary Genitourinary ED: Denies dysuria or hematuria Musculoskeletal Musculoskeletal: Denies arthralgias or myalgias Integumentary Denies rash Neurologic Neurologic: Reports headache(s) and other Details: Seizure activity Psychiatric Psychiatric: Denies anxiety Hematologic/Lymphatic Hematologic/Lymphatic: Reports easy bleeding and easy bruising EXAM Physical Exam Const Vital Signs: 09/10/22 08:10 09/10/22 08:26 09/10/22 08:41 Temperature 96.9 F L Temperature Source Temporal Pulse Rate 78 75 71 Respiratory Rate 23 H 27 H 17 Blood Pressure 191/113 H 166/102 H 132/86 H Blood Pressure Mean 139 123 101 Pulse Ox 98 98 96 Oxygen Delivery Method Room Air Room Air Room Air 09/10/22 09:32 09/10/22 13:50 Temperature Temperature Source Pulse Rate 63 70 Respiratory Rate 16 16 Blood Pressure 125/73 H 134/89 H Blood Pressure Mean 90 Pulse Ox 94 96 Oxygen Delivery Method Room Air Positive well nourished and well developed General Appearance ED: well developed and NAD HEENT Reports TM's clear and moist mucous membranes Negative for trauma Tympanic Membrane ED: Yes TM's clear Eyes PERRL and EOMs intact bilaterally Eyes Narrative: No nystagmus or repetitive eye movements appreciated Neck supple Neck Narrative: No meningeal signs Chest Wall inspection of chest normal and palpation of chest normal Resp normal respiratory effort and clear to auscultation bilaterally Cardio regular rate, regular rhythm and no murmurs GI normal to inspection, nondistended, normoactive bowel sounds and non-tender Extremity normal to inspection Extremity Narrative: Palpable pulses in all extremities General Extremety ED: Negative for edema or tenderness General Extremity: Negative for edema Neuro oriented x3 Neuro Narrative: Patient is repetitive lipsmacking and tremor of the right side, more pronounced in the right upper extremity in the right lower extremity. Is able to follow commands through it but the tremor does persist. Sensorium / Orientation: alert Psych mental status grossly normal Skin no rashes or lesions noted and no wounds MDM MDM MDM Narrative Medical decision making narrative: Patient is evaluated for headache and seizure-like activity. Differential includes intracranial hemorrhage, electrolyte abnormality and breakthrough seizure. I suspect this is a partial seizure as he is awake and alert throughout this. Patient be given IV Ativan to help ease the seizure symptoms. Given that he was just started on Eliquis a month ago and is complained of a headache in addition to seizure activity will obtain a head CT to rule out intracranial hemorrhage. We will check baseline labs. Patient is placed in seizure precautions. Shortly after receiving the Ativan patient is now resting comfortably. His headache is resolved. No further seizure activity while in the emergency room. Patient is quite sleepy after receiving the Ativan and takes couple hours to wake up. He is now back to his baseline. Does not have any significant electrolyte abnormalities. His creatinine is at his baseline 1.46. He has a mild leukocytosis of 12.2 which is similar to what he was a month ago where he was 11.3. There is not appear to be an obvious source of infection at this time. He is not complain of any symptoms. He does not have any meningeal signs. CT of the brain does not show any acute intracranial process. His hemoglobin is stable at 15.8 so low suspicion for any type of ongoing bleeding associate with his anticoagulation. Patient is discharged home with instructions to continue taking his antiepileptics and follow-up closely with his neurologist. He is comfortable this plan of care. Discharged home in s table condition. Ambulates out of the ER with steady gait. Lab Data Labs: Laboratory Results - last 24 hr 09/10/22 09/10/22 08:24 08:24 WBC 12.2 H RBC 4.89 Hgb 15.8 Hct 46.7 MCV 95.5 H MCH 32.3 H MCHC 33.8 RDW Std Deviation 46.5 H RDW Coeff of Vladislav 13.2 Plt Count 230 MPV 9.9 Immature Gran % (Auto) 0.400 Neut % (Auto) 66.5 Lymph % (Auto) 24.0 Beadle % (Auto) 6.5 Eos % (Auto) 2.1 Baso % (Auto) 0.5 Absolute Neuts (auto) 8.1 H Absolute Lymphs (auto) 2.91 Nucleated RBC % 0 Sodium 142 Potassium 4.2 Chloride 111 H Carbon Dioxide 24.0 Anion Gap 7 BUN 22 H Creatinine 1.46 H Estim Creat Clear Calc 56.84 Est GFR (MDRD) Af Amer 63 Est GFR (MDRD) Non-Af 52 L BUN/Creatinine Ratio 15.1 Glucose 88 Calcium 9.5 Total Bilirubin 0.40 AST 17 ALT 40 Alkaline Phosphatase 106 Total Protein 7.7 Albumin 3.9 Globulin 3.8 Albumin/Globulin Ratio 1.0 Radiography Diagnostic Testing: Clinical Impression(s) from Imaging Studies Brain CT 09/10/22 08:16 IMPRESSION: No acute intracranial process. Electronically Signed: Ahsia Segura MD at 8:57 EST Reading Location ID and State: [facility] / [place] Tel , Service support , Discharge Plan Triage Chief Complaint: Seizure Other Complaint: Confusion ED Provider: Anita Galarza Dx/Rx/DC Orders Clinical Impression: Breakthrough seizure Prescriptions: No Action losartan 50 mg tablet 50 mg PO QHS cyanocobalamin (vitamin B-12) 1,000 mcg capsule 1,000 mcg PO DAILY Eliquis 5 mg tablet 5 mg PO BID Qty: 60 6RF zonisamide 100 mg capsule 200 mg PO BID rosuvastatin 40 mg tablet 40 mg PO DAILY nitroglycerin 0.4 mg tablet, sublingual 0.4 mg sublingual DAILY PRN PRN (Reason: Angina) Label Comments: take 1 tablet by mouth every 5 minutes if needed for chest pain up to 3 doses as directed lamotrigine 100 mg tablet 150 mg PO BID aspirin 81 mg Tablet,Chewable 81 mg PO BREAKFAST Qty: 0 0RF sotalol 80 mg Tablet 80 mg PO BID cholecalciferol (vitamin D3) 100 mcg (4,000 unit) Capsule 100 mcg PO DAILY tamsulosin [Flomax] 0.4 mg capsule 0.4 mg PO DAILY Qty: 14 0RF Eliquis 5 mg tablet 5 mg PO BID Qty: 74 0RF Rx Instructions: 10 mg twice a day for the first week. Then 5 mg twice a day. meclizine 25 mg tablet Label Comments: take 1 tablet by mouth three times a day if needed meclizine 25 mg tablet Primary Care Provider: Cooper Blanchard Referrals: Cooper Blanchard DO [Primary Care Provider] - Activity Restrictions/Additional Instructions: Please call your neurologist on Monday for close outpatient follow-up and for any medication adjustments that might be needed. Return if you have a progression or worsening of your symptoms. If you develop a fever please return to the emergency room. Your CT was normal today and he did not have any significant laboratory abnormalities. Disposition Disposition: Home, Self Care Discharge Date/Time: 09/10/22 13:51
[2022-09-10] MEDS: LORazepam 2 MG/ML Syringe 1 MG IV (08:25)
[2022-09-10 08:26] VITALS: BP 166/102; PULSE 75; RESP 27; O2SAT 98
[2022-09-10 08:36] LABS: Absolute Lymphocyte Count 2.91 X10^3/uL (0.83-4.51); Absolute Neutrophil Count 8.1 X10^3/uL (2.0-7.7); Basophil# 0.06 X10^3/uL; Basophil% 0.5 % (0-1); Eosinophil# 0.25 X10^3/uL; Eosinophils% 2.1 % (0-5); Hematocrit 46.7 % (40-54); Hemoglobin 15.8 g/dL (13.0-16.5); Lymphocyte # 2.91 X10^3/ul (0.83-4.51); Mean Corp Hgb Conc 33.8 g/dL (32-36); Mean Corpuscular Hgb 32.3 pg (27.0-32.0); Mean Corpuscular Volume 95.5 fL (80-94); Mean Platelet Vol. 9.9 fl (6.2-12.0); Monocyte# 0.79 X10^3/uL; Monocyte% 6.5 % (0-10); NRBC Flagged by Analyzer 0 % (0-5); Neutrophil # 8.09 X10^3/uL (2.7-7.7); Neutrophil % 66.5 % (47-70); Platelet Count 230 K/mm3 (150-450); RBC Distribution Width CV 13.2 % (11.6-14.6); RBC Distribution Width SD 46.5 fl (35.1-43.9); Red Blood Count 4.89 M/mm3 (4.6-6.2); White Blood Count 12.2 K/mm3 (4.4-11.0)
[2022-09-10 08:41] VITALS: BP 132/86; PULSE 71; RESP 17; O2SAT 96
[2022-09-10 09:02] LABS: AST(SGOT) 17 U/L (15-37); Alanine Aminotransfer ALT/SGPT 40 U/L (16-61); Albumin, Serum 3.9 g/dL (3.2-5.0); Alkaline Phosphatase 106 U/L (45-117); Anion Gap 7 (5-15); BUN 22 mg/dL (7-18); BUN/Creat Ratio 15.1 RATIO (10-20); Calcium,Total 9.5 mg/dL (8.5-10.1); Chloride 111 mmol/L (98-107); Creatinine, Serum 1.46 mg/dL (0.70-1.30); EST Glomerular Filtration Rate 52 mL/min (>60); Est Glom Filt Rate - Afr Amer 63 mL/min (>60); Estimated Creatinine Clearance 56.84 ml/min; Globulin 3.8 g/dL (2.2-4.2); Glucose 88 mg/dL (74-106); Potassium 4.2 mmol/L (3.5-5.1); Protein, Total 7.7 g/dL (6.4-8.2); Sodium Level 142 mmol/L (136-145)
[2022-09-10 09:32] VITALS: BP 125/73; PULSE 63; RESP 16; O2SAT 94
--- NOTE | 2022-09-10 10:20 | ED.RN ---
Attempted to ambulate patient. Patient was unsteady and confused stating put the dents back in the wall.
[2022-09-10 13:50] VITALS: BP 134/89; PULSE 70; RESP 16; O2SAT 96
== END 2022-09-10 13:51 | disposition home or self-care (01) ==
PROVIDERS: Emergency Provider Emergency Medicine; PCP Student in an Organized Health Care Education/Training Program; Visit Provider Emergency Medicine
DX: R56.9 Unspecified convulsions (principal); J44.9 Chronic obstructive pulmonary disease, unspecified; R41.0 Disorientation, unspecified; E78.5 Hyperlipidemia, unspecified; I10 Essential (primary) hypertension; F17.200 Nicotine dependence, unspecified, uncomplicated; Z79.01 Long term (current) use of anticoagulants; Z86.711 Personal history of pulmonary embolism
CPT/HCPCS: 70450; 80053; 85025; 96374; 99284; A4216

== ENCOUNTER 2022-10-18 08:30 | Outpatient (RCR) | payer MEDICAID, SELFPAY ==
--- NOTE | 2022-09-02 14:00 | HP.PTEVAL_ITS ---
Patient's Visit Information LANCE ALVAREZ is a 61 year old M referred to Physical Therapy by DANNA TAO with a diagnosis of R SHLD TENDINITIS OF ROTATOR CUFF, IMPINGEMENT SYNDROME AND OA.. Date of Evaluation: 09/02/22 Physical Therapist: Di Blanco, PT, Cert MDT - Visit Plan Frequency: 2-3x /Week Duration: 4-6 Months Plan: CHECK AUTH. GOES BY ABHISHEK. *PATIENT REPORTS THAT IT IS POSSIBLE THAT HE COULD HAVE A SEIZURE AT ANY TIME AND HE CAN USUALLY TELL IF HE IS GOING TO HAVE ONE. HE STATES IF HE TELLS US GIVE HIM TIME TO TRY TO TALK HIMSELF OUT OF IT BUT IF HE CAN'T CALL THE [facility]*. RIGHT SHLD ROM, STRETCHING AND STRENGTHENING TO HELP MEET SET GOALS. POSTURE CORRECTION/STRENGTHENING. HEP INSTRUCTION. - Subjective Diagnosis: R SHLD TENDINITIS OF ROTATOR CUFF, IMPINGEMENT SYNDROME AND OA. Work/Leisure: RETIRED. Disability: NO. Present symptoms: R SHLD PAIN DOWN ARM THAT GOES BELOW HIS ELBOW AT TIMES BUT NOT INTO HIS HAND OR FINGERS. TINGLING SOMETIMES IN ARM AND FOREARM. NO NUMBNESS. Present since: ABOUT 6 - 12 MONTHS AGO. Pain Scale: Worst - 7/10 Least - 2/10. Currently: 08/12. Commenced as a result of: NO APPARENT REASON. Symptoms at onset: R SHLD PAIN. Worse: REACHING CERTAIN WAYS, TRYING TO LIFT SOMETHING. PATIENT IS R HANDED. TRYING TO SLEEP ON RIGHT SIDE. Better: NOT USING IT. Disturbed sleep: YES. Previous history/Previous treatment: 5-6 YEARS AGO FELL IN DITCH AND HURT R SHLD - FEELS HE FULLY RECOVERED. This episode: PT CONSULT. INJECTION 08/26/22 BY ORTHO AT [facility] THAT HELPED HIM BE ABLE TO RAISE HIS ARM BETTER. NO R SHLD SX. NO CHIROPRACTIC. Dizziness: VERTIGO. Tinnitis: NO. Nausea: NO. Shortness of Breath: YES. Difficulty Swollowing: NO. Gait: WALKING OK. NO AD'S. Unexplained weight loss: NO. Imaging: RECENT R SHLD X-RAYS SHOWING ARTHRITIS AND SOME TYPE OF INDENTATION THAT IS HELPING SHLD NOT DISLOCATE PER PATIENT REPORT. PMH/Recent major surgery: LOOP RECORDER IN CHEST, VERTIGO, SEIZURE DISORDER, HTN, HEART PROBLEMS, H/O KIDNEY STONES, H/O BLOOD CLOTS. AT LEAST 4 HEART CATHERIZATIONS. H/O R HAND FX'S. LAST SEIZURE WAS WHILE IN THE HOSPITAL ABOUT 3 WKS AGO. *PATIENT REPORTS THAT IT IS POSSIBLE THAT HE COULD HAVE A SEIZURE AT ANY TIME AND HE CAN USUALLY TELL IF HE IS GOING TO HAVE ONE. HE STATES IF HE TELLS US GIVE HIM TIME TO TRY TO TALK HIMSELF OUT OF IT BUT IF HE CAN'T CALL THE [facility]*. - Objective Sitting Posture/Standing Posture: POOR. FH. RSH'S. Other Observations: INDEP GAIT INTO PT WITHOUT ANY AD'S OR LOB BUT DECREASED CADANCE. Sensory deficit: JAMEY UE LIGHT TOUCH SENSATION GROSSLY INTACT AND SYMMETRICAL. ROM deficit: R SHLD ACTIVE FORWARD FLEX 110 DEG. ACTIVE ABD 45 DEG. SUPINE R SHLD IR/ER WITH 40 DEG ABD = 60/25 DEG. LEFT UE WFL. PATIENT C/O SEVERE R SHLD PAIN WITH REACHING FOR ROM MEASUREMENTS BUT PAIN SUBSIDED QUICKLY WITH REST. 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 L UE GROSSLY 5/5. RIGHT UE: SHLD 3-/5, ELBOW 4/5. Postural strength: POOR - Balance/Special Test Scores Quick DASH Score: [phone] - Goals Goal 1:: DECREASE C/O R SHLD PAIN Goal Time Frame: 4-6 Weeks Goal 2:: INCREASE R SHLD FUNCTIONAL ROM TO EASE ADL'S. Goal Time Frame: 4-6 Weeks Goal 3:: IMPROVE R SHLD FUNCTIONAL STRENGTH TO EASE ADL'S Goal Time Frame: 4-6 Weeks Goal 4:: PATIENT WILL BE INDEP WITH [facility] FOR CONTINUED IMRPOVEMENT ONCE FORMAL PHYSICAL THERAPY CONCLUDES. Goal Time Frame: 4-6 Weeks - Anticipated Interventions Patient/Client Instruction: Educate patient on: Condition, Plan of Care, Risk Factors For the Purpose of:: To improve self management Therapeutic Exercise to Include: Strength training, Body mechanics, Postural training, Flexibilty training, Neuromotor development, Passive ROM, Active ROM, Scapular Strength/Stabilization For the Purpose of:: To decrease pain, To increase ROM, To improve muscle performance and motor function, To increase tolerance to activity/condition/position, To improve ability of physical actions for h ome/community/work/leisure Thank you for the opportunity to evaluate your patient. For Medicare and Medicare HMO plans, please review the plan of care and approve it. It will need to be FAXED BACK to us at [phone] for Medicare purposes. For Medicare only, by signing this I certify the plan of care. Please let me know if there are questions or concerns regarding this plan of care. Physician Signature: Date:
--- NOTE | 2022-10-18 09:01 | HP.PTREVAL ---
Dr. Christian Pierre, DO, It has been my pleasure to treat LANCE ALVAREZ over the last 10 visits for R SHLD TENDINITIS OF ROTATOR CUFF, IMPINGEMENT SYNDROME AND OA.. Please see the progress note below for an update on the physical therapy plan of care! Subjective: PATIENT REPORTS HIS R SHLD ROM, STRENGTH AND PAIN ARE ALL BETTER. PATIENT STATES HE WOULD LIKE TO CONTINUE THE EX'S ON HIS OWN AT THIS POINT. HE REPORTS R SHLD/ARM PAIN RANGING 0-3/10 NOW. Objective/Function: PATIENT WAS SEEN TODAY FOR RE-ASSESSMENT OF PROGRESS TOWARD THE SET PT GOALS AND THE NEED FOR FURTHER PHYSICAL THERAPY VS READINESS FOR DISCHARGE. PATIENT HAS MADE REALLY GOOD PROGRESS WITH PT BUT STILL HAS SOME PAIN AND SOME RANGE AND STRENGTH LIMITATIONS WITH R UE - SEE BELOW. UPON EXAM TODAY: ROM deficit: R SHLD ACTIVE FORWARD FLEX 170 DEG. ACTIVE ABD - FULL, SUPINE R SHLD IR/ER WITH 40 DEG ABD = 65/45 DEG. LEFT UE WFL. PATIENT C/O MILD R SHLD PAIN WITH REACHING FOR ROM MEASUREMENTS. 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 L UE GROSSLY 5/5. RIGHT UE: SHLD 4/5, ELBOW 4/5. Postural strength: POOR Plan Plan: D/C TO HEP AT PATIENTS REQUEST. Balance/Gait/Functional tests - Balance/Special Test Scores Quick DASH Score: 25.0000 Goals Goal 1:: DECREASE C/O R SHLD PAIN Goal Time Frame: 4-6 Weeks Goal Progress: Goal Met Goal 2:: INCREASE R SHLD FUNCTIONAL ROM TO EASE ADL'S. Goal Time Frame: 4-6 Weeks Goal Progress: Goal Met Goal 3:: IMPROVE R SHLD FUNCTIONAL STRENGTH TO EASE ADL'S Goal Time Frame: 4-6 Weeks Goal Progress: Goal Met Goal 4:: PATIENT WILL BE INDEP WITH HEP FOR CONTINUED IMRPOVEMENT ONCE FORMAL PHYSICAL THERAPY CONCLUDES. Goal Time Frame: 4-6 Weeks Goal Progress: Goal Met Anticipated Interventions Patient/Client Instruction: Educate patient on: Condition, Plan of Care, Risk Factors For the Purpose of:: To improve self management Therapeutic Exercise to Include: Strength training, Body mechanics, Postural training, Flexibilty training, Neuromotor development, Passive ROM, Active ROM, Scapular Strength/Stabilization For the Purpose of:: To decrease pain, To increase ROM, To improve muscle performance and motor function, To increase tolerance to activity/condition/position, To improve ability of physical actions for home/community/work/leisure Please do not hesitate to contact me at [phone] by phone or if you have questions or concerns regarding this new plan of care! Sincerely, Di Blanco, PT, Cert MDT
--- NOTE | 2022-10-18 09:03 | HP.PTDCSUM ---
It has been my pleasure to treat LANCE ALVAREZ referred by Dr. Christian Pierre DO, with the diagnosis of R SHLD TENDINITIS OF ROTATOR CUFF, IMPINGEMENT SYNDROME AND OA. for a total of 10 visit(s). Discharge Date: 10/18/22 Please see the following information for a summary of their discharge status. Subjective: PATIENT REPORTS HIS R SHLD ROM, STRENGTH AND PAIN ARE ALL BETTER. PATIENT STATES HE WOULD LIKE TO CONTINUE THE EX'S ON HIS OWN AT THIS POINT. HE REPORTS R SHLD/ARM PAIN RANGING 0-3/10 NOW. % Improvement: 95 Objective/Function: PATIENT WAS SEEN TODAY FOR RE-ASSESSMENT OF PROGRESS TOWARD THE SET PT GOALS AND THE NEED FOR FURTHER PHYSICAL THERAPY VS READINESS FOR DISCHARGE. PATIENT HAS MADE REALLY GOOD PROGRESS WITH PT BUT STILL HAS SOME PAIN AND SOME RANGE AND STRENGTH LIMITATIONS WITH R UE - SEE BELOW. UPON EXAM TODAY: ROM deficit: R SHLD ACTIVE FORWARD FLEX 170 DEG. ACTIVE ABD - FULL, SUPINE R SHLD IR/ER WITH 40 DEG ABD = 65/45 DEG. LEFT UE WFL. PATIENT C/O MILD R SHLD PAIN WITH REACHING FOR ROM MEASUREMENTS. 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 L UE GROSSLY 5/5. RIGHT UE: SHLD 4/5, ELBOW 4/5. Postural strength: POOR Goal 1:: DECREASE C/O R SHLD PAIN Goal Progress: Goal Met Goal 2:: INCREASE R SHLD FUNCTIONAL ROM TO EASE ADL'S. Goal Progress: Goal Met Goal 3:: IMPROVE R SHLD FUNCTIONAL STRENGTH TO EASE ADL'S Goal Progress: Goal Met Goal 4:: PATIENT WILL BE INDEP WITH HEP FOR CONTINUED IMRPOVEMENT ONCE FORMAL PHYSICAL THERAPY CONCLUDES. Goal Progress: Goal Met Plan: D/C TO HEP AT PATIENTS REQUEST. If there are questions or concerns regarding this patient's physical therapy, please feel free to call me at [phone]. Thank you for the referral of this patient. Sincerely, Di Blanco, PT, Cert MDT Balance/Gait/Functional tests - Balance/Special Test Scores Quick DASH Score: 25.0000
== END 2022-10-18 10:30 | disposition home or self-care (01) ==
LOC: PT 08:30
PROVIDERS: PCP Student in an Organized Health Care Education/Training Program; Referring Provider Orthopaedic Surgery Hand Surgery; Visit Provider Orthopaedic Surgery Hand Surgery
DX: M67.813 Other specified disorders of tendon, right shoulder (principal); M75.41 Impingement syndrome of right shoulder; M19.011 Primary osteoarthritis, right shoulder
CPT/HCPCS: 97110; 97162; 97164

== ENCOUNTER 2023-03-05 12:51 | Emergency (ER) | payer MEDICAID, SELFPAY ==
[2023-03-05 12:52] VITALS: BP 130/74; PULSE 88; RESP 14; TEMP 36.6; O2SAT 95; BMI 30.4
[2023-03-05] MEDS: Acetaminophen 500 MG Tablet 1000 MG PO (14:26)
[2023-03-05] MEDS: DiphenhydrAMINE 25 MG Capsule PO (14:26)
[2023-03-05 14:55] VITALS: BP 149/77; PULSE 64; RESP 15; O2SAT 98
--- NOTE | 2023-03-05 16:10 | EX.ED.DYSGE1 ---
HPI History of Present Illness Chief Complaint: Itching Narrative Narrative: 62-year-old male presenting for evaluation after being stung by a bee which he believes was about 4-5 times. He states he was stung on his back about his left shoulder blade and was stung on his ankle. He arrives by EMS. He does not know if he is allergic to bees. He does not have any shortness of breath, abdominal pain, nausea or vomiting. He has localized pain to the left upper back and the left ankle. He states having trouble walking on his left ankle due to the bee sting. [facility] Medical History Acute kidney injury Alcohol use Anxiety Arthritis Cardiology follow-up encounter Carotid artery calcification Chronic anemia Complete edentulism, class III COPD (chronic obstructive pulmonary disease) Costochondritis Difficulty chewing Drug abuse DVT (deep venous thrombosis) Epilepsy Heartburn Hepatitis High cholesterol History of echocardiogram History of edema History of pain when walking History of stress test History of ulceration Hx of tilt table evaluation Hyperglycemia Hypertension Implantable loop recorder present Intermittent claudication Kidney stones Left ventricular hypertrophy Leg cramps Leucocytosis Lightheadedness Marijuana use Mitral valve annular calcification Mucous retention cyst Numbness and tingling ELISABETH (obstructive sleep apnea) Osteoporosis Pleural effusion on left Pulmonary vascular congestion Received intravenous tissue plasminogen activator (tPA) in emergency department Seizure Seizures Shortness of breath on exertion Small vessel disease Smoker SOB (shortness of breath) Stage 3a chronic kidney disease (CKD) Stage III chronic kidney disease Unresponsive episode Vertigo Wears glasses Home Medications losartan 50 mg tablet 50 mg PO QHS blood pressure 09/03/20 [History Last Taken 09/07/21] zonisamide 100 mg capsule 200 mg PO BID 02/20/21 [History Last Taken 09/08/21] rosuvastatin 40 mg tablet 40 mg PO DAILY 07/17/21 [History Last Taken 09/07/21] nitroglycerin 0.4 mg sublingual tablet 0.4 mg sublingual DAILY PRN PRN Angina 09/01/21 [History Last Taken Unknown] cyanocobalamin (vitamin B-12) 1,000 mcg capsule 1,000 mcg PO DAILY 11/02/21 [History Last Taken Unknown] lamotrigine 100 mg tablet 150 mg PO BID seizures 11/25/21 [History Last Taken Unknown] aspirin 81 mg chewable tablet 81 mg PO BREAKFAST #0 tabs 11/26/21 [Rx Last Taken Unknown] cholecalciferol (vitamin D3) 100 mcg (4,000 unit) capsule 100 mcg PO DAILY 05/09/22 [History Last Taken Unknown] sotalol 80 mg tablet 80 mg PO BID 05/09/22 [History Last Taken Unknown] tamsulosin 0.4 mg capsule (Flomax) 0.4 mg PO DAILY #14 caps 08/07/22 [Rx Last Taken Unknown] apixaban 5 mg tablet (Eliquis) 5 mg PO BID #74 tabs 08/21/22 [Rx Last Taken Unknown] apixaban 5 mg tablet (Eliquis) 5 mg PO BID #60 tabs 09/08/22 [Rx Last Taken Unknown] meclizine 25 mg tablet mg 09/10/22 [History Last Taken Unknown] meclizine 25 mg tablet mg 09/10/22 [History Last Taken Unknown] diphenhydramine HCl 25 mg tablet (Benadryl Allergy) 25 mg PO Q8H PRN allergic reaction #20 tabs 03/05/23 [Rx Last Taken Unknown] Allergy/AdvReac Type Severity Reaction Status Date / Time cortisone Allergy Shortness Verified 03/05/23 12:52 of breath Penicillins Allergy SYNCOPE Verified 03/05/23 12:52 Family History Sister Arthritis Cancer Depression Diabetes Hypertension Hyperlipidemia Thyroid disorder CVA (cerebral vascular accident) Seizures FH: mental illness Father Diabetes Heart disease Hypertension Hyperlipidemia Surgical History History of appendectomy History of cardiac catheterization History of cystoscopy History of loop recorder Social History Smoking Status: Light Smoker (<10/day) ROS ROS ED Constitutional Constitutional ED: Denies chills, fever(s) or sweats Eyes Eyes: Denies blurry vision or change in vision ENT ENT ED: Denies ear pain or sore throat Cardiovascular Cardiovascular: Denies chest pain, palpitations or racing heartbeat Respiratory/Chest Respiratory/Chest: Denies cough, dyspnea or sputum Gastrointestinal Gastrointestinal: Denies abdominal pain, constipation, diarrhea, nausea or vomiting Genitourinary Genitourinary ED: Denies dysuria, hematuria or urinary frequency Musculoskeletal Musculoskeletal: Denies arthralgias, myalgias or neck pain Integumentary Denies abscess, Abrasions or rash Neurologic Neurologic: Denies headache(s), paresthesias or weakness Psychiatric Psychiatric: Denies anxiety, depression, suicidal ideation or suicidal thoughts Endocrine Endocrinology: Denies polydipsia or polyuria EXAM Physical Exam Const Vital Signs: 03/05/23 12:52 03/05/23 14:55 Temperature 98 F Temperature Source Temporal Pulse Rate 88 64 Respiratory Rate 14 15 Blood Pressure 130/74 H 149/77 H Blood Pressure Mean 92 Pulse Ox 95 98 Oxygen Delivery Method Room Air Positive well nourished General Appearance ED: NAD HEENT Reports moist mucous membranes Eyes PERRL and EOMs intact bilaterally Chest Wall inspection of chest normal Resp normal respiratory effort and clear to auscultation bilaterally Cardio regular rate and regular rhythm Neuro oriented x3 and CN's II-XII intact bilaterally Sensorium / Orientation: alert Skin Skin Narrative: Patient has no visible erythema, swelling on either his back or on his left ankle. He is complaining of pain in the left ankle. He denies any other injury. MDM MDM MDM Narrative Medical decision making narrative: Patient states he was stung by bee in the left ankle and the left upper back. I do not see any evidence of bee sting nor do I see any erythema, edema. There is no crepitance of the skin. The ankle appears to be normal as well. Patient states he is having trouble walking secondary to pain. I counseled him he will need Tylenol and ice as well as elevation for the ankle. I do not believe he needs any blood work or imaging. I did order him Tylenol and Benadryl here to help with localized allergic reaction which again is not visible. I do not believe he needs any narcotic medication or antibiotics. Patient counseled use Tylenol and Benadryl at home as well as icing and elevating. Impression: 1. Bee sting left ankle 2. Bee sting left upper back Discharge Plan Triage Chief Complaint: Itching ED Provider: Pola Mehta Dx/Rx/DC Orders Instructions: ED BEE STING General Allergic Rxn Prescriptions: New diphenhydramine HCl [Benadryl Allergy] 25 mg tablet 25 mg PO Q8H PRN (Reason: allergic reaction) Qty: 20 0RF No Action losartan 50 mg tablet 50 mg PO QHS cyanocobalamin (vitamin B-12) 1,000 mcg capsule 1,000 mcg PO DAILY Eliquis 5 mg tablet 5 mg PO BID Qty: 60 6RF zonisamide 100 mg capsule 200 mg PO BID rosuvastatin 40 mg tablet 40 mg PO DAILY nitroglycerin 0.4 mg tablet, sublingual 0.4 mg sublingual DAILY PRN PRN (Reason: Angina) Patient Comments: take 1 tablet by mouth every 5 minutes if needed for chest pain up to 3 doses as directed lamotrigine 100 mg tablet 150 mg PO BID aspirin 81 mg Tablet,Chewable 81 mg PO BREAKFAST Qty: 0 0RF sotalol 80 mg Tablet 80 mg PO BID cholecalciferol (vitamin D3) 100 mcg (4,000 unit) Capsule 100 mcg PO DAILY tamsulosin [Flomax] 0.4 mg capsule 0.4 mg PO DAILY Qty: 14 0RF Eliquis 5 mg tablet 5 mg PO BID Qty: 74 0RF Rx Instructions: 10 mg twice a day for the first week. Then 5 mg twice a day. meclizine 25 mg tablet Patient Comments: take 1 tablet by mouth three times a day if needed meclizine 25 mg tablet Primary Care Provider: Cooper Blanchard Referrals: Cooper Blanchard DO [Primary Care Provider] - Disposition Disposition: Home, Self Care Discharge Date/Time: 03/05/23 14:56
== END 2023-03-05 14:56 | disposition home or self-care (01) ==
LOC: ED 14:44
PROVIDERS: Emergency Provider Student in an Organized Health Care Education/Training Program; PCP Student in an Organized Health Care Education/Training Program; Visit Provider Student in an Organized Health Care Education/Training Program
DX: M25.572 Pain in left ankle and joints of left foot (principal); J44.9 Chronic obstructive pulmonary disease, unspecified; R56.9 Unspecified convulsions; N18.31 Chronic kidney disease, stage 3a; T63.441A Toxic effect of venom of bees, accidental (unintentional), initial encounter; F17.200 Nicotine dependence, unspecified, uncomplicated; E78.00 Pure hypercholesterolemia, unspecified; I12.9 Hypertensive chronic kidney disease with stage 1 through stage 4 chronic kidney disease, or unspecified chronic kidney disease; Z79.899 Other long term (current) drug therapy; Z79.82 Long term (current) use of aspirin; Z86.718 Personal history of other venous thrombosis and embolism; Z79.01 Long term (current) use of anticoagulants; R42 Dizziness and giddiness; Z90.49 Acquired absence of other specified parts of digestive tract; M54.9 Dorsalgia, unspecified
CPT/HCPCS: 99285

== ENCOUNTER → 2023-07-18 | Outpatient (CLI) | payer MEDICAID, SELFPAY ==
--- NOTE | 2023-07-20 10:16 | PFT ---
INTRODUCTION: The patient is a 62-year-old male who presents for pulmonary function studies secondary to a diagnosis of shortness of breath. Respiratory therapy reported good patient effort. Bronchodilators were used during testing. INTERPRETATION: Forced expiration spirometry demonstrates no evidence of a large airways obstructive ventilatory defect. There was no significant response to aerosolized bronchodilators. Spirograms are of good quality and plateau normally. Body plethysmography was performed and revealed a decreased TLC to 4.99 L, 72% of predicted, indicative of a mild restrictive ventilatory impairment. Diffusing capacity by single breath CO was reduced at 73% of predicted. IMPRESSION: Mild restrictive ventilatory impairment with symmetric reduction in diffusing capacity.
== END | disposition home or self-care (01) ==
LOC: PSN 12:47
PROVIDERS: PCP Student in an Organized Health Care Education/Training Program; Referring Provider Nurse Practitioner Acute Care; Visit Provider Nurse Practitioner Acute Care
DX: R06.02 Shortness of breath (principal)
CPT/HCPCS: 94060; 94726; 94729

== ENCOUNTER → 2023-08-03 | Outpatient (CLI) | payer MEDICAID, SELFPAY ==
--- NOTE | 2023-08-03 12:29 | CDU_ITS ---
Reason For Study: Atherosclerosis Rt. Velocities/BP Lt. Velocities/BP Prox CCA 92.5/16.3 cm/sec. Prox CCA 134.6/33.6 cm/sec. Mid CCA 104.7/28.6 cm/sec. Mid CCA 114.8/33.6 cm/sec. Dist CCA 90.0/22.5 cm/sec. Dist CCA 117.0/24.8 cm/sec. Prox ICA 99.8/37.2 cm/sec. Prox ICA 80.2/24.9 cm/sec. Mid ICA 79.0/33.5 cm/sec. Mid ICA 65.4/23.2 cm/sec. Dist ICA 96.1/31.1 cm/sec. Dist ICA 63.6/26.7 cm/sec. Rt. ICA/CCA = 0.9. Lt. ICA/CCA = 0.7. Prox ECA 132.1/13.3 cm/sec. Prox ECA 126.6/24.3 cm/sec. Rt. Vert. 42.1/15.1 cm/sec. Lt. Vert. 39.4/14.4 cm/sec. Right Extracranial There is intimal thickening but no significant atherosclerotic plaque noted in the right common carotid artery. There is heterogeneous, irregular atherosclerotic plaque noted in the right internal carotid artery. There is heterogeneous, irregular atherosclerotic plaque noted in the right external carotid artery. Antegrade flow is noted in the right vertebral artery. Left Extracranial There is homogeneous, smooth atherosclerotic plaque noted in the left common carotid artery. There is heterogeneous, irregular atherosclerotic plaque noted in the left internal carotid artery. There is heterogeneous, irregular atherosclerotic plaque noted in the left external carotid artery. Antegrade flow is noted in the left vertebral artery. Procedure Carotid Duplex 27099. This is a Carotid Duplex examination using B-mode, color flow and specral Doppler. The exam was diagnostic. Exam performed in department. VL/Carotid Duplex Ultrasound Interpretation Summary Mild (<50%) stenosis right extracranial internal carotid. Mild (<50%) stenosis left extracranial internal carotid. Patent and antegrade vertebrals bilaterally. Ordering Physician: Avila Weston Referring Physician: Cooper Blanchard Performed By: Nahun Del Valle RVT
--- NOTE | 2023-08-03 12:30 | ART_ITS ---
Reason For Study: Atherosclerosis Procedure A bilateral lower extremity continuous wave Doppler with analog waveform analysis and ankle brachial indexes. Left Segmental Pressures Left brachial= 123mmHg. Left posterior tibial artery = 164mmHg. Left dorsalis pedis artery = 151mmHg. Left digit = 98 mmHg. The left posterior tibial artery waveforms are triphasic. The left dorsalis pedis waveforms are triphasic. Right Segmental Pressures Right brachial= 121mmHg. Right posterior tibial artery = 120mmHg. Right dorsalis pedis artery = 119mmHg. Right digit = 86 mmHg. The right posterior tibial artery waveforms are biphasic. The right dorsalis pedis waveforms are triphasic. Indices The right ankle brachial index by the posterior tibial artery is 0.98. The right ankle brachial index by the dorsalis pedis is 0.97. The right digital-brachial index is 0.70. The left ankle brachial index by the posterior tibial artery is 1.33. The left ankle brachial index by the dorsalis pedis is 1.23. The left digital-brachial index is 0.80. VL/Ankle Brachial Index Interpretation Summary Resting ankle-brachial indices appear bilaterally normal. Ordering Physician: Avila Weston Referring Physician: Jonathan Salas MD Performed By: Nahun Del Valle RVT
--- NOTE | 2023-08-03 12:30 | ADUL_ITS ---
Reason For Study: Atherosclerosis Right Velocities Ext. Iliac Artery, dist = 90.6 cm./sec. Common Femoral Artery, mid = 92.8 cm./sec. Supf Femoral Artery, prox = 96.5 cm./sec. 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 Pre - Stenosis PSV = 76.7cm/s At Stenosis PSV = 390.8cm/s Post - Stenosis PSV= 137.8cm/s Post stenotic turbulence noted in waveform. Supf Femoral Artery, mid = 62.5 cm./sec. Supf Femoral Artery, dist. = 84.6 cm./sec. Profunda Femoral Artery = 50.3 cm./sec. Popliteal Artery, prox. = 68.6 cm./sec. Popliteal Artery, dist = 68.6 cm./sec. Post. Tibial Artery, prox = 31.8 cm./sec. Post. Tibial Artery, mid = 30.6 cm./sec. Post. Tibial Artery, dist = 24.4 cm./sec. Peroneal Artery, prox = 24.4 cm./sec. Peroneal Artery, mid = 30.1 cm./sec. Peroneal Artery,dist = 50.0 cm./sec. Ant. Tibial Artery, prox = 63.3 cm./sec. Ant. Tibial Artery, mid = 53.4 cm./sec. Ant. Tibial Artery, dist = 86.4 cm./sec. Procedure The exam was diagnostic. /US Art Duplex Unilat Lower Ext Interpretation Summary Severe to critical disease, 75-99%, of the right superficial femoral artery. Ordering Physician: Avila Weston Referring Physician: Cooper Blanchard Performed By: Nahun Del Valle RVT
[2023-08-03 12:46] VITALS: PULSE 100; PULSE 87; PULSE 94; PULSE 95; PULSE 97; PULSE 98; PULSE 99; O2SAT 96; O2SAT 97; O2SAT 98
--- NOTE | 2023-08-03 13:47 | PCM.PSN.6M ---
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 Assistive device used: None Pre-test Oxygen Delivery Method Room Air Pulse Ox 96 Pulse Rate (60-100) 87 Dyspnea Alida Scale (0-10) 0 Exertion Alida Scale (6-20) 6 1st minute Oxygen Delivery Method Room Air Pulse Ox 97 Pulse Rate (60-100) 94 2nd minute Oxygen Delivery Method Room Air Pulse Ox 96 Pulse Rate (60-100) 100 3rd minute Oxygen Delivery Method Room Air Pulse Ox 97 Pulse Rate (60-100) 95 Number of Rests Taken 1 Reported Symptoms Dizziness 4th minute Oxygen Delivery Method Room Air Pulse Ox 97 Pulse Rate (60-100) 97 5th minute Oxygen Delivery Method Room Air Pulse Ox 96 Pulse Rate (60-100) 98 6th minute Oxygen Delivery Method Room Air Pulse Ox 96 Pulse Rate (60-100) 99 Dyspnea Alida Scale (0-10) 3 Exertion Alida Scale (6-20) 13 Post-test Oxygen Delivery Method Room Air Pulse Ox 98 Pulse Rate (60-100) 87 Full Laps Walked 16 Partial Lap, Number of Tiles Walked 20 Total Distance Walked (ft) 964 Interpretation Interpretation: The patient was able to ambulate 964 feet over the course of 6 minutes on room air with no assistive devices and 1 break. The patient experienced no significant desaturation or tachycardia during testing. These findings are consistent with a musculoskeletal limitation exercise tolerance. Recommendations Recommendations: No supplemental oxygen is indicated at this time.
== END | disposition home or self-care (01) ==
PROVIDERS: PCP Student in an Organized Health Care Education/Training Program; Referring Provider Surgery Vascular Surgery; Visit Provider Surgery Vascular Surgery
DX: I65.23 Occlusion and stenosis of bilateral carotid arteries (principal); I70.213 Atherosclerosis of native arteries of extremities with intermittent claudication, bilateral legs; I77.1 Stricture of artery; I70.209 Unspecified atherosclerosis of native arteries of extremities, unspecified extremity; F17.200 Nicotine dependence, unspecified, uncomplicated; R06.02 Shortness of breath
CPT/HCPCS: 93880; 93922; 93926; 94618

== ENCOUNTER → 2023-11-24 | Outpatient (CLI) | payer MEDICAID, SELFPAY ==
--- NOTE | 2023-11-24 14:48 | CT_ITS ---
EXAM: CT CHEST, LUNG CANCER SCREENING WITHOUT INTRAVENOUS CONTRAST CLINICAL INDICATION: smoker TECHNIQUE: Helically acquired images were obtained of the chest without intravenous contrast using low dose (LDCT) lung cancer screening protocol. This CT exam was performed using one or more of the following dose reduction techniques: automated exposure control, adjustment of the mA and/or kV according to patient size, and/or use of iterative reconstruction technique. COMPARISON: No relevant prior studies available. FINDINGS: LUNGS AND PLEURAL SPACES: Unremarkable. No mass. No consolidation or edema. No pleural effusion or thickening. No pneumothorax. HEART: Unremarkable. Heart size is normal. No pericardial effusion. No significant coronary artery calcifications. MEDIASTINUM: Unremarkable. No mediastinal or hilar adenopathy. Esophagus is unremarkable. No hiatal hernia. THYROID: Unremarkable. No thyroid lesions. BONES/JOINTS: Unremarkable. No suspicious lytic or blastic abnormality. VASCULATURE: Unremarkable. Thoracic aorta is non-dilated. LYMPH NODES: Unremarkable. No enlarged lymph nodes. CT/Low Dose CT Lung Screening IMPRESSION: No acute pulmonary abnormality. Lung-RADS score: 1 - Recommend continued annual screening with a low-dose CT (LDCT) in 12 months. Electronically Signed: Alex Soares MD at 0:10 EDT ,
== END | disposition home or self-care (01) ==
LOC: CT 14:46
PROVIDERS: PCP Student in an Organized Health Care Education/Training Program; Referring Provider Nurse Practitioner Acute Care; Visit Provider Nurse Practitioner Acute Care
DX: F17.210 Nicotine dependence, cigarettes, uncomplicated (principal)
CPT/HCPCS: 71271

== ENCOUNTER 2024-02-29 21:14 | Emergency (ER) | payer MEDICARE, MEDICAID, SELFPAY ==
[2024-02-29] VITALS (9 sets, daily range): BP systolic 115–128; BP diastolic 61–81; PULSE 89–95; RESP 17–30; TEMP 36.6–36.8; O2SAT 95–97; BMI 34.5
--- NOTE | 2024-02-29 21:54 | CT_ITS ---
STUDY: CT BRAIN WITHOUT CONTRAST REASON FOR EXAM: Male, 63 years old. SEIZURE RADIATION DOSAGE (If Supplied By Facility): CTDIvol = ( 44.99 ) mGy, DLP = ( 829.85 ) mGycm TECHNIQUE: Transaxial CT imaging of the brain was performed without administration of intravenous contrast material. Individualized dose optimization techniques were used for this CT. COMPARISON: 09/10/2022 FINDINGS: Normal soft tissue structures. Normal calvarium. Normal size ventricles and extra-axial spaces for the patient''s age. Normal white matter tracts of the cerebral hemispheres. Normal basal ganglia and thalami. Normal brainstem. Normal cerebellum. There is no intracranial hemorrhage. There are no findings of an acute ischemic infarction. Normal visualized paranasal sinuses. CT/Brain/Head without Contrast IMPRESSION: Normal unenhanced CT scan of the brain. Electronically Signed: Cruzito Schulte MD at 22:56 EDT ,
[2024-02-29 22:02] LABS: Absolute Lymphocyte Count 3.08 X10^3/uL (0.83-4.51); Absolute Neutrophil Count 4.9 X10^3/uL (2.0-7.7); Basophil# 0.05 X10^3/uL; Basophil% 0.5 % (0-1); Eosinophil# 0.64 X10^3/uL; Eosinophils% 6.9 % (0-5); Hemoglobin 14.5 g/dL (13.0-16.5); Lymphocyte # 3.08 X10^3/ul (0.83-4.51); Lymphocyte % 33.1 % (19-41); Mean Corp Hgb Conc 33.7 g/dL (32-36); Mean Corpuscular Hgb 31.9 pg (27.0-32.0); Mean Corpuscular Volume 94.5 fL (80-94); Mean Platelet Vol. 10.9 fl (6.2-12.0); Monocyte# 0.58 X10^3/uL; Monocyte% 6.2 % (0-10); NRBC Flagged by Analyzer 0 % (0-5); Neutrophil # 4.93 X10^3/uL (2.7-7.7); Neutrophil % 53.1 % (47-70); Platelet Count 225 K/mm3 (150-450); RBC Distribution Width SD 44.7 fl (35.1-43.9); Red Blood Count 4.55 M/mm3 (4.6-6.2); White Blood Count 9.3 K/mm3 (4.4-11.0)
[2024-02-29 22:11] LABS: Bacteria 0 SEEN /hpf (None Seen); Mucous, Urine 0 SEEN /hpf (<or=2+)
[2024-02-29 22:13] LABS: Color, Urine Yellow (Yellow); Glucose, Dipstick Normal (Normal); Ketone-Dipstick Negative (Negative); Leukocyte Esterase-Dipstick 25 /ul (Negative); Nitrite-Dipstick Negative (Negative); Occult Blood-Urine 10 /ul (Negative); Protein-Dipstick 30 mg/dl (Negative); Specific Gravity, Urine 1.015 (1.002-1.030); Urine Bilirubin Dipstick Negative (Negative); Urine Clarity Clear (Clear); Urine Urobilinogen 4 mg/dl (Normal); Urine pH 6.5 (5.0 - 8.0)
[2024-02-29 22:14] LABS: Anion Gap 6 (5-15); BUN 19 mg/dL (7-18); Calcium,Total 8.8 mg/dL (8.5-10.1); Chloride 112 mmol/L (98-107); Creatinine, Serum 1.46 mg/dL (0.70-1.30); EST Glomerular Filtration Rate 52 mL/min (>60); Est Glom Filt Rate - Afr Amer 62 mL/min (>60); Estimated Creatinine Clearance 58.68 ml/min; Glucose 137 mg/dL (74-106); Potassium 3.5 mmol/L (3.5-5.1); Sodium Level 141 mmol/L (136-145)
[2024-02-29 22:23] LABS: White Blood Cells 5-10 SEEN /hpf (0-5)
[2024-02-29 22:24] LABS: Amorphous Sediment 1+ URATE; Red Blood Cells-Urine 0-5 SEEN /hpf (0-5); Squamous Epithelial Cells - UA 0-5 SEEN /hpf (0-5)
--- NOTE | 2024-02-29 23:49 | EX.ED.DYSGE1 ---
HPI History of Present Illness Chief Complaint: Alt LOC Informant: patient, family and EMS Narrative Narrative: 63-year-old male with history of seizures, last 1 that he had was about a year ago, he had another 1 tonight that was the same. He felt it coming on, he sat down and then was having lipsmacking, he was able to respond to questions that he could hear using his hand to squeeze but he was not able to talk which is typical for him. This went on for 15 or 20 minutes according to the family member sister, he is resolved and feeling better now. He has been compliant with his medications, he has had no recent medication changes. Denies any recent illness. States he has been very stressed because he has a friend and went to the hospital and he wants to make sure she is okay and has not heard about how she is doing yet, but other than that he denies any other new issues. [facility] Medical History Implantable loop recorder present History of echocardiogram Stage 3a chronic kidney disease (CKD) Chronic anemia Received intravenous tissue plasminogen activator (tPA) in emergency department Osteoporosis Kidney stones Wears glasses Complete edentulism, class III Marijuana use Hepatitis High cholesterol Difficulty chewing History of ulceration Heartburn Smoker COPD (chronic obstructive pulmonary disease) Shortness of breath on exertion Leg cramps History of pain when walking History of edema Hypertension Hx of tilt table evaluation History of stress test Cardiology follow-up encounter Vertigo Small vessel disease Pulmonary vascular congestion Pleural effusion on left ELISABETH (obstructive sleep apnea) Mucous retention cyst Mitral valve annular calcification Leucocytosis Lightheadedness Left ventricular hypertrophy Intermittent claudication Hyperglycemia DVT (deep venous thrombosis) Epilepsy Drug abuse Costochondritis Carotid artery calcification Arthritis Anxiety Alcohol use Seizures SOB (shortness of breath) Numbness and tingling Acute kidney injury Unresponsive episode Seizure Stage III chronic kidney disease Home Medications ?Medication ?Instructions ?Recorded ?Last Taken ?Type losartan 50 mg tablet 50 mg PO QHS blood pressure 09/03/20 09/07/21 History rosuvastatin 40 mg tablet 40 mg PO DAILY 07/17/21 09/07/21 History nitroglycerin 0.4 mg sublingual 0.4 mg sublingual DAILY PRN PRN 09/01/21 Unknown History tablet Angina aspirin 81 mg chewable tablet 81 mg PO BREAKFAST #0 tabs 11/26/21 Unknown Rx albuterol sulfate 90 mcg/actuation 2 puff inhalation Q4H PRN 06/21/23 Unknown Rx aerosol inhaler shortness of breath or wheezing #8.5 grams lamotrigine 100 mg tablet 200 mg PO BID seizures 06/21/23 Unknown History zonisamide 100 mg capsule 100 mg PO BID 06/21/23 Unknown History apixaban 5 mg tablet (Eliquis) 5 mg PO BID #60 tabs 02/27/24 Unknown Rx Allergy/AdvReac Type Severity Reaction Status Date / Time cortisone Allergy Shortness Verified 02/29/24 21:16 of breath Penicillins Allergy SYNCOPE Verified 02/29/24 21:16 Family History (Reviewed 12/19/23 @ 14:58 by Angelita Ramos HARNESS RACING HANDICAPPER, HARNESS RACING HANDICAPPER-C) Sister Arthritis Cancer Depression Diabetes Hypertension Hyperlipidemia Thyroid disorder CVA (cerebral vascular accident) Seizures FH: mental illness Father Diabetes Heart disease Hypertension Hyperlipidemia Surgical History History of cardiac catheterization History of cystoscopy History of loop recorder History of appendectomy Social History Smoking Status: Light Smoker (<10/day) ROS ROS ED Constitutional Constitutional ED: Denies chills or fever(s) Eyes Eyes: Denies change in vision or diplopia ENT ENT ED: Denies rhinorrhea or sore throat Cardiovascular Cardiovascular: Denies chest pain or palpitations Respiratory/Chest Respiratory/Chest: Denies cough or dyspnea Gastrointestinal Gastrointestinal: Denies abdominal pain, diarrhea, nausea or vomiting Genitourinary Genitourinary ED: Denies dysuria or hematuria Musculoskeletal Musculoskeletal: Denies back pain or neck pain Integumentary Denies abscess or rash Neurologic Neurologic: Reports as per HPI and seizures; Denies headache(s), paresthesias or weakness Psychiatric Psychiatric: Denies suicidal thoughts EXAM Physical Exam Const Vital Signs: 02/29/24 21:14 02/29/24 21:39 02/29/24 21:45 Temperature 98.2 F Temperature Source Oral Pulse Rate 95 93 91 Respiratory Rate 20 H 21 H 22 H Blood Pressure 125/81 H 117/72 Blood Pressure Mean 95 87 Pulse Ox 95 95 95 Oxygen Delivery Method Room Air 02/29/24 22:00 02/29/24 22:15 02/29/24 22:15 Temperature Temperature Source Pulse Rate Respiratory Rate 30 H Blood Pressure 122/75 H 115/61 115/61 Blood Pressure Mean 89 78 78 Pulse Ox 95 96 Oxygen Delivery Method 02/29/24 22:30 02/29/24 22:45 02/29/24 23:00 Temperature Temperature Source Pulse Rate Respiratory Rate Blood Pressure 121/70 H 126/74 H 128/75 H Blood Pressure Mean 86 87 91 Pulse Ox 95 95 95 Oxygen Delivery Method Positive well nourished and well developed General Appearance ED: well developed and NAD HEENT Reports moist mucous membranes normocephalic and atraumatic Eyes PERRL and EOMs intact bilaterally Neck full ROM and supple Resp normal respiratory effort and clear to auscultation bilaterally Cardio regular rate, regular rhythm and no murmurs GI non-tender and non-distended Auscultation: normoactive bowel sounds Palpation: soft Back/Spine no CVA tenderness General Back: other FROM Extremity normal to inspection General Extremety ED: Negative for edema, pulses abnormal or tenderness General Extremity: Negative for edema or pulses abnormal Neuro oriented x3, CN's II-XII intact bilaterally and no sensory deficits noted Sensorium / Orientation: awake and alert Motor Exam: strength 5/5 throughout Skin no rashes or lesions noted and no wounds MDM MDM MDM Narrative Medical decision making narrative: Performed a medical rule out to rule out dangerous causes of seizure including infection such as urinary tract infection. His urine is negative for this in my judgment, the rest of his labs are unremarkable and I performed a CT of the head. On my interpretation the head CT shows no acute hemorrhage or acute abnormality. Radiology was in agreement and I agree with their interpretation. Patient is doing well he had no further seizure activity or other symptoms here in the ED, discharged in stable condition to continue his medications which I am not able to draw an emergent level of, and follow-up with whoever manages his seizure medications. He states he see somebody but he cannot remember who it is until he goes home and looks it up. Lab Data Attestation: I reviewed the patient's lab results. Labs: Laboratory Results - last 24 hr 02/29/24 02/29/24 21:10 22:07 WBC 9.3 RBC 4.55 L Hgb 14.5 Hct 43.0 MCV 94.5 H MCH 31.9 MCHC 33.7 RDW Std Deviation 44.7 H RDW Coeff of Vladislav 13.0 Plt Count 225 MPV 10.9 Immature Gran % (Auto) 0.200 Neut % (Auto) 53.1 Lymph % (Auto) 33.1 [place] % (Auto) 6.2 Eos % (Auto) 6.9 H Baso % (Auto) 0.5 Absolute Neuts (auto) 4.9 Absolute Lymphs (auto) 3.08 Nucleated RBC % 0 Sodium 141 Potassium 3.5 Chloride 112 H Carbon Dioxide 23.0 Anion Gap 6 BUN 19 H Creatinine 1.46 H Estim Creat Clear Calc 58.68 Est GFR (MDRD) Af Amer 62 Est GFR (MDRD) Non-Af 52 L BUN/Creatinine Ratio 13.0 Glucose 137 H Calcium 8.8 Urine Color Yellow Urine Clarity Clear Urine pH 6.5 Ur Specific [place] 1.015 Urine Protein 30 H Urine Glucose (UA) Normal Urine Ketones Negative Urine Occult Blood 10 H Urine Nitrite Negative Urine Bilirubin Negative Urine Urobilinogen 4 H Ur Leukocyte Esterase 25 H Urine RBC 0-5 SEEN Urine WBC 5-10 SEEN Ur Squamous Epith Cells 0-5 SEEN Amorphous Sediment 1+ URATE Urine Bacteria 0 SEEN Urine Mucus 0 SEEN Radiography Diagnostic Testing: Clinical Impression(s) from Imaging Studies Brain CT 02/29/24 21:54 IMPRESSION: Normal unenhanced CT scan of the brain. Electronically Signed: Cruzito Schulte MD at 22:56 EDT , Discharge Plan Triage Chief Complaint: Alt LOC ED Provider: Micah Le Dx/Rx/DC Orders Clinical Impression: Breakthrough seizure, Seizure disorder Instructions: ED Seizure, Recurrent (Adult) Prescriptions: Continued losartan 50 mg tablet 50 mg PO QHS albuterol sulfate 90 mcg/actuation HFA aerosol inhaler 2 puff inhalation Q4H PRN (Reason: shortness of breath or wheezing) Qty: 8.5 11RF zonisamide 100 mg capsule 100 mg PO BID rosuvastatin 40 mg tablet 40 mg PO DAILY nitroglycerin 0.4 mg tablet, sublingual 0.4 mg sublingual DAILY PRN PRN (Reason: Angina) Patient Comments: take 1 tablet by mouth every 5 minutes if needed for chest pain up to 3 doses as directed aspirin 81 mg Tablet,Chewable 81 mg PO BREAKFAST Qty: 0 0RF lamotrigine 100 mg tablet 200 mg PO BID Eliquis 5 mg tablet 5 mg PO BID Qty: 60 11RF Primary Care Provider: Cooper Blanchard Referrals: Cooper Blanchard DO [Primary Care Provider] - Print Language: Occitan Disposition Disposition: Home, Self Care
== END 2024-02-29 23:58 | disposition home or self-care (01) ==
PROVIDERS: Emergency Provider Emergency Medicine; PCP Student in an Organized Health Care Education/Training Program; Visit Provider Emergency Medicine
DX: G40.909 Epilepsy, unspecified, not intractable, without status epilepticus (principal); J44.9 Chronic obstructive pulmonary disease, unspecified; N18.31 Chronic kidney disease, stage 3a; I12.9 Hypertensive chronic kidney disease with stage 1 through stage 4 chronic kidney disease, or unspecified chronic kidney disease; F17.200 Nicotine dependence, unspecified, uncomplicated; E78.00 Pure hypercholesterolemia, unspecified; Z79.899 Other long term (current) drug therapy; Z79.82 Long term (current) use of aspirin; F41.9 Anxiety disorder, unspecified; Z90.49 Acquired absence of other specified parts of digestive tract
CPT/HCPCS: 70450; 80048; 81001; 85025; 99283; A4216

== ENCOUNTER 2024-04-18 03:18 | Emergency (ER) | payer MEDICARE, MEDICAID, SELFPAY ==
[2024-04-18 03:18] VITALS: BP 127/111; PULSE 90; RESP 17; TEMP 36.7; O2SAT 98; BMI 34.1
[2024-04-18 03:35] VITALS: BP 147/80
--- NOTE | 2024-04-18 03:47 | CT_ITS ---
STUDY: CT BRAIN WITHOUT CONTRAST REASON FOR EXAM: Male, 63 years old patient with seizure. RADIATION DOSAGE (If Supplied By Facility): CTDIvol = ( 44.99 ) mGy, DLP = ( 846.73 ) mGycm TECHNIQUE: Transaxial CT imaging of the brain was performed without administration of intravenous contrast material. Individualized dose optimization techniques were used for this CT. COMPARISON: No relevant priors. CT of the head dated September 10, 2022 was not available for comparison at the time of dictation. FINDINGS: Normal soft tissue structures. Normal calvarium. Normal size ventricles and extra-axial spaces for the patient''s age. Normal white matter tracts of the cerebral hemispheres. Normal basal ganglia and thalami. Normal brainstem. Normal cerebellum. There is no intracranial hemorrhage. There is mild atherosclerotic calcification of the intracranial arteries. Normal visualized paranasal sinuses. CT/Brain/Head without Contrast IMPRESSION: No CT evidence for mass or acute intracranial hemorrhage. Electronically Signed: Elayne Martinez MD at 5:38 EDT ,
[2024-04-18 03:56] LABS: Absolute Lymphocyte Count 2.89 X10^3/uL (0.83-4.51); Absolute Neutrophil Count 4.6 X10^3/uL (2.0-7.7); Basophil# 0.06 X10^3/uL; Basophil% 0.7 % (0-1); Eosinophil# 0.71 X10^3/uL; Eosinophils% 7.8 % (0-5); Hematocrit 43.9 % (40-54); Hemoglobin 14.7 g/dL (13.0-16.5); Lymphocyte # 2.89 X10^3/ul (0.83-4.51); Lymphocyte % 31.8 % (19-41); Mean Corp Hgb Conc 33.5 g/dL (32-36); Mean Corpuscular Hgb 32.1 pg (27.0-32.0); Mean Corpuscular Volume 95.9 fL (80-94); Mean Platelet Vol. 10.3 fl (6.2-12.0); Monocyte% 8.8 % (0-10); NRBC Flagged by Analyzer 0 % (0-5); Neutrophil % 50.6 % (47-70); Platelet Count 215 K/mm3 (150-450); RBC Distribution Width SD 45.9 fl (35.1-43.9); Red Blood Count 4.58 M/mm3 (4.6-6.2); White Blood Count 9.1 K/mm3 (4.4-11.0)
--- NOTE | 2024-04-18 04:00 | RAD_ITS ---
STUDY: X-RAY CHEST REASON FOR EXAM: Male, 63 years old patient with seizure. TECHNIQUE: Single AP portable view of the chest. COMPARISON: Chest radiograph dated August 21, 2022. FINDINGS: Cardiac monitoring leads are present. The lungs are expanded with prominence of the bronchovascular markings. There is no demonstrated pleural abnormality. There is mild cardiac enlargement. Normal mediastinum and susi. There is prominence of the pulmonary hilar arteries with peripheral pulmonary vascular congestion. There is atherosclerotic tortuosity of the aortic arch and descending thoracic aorta. There are diffuse degenerative changes of the visualized thoracic spine. Normal visualized ribs, clavicles, and shoulders. There is no demonstrated abnormality of the visualized soft tissue structures of the upper abdomen. RAD/Chest 1 View (Portable) IMPRESSION: Cardiomegaly and mild pulmonary vascular congestion. Electronically Signed: Elayne Martinez MD at 5:40 EDT ,
[2024-04-18] MEDS: LORazepam 2 MG/ML Syringe 1 MG IV (04:07)
[2024-04-18 04:09] LABS: Anion Gap 7 (5-15); BUN 18 mg/dL (7-18); Calcium,Total 9.1 mg/dL (8.5-10.1); Chloride 111 mmol/L (98-107); Creatinine, Serum 1.64 mg/dL (0.70-1.30); EST Glomerular Filtration Rate 45 mL/min (>60); Est Glom Filt Rate - Afr Amer 54 mL/min (>60); Estimated Creatinine Clearance 51.96 ml/min; Glucose 114 mg/dL (74-106); Potassium 3.8 mmol/L (3.5-5.1); Sodium Level 140 mmol/L (136-145)
[2024-04-18 04:18] VITALS: BP 131/81; PULSE 81; RESP 18; O2SAT 95
[2024-04-18 04:57] LABS: Bacteria 0 SEEN /hpf (None Seen); Mucous, Urine 0 SEEN /hpf (<or=2+); Squamous Epithelial Cells - UA 0 SEEN /hpf (0-5); White Blood Cells 0 SEEN /hpf (0-5)
[2024-04-18 05:00] VITALS: BP 117/75; PULSE 74; RESP 16; O2SAT 93
[2024-04-18 05:01] LABS: Lactic Acid 1.2 mmol/L (0.4-1.9)
[2024-04-18 05:17] LABS: Color, Urine Yellow (Yellow); Glucose, Dipstick Normal (Normal); Ketone-Dipstick Negative (Negative); Leukocyte Esterase-Dipstick Negative /ul (Negative); Nitrite-Dipstick Negative (Negative); Occult Blood-Urine 150 /ul (Negative); Protein-Dipstick 15 mg/dl (Negative); Urine Bilirubin Dipstick Negative (Negative); Urine Clarity Clear (Clear); Urine Urobilinogen Normal (Normal)
[2024-04-18 05:27] LABS: Red Blood Cells-Urine 0-5 SEEN /hpf (0-5)
[2024-04-18 06:00] VITALS: BP 107/82; PULSE 77; RESP 18; O2SAT 96
--- NOTE | 2024-04-18 06:00 | EX.ED.DYSGE1 ---
HPI History of Present Illness Chief Complaint: Alt LOC Informant: patient and family Narrative Narrative: Patient is a 63-year-old male with history of epilepsy currently taking Zonegran and Lamictal for seizure control. He also has a history of DVT/PE and is on Eliquis. He states that he follows with [facility] in [place] because of his epilepsy. He states that he also has these bouts where he will shake and either his arm or leg or both and that he will be able to hear everyone but just not able to speak. He states that [facility] has informed him that these events are not seizures but he states that they do not know what they are or what causes them. He states that he has been taking his medication as directed and denies any sick symptoms or medication/illicit drugs that could lower the seizure threshold. He states that he had these events happen last night into this morning and therefore sister brought him to the hospital for evaluation [facility] Medical History Implantable loop recorder present History of echocardiogram Stage 3a chronic kidney disease (CKD) Chronic anemia Received intravenous tissue plasminogen activator (tPA) in emergency department Osteoporosis Kidney stones Wears glasses Complete edentulism, class III Marijuana use Hepatitis High cholesterol Difficulty chewing History of ulceration Heartburn Smoker COPD (chronic obstructive pulmonary disease) Shortness of breath on exertion Leg cramps History of pain when walking History of edema Hypertension Hx of tilt table evaluation History of stress test Cardiology follow-up encounter Vertigo Small vessel disease Pulmonary vascular congestion Pleural effusion on left ELISABETH (obstructive sleep apnea) Mucous retention cyst Mitral valve annular calcification Leucocytosis Lightheadedness Left ventricular hypertrophy Intermittent claudication Hyperglycemia DVT (deep venous thrombosis) Epilepsy Drug abuse Costochondritis Carotid artery calcification Arthritis Anxiety Alcohol use Seizures SOB (shortness of breath) Numbness and tingling Acute kidney injury Unresponsive episode Seizure Stage III chronic kidney disease Home Medications ?Medication ?Instructions ?Recorded ?Last Taken ?Type losartan 50 mg tablet 50 mg PO QHS blood pressure 09/03/20 09/07/21 History rosuvastatin 40 mg tablet 40 mg PO DAILY 07/17/21 09/07/21 History nitroglycerin 0.4 mg sublingual 0.4 mg sublingual DAILY PRN PRN 09/01/21 Unknown History tablet Angina aspirin 81 mg chewable tablet 81 mg PO BREAKFAST #0 tabs 11/26/21 Unknown Rx albuterol sulfate 90 mcg/actuation 2 puff inhalation Q4H PRN 06/21/23 Unknown Rx aerosol inhaler shortness of breath or wheezing #8.5 grams lamotrigine 100 mg tablet 200 mg PO BID seizures 06/21/23 Unknown History zonisamide 100 mg capsule 100 mg PO BID 06/21/23 Unknown History apixaban 5 mg tablet (Eliquis) 5 mg PO BID #60 tabs 02/27/24 Unknown Rx lorazepam 1 mg tablet (Ativan) 1 mg PO TID PRN seizures 5 days 04/18/24 Unknown Rx #15 tabs Allergy/AdvReac Type Severity Reaction Status Date / Time cortisone Allergy Shortness Verified 04/18/24 03:19 of breath Penicillins Allergy SYNCOPE Verified 04/18/24 03:19 Family History (Reviewed 12/19/23 @ 14:58 by Angelita Ramos NUTRITIONAL ASSISTANT, NUTRITIONAL ASSISTANT-C) Sister Arthritis Cancer Depression Diabetes Hypertension Hyperlipidemia Thyroid disorder CVA (cerebral vascular accident) Seizures FH: mental illness Father Diabetes Heart disease Hypertension Hyperlipidemia Surgical History History of cardiac catheterization History of cystoscopy History of loop recorder History of appendectomy Social History Smoking Status: Light Smoker (<10/day) ROS ROS ED Constitutional Constitutional ED: Denies chills or fever(s) Eyes Eyes: Denies blurry vision or change in vision ENT ENT ED: Denies rhinorrhea or sore throat Cardiovascular Cardiovascular: Denies chest pain Respiratory/Chest Respiratory/Chest: Denies cough or dyspnea Gastrointestinal Gastrointestinal: Denies abdominal pain, diarrhea, nausea or vomiting Genitourinary Genitourinary ED: Denies dysuria Musculoskeletal Musculoskeletal: Denies back pain, myalgias or neck pain Integumentary Denies Abrasions or rash Neurologic Neurologic: Reports other Details: Positive seizure ; Denies headache(s) Hematologic/Lymphatic Hematologic/Lymphatic: Reports easy bleeding and easy bruising EXAM Physical Exam Const Vital Signs: 04/18/24 03:18 04/18/24 03:35 04/18/24 04:18 Temperature 98.1 F Temperature Source Oral Pulse Rate 90 81 Respiratory Rate 17 18 Blood Pressure 127/111 H 147/80 H 131/81 H Blood Pressure Mean 116 102 97 Pulse Ox 98 95 Oxygen Delivery Method Room Air Room Air 04/18/24 05:00 04/18/24 06:00 04/18/24 06:08 Temperature 98.0 F Temperature Source Pulse Rate 74 77 77 Respiratory Rate 16 18 18 Blood Pressure 117/75 107/82 H 107/82 H Blood Pressure Mean 89 90 90 Pulse Ox 93 96 96 Oxygen Delivery Method Room Air Room Air Positive well nourished and well developed General Appearance ED: well developed; Negative for pallor HEENT Reports moist mucous membranes HEENT Narrative: No tongue or cheek biting noted No secondary findings in the posterior pharynx to suggest infection Head is normocephalic atraumatic Eyes PERRL and EOMs intact bilaterally General Eye ED: Negative for scleral icterus Neck supple Neck Narrative: No nuchal rigidity or meningeal signs Chest Wall palpation of chest normal Chest Narrative: No bony deformity or crepitance noted Resp normal respiratory effort and clear to auscultation bilaterally Cardio regular rate and regular rhythm GI normal to inspection, nondistended, normoactive bowel sounds, non-tender, non-distended and no masses Auscultation: normoactive bowel sounds Palpation: soft Back/Spine Back/Spine Narrative: No bony deformity or step-off of the thoracic or lumbar spine no midline tenderness to palpation Extremity normal to inspection Extremity Narrative: No signs of long bone injury no joint effusion or dislocations noted Neuro oriented x3, CN's II-XII intact bilaterally and no sensory deficits noted Neuro Narrative: GCS of 15 Cranial nerves II through XII are grossly intact without focal neurologic deficit No pronator drift no dysmetria no truncal ataxia NIH stroke scale score of 0 Of note the patient does have a recurrent twitch of his right hand/arm however when I ask him to perform an activity such as lifting his leg or sitting up or lifting his arms the tremor seems to resolve. Sensorium / Orientation: alert Motor Exam: strength 5/5 throughout Psych mental status grossly normal Skin no rashes or lesions noted General Skin Exam: Negative for jaundice or pallor MDM MDM MDM Narrative Medical decision making narrative: Patient arrived to the ER hypertensive otherwise with stable vitals. He reported having a breakthrough seizure like events which has happened in the past despite taking his medications. There is concern for an infection such as UTI or pneumonia causing lowering of seizure threshold or potentially derangement to his electrolytes. Therefore chest x-ray was obtained to rule out pneumonia. Head CT was obtained to rule out brain bleed as he is on a blood thinner and could have a spontaneous bleed leading to his symptoms. Labs revealed no clinically significant findings and his lactic was normal going against a active seizure. Patient was given 1 mg of IV Ativan and had complete resolution of his tremors but no return of seizure activity and stabilization of his vitals. Therefore at this time the patient is awake and alert he has a normal neurologic exam there is been no seizure activity in the ER and his tremor has resolved with benzodiazepines. Therefore do not feel there is need for admission and he is otherwise safe for discharge and can follow-up on an outpatient basis History & Record Review Discussion w/independent historian: Patient and Family Lab Data Attestation: I reviewed the patient's lab results. Labs: Laboratory Results - last 24 hr 04/18/24 04/18/24 04/18/24 03:21 04:00 04:50 WBC 9.1 RBC 4.58 L Hgb 14.7 Hct 43.9 MCV 95.9 H MCH 32.1 H MCHC 33.5 RDW Std Deviation 45.9 H RDW Coeff of Vladislav 13.0 Plt Count 215 MPV 10.3 Immature Gran % (Auto) 0.300 Neut % (Auto) 50.6 Lymph % (Auto) 31.8 [place] % (Auto) 8.8 Eos % (Auto) 7.8 H Baso % (Auto) 0.7 Absolute Neuts (auto) 4.6 Absolute Lymphs (auto) 2.89 Nucleated RBC % 0 Sodium 140 Potassium 3.8 Chloride 111 H Carbon Dioxide 22.0 Anion Gap 7 BUN 18 Creatinine 1.64 H Estim Creat Clear Calc 51.96 Est GFR (MDRD) Af Amer 54 L Est GFR (MDRD) Non-Af 45 L BUN/Creatinine Ratio 11.0 Glucose 114 H Lactic Acid 1.2 Calcium 9.1 Magnesium 2.0 Urine Color Yellow Urine Clarity Clear Urine pH 6.0 Ur Specific [place] 1.020 Urine Protein 15 H Urine Glucose (UA) Normal Urine Ketones Negative Urine Occult Blood 150 H Urine Nitrite Negative Urine Bilirubin Negative Urine Urobilinogen Normal Ur Leukocyte Esterase Negative Urine RBC 0-5 SEEN Urine WBC 0 SEEN Ur Squamous Epith Cells 0 SEEN Urine Bacteria 0 SEEN Urine Mucus 0 SEEN Radiography Diagnostic Testing: Clinical Impression(s) from Imaging Studies Brain CT 04/18/24 03:47 IMPRESSION: No CT evidence for mass or acute intracranial hemorrhage. Electronically Signed: Elayne Martinez MD at 5:38 EDT , Chest X-Ray 04/18/24 04:00 IMPRESSION: Cardiomegaly and mild pulmonary vascular congestion. Electronically Signed: Elayne Martinez MD at 5:40 EDT , Chest x-ray as interpreted by the emergency medicine physician reveals cardiomegaly with mild pulmonary vascular congestion but no acute infiltrate or pneumothorax Discharge Plan Triage Chief Complaint: Alt LOC ED Provider: Santos Cevallos Dx/Rx/DC Orders Clinical Impression: Breakthrough seizure, Hypertension, Hyperlipidemia, Current use of hand scraper anticoagulation Instructions: ED Seizure, Recurrent (Adult) Prescriptions: New lorazepam [Ativan] 1 mg tablet 1 mg PO TID PRN (Reason: seizures) 5 Days Qty: 15 0RF No Action losartan 50 mg tablet 50 mg PO QHS albuterol sulfate 90 mcg/actuation HFA aerosol inhaler 2 puff inhalation Q4H PRN (Reason: shortness of breath or wheezing) Qty: 8.5 11RF zonisamide 100 mg capsule 100 mg PO BID rosuvastatin 40 mg tablet 40 mg PO DAILY nitroglycerin 0.4 mg tablet, sublingual 0.4 mg sublingual DAILY PRN PRN (Reason: Angina) Patient Comments: take 1 tablet by mouth every 5 minutes if needed for chest pain up to 3 doses as directed aspirin 81 mg Tablet,Chewable 81 mg PO BREAKFAST Qty: 0 0RF lamotrigine 100 mg tablet 200 mg PO BID Eliquis 5 mg tablet 5 mg PO BID Qty: 60 11RF Primary Care Provider: Cooper Blanchard Referrals: Cooper Blanchard DO [Primary Care Provider] - Activity Restrictions/Additional Instructions: Please follow-up with your neurologist for repeat evaluation. Continue all of your home medications as previously directed but add the Ativan up to 3 times a day as needed for breakthrough seizure control. Return to the ER should you have any further concerns Print Language: [place] Disposition Disposition: Home, Self Care Discharge Date/Time: 04/18/24 06:15
[2024-04-18 06:08] VITALS: BP 107/82; PULSE 77; RESP 18; TEMP 36.7; O2SAT 96
[2024-04-25 15:04] LABS: Bedside Glucose 106 mg/dL (74-106)
== END 2024-04-18 06:15 | disposition home or self-care (01) ==
PROVIDERS: Emergency Provider Emergency Medicine; PCP Student in an Organized Health Care Education/Training Program; Visit Provider Emergency Medicine
DX: R56.9 Unspecified convulsions (principal); J44.9 Chronic obstructive pulmonary disease, unspecified; N18.31 Chronic kidney disease, stage 3a; E78.00 Pure hypercholesterolemia, unspecified; Z79.01 Long term (current) use of anticoagulants; Z86.718 Personal history of other venous thrombosis and embolism; I12.9 Hypertensive chronic kidney disease with stage 1 through stage 4 chronic kidney disease, or unspecified chronic kidney disease; Z79.899 Other long term (current) drug therapy; I25.10 Atherosclerotic heart disease of native coronary artery without angina pectoris; Z79.82 Long term (current) use of aspirin; Z90.49 Acquired absence of other specified parts of digestive tract; F17.200 Nicotine dependence, unspecified, uncomplicated
CPT/HCPCS: 70450; 71045; 80048; 81001; 82962; 83605; 83735; 85025; 96374; 99283; A4216

== ENCOUNTER 2024-10-15 16:49 | Emergency (ER) | payer MEDICARE, MEDICAID, SELFPAY ==
[2024-10-15 16:52] VITALS: BP 151/87; PULSE 60; RESP 18; TEMP 36.9; O2SAT 98; BMI 36.1
--- NOTE | 2024-10-15 16:55 | EKG12_ITS ---
Test Reason : Blood Pressure : */* mmHG Vent. Rate : 85 BPM Atrial Rate : 85 BPM P-R Int : 176 ms QRS Dur : 82 ms QT Int : 360 ms P-R-T Axes : 40 -15 58 degrees QTcB Int : 428 ms Normal sinus rhythm Septal infarct , age undetermined Inferior infarct (cited on or before 24-Nov-2021) Abnormal ECG When compared with ECG of 21-Aug-2022 06:27, No significant change was found Confirmed by Rayray Brown ([id number]), telegraph editor REKHA WATTS ([id number]) on 10/21/2024 8:49:05 AM Referred By: Confirmed By: Rayray Brown
--- NOTE | 2024-10-15 18:00 | EDS_ITS ---
HPI History of Present Illness Chief Complaint: Headache Informant: patient Onset/Context/Timing Onset: Today Context: Sudden Onset Timing: Intermittent Quality: Sharp, dull Location: Right temporal area Current Severity: Gone Worsened by: Nothing Relieved by: Nothing Narrative Narrative: Patient presents with headache that began today. Patient states began rather suddenly. Patient states it comes and goes. Patient states it currently his h eadache has resolved. Patient describes it as sharp and dull. Patient states nothing makes it worse and nothing makes it better. Patient states it is over the right temporal area. Patient states that when he gets his headache he has double vision as well as triple vision. Patient states he feels like his right arm is shaking and he is leaning forward. Patient states he gets these symptoms prior to having a seizure. Patient states he has a history of partial seizures and usually his right side shakes for his seizures. Patient denies any fevers or chills. Patient denies any nausea or vomiting. Prior similar symptoms: Yes PFSH [facility] Medical History Implantable loop recorder present History of echocardiogram Stage 3a chronic kidney disease (CKD) Chronic anemia Received intravenous tissue plasminogen activator (tPA) in emergency department Osteoporosis Kidney stones Wears glasses Complete edentulism, class III Marijuana use Hepatitis High cholesterol Difficulty chewing History of ulceration Heartburn Smoker COPD (chronic obstructive pulmonary disease) Shortness of breath on exertion Leg cramps History of pain when walking History of edema Hypertension Hx of tilt table evaluation History of stress test Cardiology follow-up encounter Vertigo Small vessel disease Pulmonary vascular congestion Pleural effusion on left ELISABETH (obstructive sleep apnea) Mucous retention cyst Mitral valve annular calcification Leucocytosis Lightheadedness Left ventricular hypertrophy Intermittent claudication Hyperglycemia DVT (deep venous thrombosis) Epilepsy Drug abuse Costochondritis Carotid artery calcification Arthritis Anxiety Alcohol use Seizures SOB (shortness of breath) Numbness and tingling Acute kidney injury Unresponsive episode Seizure Stage III chronic kidney disease Home Medications ?Medication ?Instructions ?Recorded ?Last Taken ?Type losartan 50 mg tablet 50 mg PO QHS blood pressure 09/03/20 09/07/21 History rosuvastatin 40 mg tablet 40 mg PO DAILY 07/17/21 03/0 02/21 History nitroglycerin 0.4 mg sublingual 0.4 mg sublingual DOMINIC Y PRN PRN 09/01/21 Unknown History tablet Angina aspirin 81 mg chewable tablet 81 mg PO BREAKFAST #0 ta bs 11/26/21 Unknown Rx albuterol sulfate 90 mcg/actuation 2 puff inhalation Q 4H PRN 06/21/23 Unknown Rx aerosol inhaler shortness of breath or wheez ing #8.5 grams lamotrigine 100 mg tablet 200 mg PO BID seizures 06/21 Unknown History zonisamide 100 mg capsule 100 mg PO BID 06/21/23 Unkno wn History apixaban 5 mg tablet (Eliquis) 5 mg PO BID #60 tabs Unknown Rx lorazepam 1 mg tablet (Ativan) 1 mg PO TID PRN seizure s 5 days 04/18/24 Unknown Rx #15 tabs Allergy/AdvReac Type Severity Reaction Status Date / Time cortisone Allergy Shortness Verified 10/15/24 16:51 of breath Penicillins Allergy SYNCOPE Verified 10/15/24 16:51 Family History Sister Arthritis Cancer Depression Diabetes Hypertension Hyperlipidemia Thyroid disorder CVA (cerebral vascular accident) Seizures FH: mental illness Father Diabetes Heart disease Hypertension Hyperlipidemia Surgical History History of cardiac catheterization History of cystoscopy History of loop recorder History of appendectomy Social History Smoking Status: Light Smoker (<10/day) ROS ROS ED Constitutional Constitutional ED: Denies chills or fever(s) Eyes Eyes: Reports diplopia; Denies blurry vision ENT ENT ED: Denies rhinorrhea or sore throat Cardiovascular Cardiovascular: Denies chest pain or palpitations Respiratory/Chest Respiratory/Chest: Denies cough or dyspnea Gastrointestinal Gastrointestinal: Denies nausea or vomiting Genitourinary Genitourinary ED: Denies dysuria or hematuria Musculoskeletal Musculoskeletal: Denies back pain or neck pain Integumentary Denies abscess or rash Neurologic Neurologic: Reports headache(s); Denies weakness Allergic/Immunologic Allergic/Immunologic ED: Denies mouth swelling or urticaria EXAM Physical Exam Const Vital Signs: 10/15/24 16:52 10/15/24 18:30 10/15/24 18:51 Temperature 98.4 F Temperature Source Oral Pulse Rate 60 73 Respiratory Rate 18 Blood Pressure 151/87 H 120/72 Blood Pressure Mean 108 88 Pulse Ox 98 94 Oxygen Delivery Method Room Air Room Air 10/15/24 20:00 Temperature Temperature Source Pulse Rate 83 Respiratory Rate 16 Blood Pressure 116/73 Blood Pressure Mean 87 Pulse Ox 94 Oxygen Delivery Method Room Air Positive well nourished and well developed General Appearance ED: well developed and NAD HEENT Reports moist mucous membranes Eyes PERRL and EOMs intact bilaterally Neck supple Resp normal respiratory effort and clear to auscultation bilaterally Cardio regular rate and regular rhythm GI non-tender and non-distended Palpation: soft Extremity normal to inspection General Extremety ED: Negative for edema or tenderness General Extremity: Negative for edema Neuro oriented x3, CN's II-XII intact bilaterally and no sensory deficits noted Neuro Narrative: There is a mild tremor to the right lower extremity. Sensorium / Orientation: alert Motor Exam: strength 5/5 throughout Psych mental status grossly normal MDM MDM MDM Narrative Medical decision making narrative: Differential diagnosis includes intracranial bleeding, seizure, electrolyte abnormality, sinusitis, temporal arteritis, cardiac dysrhythmia, cardiac ischemia, pneumonia, and bronchitis. EKG will be obtained to assess for cardiac dysrhythmia and cardiac ischemia. Chest x-ray will be obtained to assess for pneumonia or bronchitis. CT scan of the brain will be obtained to assess for intracranial bleeding. CBC will be obtained to assess for leukocytosis and anemia. Basic metabolic profile will be obtained to assess for electrolyte abnormality and renal function. PT with INR and PTT will be obtained to assess for coagulopathy. Lamotrigine level will be obtained to assess for medication compliance. Sed rate and CRP will be obtained to assess for inflammatory markers. History & Record Review Additional record(s) reviewed:: Prior labs Lab Data Attestation: I reviewed the patient's lab results. Lab results narrative: CBC was reviewed and was within normal limits. PT with INR and PTT were removed and were within normal limits. Basic metabolic profile was reviewed. Creatinine was slightly elevated at 1.56. This is consistent with previous results. CRP was reviewed and was slightly elevated at 3.04. Sed rate was reviewed and was normal at 4. Labs: Laboratory Results - last 24 hr 10/15/24 18:00 WBC 7.9 RBC 4.50 L Hgb 14.5 Hct 42.2 MCV 93.8 MCH 32.2 H MCHC 34.4 RDW Std Deviation 45.0 H RDW Coeff of Vladislav 13.1 Plt Count 197 MPV 10.5 Immature Gran % (Auto) 0.400 Neut % (Auto) 57.6 Lymph % (Auto) 24.7 [place] % (Auto) 8.1 Eos % (Auto) 8.6 H Baso % (Auto) 0.6 Absolute Neuts (auto) 4.5 Absolute Lymphs (auto) 1.94 Nucleated RBC % 0 ESR 4 PT 14.2 INR 1.1 APTT 27.4 Sodium 139 Potassium 4.2 Chloride 109 H Carbon Dioxide 20.4 L Anion Gap 10 BUN 20 H Creatinine 1.56 H Estim Creat Clear Calc 56.25 Est GFR (MDRD) Non-Af 49 L BUN/Creatinine Ratio 13.0 Glucose 98 Calcium 9.3 C-React Prot Ext Range 3.04 H Radiography Diagnostic Testing: Clinical Impression(s) from Imaging Studies Chest X-Ray 10/15/24 18:05 IMPRESSION: Negative Chest. Reading Location: [facility] Brain CT 10/15/24 18:07 IMPRESSION: 1. No visible acute intracranial findings. If there is persistent concern for an acute intracranial process, consider MRI. 2. Mild paranasal sinus disease. 3. Additional description as above. Reading Location: [facility] CT scan of the brain was obtained. There is no acute intracranial abnormality. This was interpreted by the radiologist and was also independently reviewed by myself. Portable 1 view chest x-ray was obtained. On my independent interpretation, lung key are clear. There is normal cardiac silhouette. Bony thorax is normal. There is no acute process noted. Radiologist also interpreted the x- ray and agrees. EKG Initial EKG: Attestation: I personally reviewed and interpreted this EKG as follows: Interpretation: Sinus Rhythm (85) and No Acute Injury Pattern Comments: EKG was obtained. On my independent interpretation, it showed a normal sinus rhythm with a rate of 85. [place] interval, QRS interval, and QTc intervals were all normal. [place] was borderline left axis deviation at -15. There are no acute ST or T wave changes. Prior EKG tracings: available for review Prior: Unchanged (08/21/2022) Treatment and Re-Evaluation :: Patient was feeling better on reevaluation. Patient was advised of these findings. Patient was instructed to follow-up with his primary care physician in 5 to 7 days. Patient was advised that his primary care physician should have the results of his lamotrigine level by that time. Patient was instructed to return if worse in any way. Patient understood and was agreeable with the plan. All questions were answered. Discharge Plan Triage Chief Complaint: Headache ED Provider: Willis Gilliland Dx/Rx/DC Orders Clinical Impression: Headache, Nicotine dependence, cigarettes, uncomplicated Instructions: ED Headache Unspecified Prescriptions: No Action losartan 50 mg tablet 50 mg PO QHS albuterol sulfate 90 mcg/actuation HFA aerosol inhaler 2 puff inhalation Q4H PRN (Reason: shortness of breath or wheezing) Qty: 8.5 11RF zonisamide 100 mg capsule 100 mg PO BID rosuvastatin 40 mg tablet 40 mg PO DAILY nitroglycerin 0.4 mg tablet, sublingual 0.4 mg sublingual DAILY PRN PRN (Reason: Angina) Patient Comments: take 1 tablet by mouth every 5 minutes if needed for chest pain up to 3 doses as directed aspirin 81 mg Tablet,Chewable 81 mg PO BREAKFAST Qty: 0 0RF lamotrigine 100 mg tablet 200 mg PO BID lorazepam [Ativan] 1 mg tablet 1 mg PO TID PRN (Reason: seizures) 5 Days Qty: 15 0RF Eliquis 5 mg tablet 5 mg PO BID Qty: 60 11RF Primary Care Provider: Cooper Blanchard Referrals: Cooper Blanchard DO [Primary Care Provider] - 5-7 Days Print Language: Citizen Of [place] Disposition Disposition: Home, Self Care
--- NOTE | 2024-10-15 18:05 | RAD_ITS ---
PROCEDURE: CHEST 1 VIEW (PORTABLE) 10/15/2024 REASON FOR EXAM: STROKE TECHNIQUE: Frontal view of the chest. FINDINGS: Hardware: None Heart: Cardiac and mediastinal contours are stable. Lungs: The lungs are clear. Bones: The bones are unremarkable. Other: RAD/Chest 1 View (Portable) IMPRESSION: Negative Chest. Reading Location: [id number]
--- NOTE | 2024-10-15 18:07 | CT_ITS ---
PROCEDURE: BRAIN/HEAD WITHOUT CONTRAST 10/15/2024 REASON FOR EXAM: HEADACHE TECHNIQUE: CT head was performed without IV contrast. Coronal and sagittal reformats were generated. One or more dose reduction techniques were used (e.g., Automated exposure control, adjustment of the mA and/or kV according to patient size, use of iterative reconstruction technique. RADIATION DOSE SUMMARY: CTDlvol: 44.99 mGy DLP: 812.98 mGycm COMPARISON: None. FINDINGS: Cerebrum: Unremarkable. Cerebellum/brainstem: Unremarkable. Note slight limitation due to beam hardening artifact. Ventricles/extra-axial spaces: Unremarkable. Paranasal sinuses/mastoid air cells: Small mucous retention cysts versus polyps with mild background mucosal thickening, LEFT maxillary sinus.. Mild mucosal thickening also present in the LEFT frontal recess/inferior LEFT frontal sinus. Scalp/calvarium: Unremarkable. Other: Intracranial atherosclerosis. CT/Brain/Head without Contrast IMPRESSION: 1. No visible acute intracranial findings. If there is persistent concern for a n acute intracranial process, consider MRI. 2. Mild paranasal sinus disease. 3. Additional description as above. Reading Location: [id number]
[2024-10-15 18:29] LABS: Absolute Lymphocyte Count 1.94 X10^3/uL (0.83-4.51); Absolute Neutrophil Count 4.5 X10^3/uL (2.0-7.7); Basophil# 0.05 X10^3/uL; Basophil% 0.6 % (0-1); Eosinophil# 0.68 X10^3/uL; Eosinophils% 8.6 % (0-5); Hematocrit 42.2 % (40-54); Hemoglobin 14.5 g/dL (13.0-16.5); Lymphocyte # 1.94 X10^3/ul (0.83-4.51); Lymphocyte % 24.7 % (19-41); Mean Corp Hgb Conc 34.4 g/dL (32-36); Mean Corpuscular Hgb 32.2 pg (27.0-32.0); Mean Corpuscular Volume 93.8 fL (80-94); Mean Platelet Vol. 10.5 fl (6.2-12.0); Monocyte# 0.64 X10^3/uL; Monocyte% 8.1 % (0-10); NRBC Flagged by Analyzer 0 % (0-5); Neutrophil # 4.53 X10^3/uL (2.7-7.7); Neutrophil % 57.6 % (47-70); Platelet Count 197 K/mm3 (150-450); RBC Distribution Width CV 13.1 % (11.6-14.6); White Blood Count 7.9 K/mm3 (4.4-11.0)
[2024-10-15 18:40] LABS: International Normalized Ratio 1.1; Prothrombin Time (Protime)PT. 14.2 SECONDS (11.7-14.9)
[2024-10-15 18:50] LABS: Anion Gap 10 (5-15); BUN 20 mg/dL (4-19); Calcium,Total 9.3 mg/dL (7.6-11.0); Carbon Dioxide 20.4 mmol/L (21.0-32.0); Chloride 109 mmol/L (98-108); Creatinine, Serum 1.56 mg/dL (0.70-1.20); EST Glomerular Filtration Rate 49 (>60); Estimated Creatinine Clearance 56.25 ml/min (50-250); Glucose 98 mg/dL (70-99); Potassium 4.2 mmol/L (3.3-5.1); Sodium Level 139 mmol/L (133-145)
[2024-10-15 18:51] VITALS: BP 120/72; PULSE 73; O2SAT 94
[2024-10-15 19:11] LABS: CRP 3.04 mg/L (0.0-3.0)
[2024-10-15 19:18] LABS: Erythrocyte Sedimentation Rate 4 mm/hr (0-20)
[2024-10-15 19:58] LABS: Partial Thromboplast Time 27.4 Seconds (24.1-36.2)
--- NOTE | 2024-10-15 19:59 | ED.RN ---
LAB CALLED FOR OUTSTANDING COAGULATION LEVELS AND LAMOTRIGINE LEVELS. RESPONSE THE MACHINE RAN OUT REAGENT. IT SHOULD BE BACK IN A FEW MINUTES.
[2024-10-15 20:00] VITALS: BP 116/73; PULSE 83; RESP 16; O2SAT 94
[2024-10-15 21:02] VITALS: BP 116/62; PULSE 78; RESP 16; TEMP 36.9; O2SAT 96
== END 2024-10-15 21:03 | disposition home or self-care (01) ==
PROVIDERS: Emergency Provider Emergency Medicine; PCP Student in an Organized Health Care Education/Training Program; Visit Provider Emergency Medicine
DX: R51.9 Headache, unspecified (principal); J44.9 Chronic obstructive pulmonary disease, unspecified; R56.9 Unspecified convulsions; N18.31 Chronic kidney disease, stage 3a; E78.00 Pure hypercholesterolemia, unspecified; I12.9 Hypertensive chronic kidney disease with stage 1 through stage 4 chronic kidney disease, or unspecified chronic kidney disease; Z79.899 Other long term (current) drug therapy; Z79.82 Long term (current) use of aspirin; Z90.49 Acquired absence of other specified parts of digestive tract; F17.200 Nicotine dependence, unspecified, uncomplicated
CPT/HCPCS: 70450; 71045; 80048; 82542; 85025; 85610; 85652; 85730; 86140; 93005; 99283

== ENCOUNTER → 2024-11-14 | Outpatient (CLI) | payer MEDICARE, MEDICAID, SELFPAY ==
--- NOTE | 2024-11-15 14:51 | STRESSREP_ITS ---
Stress Test Report Date: 11/14/2024 Procedure: Pharmacologic stress nuclear imaging study Indications: Chest pain Consent: Per the patient Procedure: The patient underwent pharmacologic (Regadenoson) evaluation with a peak heart rate of 89 beats per minute (57%predicted maximal heart rate) and a peak blood pressure of 140/82 mmHg. The baseline ECG demonstrated normal sinus rhythm possible old anterior TN. EKG during lexiscan infusion revealed no significant ischemic changes. EKG post infusion revealed no significant ischemic changes [There were no cardiac dysrhythmias pretest, during pharmacologic infusion, or recovery]. [There was no complaint of chest discomfort during pharmacologic infusion or recovery]. The examination was discontinued secondary to completion of protocol. Impression: 1. Lexiscan stress test test is negative for Lexiscan infusion induced EKG changes of ischemia. 2. Lexiscan stress test test is negative for Lexiscan infusion induced chest pain. 3. Results of the nuclear portion of the test is as below Myocardial perfusion imaging study: Technique: The patient was injected with 14.1 millicuries of technetium 99m Cardiolite and subsequently rest SPECT Cardiolite nuclear imaging was obtained in the horizontal long, vertical long, and short axis views. The patient underwent pharmacologic [Regadenoson 0.4mg] evaluation. Please see above for details. The patient was injected with 44.3 millicuries of technetium 99m Cardiolite and subsequently stress SPECT Cardiolite nuclear imaging was obtained in the horizontal long, vertical long, and short axis views. A gated Cardiolite study at peak stress was obtained. Interpretation: Rest and stress SPECT Cardiolite nuclear imaging status post realignment, normalization, and attenuation correction demonstrate normal myocardial radioisotope uptake. No evidence of significant ischemia or infarction. Gated images reveal no significant regional wall motion abnormalities. The reported LVEF is 60%. Impression: 1. There is no evidence of significant ischemia or infarction. 2. Estimated ejection fraction is 60%. This note was generated with [employer] software. It may contain incorrect words, spelling, and punctuation that were not noted in checking the note before signing.
== END | disposition home or self-care (01) ==
PROVIDERS: PCP Student in an Organized Health Care Education/Training Program; Referring Provider Internal Medicine Cardiovascular Disease; Visit Provider Internal Medicine Cardiovascular Disease
DX: I25.10 Atherosclerotic heart disease of native coronary artery without angina pectoris (principal); I50.32 Chronic diastolic (congestive) heart failure; I11.0 Hypertensive heart disease with heart failure; E78.5 Hyperlipidemia, unspecified; I47.10 Supraventricular tachycardia, unspecified
CPT/HCPCS: 78452; 93017; A9500; J2785

== ENCOUNTER → 2024-12-25 | Outpatient (CLI) | payer MEDICARE, MEDICAID, SELFPAY ==
--- NOTE | 2024-12-25 16:02 | CT_ITS ---
PROCEDURE: LOW DOSE CT LUNG SCREENING 12/25/2024 REASON FOR EXAM: SMOKER TECHNIQUE: LOW DOSE CT LUNG SCREENING Coronal and Sagittal reconstruction series were provided. One or more dose reduction techniques were used (e.g., Automated exposure control, adjustment of the mA and/or kV according to patient size, use of iterative reconstruction technique). REFERENCE LINK: [employer] Lung-RADS RADIATION DOSE SUMMARY: CTDlvol: 4 mGy DLP: 134 mGycm COMPARISON: 11/24/2023 FINDINGS: Central airways are patent. Mild bronchial wall thickening. Well inflated lungs. Mild emphysema. No consolidation, effusion, or pneumothorax. On the left,, series 602, image 209, 5 mm pleural-based lower lobe nodular density, stable, likely nodular airspace disease. On the right, series 2, image 100, intrapulmonary lymph node. No suspicious lung nodules. Unremarkable base of neck and axilla. Thoracic spine degeneration. Normal esophagus. Normal heart size. No acute vascular pathology on noncontrast scanning. Cholelithiasis. Multiple right renal calcifications measuring up to 4 mm. No acute upper abdominal findings. CT/Low Dose CT Lung Screening IMPRESSION: No suspicious lung nodules Lung-RADS Category: 1 Other Significant Findings: [facility]
== END | disposition home or self-care (01) ==
LOC: CT 15:57
PROVIDERS: PCP Student in an Organized Health Care Education/Training Program; Referring Provider Nurse Practitioner Acute Care; Visit Provider Nurse Practitioner Acute Care
DX: F17.210 Nicotine dependence, cigarettes, uncomplicated (principal)
CPT/HCPCS: 71271

== ENCOUNTER 2025-05-01 00:59 | Emergency (ER) | payer MEDICARE, MEDICAID, SELFPAY ==
[2025-05-01] VITALS (7 sets, daily range): BP systolic 123–160; BP diastolic 61–99; PULSE 71–94; RESP 16–19; TEMP 36.4–36.6; O2SAT 94–100; BMI 34.7
--- NOTE | 2025-05-01 01:18 | EKG12_ITS ---
Test Reason : CP
[2025-05-01 01:26] LABS: Hematocrit 42.0 % (40-54); Hemoglobin 13.8 g/dL (13.0-16.5); Immature Granulocytes Count 0.010 X10^3/uL (0.0-0.0); Mean Corp Hgb Conc 32.9 g/dL (32-36); Mean Corpuscular Volume 94.2 fL (80-94); Mean Platelet Vol. 9.9 fl (6.2-12.0); NRBC Flagged by Analyzer 0 % (0-5); Platelet Count 216 K/mm3 (150-450); RBC Distribution Width CV 12.9 % (11.6-14.6); RBC Distribution Width SD 44.3 fl (35.1-43.9); Red Blood Count 4.46 M/mm3 (4.6-6.2); White Blood Count 6.9 K/mm3 (4.4-11.0)
--- NOTE | 2025-05-01 01:30 | RAD_ITS ---
PROCEDURE: RAD/Chest PA and Lateral
--- NOTE | 2025-05-01 01:36 | ED.VIS.DYS ---
HPI History of Present Illness Chief Complaint: Shortness of Breath Informant: patient and family Narrative Narrative: Patient is a 64-year-old male with history of CKD 3, epilepsy, COPD, DVT (on Eliquis), anxiety and chronic vertigo presenting for evaluation of shortness of breath and chest discomfort. Patient states he feels okay right now but around midnight was on the phone with his girlfriend (who lives in the [facility]) when he started to get pain and pressure in his chest. He states it radiated to his left arm. Lasted about 15 to 20 minutes. States it felt hard to breathe and he felt he was wheezing. States his throat felt dry. He states normally something like this happens he will drink some Mountain Dew and it will pass. The time it did not. Sister does state that he had a coughing fit earlier today as well with phlegm production but there is no color. He does smoke cigarettes. He states he did have an episode of dizziness which he describes as vertigo and lightheadedness around 3 PM while doing the dishes tonight. This is not in itself unique. Denies any recent swelling of his legs. States has not missed any doses of his Eliquis in the past 2 weeks. Denies any fever or chills. Has any GI or symptoms. Denies any recent URI symptoms. Denies any sick contacts. No other complaints or concerns reported at this time. [facility] Medical History Implantable loop recorder present History of echocardiogram Stage 3a chronic kidney disease (CKD) Chronic anemia Received intravenous tissue plasminogen activator (tPA) in emergency department Osteoporosis Kidney stones Wears glasses Complete edentulism, class III Marijuana use Hepatitis High cholesterol Difficulty chewing History of ulceration Heartburn Smoker COPD (chronic obstructive pulmonary disease) Shortness of breath on exertion Leg cramps History of pain when walking History of edema Hypertension Hx of tilt table evaluation History of stress test Cardiology follow-up encounter Vertigo Small vessel disease Pulmonary vascular congestion Pleural effusion on left ELISABETH (obstructive sleep apnea) Mucous retention cyst Mitral valve annular calcification Leucocytosis Lightheadedness Left ventricular hypertrophy Intermittent claudication Hyperglycemia DVT (deep venous thrombosis) Epilepsy Drug abuse Costochondritis Carotid artery calcification Arthritis Anxiety Alcohol use Seizures SOB (shortness of breath) Numbness and tingling Acute kidney injury Unresponsive episode Seizure Stage III chronic kidney disease Home Medications ?Medication ?Instructions ?Recorded ?Last Taken ?Type losartan 50 mg tablet 50 mg PO QHS blood pressure 09/03/20 09/07/21 History rosuvastatin 40 mg tablet 40 mg PO DAILY 07/17/21 09/07/21 History nitroglycerin 0.4 mg sublingual 0.4 mg sublingual DAILY PRN PRN 09/01/21 Unknown History tablet Angina aspirin 81 mg chewable tablet 81 mg PO BREAKFAST #0 tabs 11/26/21 Unknown Rx zonisamide 100 mg capsule 100 mg PO BID 06/21/23 Unknown History apixaban 5 mg tablet (Eliquis) 5 mg PO BID #60 tabs 02/27/24 Unknown Rx lamotrigine 200 mg tablet 200 mg PO BID 05/01/25 Unknown History terbinafine HCl 250 mg tablet 250 mg PO DAILY 05/01/25 Unknown History Allergy/AdvReac Type Severity Reaction Status Date / Time cortisone Allergy Shortness Verified 05/01/25 01:00 of breath Penicillins Allergy SYNCOPE Verified 05/01/25 01:00 Family History Sister Arthritis Cancer Depression Diabetes Hypertension Hyperlipidemia Thyroid disorder CVA (cerebral vascular accident) Seizures FH: mental illness Father Diabetes Heart disease Hypertension Hyperlipidemia Surgical History History of cardiac catheterization History of cystoscopy History of loop recorder History of appendectomy Social History Smoking Status: Heavy Smoker (>10/day) ROS [facility] ED Constitutional Constitutional ED: Denies chills or fever(s) Cardiovascular Cardiovascular: Reports chest pain; Denies palpitations Respiratory/Chest Respiratory/Chest: Reports cough, dyspnea and sputum Gastrointestinal Gastrointestinal: Denies abdominal pain, nausea or vomiting Musculoskeletal Musculoskeletal: Denies arthralgias or myalgias Neurologic Neurologic: Denies headache(s) or weakness Psychiatric Psychiatric: Reports anxiety Hematologic/Lymphatic Hematologic/Lymphatic: Reports easy bleeding and easy bruising EXAM Physical Exam Const Vital Signs: 05/01/25 01:00 05/01/25 01:00 05/01/25 01:15 Temperature 97.5 F L Temperature Source Oral Pulse Rate 78 80 Pulse Rate [Lying] Pulse Rate [Sitting (for 1 minute prior to obtaining)] Pulse Rate [Standing (for 1 minute prior to obtaining)] Respiratory Rate 19 H 16 Respiratory Effort Short of Breath Respiratory Depth Normal Respiratory Pattern Normal Blood Pressure 134/77 H Blood Pressure [Lying] Blood Pressure [Sitting (for 1 minute prior to obtaining)] Blood Pressure [Standing (for 1 minute prior to obtaining)] Blood Pressure Mean 93 Blood Pressure Mean [Lying] Blood Pressure Mean [Sitting (for 1 minute prior to obtaining)] Blood Pressure Mean [Standing (for 1 minute prior to obtaining)] Pulse Ox 100 99 Oxygen Delivery Method Room Air Room Air Room Air 05/01/25 01:18 05/01/25 01:41 05/01/25 02:00 Temperature Temperature Source Pulse Rate 77 Pulse Rate [Lying] 71 Pulse Rate [Sitting (for 1 minute prior to obtaining)] 89 Pulse Rate [Standing (for 1 minute prior to obtaining)] 94 Respiratory Rate 18 Respiratory Effort Respiratory Depth Respiratory Pattern Normal Blood Pressure Blood Pressure [Lying] 128/61 H Blood Pressure [Sitting (for 1 minute prior to obtaining)] 160/99 H Blood Pressure [Standing (for 1 minute prior to obtaining)] 154/91 H Blood Pressure Mean Blood Pressure Mean [Lying] 83 Blood Pressure Mean [Sitting (for 1 minute prior to obtaining)] 119 Blood Pressure Mean [Standing (for 1 minute prior to obtaining)] 112 Pulse Ox 98 Oxygen Delivery Method Room Air 05/01/25 03:00 05/01/25 04:00 05/01/25 04:00 Temperature 98 F Temperature Source Pulse Rate 76 75 75 Pulse Rate [Lying] Pulse Rate [Sitting (for 1 minute prior to obtaining)] Pulse Rate [Standing (for 1 minute prior to obtaining)] Respiratory Rate 18 18 18 Respiratory Effort Respiratory Depth Respiratory Pattern Blood Pressure 132/84 H 123/79 H 123/79 H Blood Pressure [Lying] Blood Pressure [Sitting (for 1 minute prior to obtaining)] Blood Pressure [Standing (for 1 minute prior to obtaining)] Blood Pressure Mean 100 93 93 Blood Pressure Mean [Lying] Blood Pressure Mean [Sitting (for 1 minute prior to obtaining)] Blood Pressure Mean [Standing (for 1 minute prior to obtaining)] Pulse Ox 97 99 94 Oxygen Delivery Method Room Air Room Air Positive well nourished and well developed General Appearance ED: well developed and NAD; Negative for pallor HEENT Reports TM's clear and moist mucous membranes HEENT Narrative: Normal nares, no nasal congestion present atraumatic Tympanic Membrane ED: Yes TM's clear Eyes PERRL Neck supple and no JVD Resp normal respiratory effort Resp Narrative: Diminished breath sounds at the bases. Limited air movement currently. No crackles or rales appreciated. Cardio regular rate, regular rhythm and no murmurs GI non-tender and non-distended Extremity normal to inspection General Extremety ED: Negative for edema General Extremity: Negative for edema Neuro oriented x3 Neuro Narrative: No tremor noted Sensorium / Orientation: alert Motor Exam: Negative for general weakness Psych mental status grossly normal Mood & Affect: anxious Skin General Skin Exam: Negative for jaundice or pallor MDM MDM MDM Narrative Medical decision making narrative: Stress test reviewed from 11/15/2024?negative for induced ischemia or chest pain Patient is evaluated sudden onset shortness of breath and chest discomfort that started tonight. Does feel achy as wheezing is little hard to breathe. Patient is given a DuoNeb as he does have diminished breath sounds. Clinically he improves. He is currently not having chest pain. Cardiac workup will be obtained given he does have multiple cardiac risk factors. Patient is on Eliquis and states he has been compliant with it. I do not think he requires workup for pulmonary emboli. CBC, BMP and delta high-sensitivity troponin obtained. These are all largely normal. EKG does not show any acute ischemic process. Chest x-ray viewed by myself as well as radiology does not show any acute process. At 1 point in ER he starts to have what seems to be more of an intentional tremor which he states is consistent with his episodes. He is given dose of Ativan as he states that he does have a history of seizures however this is not consistent with seizure activity. In addition it would be beneficial as I suspect it is more triggered by anxiety and he also is complaining of his chronic vertigo and benzodiazepine should help with that. Patient is reevaluated, he is feeling much better. Will be given an for an inhaler to use at home as he states he does not have 1. Discussed steroids for treatment of COPD exacerbation for patient states he does not want to take steroids as they do not agree with him. Given the does not have any prodrome of a recent viral illness, acute change in cough except for short episode tonight I think is reasonable to defer steroids. Discharged home in stable condition. Sisters also at the bedside and agreeable with plan. Lab Data Attestation: I reviewed the patient's lab results. Labs: Laboratory Results - last 24 hr 05/01/25 05/01/25 01:10 03:00 WBC 6.9 RBC 4.46 L Hgb 13.8 Hct 42.0 MCV 94.2 H MCH 30.9 MCHC 32.9 RDW Std Deviation 44.3 H RDW Coeff of Vladislav 12.9 Plt Count 216 MPV 9.9 Immature Gran % (Auto) 0.100 Neut % (Auto) 50.3 Lymph % (Auto) 26.7 [place] % (Auto) 10.6 H Eos % (Auto) 11.4 H Baso % (Auto) 0.9 Absolute Neuts (auto) 3.5 Absolute Lymphs (auto) 1.84 Nucleated RBC % 0 Sodium 137 Potassium 4.1 Chloride 108 Carbon Dioxide 20.8 L Anion Gap 8 BUN 18 Creatinine 1.77 H Estim Creat Clear Calc 47.89 L Est GFR (MDRD) Non-Af 42 L BUN/Creatinine Ratio 10.1 Glucose 98 Calcium 9.4 Troponin T High Sens 14 Troponin T Hi Sens 2 Hr 17 Radiography Diagnostic Testing: Clinical Impression(s) from Imaging Studies Chest X-Ray 05/01/25 01:30 IMPRESSION: No acute cardiopulmonary process. Reading Location: [place] [address] Rhythm Strip Rhythm Strip: Sinus Rhythm Rate: 79 Ectopy: None EKG Initial EKG: Attestation: I personally reviewed and interpreted this EKG as follows: Interpretation: Sinus Rhythm Comments: Normal sinus rhythm at a rate of 79 bpm Left axis deviation Minimal voltage criteria for LVH T wave inversions in 1 and aVL with flattening of the T wave in V6 but no reciprocal changes Prior EKG tracings: available for review Prior: Unchanged Discharge Plan Triage Chief Complaint: Shortness of Breath ED Provider: Anita Galarza Dx/Rx/DC Orders Clinical Impression: SOB (shortness of breath), Wheezing, Anticoagulant long-term use Instructions: ED Dyspnea Prescriptions: No Action losartan 50 mg tablet 50 mg PO QHS zonisamide 100 mg capsule 100 mg PO BID rosuvastatin 40 mg tablet 40 mg PO DAILY nitroglycerin 0.4 mg tablet, sublingual 0.4 mg sublingual DAILY PRN PRN (Reason: Angina) Patient Comments: take 1 tablet by mouth every 5 minutes if needed for chest pain up to 3 doses as directed aspirin 81 mg Tablet,Chewable 81 mg PO BREAKFAST Qty: 0 0RF lamotrigine 200 mg tablet 200 mg PO BID terbinafine HCl 250 mg tablet 250 mg PO DAILY Eliquis 5 mg tablet 5 mg PO BID Qty: 60 11RF Primary Care Provider: Cooper Blanchard Referrals: Cooper Blanchard DO [Primary Care Provider, Family Practice] Activity Restrictions/Additional Instructions: Your workup today was largely normal. No signs of pneumonia, acute heart abnormality/stress or other more severe process. You were given IV fluids and an inhaler. Use inhaler 1 to 2 puffs every 4-6 hours as needed for shortness of breath or wheezing. Please follow-up with your family doctor later this week for repeat evaluation and further outpatient workup especially if the symptoms continue. Print Language: Spanish Disposition Disposition: Home, Self Care Discharge Date/Time: 05/01/25 04:13
[2025-05-01 01:44] LABS: Troponin T High Sensitivity 14 ng/L (<=22)
[2025-05-01 01:46] LABS: Anion Gap 8 (5-15); BUN 18 mg/dL (4-19); BUN/Creat Ratio 10.1 RATIO (10-20); Calcium,Total 9.4 mg/dL (7.6-11.0); Carbon Dioxide 20.8 mmol/L (21.0-32.0); Chloride 108 mmol/L (98-108); Estimated Creatinine Clearance 47.89 ml/min (50-250); Glucose 98 mg/dL (70-99); Potassium 4.1 mmol/L (3.3-5.1)
[2025-05-01] MEDS: 0.9% Normal Saline (500mL Bag) 500 ML 999 ML IV (02:00)
--- NOTE | 2025-05-01 02:55 | ED.RN ---
This RN was called into the patient's room by the patient's sister who told this RN that the patient is starting to have one of his seizures, his legs are shaking and his IV is leaking. This RN went to assess the patient, who was lying in his bed with his eyes closed, his left leg gently shaking and his right arm gently shaking. The patient was able to answer all of this RN's assessment questions. However, this RN went to grab supplies to restart the patient's IV that was leaking and unable to use. When this RN reentered the room and the patient is no longer shaking, this RN moved the patient's right arm, this RN reached for the alcohol swab and then the patient begins to clench the patient's fists and withdrawal from this RN. This RN attempted to reach for the patient's arm and the patient stated, hold on, I am fighting off my seizure. This RN educated the patient and the patient's sister at bedside that this behavior is not typical seizure activity and seizures are not able to be controlled. The patient's sister stated, I know, he has these episodes that he just has to fight off and then he will be okay. This RN initiated a new IV and after a minute of the patient's episode, the patient stopped, relaxed in bed and stated, I am better now, I just had to fight off the seizure. notified.
[2025-05-01 03:28] LABS: Troponin T High Sens 2 HR 17 ng/L (<=22)
[2025-05-01] MEDS: Albuterol Sulfate 8 gm Inhaler (60 puffs) 2 PUFF INHALATION (04:10)
== END 2025-05-01 04:13 | disposition home or self-care (01) ==
PROVIDERS: Emergency Provider Emergency Medicine; PCP Student in an Organized Health Care Education/Training Program; Visit Provider Emergency Medicine
DX: R06.02 Shortness of breath (principal); J44.9 Chronic obstructive pulmonary disease, unspecified; N18.31 Chronic kidney disease, stage 3a; F41.9 Anxiety disorder, unspecified; F17.210 Nicotine dependence, cigarettes, uncomplicated; E78.00 Pure hypercholesterolemia, unspecified; Z86.718 Personal history of other venous thrombosis and embolism; I12.9 Hypertensive chronic kidney disease with stage 1 through stage 4 chronic kidney disease, or unspecified chronic kidney disease; Z79.01 Long term (current) use of anticoagulants; Z79.899 Other long term (current) drug therapy; Z79.82 Long term (current) use of aspirin; Z90.49 Acquired absence of other specified parts of digestive tract; R06.2 Wheezing
CPT/HCPCS: 71046; 80048; 84484; 85025; 93005; 94640; 96361; 96374; 99285; A4216